=== PATIENT | female | born 1935 | race American Indian/Alaskan Native ===

== ENCOUNTER 2017-03-02 15:28 | Emergency (ER) | payer MEDICARE ==
--- NOTE | 2017-03-02 20:11 | XRay Report ---
FINAL REPORT EXAM: XR SPINE LUMBOSACRAL 2-3V HISTORY: unwitnessed fall,dementia TECHNIQUE: Lumbar spine two views PRIORS: None. FINDINGS: Exam is somewhat limited. Positioning is suboptimal Skeletal structures are diffusely osteopenic There is compression deformity at L1, L4 and L5 age indeterminate. There is marked disc space narrowing at T12-L1 L2-L3. No evidence for spondylolisthesis. Evaluation of posterior elements is somewhat limited on the exam. Aortoiliac atherosclerotic calcifications are identified. Multiple calcifications in the pelvis likely indicate calcified uterine fibroids IMPRESSION: . Limited exam. Marked osteopenia Compression fractures L1-L4 L5 age indeterminate
--- NOTE | 2017-03-02 20:19 | Cat Scan Report ---
FINAL REPORT EXAM: CT HEAD/BRAIN WO CON HISTORY: unwitnessed fall,dementia TECHNIQUE: CT head without contrast PRIORS: None. FINDINGS: No acute intra-axial or extra-axial hemorrhage is identified. There is no evidence of midline shift or mass effect. There is generalized prominence of ventricles and sulci consistent with mild generalized atrophy. Tamez-white matter differentiation is intact. No acute parenchymal abnormalities seen. There are patchy and confluent hypodensities within the supratentorial white matter. Bony calvarium is grossly intact. Visualized portions of the mastoids and paranasal sinuses are unremarkable. IMPRESSION: Chronic small vessel white matter ischemic change Mild generalized atrophy
--- NOTE | 2017-03-02 20:33 | Cat Scan Report ---
FINAL REPORT EXAM: CT CERVICAL SPINE WO CON HISTORY: unwitnessed fall,dementia TECHNIQUE: CT cervical spine with reconstructions PRIORS: None. FINDINGS: There is limitation due to patient positioning. Skeletal structures are osteopenic. There is compression deformity at C5 and C6 age-indeterminate. There are bridging vertebral body osteophytes lower cervical spine. Multilevel facet joint arthropathy is present. The vertebral bodies are normal in alignment. IMPRESSION: Osteopenia Loss of height with compression fractures C5-C6 age indeterminate. Spondylosis with prominent osteophytes lower cervical spine and multilevel facet joint arthropathy
--- NOTE | 2017-03-02 20:37 | XRay Report ---
FINAL REPORT EXAM: XR FEMUR BILAT 2+V HISTORY: unwitnessed fall,dementia TECHNIQUE: Left femur AP and lateral views PRIORS: None. FINDINGS: Positioning is suboptimal patient is unable to optimally position the exam. Skeletal structures are markedly osteopenic demonstrated are fractures of the proximal tibia and fibula. These appear corticated or partially corticated and likely remote. There is a history of injury 1 year previously. Atherosclerotic vascular calcifications are noted. Hip appears intact. IMPRESSION: Fractures of the proximal tibia and fibula with angulation. These appear likely chronic and there is some bony callus formation noted. Marked osteopenia Atherosclerosis
--- NOTE | 2017-03-02 20:39 | XRay Report ---
FINAL REPORT EXAM: XR TIB/FIB BILAT 2V HISTORY: unwitnessed fall,dementia TECHNIQUE: Left tibia-fibula two views PRIORS: None. FINDINGS: Fractures the proximal tibia and fibula with deformity and bony callus formation present further described on today's femur series. There is history of injury 1 year prior. Skeletal structures are markedly osteopenic. Grade there is a transverse fracture through the distal fibula which appears acute or subacute. There is also some bony deformity of the distal tibia which may reflect additional acute or subacute fracture. And there is some soft tissue swelling at the ankle. IMPRESSION: Fractures of the proximal tibia and fibula with deformity and bony callus appear chronic Suspect acute fractures through the distal tibia and fibula Severe osteopenia
--- NOTE | 2017-03-02 20:43 | XRay Report ---
FINAL REPORT EXAM: XR FOREARM BILAT 2V HISTORY: unwitnessed fall,dementia TECHNIQUE: Left forearm and right forearm PRIORS: None. FINDINGS: Skeletal structures are markedly osteopenic. No acute fractures are identified. Atherosclerotic vascular calcifications are noted. No evidence for dislocation. IMPRESSION: Severe osteopenia Atherosclerosis
--- NOTE | 2017-03-02 20:47 | XRay Report ---
FINAL REPORT EXAM: XR HUMERUS BILAT 2+V HISTORY: unwitnessed fall,dementia TECHNIQUE: Left humerus three views. And right humerus three views PRIORS: None. FINDINGS: Skeletal structures are osteopenic. There is corticated deformity of the proximal left humerus most consistent with a remote fracture no acute fracture or dislocation is identified. No evidence for effusion at the elbow. AC joint appears intact. IMPRESSION: Osteopenia. Remote fracture of the left humeral neck
--- NOTE | 2017-03-02 20:48 | XRay Report ---
FINAL REPORT EXAM: XR PELVIS 1-2V HISTORY: unwitnessed fall,dementia TECHNIQUE: AP pelvis PRIORS: None. FINDINGS: Exam is significantly limited due to inability to optimally position the patient. Within the limits of the exam no displaced fractures are identified. Multiple pelvic calcifications likely reflect calcified uterine fibroids. IMPRESSION: Severe osteopenia Limited exam. No definitive acute fracture identified
--- NOTE | 2017-03-02 21:10 | Emergency Department Report ---
ED Fall HPI - General Chief Complaint: Fall Stated Complaint: FALL Time Seen by Provider: 03/02/17 16:37 Source: EMS Mode of arrival: Stretcher Limitations: Physical Limitation (nonambulatory), Other (dementia/schizophrenia) - History of Present Illness Initial Comments: 81-year-old female past medical history CVA with residual right-sided deficit, schizophrenia, dementia, diabetes, and hypertension [facility] is nonambulatory. Per [facility] staff only reports the patient fell this morning. They did mobile x-rays of bilateral upper and lower extremities however, results are unknown. Patient was sent to the hospital per request of family member. Patient is unable to provide any history of present illness secondary to underlying dementia and schizophrenia. Mental status is baseline - Related Data Home Medications Medication Instructions Recorded Confirmed Last Taken Amlodipine Besylate [Norvasc] 10 mg PO DAILY 04/26/16 04/26/16 Unknown Divalproex Sprinkle [Depakote 125 mg PO BID PRN 04/26/16 04/26/16 Unknown Sprinkle] Ergocalciferol [Vitamin D2] 1 cap PO QWEEK 04/26/16 04/26/16 Unknown Ranitidine HCl [Acid Control] 150 mg PO Q12H 04/26/16 04/26/16 Unknown Previous Rx's Medication Instructions Recorded Last Taken Type HYDROcodone/APAP 7.5-325 [[place]] 15 ml PO Q4HR PRN #7 oz 04/30/16 Unknown Rx Levofloxacin 500Mg/100Ml [Levaquin 100 ml IV Q48H #2 bag 04/30/16 Unknown Rx IV PREMIX] Allergies Allergy/AdvReac Type Severity Reaction Status Date / Time No Known Allergies Allergy Verified 04/26/16 16:17 ED Review of Systems ROS: Stated complaint: FALL Other details as noted in HPI Comment: Unobtainable due to pts medical conditions ED Past Medical Hx - Past Medical History Previous Medical History?: Yes Hx Hypertension: Yes Hx CVA: Yes Hx Diabetes: Yes Hx Psychiatric Treatment: Yes (major depressive disorder, schizophrenia) Hx Dementia: Yes Additional medical history: anemia. left hand contracture. hemiplegia and hemiparesis. dementia - Surgical History Past Surgical History?: Yes Additional Surgical History: colostomy - Social History Smoking Status: Never Smoker Substance Use Type: None - Medications Home Medications: Home Medications Medication Instructions Recorded Confirmed Last Taken Type Amlodipine Besylate [Norvasc] 10 mg PO DAILY 04/26/16 04/26/16 Unknown History Divalproex Sprinkle [Depakote 125 mg PO BID PRN 04/26/16 04/26/16 Unknown History Sprinkle] Ergocalciferol [Vitamin D2] 1 cap PO QWEEK 04/26/16 04/26/16 Unknown History Ranitidine HCl [Acid Control] 150 mg PO Q12H 04/26/16 04/26/16 Unknown History HYDROcodone/APAP 7.5-325 [[place]] 15 ml PO Q4HR PRN #7 oz 04/30/16 Unknown Rx Levofloxacin 500Mg/100Ml [Levaquin 100 ml IV Q48H #2 bag 04/30/16 Unknown Rx IV PREMIX] ED Physical Exam - General Limitations: Altered Mental Status, Physical Limitation - Other Other exam information: General: No limitations, patient is alert in no acute distress Head exam: Atraumatic, normocephalic Eyes exam: Normal appearance ENT: Moist mucous membrane, normal oropharynx Neck exam: Normal inspection, full range of motion, no meningismus nontender Respiratory exam: Clear to auscultation bilateral Cardiovascular: Normal rate and rhythm, normal heart sounds Abdomen: Soft, nondistended, and nontender, with normal bowel sounds, no rebound, or guarding Extremity: Right sided hemiparesis Back: Normal Inspection, full range of motion, no tenderness Neurologic: Patient is alert, only moans and screams but no matter where she is touched. Right-sided hemiparesis noted with limited passive movement secondary to contracture Psychiatric: normal affect, normal mood Skin: Chronic wound to right foot ED Course Vital Signs 03/02/17 16:03 Temperature 98.4 F Pulse Rate 80 Respiratory 16 Rate Blood Pressure 132/64 O2 Sat by Pulse 97 Oximetry ED Medical Decision Making - Radiology Data Radiology results: report reviewed X-ray bilateral femur: fractures f the proximal tibia and fibula likely remote. Hip appears to be intact. sclerotic vascular calcifications. Marked osteopenia. Bilateral forearms: Severe osteopenia. No acute fracture X-ray bilateral humerus: remote fractures of the left humeral neck. Pelvis x-ray: Severe osteopenia. Limited exam. No definite acute fracture identified. X-ray lumbar spine: Limited exam. Marked osteopenia. Compression fractures at L1-L4, L5 age indeterminate Bilateral tib-fib x-ray: Chronic proximal tib-fib fracture on the right. Suspect acute fractures to the distal tip/fibula on the right. Severe osteopenia CT head: Chronic small vessel white matter ischemic change. Mild generalized atrophy CT cervical spine: Loss of height with compression fracture C5-C6 age indeterminate. - Medical Decision Making I suspect a proximal right tib-fib fracture is chronic and was visualized on CT scan in April 2016. Patient has severe osteopenia and multiple chronic fractures identified. Right distal tib-fib fracture appears to be subacute to acute. Patient has a chronic wound on this foot and will be placed in a Velcro splint. Patient has indeterminate age compression fractures of the C and L- spine. Follow-up fully recommended. Patient is not ambulatory. [facility] Niece at bedside informed of findings and dispo NH plan. Pt will be sent back with imaging reports. - Differential Diagnosis fracture, contusion, sprain, ICH Critical Care Time: No Critical care attestation.: If time is entered above; I have spent that time in minutes in the direct care of this critically ill patient, excluding procedure time. ED Disposition Clinical Impression: Fracture of right ankle, Fall, History of CVA with residual deficit, Right sided weakness, Dementia, Cervical compression fracture, Lumbar compression fracture Disposition: - TO HOME OR SELFCARE Is pt being admited?: No Does the pt Need Aspirin: No Condition: Stable Instructions: Ankle Fracture (ED) Additional Instructions: follow up with the orthopedic doctor provided for further evaluation of findings identified on xrays and ct scan. Return if symptoms worsen. Referrals: PRITI GARZA MD [Staff Physician] - 3-5 Days (orthopedic) Time of Disposition: 21:14
[2017-03-02 21:53] VITALS: BP 129/61
== END 2017-03-03 | disposition home or self-care (01) ==
LOC: ED 15:28
DX: S82.102A Unspecified fracture of upper end of left tibia, initial encounter for closed fracture (principal); S82.832A Other fracture of upper and lower end of left fibula, initial encounter for closed fracture; S42.292A Other displaced fracture of upper end of left humerus, initial encounter for closed fracture; M48.56XA Collapsed vertebra, not elsewhere classified, lumbar region, initial encounter for fracture; M48.52XA Collapsed vertebra, not elsewhere classified, cervical region, initial encounter for fracture; F03.90 Unspecified dementia, unspecified severity, without behavioral disturbance, psychotic disturbance, mood disturbance, and anxiety; R53.1 Weakness; I10 Essential (primary) hypertension; E11.9 Type 2 diabetes mellitus without complications; I63.9 Cerebral infarction, unspecified; D64.9 Anemia, unspecified; W19.XXXA Unspecified fall, initial encounter; Y93.9 Activity, unspecified; Y99.9 Unspecified external cause status; Y92.89 Other specified places as the place of occurrence of the external cause
CPT/HCPCS: 70450; 72100; 72125; 72170

== ENCOUNTER 2017-05-05 14:14 | Inpatient (IN) | payer MEDICARE, MEDICAID ==
[2017-05-05] MEDS ORDERED: NACL 0.9% 500 ML 500 ML IV ONE ×2 (15:27→18:47)
[2017-05-05] MEDS ORDERED: NACL 0.9% 1000 ML 2,000 ML ONE (15:31)
[2017-05-05] MEDS ORDERED: ADRENALIN IV ONE (15:42)
[2017-05-05] MEDS ORDERED: NACL 0.9% 1000 ML 1,000 ML IV ONE (15:42)
[2017-05-05] MEDS ORDERED: QUELICIN IV ONE (15:43)
[2017-05-05] MEDS ORDERED: AMIDATE IV ONE ×2 (15:43→15:45)
[2017-05-05] MEDS ORDERED: QUELICIN ONE (15:45)
[2017-05-05] MEDS ORDERED: ATROPINE IV ONE (16:00)
[2017-05-05 16:16] LABS: INR 1.35 (0.87-1.13)
[2017-05-05] MEDS ORDERED: LEVAQUIN 750MG/150ML 750 MG/150 ML BAG IV ONE (16:24)
[2017-05-05] MEDS ORDERED: ARTIFICIAL TEARS OPHTH OINT OU PRN (16:25)
[2017-05-05] MEDS ORDERED: VASELINE LIP THERAPY TP PRN (16:25)
[2017-05-05 16:26] LABS: ISTAT Base Excess -25; ISTAT HCO3 7.7; ISTAT PCO2 39.1 (35-45); ISTAT PH 6.903 (7.35-7.45); ISTAT PO2 572 (80-105); ISTAT SO2 100; ISTAT TCO2 9
[2017-05-05 16:28] LABS: Alanine Aminotransferase 12 units/L (7-56); Albumin 2.1 g/dL (3.9-5); Albumin/Globulin Ratio 0.4 %; Alkaline Phosphatase 132 units/L (35-129); BUN/Creatinine Ratio 19; Bilirubin,Total < 0.20 mg/dL (0.1-1.2); Blood Urea Nitrogen 49 mg/dL (7-17); Calcium 8.6 mg/dL (8.4-10.2); Chloride 119.8 mmol/L (98-107); Glucose 124 mg/dL (65-100); Sodium 150 mmol/L (137-145); Total Protein 6.9 g/dL (6.3-8.2)
[2017-05-05 16:30] LABS: Creatine Kinase MB 2.1 ng/mL (0.0-4.0)
[2017-05-05 16:31] LABS: Magnesium 2.7 mg/dL (1.7-2.3)
[2017-05-05 16:35] LABS: Potassium 8.6 mmol/L (3.6-5.0)
[2017-05-05 16:36] LABS: Anion Gap 32 mmol/L; Carbon Dioxide 7 mmol/L (22-30)
[2017-05-05] MEDS ORDERED: D50W (25GM) Vial IV ONE (16:52)
[2017-05-05] MEDS ORDERED: NACL 0.9% IV ONE (16:53)
[2017-05-05] MEDS ORDERED: SODIUM BICARBONATE IV ONE ×2 (16:53→18:00)
[2017-05-05] MEDS ORDERED: CALCIUM GLUCONATE IV ONE (16:53)
[2017-05-05] MEDS ORDERED: PROVENTIL IH ONE (16:55)
[2017-05-05] MEDS ORDERED: SODIUM BICARBONATE PEDIATRIC ONE (17:01)
[2017-05-05] MEDS ORDERED: D50W (25GM) Vial 50 ML IV ONE (17:03)
[2017-05-05 17:21] LABS: Mean Corpuscular HGB Conc 28 % (30-34); Mean Corpuscular Hemoglobin 30 pg (28-32); Mean Corpuscular Volume 109 fl (79-97); Platelet Count 308 K/mm3 (140-440); Red Blood Count 2.09 M/mm3 (3.65-5.03)
[2017-05-05 17:22] LABS: Hematocrit 22.8 % (30.3-42.9); Hemoglobin 6.3 gm/dl (10.1-14.3)
[2017-05-05] MEDS ORDERED: ZOSYN/NS 4.5GM/100ML 4.5 GM/100 ML VIAL IV ONE (17:30)
[2017-05-05] MEDS ORDERED: KIONEX PO ONE (17:36)
--- NOTE | 2017-05-05 17:40 | Consultation ---
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 No family at bedside. Patient subsequently developed respiratory distress in E.R and required intubation. Pertinent labs revealed severe lactic acidosis with a lactate level of 12, severe metabolic acidosis with a CO2 level of 7, severe Anemia with a hemoglobin level of 6.3, severe hyperkalemia with a potassium level of 8.6, Hypernatremia with a sodium level of 150 and elevated serum creatinine of 2.6 above baseline of 2.1. We are being consulted for management of this patient's multiple electrolyte abnormalities and Acute on Chronic kidney Disease. Past History Past Medical History: anemia, hypertension, renal failure Past Surgical History: Other (Right AKA) Social history: no significant social history Family history: no significant family history Medications and Allergies Allergies Allergy/AdvReac Type Severity Reaction Status Date / Time No Known Allergies Allergy Verified 05/05/17 15:14 Home Medications Medication Instructions Recorded Confirmed Last Taken Type Amlodipine Besylate [Norvasc] 10 mg PO DAILY 04/26/16 04/13/17 04/12/17 History Divalproex Sprinkle [Depakote 125 mg PO BID PRN 04/26/16 04/13/17 04/12/17 History Sprinkle] Ergocalciferol [Vitamin D2] 1 cap PO QWEEK 04/26/16 04/13/17 04/09/17 History Ranitidine HCl [Acid Control] 150 mg PO Q12H 04/26/16 04/13/17 04/12/17 History HYDROcodone/APAP 7.5-325 [[place] 15 ml PO Q4HR PRN #7 oz 04/30/16 04/13/17 Rx 7.5-325 mg per 15 ML] HYDROcodone/APAP 7.5-325 [[place]] 15 ml PO Q4HR PRN 5 Days oz 04/19/17 Unknown Rx Potassium Chloride 40 meq FEEDTUBE QDAY packet 04/19/17 Unknown Rx Active Meds: Active Medications Hydrophilic Ointment (Vaseline Lip Therapy) 1 applic TP Q2HR PRN PRN Reason: Dry Lips Levofloxacin/Dextrose (Levaquin 750mg/150ml) 750 mg in 150 mls @ 100 mls/hr IV ONCE ONE Stop: 05/05/17 17:53 Piperacillin Sod/Tazobactam Sod (Zosyn/Ns 4.5gm/100ml) 4.5 gm in 100 mls @ 200 mls/hr IV ONCE.ED ONE Stop: 05/05/17 17:59 Calcium Gluconate 1,000 mg/ (Sodium Chloride) 110 mls @ 660 mls/hr IV ONCE.ED ONE Stop: 05/05/17 18:09 Sodium Bicarbonate 150 meq/ (Dextrose) 1,150 mls @ 150 mls/hr IV DIRECT BRENDA Multi-Ingred Cream/Lotion/Oil/Oint (Artificial Tears Ophth Oint) 1 applic OU Q4HR PRN PRN Reason: Dry Eye(s) Sodium Bicarbonate (Sodium Bicarbonate) 100 meq IV ONCE ONE Stop: 05/05/17 18:01 Sodium Chloride (Nacl 0.9% 500 Ml) 1 ml IV DIRECT BERNDA Stop: 05/05/17 23:00 Review of Systems ROS unobtainable: due to endotracheal tube, due to mental status Exam - Vital Signs Vital signs: Vital Signs Pulse Resp BP Pulse Ox 40 L 12 75/49 100 05/05/17 15:00 05/05/17 15:00 05/05/17 15:00 05/05/17 15:00 - General Appearance General appearance: intubated, other (Patient is intubated but awake) EENT: ATNC Neck: Present: neck supple Respiratory: Decreased Breath Sounds Heart: regular, S1S2 Gastrointestinal: Present: normoactive bowel sounds, other (Patient has colostomy bag with protruding stoma) Integumentary: warm and dry Neurologic: other (Intuabted but awake) Musculoskeletal: Present: other (Has right AKA, no edema) Results - Lab Results 05/05/17 17:00 05/05/17 15:38 Most recent lab results Calcium 8.6 mg/dL (8.4-10.2) 05/05/17 15:38 Magnesium 2.70 mg/dL (1.7-2.3) H 05/05/17 15:38 Assessment and Plan - Patient Problems (1) Respiratory failure Current Visit: Yes Status: Acute Plan to address problem: Intubated on vent support (2) ALEKSANDER (acute kidney injury) Current Visit: No Status: Acute Plan to address problem: Renal function reviewed. Serum creatinine 2.6. Patient has Chronic Kidney Disease with baseline serum creatinine 2.1. Now with acute component of renal failure secondary to Ischemic ATN vs Prerenal etiology Consult has been placed to Vascular Surgeon Dr. Hernadez for vascular cath placement and STAT hemodialysis orders has been placed given Hyperkalemia Will place patient on Sodium Bicarbonate drip Recheck potassium levels post-dialysis Obtain daily weights Obtain urine lytes Obtain renal ultrasound Renally dose medications Avoid Nephrotoxic agents Monitor I/O's Monitor renal function closely (3) Lactic acidosis Current Visit: Yes Status: Acute Plan to address problem: Continue hydration (4) Metabolic acidosis Current Visit: Yes Status: Acute Plan to address problem: On D5W with 150 meq of Sodium Bicarbonate@ 150 ml/hr (5) Hyperkalemia Current Visit: Yes Status: Acute Plan to address problem: Hemodialysis today once vasc cath is placed Received anti-potassium coctail- D50/Calcium Gluconate/Sodium Bicarbonate (6) Anemia Current Visit: No Status: Acute Qualifiers: Anemia type: due to chronic kidney disease Chronic kidney disease stage: stage 4 (severe) Qualified Code(s): N18.4 - Chronic kidney disease, stage 4 ( severe); D63.1 - Anemia in chronic kidney disease; D63.1 - Anemia in chronic kidney disease Plan to address problem: Will order 2 units of PRBC's- can be transfused with HD today (7) Hypernatremia Current Visit: Yes Status: Acute Plan to address problem: Continue IV hydration
[2017-05-05 17:58] LABS: Blastocytes % (Manual) 0 %
[2017-05-05 17:59] LABS: Basophils % (Manual) 0 % (0.0-1.8); Eosinophils % (Manual) 0 % (0.0-4.3); Large Platelets Few; Platelet Estimate Consistent w Auto
[2017-05-05 18:00] LABS: Anisocytosis 1+; Platelet Clumps Rare
[2017-05-05] MEDS ORDERED: CALCIUM GLUCONATE 1,000 MG in NACL 0.9% 100 ML IV ONE (18:00)
[2017-05-05] MEDS ORDERED: NACL 0.9% 500 ML IV SCH (18:00)
[2017-05-05] MEDS ORDERED: D5W 1,000 ML with SODIUM BICARBONATE 150 MEQ IV SCH (18:00)
--- NOTE | 2017-05-05 18:00 | Emergency Department Report ---
ED Shortness of Breath HPI - General Chief Complaint: Nausea/Vomiting/Diarrhea Stated Complaint: RESP DISTRESS Time Seen by Provider: 05/05/17 15:41 Source: EMS Mode of arrival: Stretcher Limitations: Other - History of Present Illness Initial Comments: 81-year-old female with a past medical history of bronchitis, CVA, dementia, diabetes, hypertension, schizophrenia, major depressive disorder, renal insufficiency, anemia, hemiplegia, and colostomy from [facility] retirement with respiratory distress after choking on food. O2 sat then dropped and patient was placed on oxygen by retirement. Patient presents to the ED unresponsive with a very weak bradycardic pulse. I was called to the bedside to evaluate patient. Patient was unresponsive with a wide complex bradycardic rhythm at least 20 on the monitor with no registering blood pressure. Patient did not have any peripheral access despite multiple attempts. Left femoral central line was placed. Patient received 1 mg of epinephrine and 1 mg atropine with improvement in heart rate and measurable blood pressure. Patient had a wide complex rhythm on a monitor without signs of ST elevation. Patient remained hypoxic despite nonrebreather therefore intubation was performed. Patient presented to the ER with paperwork stating that she has full code. alf was called and verified and the patient was full code prior to initiation of aggressive resuscitation efforts. After patient stabilization it was revealed that patient is enrolled in [facility] and had a DO NOT RESUSCITATE was signed on 04/30/2017. Family members presented to the bedside and initially unhappy with the fact that the DO NOT RESUSCITATE was not adequately communicated however they opted to continue aggressive measures and did not want to withdraw care at this time. Hospice status was rescinded. - Related Data Home Medications Medication Instructions Recorded Confirmed Last Taken Amlodipine Besylate [Norvasc] 10 mg PO DAILY 04/26/16 04/13/17 04/12/17 Divalproex Sprinkle [Depakote 125 mg PO BID PRN 04/26/16 04/13/17 04/12/17 Sprinkle] Ergocalciferol [Vitamin D2] 1 cap PO QWEEK 04/26/16 04/13/17 04/09/17 Ranitidine HCl [Acid Control] 150 mg PO Q12H 04/26/16 04/13/17 04/12/17 Previous Rx's Medication Instructions Recorded Last Taken Type HYDROcodone/APAP 7.5-325 [[place] 15 ml PO Q4HR PRN #7 oz 04/30/16 04/02/17 Rx 7.5-325 mg per 15 ML] HYDROcodone/APAP 7.5-325 [[place]] 15 ml PO Q4HR PRN 5 Days oz 04/19/17 Unknown Rx Potassium Chloride 40 meq FEEDTUBE QDAY packet 04/19/17 Unknown Rx Allergies Allergy/AdvReac Type Severity Reaction Status Date / Time No Known Allergies Allergy Verified 05/05/17 15:14 ED Review of Systems ROS: Stated complaint: RESP DISTRESS Other details as noted in HPI Comment: Unobtainable due to pts medical conditions ED Past Medical Hx - Past Medical History Hx Hypertension: Yes Hx CVA: Yes Hx Heart Attack/AMI: No Hx Diabetes: Yes Hx GERD: Yes Hx Renal Disease: Yes (renal insufficiency) Hx Arthritis: Yes Hx Psychiatric Treatment: Yes (major depressive disorder, schizophrenia) Hx Dementia: Yes Hx HIV: No Additional medical history: anemia. left hand contracture. hemiplegia and hemiparesis. dementia - Surgical History Additional Surgical History: colostomy. Right AKA - Social History Smoking Status: Former Smoker - Medications Home Medications: Home Medications Medication Instructions Recorded Confirmed Last Taken Type Amlodipine Besylate [Norvasc] 10 mg PO DAILY 04/26/16 04/13/17 04/12/17 History Divalproex Sprinkle [Depakote 125 mg PO BID PRN 04/26/16 04/13/17 04/12/17 History Sprinkle] Ergocalciferol [Vitamin D2] 1 cap PO QWEEK 04/26/16 04/13/17 04/09/17 History Ranitidine HCl [Acid Control] 150 mg PO Q12H 04/26/16 04/13/17 04/12/17 History HYDROcodone/APAP 7.5-325 [[place] 15 ml PO Q4HR PRN #7 oz 04/30/16 04/13/17 Rx 7.5-325 mg per 15 ML] HYDROcodone/APAP 7.5-325 [[place]] 15 ml PO Q4HR PRN 5 Days oz 04/19/17 Unknown Rx Potassium Chloride 40 meq FEEDTUBE QDAY packet 04/19/17 Unknown Rx ED Physical Exam - General Limitations: Other - Other Other exam information: General: Unresponsive Head exam: Atraumatic Eyes exam: Normal appearance, pupils equal reactive to light ENT: Moist mucous membrane Neck exam: Normal inspection Respiratory exam: Respiratory distress, bilateral rhonchi left greater than right Cardiovascular: Bradycardic, palpable pulses Abdomen: Soft, nondistended, colostomy Extremity: No spontaneous movement, right AKA Back: Normal Inspection Neurologic: Obtunded, no spontaneous movement, no withdrawal from pain ED Course Vital Signs 05/05/17 05/05/17 05/05/17 15:00 15:04 15:23 Temperature Pulse Rate 40 L 40 L 88 Pulse Rate [ Anterior Bilateral Throughout] Respiratory 12 Rate Respiratory Rate [Anterior Bilateral Throughout] Blood Pressure 75/49 Blood Pressure 75/39 170/71 [Left] O2 Sat by Pulse 100 Oximetry 05/05/17 05/05/17 05/05/17 15:34 15:38 15:55 Temperature Pulse Rate 80 67 80 Pulse Rate [ Anterior Bilateral Throughout] Respiratory Rate Respiratory Rate [Anterior Bilateral Throughout] Blood Pressure Blood Pressure 122/59 90/49 212/88 [Left] O2 Sat by Pulse Oximetry 05/05/17 05/05/17 05/05/17 16:00 16:16 16:25 Temperature Pulse Rate 62 57 L 72 Pulse Rate [ Anterior Bilateral Throughout] Respiratory 16 15 Rate Respiratory Rate [Anterior Bilateral Throughout] Blood Pressure 106/43 115/51 Blood Pressure [Left] O2 Sat by Pulse 70 L 97 100 Oximetry 05/05/17 05/05/17 05/05/17 16:30 16:46 17:00 Temperature Pulse Rate 55 L 57 L 58 L Pulse Rate [ Anterior Bilateral Throughout] Respiratory 16 21 22 Rate Respiratory Rate [Anterior Bilateral Throughout] Blood Pressure 106/43 113/36 113/36 Blood Pressure [Left] O2 Sat by Pulse 100 97 97 Oximetry 05/05/17 05/05/17 05/05/17 17:07 17:15 17:30 Temperature Pulse Rate 75 76 Pulse Rate [ 56 L Anterior Bilateral Throughout] Respiratory 16 17 Rate Respiratory 16 Rate [Anterior Bilateral Throughout] Blood Pressure 115/41 115/41 Blood Pressure [Left] O2 Sat by Pulse 99 99 Oximetry 05/05/17 05/05/17 05/05/17 17:45 18:00 18:10 Temperature Pulse Rate 75 78 Pulse Rate [ 73 Anterior Bilateral Throughout] Respiratory 15 15 Rate Respiratory 17 Rate [Anterior Bilateral Throughout] Blood Pressure 111/50 107/50 Blood Pressure [Left] O2 Sat by Pulse 98 98 Oximetry 05/05/17 05/05/17 05/05/17 18:15 18:30 18:33 Temperature 91.4 F L Pulse Rate 79 73 Pulse Rate [ Anterior Bilateral Throughout] Respiratory 19 22 Rate Respiratory Rate [Anterior Bilateral Throughout] Blood Pressure 115/58 110/51 Blood Pressure [Left] O2 Sat by Pulse 97 98 Oximetry 05/05/17 05/05/17 05/05/17 18:34 18:45 18:54 Temperature 91.4 F L Pulse Rate 72 Pulse Rate [ Anterior Bilateral Throughout] Respiratory 21 Rate Respiratory Rate [Anterior Bilateral Throughout] Blood Pressure 114/51 Blood Pressure [Left] O2 Sat by Pulse 99 99 Oximetry 05/05/17 19:00 Temperature Pulse Rate 72 Pulse Rate [ Anterior Bilateral Throughout] Respiratory 22 Rate Respiratory Rate [Anterior Bilateral Throughout] Blood Pressure 108/50 Blood Pressure [Left] O2 Sat by Pulse 100 Oximetry - Reevaluation(s) Reevaluation #1: 05/05/17 Patient is a 1 L normal saline bolus and was obtaining her blood pressure without pressors. Labs revealed significant hyperkalemia and metabolic acidosis. She was initiated with calcium gluconate, albuterol, insulin, glucose , and sodium bicarbonate. - Consultations Consultation #1: 05/05/17 17:32 Char with nephrology was consulted. Agrees with sodium bicarbonate drip and will arrange for emergent dialysis. 17:44 EKG abnormality discussed with Dr. Jeronimo. Likely secondary to electrolyte abnormalities and no acute cardiac intervention required at this time. will consult 17:40: Case discussed with Dr. castelan button and buckle maker vascular surgeon. We'll come into the ED to place Vas-Cath for emergent dialysis - Central Line Placement Left Femoral Consent Obtained: emergent situation Time Out Performed: Yes Patient Placed on Monitor/Pulse Ox: Yes Prep: mask, gown, gloves Central Line Prep: Chlorhexidine scrub, sterile drapes applied Ultrasound Used for Placement: No Central Line Lumen Inserted: triple Bloods Obtained for Lab: Yes Central Line Position: good blood return, all ports aspirated, flus, sutured in place with nyl Dressing Applied: Tegaderm Patient Tolerated Procedure: well Complications: arterial puncture/cannula (puncture, pressure placed, no hematoma ) - Intubation Time Out Performed: Yes Sedative: Etomidate Mg Given: 20 Paralytic: Succinylcholine Mg Given: 100 Laryngoscope: Donna Size: 3 ET Tube Size: 7.5 Tube Secured Depth (cm): 22 Tube Secured Location: teeth Tube Placement Confirmation: visualized tube passing t, equal breath sounds bilat, no breath sounds over epi, confirmation by capnometr Patient Tolerated Procedure: well Intubation Complications: none ED Medical Decision Making - Lab Data Result diagrams: 05/05/17 17:00 05/05/17 15:38 Lab Results 05/05/17 05/05/17 05/05/17 Range/Units 15:38 15:38 15:38 WBC (4.5-11.0) K/mm3 RBC (3.65-5.03) M/mm3 Hgb (10.1-14.3) gm/dl Hct (30.3-42.9) % MCV (79-97) fl MCH (28-32) pg MCHC (30-34) % RDW (13.2-15.2) % Plt Count (140-440) K/mm3 Add Manual Diff Total Counted Seg Neuts % (Manual) (40.0-70.0) % Band Neutrophils % % Lymphocytes % (Manual) (13.4-35.0) % Reactive Lymphs % (Man) % Monocytes % (Manual) (0.0-7.3) % Eosinophils % (Manual) (0.0-4.3) % Basophils % (Manual) (0.0-1.8) % Metamyelocytes % % Myelocytes % % Promyelocytes % % Blast Cells % % Nucleated RBC % Seg Neutrophils # Man (1.8-7.7) K/mm3 Band Neutrophils # K/mm3 Lymphocytes # (Manual) (1.2-5.4) K/mm3 Abs React Lymphs (Man) K/mm3 Monocytes # (Manual) (0.0-0.8) K/mm3 Eosinophils # (Manual) (0.0-0.4) K/mm3 Basophils # (Manual) (0.0-0.1) K/mm3 Metamyelocytes # K/mm3 Myelocytes # K/mm3 Promyelocytes # K/mm3 Blast Cells # K/mm3 WBC Morphology Hypersegmented Neuts Hyposegmented Neuts Hypogranular Neuts Smudge Cells Toxic Granulation Toxic Vacuolation Dohle Bodies Pelger-Huet Anomaly Sandra Rods Platelet Estimate Clumped Platelets Plt Clumps, EDTA Large Platelets Giant Platelets Platelet Satelliting Plt Morphology Comment RBC Morphology Dimorphic RBCs Polychromasia Hypochromasia Poikilocytosis Anisocytosis Microcytosis Macrocytosis Spherocytes Pappenheimer Bodies Sickle Cells Target Cells Tear Drop Cells Ovalocytes Helmet Cells [place] Bodies Homeland Rings Ginny Cells Bite Cells Crenated Cell Elliptocytes Acanthocytes (Spur) Rouleaux Hemoglobin C Crystals Schistocytes Malaria parasites Shiraz Bodies Hem Pathologist Commnt PT 17.4 H (12.2-14.9) Sec. INR 1.35 H (0.87-1.13) POC ABG pH (7.35-7.45) POC ABG pCO2 (35-45) POC ABG pO2 (80-105) POC ABG HCO3 POC ABG Total CO2 POC ABG O2 Sat POC ABG Base Excess VBG pH (7.320-7.420) FiO2 % Sodium 150 H (137-145) mmol/L Potassium 8.6 H* (3.6-5.0) mmol/L Chloride 119.8 H (98-107) mmol/L Carbon Dioxide 7 L* (22-30) mmol/L Anion Gap 32 mmol/L BUN 49 H (7-17) mg/dL Creatinine 2.6 H (0.7-1.2) mg/dL Estimated GFR 21 ml/min BUN/Creatinine Ratio 19 % Glucose 124 H (65-100) mg/dL Lactic Acid 12.00 H* (0.7-2.0) mmol/L Calcium 8.6 (8.4-10.2) mg/dL Magnesium (1.7-2.3) mg/dL Total Bilirubin < 0.20 (0.1-1.2) mg/dL AST 36 (5-40) units/L ALT 12 (7-56) units/L Alkaline Phosphatase 132 H (35-129) units/L Total Creatine Kinase (30-135) units/L CK-MB (CK-2) (0.0-4.0) ng/mL CK-MB (CK-2) Rel Index (0-4) Troponin T (0.00-0.029) ng/mL Total Protein 6.9 (6.3-8.2) g/dL Albumin 2.1 L (3.9-5) g/dL Albumin/Globulin Ratio 0.4 % Triglycerides (2-149) mg/dL Cholesterol (50-199) mg/dL LDL Cholesterol Direct (50-130) mg/dL HDL Cholesterol (40-59) mg/dL Cholesterol/HDL Ratio % Blood Type Antibody Screen Crossmatch 05/05/17 05/05/17 05/05/17 Range/Units 15:38 15:38 15:38 WBC (4.5-11.0) K/mm3 RBC (3.65-5.03) M/mm3 Hgb (10.1-14.3) gm/dl Hct (30.3-42.9) % MCV (79-97) fl MCH (28-32) pg MCHC (30-34) % RDW (13.2-15.2) % Plt Count (140-440) K/mm3 Add Manual Diff Total Counted Seg Neuts % (Manual) (40.0-70.0) % Band Neutrophils % % Lymphocytes % (Manual) (13.4-35.0) % Reactive Lymphs % (Man) % Monocytes % (Manual) (0.0-7.3) % Eosinophils % (Manual) (0.0-4.3) % Basophils % (Manual) (0.0-1.8) % Metamyelocytes % % Myelocytes % % Promyelocytes % % Blast Cells % % Nucleated RBC % Seg Neutrophils # Man (1.8-7.7) K/mm3 Band Neutrophils # K/mm3 Lymphocytes # (Manual) (1.2-5.4) K/mm3 Abs React Lymphs (Man) K/mm3 Monocytes # (Manual) (0.0-0.8) K/mm3 Eosinophils # (Manual) (0.0-0.4) K/mm3 Basophils # (Manual) (0.0-0.1) K/mm3 Metamyelocytes # K/mm3 Myelocytes # K/mm3 Promyelocytes # K/mm3 Blast Cells # K/mm3 WBC Morphology Hypersegmented Neuts Hyposegmented Neuts Hypogranular Neuts Smudge Cells Toxic Granulation Toxic Vacuolation Dohle Bodies Pelger-Huet Anomaly Sandra Rods Platelet Estimate Clumped Platelets Plt Clumps, EDTA Large Platelets Giant Platelets Platelet Satelliting Plt Morphology Comment RBC Morphology Dimorphic RBCs Polychromasia Hypochromasia Poikilocytosis Anisocytosis Microcytosis Macrocytosis Spherocytes Pappenheimer Bodies Sickle Cells Target Cells Tear Drop Cells Ovalocytes Helmet Cells [place] Bodies Homeland Rings Ginny Cells Bite Cells Crenated Cell Elliptocytes Acanthocytes (Spur) Rouleaux Hemoglobin C Crystals Schistocytes Malaria parasites Shiraz Bodies Hem Pathologist Commnt PT (12.2-14.9) Sec. INR (0.87-1.13) POC ABG pH (7.35-7.45) POC ABG pCO2 (35-45) POC ABG pO2 (80-105) POC ABG HCO3 POC ABG Total CO2 POC ABG O2 Sat POC ABG Base Excess VBG pH 6.909 L* (7.320-7.420) FiO2 % Sodium (137-145) mmol/L Potassium (3.6-5.0) mmol/L Chloride (98-107) mmol/L Carbon Dioxide (22-30) mmol/L Anion Gap mmol/L BUN (7-17) mg/dL Creatinine (0.7-1.2) mg/dL Estimated GFR ml/min BUN/Creatinine Ratio % Glucose (65-100) mg/dL Lactic Acid (0.7-2.0) mmol/L Calcium (8.4-10.2) mg/dL Magnesium 2.70 H (1.7-2.3) mg/dL Total Bilirubin (0.1-1.2) mg/dL AST (5-40) units/L ALT (7-56) units/L Alkaline Phosphatase (35-129) units/L Total Creatine Kinase 33 (30-135) units/L CK-MB (CK-2) 2.1 (0.0-4.0) ng/mL CK-MB (CK-2) Rel Index 6.3 H (0-4) Troponin T 0.078 H (0.00-0.029) ng/mL Total Protein (6.3-8.2) g/dL Albumin (3.9-5) g/dL Albumin/Globulin Ratio % Triglycerides 137 (2-149) mg/dL Cholesterol 108 (50-199) mg/dL LDL Cholesterol Direct 13 L (50-130) mg/dL HDL Cholesterol 68 H (40-59) mg/dL Cholesterol/HDL Ratio 1.58 % Blood Type Antibody Screen Crossmatch 05/05/17 05/05/17 05/05/17 Range/Units 16:15 17:00 18:53 WBC 7.0 (4.5-11.0) K/mm3 RBC 2.09 L (3.65-5.03) M/mm3 Hgb 6.3 L (10.1-14.3) gm/dl Hct 22.8 L (30.3-42.9) % MCV 109 H (79-97) fl MCH 30 (28-32) pg MCHC 28 L (30-34) % RDW 19.0 H (13.2-15.2) % Plt Count 308 (140-440) K/mm3 Add Manual Diff Complete Total Counted 100 Seg Neuts % (Manual) 76.0 H (40.0-70.0) % Band Neutrophils % 0 % Lymphocytes % (Manual) 18.0 (13.4-35.0) % Reactive Lymphs % (Man) 0 % Monocytes % (Manual) 3.0 (0.0-7.3) % Eosinophils % (Manual) 0 (0.0-4.3) % Basophils % (Manual) 0 (0.0-1.8) % Metamyelocytes % 0 % Myelocytes % 3.0 % Promyelocytes % 0 % Blast Cells % 0 % Nucleated RBC % Not Reportable Seg Neutrophils # Man 5.3 (1.8-7.7) K/mm3 Band Neutrophils # 0.0 K/mm3 Lymphocytes # (Manual) 1.3 (1.2-5.4) K/mm3 Abs React Lymphs (Man) 0.0 K/mm3 Monocytes # (Manual) 0.2 (0.0-0.8) K/mm3 Eosinophils # (Manual) 0.0 (0.0-0.4) K/mm3 Basophils # (Manual) 0.0 (0.0-0.1) K/mm3 Metamyelocytes # 0.0 K/mm3 Myelocytes # 0.2 K/mm3 Promyelocytes # 0.0 K/mm3 Blast Cells # 0.0 K/mm3 WBC Morphology Not Reportable Hypersegmented Neuts Not Reportable Hyposegmented Neuts Not Reportable Hypogranular Neuts Not Reportable Smudge Cells Not Reportable Toxic Granulation Not Reportable Toxic Vacuolation Not Reportable Dohle Bodies Not Reportable Pelger-Huet Anomaly Not Reportable Sandra Rods Not Reportable Platelet Estimate Consistent w auto Clumped Platelets Rare Plt Clumps, EDTA Not Reportable Large Platelets Few Giant Platelets Not Reportable Platelet Satelliting Not Reportable Plt Morphology Comment Not Reportable RBC Morphology Not Reportable Dimorphic RBCs Not Reportable Polychromasia Not Reportable Hypochromasia Not Reportable Poikilocytosis Not Reportable Anisocytosis 1+ Microcytosis Not Reportable Macrocytosis Not Reportable Spherocytes Not Reportable Pappenheimer Bodies Not Reportable Sickle Cells Not Reportable Target Cells Not Reportable Tear Drop Cells Not Reportable Ovalocytes Not Reportable Helmet Cells Not Reportable [place] Bodies Not Reportable Homeland Rings Not Reportable [place] Cells Not Reportable Bite Cells Not Reportable Crenated Cell Not Reportable Elliptocytes Rare Acanthocytes (Spur) Not Reportable Rouleaux Not Reportable Hemoglobin C Crystals Not Reportable Schistocytes Rare Malaria parasites Not Reportable Shiraz Bodies Not Reportable Hem Pathologist Commnt No PT (12.2-14.9) Sec. INR (0.87-1.13) POC ABG pH 6.903 L (7.35-7.45) POC ABG pCO2 39.1 (35-45) POC ABG pO2 572 H (80-105) POC ABG HCO3 7.7 POC ABG Total CO2 9 POC ABG O2 Sat 100 POC ABG Base Excess -25 VBG pH (7.320-7.420) FiO2 100 % Sodium (137-145) mmol/L Potassium (3.6-5.0) mmol/L Chloride (98-107) mmol/L Carbon Dioxide (22-30) mmol/L Anion Gap mmol/L BUN (7-17) mg/dL Creatinine (0.7-1.2) mg/dL Estimated GFR ml/min BUN/Creatinine Ratio % Glucose (65-100) mg/dL Lactic Acid (0.7-2.0) mmol/L Calcium (8.4-10.2) mg/dL Magnesium (1.7-2.3) mg/dL Total Bilirubin (0.1-1.2) mg/dL AST (5-40) units/L ALT (7-56) units/L Alkaline Phosphatase (35-129) units/L Total Creatine Kinase (30-135) units/L CK-MB (CK-2) (0.0-4.0) ng/mL CK-MB (CK-2) Rel Index (0-4) Troponin T (0.00-0.029) ng/mL Total Protein (6.3-8.2) g/dL Albumin (3.9-5) g/dL Albumin/Globulin Ratio % Triglycerides (2-149) mg/dL Cholesterol (50-199) mg/dL LDL Cholesterol Direct (50-130) mg/dL HDL Cholesterol (40-59) mg/dL Cholesterol/HDL Ratio % Blood Type O POSITIVE Antibody Screen Negative Crossmatch See Detail - EKG Data -: EKG Interpreted by Me EKG shows normal: sinus rhythm (67), axis (-43), QRS complexes (174), ST-T waves (lbbb, lat t wave inver) - EKG Data When compared to previous EKG there are: previous EKG unavailable - Radiology Data Radiology results: report reviewed Chest x-ray: Right middle lobe infiltrate, increased interstitial markings, adequate ET tube placement - Medical Decision Making Patient given Levaquin initially for pneumonia additional antibodies to be ordered by hospitalist. The patient has significant anemia. Nephrology nurse ordered PRBCs. Patient receive a active warming for hypothermia. Patient's significant metabolic acidosis with a poor prognosis. She requires ICU admission. at disposition patient did not require pressure support - Differential Diagnosis sepsis, pneumonia, aspiration, PR, PE Critical Care Time: Yes Critical care time in (mins) excluding proc time.: 65 Critical care attestation.: If time is entered above; I have spent that time in minutes in the direct care of this critically ill patient, excluding procedure time. ED Disposition Clinical Impression: Above knee amputation of right lower extremity, Aspiration pneumonia, Sepsis, Hyperkalemia, Metabolic acidosis, Hypernatremia, Chronic renal insufficiency, Lactic acidosis, Elevated troponin, Hypotension, Hypothermia Anemia Qualifiers: Anemia type: due to chronic kidney disease Chronic kidney disease stage: stage 4 (severe) Qualified Code(s): N18.4 - Chronic kidney disease, stage 4 (severe) Disposition: OP ADMIT IP TO THIS HOSP Is pt being admited?: Yes Condition: Poor Time of Disposition: 18:00 (Dr mcbride/hosp)
[2017-05-05 18:01] LABS: Diff Status Complete; Elliptocytes Rare; Schistocytes Rare
--- NOTE | 2017-05-05 19:26 | History and Physical Report ---
History of Present Illness Date of examination: 05/05/17 Date of admission: 05/05/17 Chief complaint: shortness of breath vomiting History of present illness: Patient is 81-year-old with history of stroke, diabetes mellitus type 2, hypertension, chronic kidney disease, dementia, schizophrenia, major depressive disorder, and colostomy. She was sent in from [facility] [place] because of shortness of breath, respiratory distress and vomiting. She was hypoxic at SNF and put on Oxygen. On arrival in Emergency Department, she was unresponsive, weak bradycardic pulse. The ED Physician placed a left femoral central line and patient was given Epinephrine and improvement in heart rate and measurable blood pressure. Patient remained hypoxic despite nonrebreather therefore was intubated for acute respiratory failure. After intubation, it was later learned that patient was on hospice and had a DNR order signed just few days earlier on 04/30/17. The family then decided to rescind hospice and request continue aggresive care, full code status. Labs show acute on chronic kidney disease with hyperkalemia of Potassium 8.6, and severe metabolic acidosis. She was given Bicarb, Calcium iv, started on iv Antibiotics and will be admitted to ICU. Past History Past Medical History: anemia, diabetes, hypertension, renal failure, stroke, other (dementia) Past Surgical History: Other (Right AKA, colostomy) Social history: other (lives at [facility]). denies: smoking, alcohol abuse Family history: no significant family history Medications and Allergies Allergies Allergy/AdvReac Type Severity Reaction Status Date / Time No Known Allergies Allergy Verified 05/05/17 15:14 Home Medications Medication Instructions Recorded Confirmed Last Taken Type Amlodipine Besylate [Norvasc] 10 mg PO DAILY 04/26/16 05/06/17 04/12/17 History Divalproex Sprinkle [Depakote 125 mg PO BID 04/26/16 05/06/17 04/12/17 History Sprinkle] Ergocalciferol [Vitamin D2] 1 cap PO QWEEK 04/26/16 05/06/17 04/09/17 History Ranitidine HCl [Acid Control] 150 mg PO Q12H 04/26/16 05/06/17 04/12/17 History HYDROcodone/ACETAMINOPHEN 7.5 - 325 mg PO Q4H 05/06/17 05/06/17 Unknown History [Hydrocodon-Acetamin 7.5-325/15] Potassium Chloride 40 meq PO QDAY 05/06/17 05/06/17 Unknown History fentaNYL [Fentanyl] 50 mcg TRANSDERMA Q72H 05/06/17 05/06/17 Unknown History Active Meds: Active Medications Hydrophilic Ointment (Vaseline Lip Therapy) 1 applic TP Q2HR PRN PRN Reason: Dry Lips Sodium Bicarbonate 150 meq/ (Dextrose) 1,150 mls @ 150 mls/hr IV DIRECT BRENDA Multi-Ingred Cream/Lotion/Oil/Oint (Artificial Tears Ophth Oint) 1 applic OU Q4HR PRN PRN Reason: Dry Eye(s) Sodium Chloride (Nacl 0.9% 500 Ml) 1 ml IV DIRECT BRENDA Stop: 05/05/17 23:00 Review of Systems ROS unobtainable: due to endotracheal tube Exam - Physical Exam Narrative exam: GEN APPEARANCE : Not in acute distress, intubated HEENT: Normocephalic Atraumatic NECK : supple, no JVD LUNGS: clear to auscultation bilaterally, no rales, no wheeze HEART: S1 and S2 regular, no murmurs, rubs or gallop, ABD: Soft, no tenderness, coloostomy, no distension, normal bowel sounds EXT: Contractures, right AKA NEURO: Intubated, eyes open - Constitutional Vitals: Temp Pulse Resp BP Pulse Ox 91.4 F L 72 22 108/50 100 05/05/17 18:34 05/05/17 19:00 05/05/17 19:00 05/05/17 19:00 05/05/17 19:00 Results - Labs CBC & Chem 7: 05/06/17 04:00 05/06/17 04:00 Labs: Abnormal lab results 05/05/17 05/05/17 05/05/17 Range/Units 15:38 15:38 15:38 RBC (3.65-5.03) M/mm3 Hgb (10.1-14.3) gm/dl Hct (30.3-42.9) % MCV (79-97) fl MCHC (30-34) % RDW (13.2-15.2) % Seg Neuts % (Manual) (40.0-70.0) % PT 17.4 H (12.2-14.9) Sec. INR 1.35 H (0.87-1.13) POC ABG pH (7.35-7.45) POC ABG pO2 (80-105) VBG pH (7.320-7.420) Sodium 150 H (137-145) mmol/L Potassium 8.6 H* (3.6-5.0) mmol/L Chloride 119.8 H (98-107) mmol/L Carbon Dioxide 7 L* (22-30) mmol/L BUN 49 H (7-17) mg/dL Creatinine 2.6 H (0.7-1.2) mg/dL Glucose 124 H (65-100) mg/dL Lactic Acid 12.00 H* (0.7-2.0) mmol/L Magnesium (1.7-2.3) mg/dL Alkaline Phosphatase 132 H (35-129) units/L CK-MB (CK-2) Rel Index (0-4) Troponin T (0.00-0.029) ng/mL Albumin 2.1 L (3.9-5) g/dL LDL Cholesterol Direct (50-130) mg/dL HDL Cholesterol (40-59) mg/dL Crossmatch 05/05/17 05/05/17 05/05/17 Range/Units 15:38 15:38 15:38 RBC (3.65-5.03) M/mm3 Hgb (10.1-14.3) gm/dl Hct (30.3-42.9) % MCV (79-97) fl MCHC (30-34) % RDW (13.2-15.2) % Seg Neuts % (Manual) (40.0-70.0) % PT (12.2-14.9) Sec. INR (0.87-1.13) POC ABG pH (7.35-7.45) POC ABG pO2 (80-105) VBG pH 6.909 L* (7.320-7.420) Sodium (137-145) mmol/L Potassium (3.6-5.0) mmol/L Chloride (98-107) mmol/L Carbon Dioxide (22-30) mmol/L BUN (7-17) mg/dL Creatinine (0.7-1.2) mg/dL Glucose (65-100) mg/dL Lactic Acid (0.7-2.0) mmol/L Magnesium 2.70 H (1.7-2.3) mg/dL Alkaline Phosphatase (35-129) units/L CK-MB (CK-2) Rel Index 6.3 H (0-4) Troponin T 0.078 H (0.00-0.029) ng/mL Albumin (3.9-5) g/dL LDL Cholesterol Direct 13 L (50-130) mg/dL HDL Cholesterol 68 H (40-59) mg/dL Crossmatch 05/05/17 05/05/17 05/05/17 Range/Units 16:15 17:00 18:53 RBC 2.09 L (3.65-5.03) M/mm3 Hgb 6.3 L (10.1-14.3) gm/dl Hct 22.8 L (30.3-42.9) % MCV 109 H (79-97) fl MCHC 28 L (30-34) % RDW 19.0 H (13.2-15.2) % Seg Neuts % (Manual) 76.0 H (40.0-70.0) % PT (12.2-14.9) Sec. INR (0.87-1.13) POC ABG pH 6.903 L (7.35-7.45) POC ABG pO2 572 H (80-105) VBG pH (7.320-7.420) Sodium (137-145) mmol/L Potassium (3.6-5.0) mmol/L Chloride (98-107) mmol/L Carbon Dioxide (22-30) mmol/L BUN (7-17) mg/dL Creatinine (0.7-1.2) mg/dL Glucose (65-100) mg/dL Lactic Acid (0.7-2.0) mmol/L Magnesium (1.7-2.3) mg/dL Alkaline Phosphatase (35-129) units/L CK-MB (CK-2) Rel Index (0-4) Troponin T (0.00-0.029) ng/mL Albumin (3.9-5) g/dL LDL Cholesterol Direct (50-130) mg/dL HDL Cholesterol (40-59) mg/dL Crossmatch See Detail Assessment and Plan Acute respiratory failure. Admit to ICU. Intubated in Emergency Department. Consult [employer]ic. Repeat ABG after dialysis Anemia with Hgb 6.3. Transfuse 2 units PRBC and recheck. Check stool occult blood. Acute on chronic kidney disease with Uremia,metabolic acidosis. For dialysis today. For emergent dialysis catheter placement today. Nephrology Hyperkalemia. Potassium of 8.6. For emergent dialysis. Severe metabolic acidosis with CO2 of 7, from acute on CKD Lactic acidosis may be due to sepsis or non-infectious. Repeat. To r/o sepsis. Start Vancomycin, Zosyn and Levaquin iv S/p colostomy. Colostomy care History of stroke. Supportive care. Elevated Troponin. Cardiology consulted. Hypernatremia. To recheck after dialysis Full code status Patient was DNR and on hospice at SNF unknown to us, so was intubated. Now family rescind hospice and want aggressive therapy and full code status.
[2017-05-05] MEDS ORDERED: MILK OF MAGNESIA PO PRN (19:28)
[2017-05-05] MEDS ORDERED: DULCOLAX PR PRN (19:28)
[2017-05-05] MEDS ORDERED: ALUM-MAG HYDROX-SIMETH 200-200-20MG/5ML PO PRN (19:28)
[2017-05-05] MEDS ORDERED: MORPHINE IV PRN (19:28)
[2017-05-05] MEDS ORDERED: VANCOMYCIN VIAL IV ONE (19:38)
[2017-05-05] MEDS ORDERED: HEPARIN IV PRN (19:48)
[2017-05-05] MEDS ORDERED: VANCOMYCIN PHARMACY TO DOSE IV SCH (20:00)
[2017-05-05] MEDS ORDERED: VANCOMYCIN 1,250 MG in NACL 0.9% 250ML 250 ML IV ONE (20:30)
[2017-05-05] MEDS ORDERED: ZOSYN/NS 4.5GM/100ML 4.5 GM/100 ML VIAL IV SCH (22:00)
--- NOTE | 2017-05-05 23:03 | XRay Report ---
FINAL REPORT EXAM: XR CHEST 1V AP HISTORY: s/p vascath right ij TECHNIQUE: AP portable view of the chest PRIORS: None. FINDINGS: Lines, tubes, and devices: Endotracheal tube terminates above the aortic arch. Nasogastric tube is off the edge of the film below the left diaphragm, likely in the stomach. A right jugular catheter terminates in the distal superior vena cava. Lungs and pleura: Patient is rotated to the left. Trachea is normal in position. Lungs are clear of infiltrate, pleural effusion, vascular congestion, or pneumothorax. Cardiomediastinal silhouette: Cardiac and mediastinal silhouettes are unremarkable. Calcification overlying heart is likely related to mitral valve annular calcification. Other: Bony structures a remote healed fracture of the right humeral neck. IMPRESSION: Satisfactory right jugular catheter placement without pneumothorax
[2017-05-05 23:40] LABS: Creatine Kinase MB 18.1 ng/mL (0.0-4.0)
[2017-05-06] MEDS ORDERED: NACL 0.9% 250ML 250 ML IV ONE
[2017-05-06] MEDS ORDERED: NACL 0.9% 250ML 250 ML ONE (04:47)
[2017-05-06] MEDS: ZOFRAN IV PRN ×2 (05:05→10:03)
[2017-05-06] MEDS: ZOSYN/NS 2.25 GM/50ML 2.25 GM/50 ML BAG IV SCH ×3 (05:50→21:25)
[2017-05-06 06:25] LABS: Hematocrit 23.6 % (30.3-42.9); Hemoglobin 7.4 gm/dl (10.1-14.3); Mean Corpuscular HGB Conc 32 % (30-34); Mean Corpuscular Hemoglobin 29 pg (28-32); Mean Corpuscular Volume 91 fl (79-97); Platelet Count 179 K/mm3 (140-440); Red Blood Count 2.59 M/mm3 (3.65-5.03); White Blood Count 17.3 K/mm3 (4.5-11.0)
[2017-05-06 06:27] LABS: Red Cell Distribution Width 22.3 % (13.2-15.2)
[2017-05-06 06:32] LABS: Creatine Kinase MB 32.9 ng/mL (0.0-4.0)
[2017-05-06 06:36] LABS: Albumin 1.8 g/dL (3.9-5); Albumin/Globulin Ratio 0.4 %; Bilirubin,Total 0.4 mg/dL (0.1-1.2); Calcium 7.1 mg/dL (8.4-10.2); Chloride 117.2 mmol/L (98-107); Phosphorous 1.9 mg/dL (2.5-4.5); Potassium 4.8 mmol/L (3.6-5.0); Total Protein 5.9 g/dL (6.3-8.2)
--- NOTE | 2017-05-06 06:46 | Consultation ---
History of Present Illness Consult date: 05/06/17 Requesting physician: SOLANGE WEIR Reason for consult: other History of present illness: unfortunate case of a contracted, 81 y/o from a snf admitted with cardiac arrest and acute respiratory failure secondary to hyperkalemia and metabolic acidosis. Patient is currently orally intubated, which happened in the ED. Apparently there was miscommunication between the longterm, EMS and ED as patient was set a s full code. Once she was resuscitated, per report , it was found that she was actually a DNR. Family has been notified and apparently were upset but none at the bedside currently. Patient appears to be awake, however she would not follow any of my commands. She is not on any vasopressor therapy. RT was unable to obtain an ABG on patient this am. Last ABG documented was from 16:00 yesterday and a the pH was 6.9. Patient had been started on bicarb drip, had vascath placed and was dialyzed last night/this am for 4 hours. Past History Past Medical History: anemia, hypertension, renal failure Past Surgical History: Other (Right AKA) Social history: no significant social history Family history: no significant family history Medications and Allergies Allergies Allergy/AdvReac Type Severity Reaction Status Date / Time No Known Allergies Allergy Verified 05/05/17 15:14 Home Medications Medication Instructions Recorded Confirmed Last Taken Type Amlodipine Besylate [Norvasc] 10 mg PO DAILY 04/26/16 04/13/17 04/12/17 History Divalproex Sprinkle [Depakote 125 mg PO BID PRN 04/26/16 04/13/17 04/12/17 History Sprinkle] Ergocalciferol [Vitamin D2] 1 cap PO QWEEK 04/26/16 04/13/17 04/09/17 History Ranitidine HCl [Acid Control] 150 mg PO Q12H 04/26/16 04/13/17 04/12/17 History HYDROcodone/APAP 7.5-325 [[place] 15 ml PO Q4HR PRN #7 oz 04/30/16 04/13/17 Rx 7.5-325 mg per 15 ML] HYDROcodone/APAP 7.5-325 [[place]] 15 ml PO Q4HR PRN 5 Days oz 04/19/17 Unknown Rx Potassium Chloride 40 meq FEEDTUBE QDAY packet 04/19/17 Unknown Rx Active Meds: Active Medications Al Hydrox/Mg Hydrox/Simethicone (Alum-Mag Hydrox-Simeth 305-204-62uw/5ml) 30 ml PO Q4H PRN PRN Reason: Indigestion Bisacodyl (Dulcolax) 10 mg DC QDAY PRN PRN Reason: constipation unrelieved by MOM Heparin Sodium (Porcine) (Heparin) 5,000 unit IV MO PRN PRN Reason: hemodialysis Hydrophilic Ointment (Vaseline Lip Therapy) 1 applic TP Q2HR PRN PRN Reason: Dry Lips Sodium Bicarbonate 150 meq/ (Dextrose) 1,150 mls @ 150 mls/hr IV DIRECT BRENDA Levofloxacin/Dextrose (Levaquin 750mg/150ml) 750 mg in 150 mls @ 100 mls/hr IV ONCE ONE Stop: 05/06/17 11:29 Levofloxacin/Dextrose (Levaquin 500mg/100ml) 500 mg in 100 mls @ 100 mls/hr IV Q48H BRENDA Piperacillin Sod/Tazobactam Sod (Zosyn/Ns 2.25 Gm/50ml) 2.25 gm in 50 mls @ 100 mls/hr IV Q12HR BRENDA Magnesium Hydroxide (Milk Of Magnesia) 30 ml PO Q4H PRN PRN Reason: Constipation Morphine Sulfate (Morphine) 2 mg IV Q4H PRN PRN Reason: Pain, Moderate (4-6) Multi-Ingred Cream/Lotion/Oil/Oint (Artificial Tears Ophth Oint) 1 applic OU Q4HR PRN PRN Reason: Dry Eye(s) Ondansetron HCl (Zofran) 4 mg IV Q6H PRN PRN Reason: nausea or vomiting Last Admin: 05/06/17 05:05 Dose: 4 mg Vancomycin HCl (Vancomycin Pharmacy To Dose) 1 each IV PKCONSULT BRENDA PRN Reason: Protocol Review of Systems ROS unobtainable: due to endotracheal tube, due to mental status Physical Examination Vital signs: Vital Signs Pulse Resp BP Pulse Ox 40 L 12 75/49 100 05/05/17 15:00 05/05/17 15:00 05/05/17 15:00 05/05/17 15:00 General appearance: alert, appears uncomfortable Eyes: non-icteric ENT: oropharynx dry Neck: supple Effort: normal Ascultation: Bilateral: clear Percussion: Bilateral: not dull Cardiovascular: regular rate and rhythm Gastrointestinal: hypoactive bowel sounds, other (has a large ostomy bag, distended (the bag)) Extremities: other (contracted globally) Musculoskeletal: other (contracted) Gait: other (does not walk, bed bound) Results - Laboratory Findings CBC and BMP: 05/06/17 04:00 05/06/17 04:00 ABG POC ABG pH 6.903 (7.35-7.45) L 05/05/17 16:15 POC ABG pCO2 39.1 (35-45) 05/05/17 16:15 POC ABG pO2 572 (80-105) H 05/05/17 16:15 POC ABG HCO3 7.7 05/05/17 16:15 POC ABG Total CO2 9 05/05/17 16:15 POC ABG O2 Sat 100 05/05/17 16:15 PT/INR, D-dimer PT 17.4 Sec. (12.2-14.9) H 05/05/17 15:38 INR 1.35 (0.87-1.13) H 05/05/17 15:38 Abnormal lab findings: Abnormal Labs 05/05/17 05/05/17 05/05/17 15:38 15:38 15:38 WBC RBC Hgb Hct MCV MCHC RDW Seg Neuts % (Manual) PT 17.4 H INR 1.35 H POC ABG pH POC ABG pO2 VBG pH Sodium 150 H Potassium 8.6 H* Chloride 119.8 H Carbon Dioxide 7 L* BUN 49 H Creatinine 2.6 H Glucose 124 H POC Glucose Lactic Acid 12.00 H* Calcium Phosphorus Magnesium AST Alkaline Phosphatase 132 H Total Creatine Kinase CK-MB (CK-2) CK-MB (CK-2) Rel Index Troponin T Total Protein Albumin 2.1 L LDL Cholesterol Direct HDL Cholesterol Crossmatch 05/05/17 05/05/17 05/05/17 15:38 15:38 15:38 WBC RBC Hgb Hct MCV MCHC RDW Seg Neuts % (Manual) PT INR POC ABG pH POC ABG pO2 VBG pH 6.909 L* Sodium Potassium Chloride Carbon Dioxide BUN Creatinine Glucose POC Glucose Lactic Acid Calcium Phosphorus Magnesium 2.70 H AST Alkaline Phosphatase Total Creatine Kinase CK-MB (CK-2) CK-MB (CK-2) Rel Index 6.3 H Troponin T 0.078 H Total Protein Albumin LDL Cholesterol Direct 13 L HDL Cholesterol 68 H Crossmatch 05/05/17 05/05/17 05/05/17 16:15 17:00 18:53 WBC RBC 2.09 L Hgb 6.3 L Hct 22.8 L MCV 109 H MCHC 28 L RDW 19.0 H Seg Neuts % (Manual) 76.0 H PT INR POC ABG pH 6.903 L POC ABG pO2 572 H VBG pH Sodium Potassium Chloride Carbon Dioxide BUN Creatinine Glucose POC Glucose Lactic Acid Calcium Phosphorus Magnesium AST Alkaline Phosphatase Total Creatine Kinase CK-MB (CK-2) CK-MB (CK-2) Rel Index Troponin T Total Protein Albumin LDL Cholesterol Direct HDL Cholesterol Crossmatch See Detail 05/05/17 05/05/17 05/05/17 23:00 23:00 23:50 WBC RBC Hgb Hct MCV MCHC RDW Seg Neuts % (Manual) PT INR POC ABG pH POC ABG pO2 VBG pH Sodium Potassium Chloride Carbon Dioxide BUN Creatinine Glucose POC Glucose 185 H Lactic Acid 8.50 H* Calcium Phosphorus Magnesium AST Alkaline Phosphatase Total Creatine Kinase 189 H CK-MB (CK-2) 18.1 H CK-MB (CK-2) Rel Index 9.5 H Troponin T 0.346 H* D Total Protein Albumin LDL Cholesterol Direct HDL Cholesterol Crossmatch 05/06/17 05/06/17 05/06/17 04:00 04:00 05:43 WBC 17.3 H RBC 2.59 L Hgb 7.4 L Hct 23.6 L MCV MCHC RDW 22.3 H Seg Neuts % (Manual) PT INR POC ABG pH POC ABG pO2 VBG pH Sodium 154 H Potassium Chloride 117.2 H Carbon Dioxide 18 L D BUN 35 H Creatinine 1.6 H Glucose 133 H POC Glucose 141 H Lactic Acid Calcium 7.1 L D Phosphorus 1.90 L Magnesium AST 82 H Alkaline Phosphatase Total Creatine Kinase 350 H CK-MB (CK-2) 32.9 H CK-MB (CK-2) Rel Index 9.4 H Troponin T Total Protein 5.9 L Albumin 1.8 L LDL Cholesterol Direct HDL Cholesterol Crossmatch - Diagnostic Findings Chest x-ray: image reviewed (clear CXR, has vascular access seen and atherosclerosis in aorta) Assessment and Plan 81 y/o female with cardiac arrest, most likely secondary to hyperkalemia, extreme electrolyte imbalance, acute renal failure, acute vs chronic, acute respiratory failure. 1. Need to discuss with family what code status they wish to continue with. Patient, based on what I have read, appears to be better. Would like to attempt PSV trials and consider extubation but need to have an understanding of what goals of care would be. 2. Patient with elevation in troponin. Cards consulted. Doubt patient is a candiate for any type of invasive therapy. I suspect medical management most like. Follow up any new recs from them 3. Patient currently on broad spectrum abx therapy, had normal white count on admission, likely elevated now from stress of cardiac arrest. CXR is clear. Blood cultures pending and originally there was no urine available for sample. Will at least stop Vanc and suggest stopping the zosyn and the levaquin as well but will defer to primary team and their comfort level. 4. Renal Failure, unsure if present prior to admit or not. patient has not been here before or at least we have no prior Cr's for this patient. Follow up renal recs 5. Patient has had several episodes of emesis and patient has NG tube in to intermittent suction. Hold on all tube feed for now. Doubt a KUB will be helpful based on contractures of patient's legs and limited visability. 6. Lactic acidosis, elevated on admission at 12 last one at 11pm was 8. One should be drawn this am. Could be a combination of poor perfusion and lack of renal clearance. Hopeful will be lower this am. Given emesis, would need to rule out gut ischemia but less likely as the numbers are coming down with IVF's and improved clinical state. 6. Overall prognosis is guarded to poor CCT 31 minutes.
[2017-05-06 07:16] LABS: ISTAT Base Excess -6; ISTAT HCO3 18.7; ISTAT PCO2 27.7 (35-45); ISTAT PH 7.436 (7.35-7.45); ISTAT PO2 67 (80-105); ISTAT SO2 94; ISTAT TCO2 19
[2017-05-06 07:31] LABS: Anisocytosis 1+; Basophils % (Manual) 0 % (0.0-1.8); Blastocytes % (Manual) 0 %; Elliptocytes Few; Eosinophils % (Manual) 0 % (0.0-4.3); Microcytosis Few
[2017-05-06 07:32] LABS: Diff Status Complete; Large Platelets Few; Platelet Estimate Consistent w Auto
--- NOTE | 2017-05-06 08:14 | Progress Note ---
Assessment and Plan (1) Respiratory failure Current Visit: Yes Status: Acute Plan to address problem: Intubated on vent support (2) ALEKSANDER (acute kidney injury) Current Visit: No Status: Acute Plan to address problem: s/p vasctha placement and emergent HD yesterday no indication for HD today, will assess dialysis needs daily anuric per her nurse Obtain daily weights Renally dose medications Avoid Nephrotoxic agents Monitor I/O's Monitor renal function closely (3) Lactic acidosis Current Visit: Yes Status: Acute Plan to address problem: improving (4) Metabolic acidosis Current Visit: Yes Status: Acute Plan to address problem: now with respiratory alkalosis, will d/c bicarb gtt (5) Hyperkalemia Current Visit: Yes Status: Acute Plan to address problem: resolved with HD (6) Anemia Current Visit: No Status: Acute Qualifiers: Anemia type: due to chronic kidney disease Chronic kidney disease stage: stage 4 (severe) Qualified Code(s): N18.4 - Chronic kidney disease, stage 4 ( severe); D63.1 - Anemia in chronic kidney disease; D63.1 - Anemia in chronic kidney disease Plan to address problem: receiving second PRBC this AM (7) Hypernatremia Current Visit: Yes Status: Acute Plan to address problem: will switch IVF to 06/15 NS @ 75 cc/h CC time 32 minutes Subjective Date of service: 05/06/17 Interval history: patient is intubated, follows simple commands, no family at bedside Objective - Vital Signs Vital signs: Vital Signs - 12hr 05/05/17 05/05/17 05/05/17 20:20 20:30 20:40 Temperature Pulse Rate 75 73 71 Respiratory 22 21 23 Rate Blood Pressure 102/49 98/50 102/49 O2 Sat by Pulse 100 100 100 Oximetry O2 Sat by Pulse Oximetry [ Anterior Bilateral Throughout] 05/05/17 05/05/17 05/05/17 20:50 21:00 21:10 Temperature Pulse Rate 71 70 69 Respiratory 18 24 19 Rate Blood Pressure 106/53 99/48 106/53 O2 Sat by Pulse 100 100 100 Oximetry O2 Sat by Pulse Oximetry [ Anterior Bilateral Throughout] 05/05/17 05/05/17 05/05/17 21:20 21:30 21:40 Temperature Pulse Rate 68 68 67 Respiratory 20 17 25 H Rate Blood Pressure 106/53 106/53 106/53 O2 Sat by Pulse 100 100 100 Oximetry O2 Sat by Pulse Oximetry [ Anterior Bilateral Throughout] 05/05/17 05/05/17 05/05/17 21:50 22:00 22:10 Temperature Pulse Rate 69 71 74 Respiratory 16 20 20 Rate Blood Pressure 98/52 103/52 103/52 O2 Sat by Pulse 100 100 100 Oximetry O2 Sat by Pulse Oximetry [ Anterior Bilateral Throughout] 05/05/17 05/05/17 05/05/17 22:45 23:00 23:20 Temperature 92.1 F L 94.3 F L Pulse Rate 73 71 Respiratory 28 H Rate Blood Pressure 95/36 107/41 O2 Sat by Pulse Oximetry O2 Sat by Pulse 100 Oximetry [ Anterior Bilateral Throughout] 05/05/17 05/05/17 05/05/17 23:30 23:40 23:45 Temperature Pulse Rate 75 78 78 Respiratory 31 H Rate Blood Pressure 105/42 88/36 O2 Sat by Pulse 100 Oximetry O2 Sat by Pulse Oximetry [ Anterior Bilateral Throughout] 05/05/17 05/05/17 05/06/17 23:50 23:59 00:00 Temperature 94.6 F L Pulse Rate 81 79 Respiratory 26 H 21 Rate Blood Pressure 77/35 88/36 O2 Sat by Pulse 100 100 Oximetry O2 Sat by Pulse Oximetry [ Anterior Bilateral Throughout] 05/06/17 05/06/17 05/06/17 00:10 00:15 00:20 Temperature Pulse Rate 79 80 77 Respiratory 28 H 26 H Rate Blood Pressure 90/35 90/35 82/34 O2 Sat by Pulse 100 100 Oximetry O2 Sat by Pulse Oximetry [ Anterior Bilateral Throughout] 05/06/17 05/06/17 05/06/17 00:30 00:40 00:45 Temperature Pulse Rate 81 80 80 Respiratory 16 24 Rate Blood Pressure 92/38 96/40 96/40 O2 Sat by Pulse 100 100 Oximetry O2 Sat by Pulse Oximetry [ Anterior Bilateral Throughout] 05/06/17 05/06/17 05/06/17 00:50 01:00 01:10 Temperature Pulse Rate 82 85 89 Respiratory 28 H 29 H 29 H Rate Blood Pressure 101/40 95/38 106/44 O2 Sat by Pulse 100 100 100 Oximetry O2 Sat by Pulse Oximetry [ Anterior Bilateral Throughout] 11/23/17 11/23/17 11/23/17 01:15 01:20 01:30 Temperature Pulse Rate 88 87 88 Respiratory 18 24 Rate Blood Pressure 108/50 108/50 109/45 O2 Sat by Pulse 100 99 Oximetry O2 Sat by Pulse Oximetry [ Anterior Bilateral Throughout] 05/06/17 05/06/17 05/06/17 01:40 01:45 01:50 Temperature Pulse Rate 86 88 88 Respiratory 20 22 Rate Blood Pressure 107/42 115/46 115/46 O2 Sat by Pulse 100 100 Oximetry O2 Sat by Pulse Oximetry [ Anterior Bilateral Throughout] 05/06/17 05/06/17 05/06/17 02:00 02:10 02:15 Temperature 97.5 F L Pulse Rate 87 85 87 Respiratory 15 25 H Rate Blood Pressure 130/43 120/47 122/47 O2 Sat by Pulse 100 100 Oximetry O2 Sat by Pulse Oximetry [ Anterior Bilateral Throughout] 05/06/17 05/06/17 05/06/17 02:20 02:25 02:30 Temperature 97.5 F L Pulse Rate 88 89 88 Respiratory 10 L 22 13 Rate Blood Pressure 122/47 117/47 117/47 O2 Sat by Pulse 100 100 100 Oximetry O2 Sat by Pulse Oximetry [ Anterior Bilateral Throughout] 05/06/17 05/06/17 05/06/17 02:40 02:45 02:50 Temperature 97.5 F L Pulse Rate 90 86 88 Respiratory 20 18 Rate Blood Pressure 118/48 118/48 125/56 O2 Sat by Pulse 100 100 Oximetry O2 Sat by Pulse Oximetry [ Anterior Bilateral Throughout] 05/06/17 05/06/17 05/06/17 03:00 03:10 03:15 Temperature 97.5 F L Pulse Rate 87 88 86 Respiratory 17 11 L 18 Rate Blood Pressure 109/50 117/47 109/50 O2 Sat by Pulse 100 100 Oximetry O2 Sat by Pulse 100 Oximetry [ Anterior Bilateral Throughout] 05/06/17 05/06/17 05/06/17 03:20 03:30 03:40 Temperature Pulse Rate 88 85 83 Respiratory 20 20 18 Rate Blood Pressure 114/45 112/47 121/48 O2 Sat by Pulse 100 100 100 Oximetry O2 Sat by Pulse Oximetry [ Anterior Bilateral Throughout] 05/06/17 05/06/17 05/06/17 03:50 04:00 04:10 Temperature 98.3 F Pulse Rate 81 83 79 Respiratory 19 19 16 Rate Blood Pressure 114/45 119/46 111/50 O2 Sat by Pulse 100 100 100 Oximetry O2 Sat by Pulse Oximetry [ Anterior Bilateral Throughout] 05/06/17 05/06/17 05/06/17 04:20 04:30 04:40 Temperature Pulse Rate 85 80 84 Respiratory 14 22 13 Rate Blood Pressure 110/47 124/43 114/50 O2 Sat by Pulse 100 100 100 Oximetry O2 Sat by Pulse Oximetry [ Anterior Bilateral Throughout] 05/06/17 05/06/17 05/06/17 04:50 05:00 05:10 Temperature Pulse Rate 79 80 77 Respiratory 13 13 15 Rate Blood Pressure 113/48 105/44 116/49 O2 Sat by Pulse 100 100 100 Oximetry O2 Sat by Pulse Oximetry [ Anterior Bilateral Throughout] 05/06/17 05/06/17 05/06/17 05:20 05:30 05:40 Temperature Pulse Rate 73 80 79 Respiratory 13 12 13 Rate Blood Pressure 116/48 119/45 114/43 O2 Sat by Pulse 100 100 99 Oximetry O2 Sat by Pulse Oximetry [ Anterior Bilateral Throughout] 05/06/17 06:54 Temperature Pulse Rate 75 Respiratory Rate Blood Pressure 112/46 O2 Sat by Pulse 99 Oximetry O2 Sat by Pulse Oximetry [ Anterior Bilateral Throughout] - General Appearance General appearance: well-developed, cachectic EENT: ATNC, PERRL, mucous membranes dry Neck: no JVD, no carotid bruit Respiratory: Present: Decreased Breath Sounds Cardiology: tachycardia, S1S2 Gastrointestinal: normoactive bowel sounds, no tenderness, no distended, no guarding Integumentary: no rash, warm and dry Neurologic: other (follows simple commands) Musculoskeletal: other (no edema in BLE) Psychiatric: other (intubated) - Lab 05/06/17 04:00 05/06/17 04:00 Most recent lab results Calcium 7.1 mg/dL (8.4-10.2) L D 05/06/17 04:00 Phosphorus 1.90 mg/dL (2.5-4.5) L 05/06/17 04:00 Magnesium 2.70 mg/dL (1.7-2.3) H 05/05/17 15:38
--- NOTE | 2017-05-06 08:43 | XRay Report ---
AP CHEST :05/06/17 CLINICAL: Intubated.Follow up respiratory failure. COMPARISON:The previous day. FINDINGS: The endotracheal tube is in satisfactory position. The feeding tube is below the diaphragm and not imaged. Right Vas-Cath tip is in the right atrium at the cavoatrial junction. Stable cardiomegaly. Normal pulmonary vessels. Lungs are relatively clear. No pneumothorax. IMPRESSION: Cardiomegaly but no CHF. No pneumonia.
--- NOTE | 2017-05-06 08:45 | XRay Report ---
AP CHEST :05/05/17 15:52 CLINICAL: Intubated.Sepsis. COMPARISON:04/29/16 FINDINGS: Endotracheal tube has been inserted and is in satisfactory position. Cardiomegaly and central vascular congestion. Right infrahilar opacification with silhouetting of the right heart border and air bronchograms. The lungs are otherwise clear. No pneumothorax. IMPRESSION: Cardiomegaly and redistribution of pulmonary blood flow to the upper lobes. No pulmonary edema.Suspect right middle lobe pneumonia.
--- NOTE | 2017-05-06 08:56 | Progress Note ---
Assessment and Plan Assessment and plan: Acute respiratory failure. Admitted to ICU. Intubated. Respiratory status improving Pulmonology following. I discussed with Certified Diabetes Educator Anemia, Hgb is 7.4 after transfusing 2 units PRBC. Hemoglobin was 6.3 yesterday. Stool occult blood ordered. Acute on chronic kidney disease with Uremia,metabolic acidosis. Had dialysis yesterday after emergent dialysis catheter placed. Hyperkalemia. Potassium is now normal at 4.8, was 8.6 yesterday. Severe metabolic acidosis from acute on CKD, improved. CO2 is 18 today, was 7 yesterday. Lactic acidosis, improved but still high. Lactic acid level 8.5 today. History of stroke s/p colostomy Vomiting fecal matter. Obtain KUB, CT Abdomen to r/o obstruction Elevated Troponin. Conservative care. Hypernatremia. Monitor BMP Full code status Patient was DNR and on hospice at SNF unknown to us, so was intubated. Now family rescind hospice and want full code History Interval history: Still intubated Vomiting fecal matter as per Nurse Hospitalist Physical - Physical exam Narrative exam: GEN APPEARANCE : Not in acute distress, intubated HEENT: Normocephalic Atraumatic NECK : supple, no JVD LUNGS: clear to auscultation bilaterally, no rales, no wheeze HEART: S1 and S2 regular, no murmurs, rubs or gallop, ABD: Soft, no tenderness, colostomy, no distension, bowel sounds present EXT: Contractures, right AKA NEURO: Intubated, eyes open, follows commands - Constitutional Vitals: Temp Pulse Resp BP Pulse Ox 97.5 F L 75 13 112/46 99 05/06/17 08:00 05/06/17 06:54 05/06/17 05:40 05/06/17 06:54 05/06/17 06:54 Results - Labs CBC & Chem 7: 05/06/17 04:00 05/06/17 04:00 Labs: Laboratory Last Values WBC 17.3 K/mm3 (4.5-11.0) H 05/06/17 04:00 RBC 2.59 M/mm3 (3.65-5.03) L 05/06/17 04:00 Hgb 7.4 gm/dl (10.1-14.3) L 05/06/17 04:00 Hct 23.6 % (30.3-42.9) L 05/06/17 04:00 MCV 91 fl (79-97) 05/06/17 04:00 MCH 29 pg (28-32) 05/06/17 04:00 MCHC 32 % (30-34) 05/06/17 04:00 RDW 22.3 % (13.2-15.2) H 05/06/17 04:00 Plt Count 179 K/mm3 (140-440) 05/06/17 04:00 Add Manual Diff Complete 05/06/17 04:00 Total Counted 100 05/06/17 04:00 Seg Neuts % (Manual) 39.0 % (40.0-70.0) L 05/06/17 04:00 Band Neutrophils % 46.0 % 05/06/17 04:00 Lymphocytes % (Manual) 10.0 % (13.4-35.0) L 05/06/17 04:00 Reactive Lymphs % (Man) 0 % 05/06/17 04:00 Monocytes % (Manual) 5.0 % (0.0-7.3) 05/06/17 04:00 Eosinophils % (Manual) 0 % (0.0-4.3) 05/06/17 04:00 Basophils % (Manual) 0 % (0.0-1.8) 05/06/17 04:00 Metamyelocytes % 0 % 05/06/17 04:00 Myelocytes % 0 % 05/06/17 04:00 Promyelocytes % 0 % 05/06/17 04:00 Blast Cells % 0 % 05/06/17 04:00 Nucleated RBC % Not Reportable 05/06/17 04:00 Seg Neutrophils # Man 6.7 K/mm3 (1.8-7.7) 05/06/17 04:00 Band Neutrophils # 8.0 K/mm3 05/06/17 04:00 Lymphocytes # (Manual) 1.7 K/mm3 (1.2-5.4) 05/06/17 04:00 Abs React Lymphs (Man) 0.0 K/mm3 05/06/17 04:00 Monocytes # (Manual) 0.9 K/mm3 (0.0-0.8) H 05/06/17 04:00 Eosinophils # (Manual) 0.0 K/mm3 (0.0-0.4) 05/06/17 04:00 Basophils # (Manual) 0.0 K/mm3 (0.0-0.1) 05/06/17 04:00 Metamyelocytes # 0.0 K/mm3 05/06/17 04:00 Myelocytes # 0.0 K/mm3 05/06/17 04:00 Promyelocytes # 0.0 K/mm3 05/06/17 04:00 Blast Cells # 0.0 K/mm3 05/06/17 04:00 WBC Morphology Not Reportable 05/06/17 04:00 Hypersegmented Neuts Not Reportable 05/06/17 04:00 Hyposegmented Neuts Not Reportable 05/06/17 04:00 Hypogranular Neuts Not Reportable 05/06/17 04:00 Smudge Cells Not Reportable 05/06/17 04:00 Toxic Granulation Not Reportable 05/06/17 04:00 Toxic Vacuolation Not Reportable 05/06/17 04:00 Dohle Bodies Not Reportable 05/06/17 04:00 Pelger-Huet Anomaly Not Reportable 05/06/17 04:00 Sandra Rods Not Reportable 05/06/17 04:00 Platelet Estimate Consistent w auto 05/06/17 04:00 Clumped Platelets Not Reportable 05/06/17 04:00 Plt Clumps, EDTA Not Reportable 05/06/17 04:00 Large Platelets Few 05/06/17 04:00 Giant Platelets Not Reportable 05/06/17 04:00 Platelet Satelliting Not Reportable 05/06/17 04:00 Plt Morphology Comment Not Reportable 05/06/17 04:00 RBC Morphology Not Reportable 05/06/17 04:00 Dimorphic RBCs Not Reportable 05/06/17 04:00 Polychromasia Not Reportable 05/06/17 04:00 Hypochromasia Not Reportable 05/06/17 04:00 Poikilocytosis Not Reportable 05/06/17 04:00 Anisocytosis 1+ 05/06/17 04:00 Microcytosis Few 05/06/17 04:00 Macrocytosis Not Reportable 05/06/17 04:00 Spherocytes Not Reportable 05/06/17 04:00 Pappenheimer Bodies Not Reportable 05/06/17 04:00 Sickle Cells Not Reportable 05/06/17 04:00 Target Cells Not Reportable 05/06/17 04:00 Tear Drop Cells Not Reportable 05/06/17 04:00 Ovalocytes Not Reportable 05/06/17 04:00 Helmet Cells Not Reportable 05/06/17 04:00 Torres-Nyack Bodies Not Reportable 05/06/17 04:00 [place] Rings Not Reportable 05/06/17 04:00 [place] Cells Not Reportable 05/06/17 04:00 Bite Cells Not Reportable 05/06/17 04:00 Crenated Cell Not Reportable 05/06/17 04:00 Elliptocytes Few 05/06/17 04:00 Acanthocytes (Spur) Not Reportable 05/06/17 04:00 Rouleaux Not Reportable 05/06/17 04:00 Hemoglobin C Crystals Not Reportable 05/06/17 04:00 Schistocytes Not Reportable 05/06/17 04:00 Malaria parasites Not Reportable 05/06/17 04:00 [place] Bodies Not Reportable 05/06/17 04:00 Hem Pathologist Commnt No 05/06/17 04:00 PT 17.4 Sec. (12.2-14.9) H 05/05/17 15:38 INR 1.35 (0.87-1.13) H 05/05/17 15:38 APTT 33.2 Sec. (24.2-36.6) 05/05/17 15:38 POC ABG pH 7.436 (7.35-7.45) 05/06/17 07:13 POC ABG pCO2 27.7 (35-45) L 05/06/17 07:13 POC ABG pO2 67 (80-105) L 05/06/17 07:13 POC ABG HCO3 18.7 05/06/17 07:13 POC ABG Total CO2 19 05/06/17 07:13 POC ABG O2 Sat 94 05/06/17 07:13 POC ABG Base Excess -6 05/06/17 07:13 VBG pH 6.909 (7.320-7.420) L* 05/05/17 15:38 FiO2 30 % 05/06/17 07:13 Sodium 154 mmol/L (137-145) H 05/06/17 04:00 Potassium 4.8 mmol/L (3.6-5.0) D 05/06/17 04:00 Chloride 117.2 mmol/L (98-107) H 05/06/17 04:00 Carbon Dioxide 18 mmol/L (22-30) L D 05/06/17 04:00 Anion Gap 24 mmol/L 05/06/17 04:00 BUN 35 mg/dL (7-17) H 05/06/17 04:00 Creatinine 1.6 mg/dL (0.7-1.2) H 05/06/17 04:00 Estimated GFR 38 ml/min 05/06/17 04:00 BUN/Creatinine Ratio 22 % 05/06/17 04:00 Glucose 133 mg/dL (65-100) H 05/06/17 04:00 POC Glucose 141 (70-105) H 05/06/17 05:43 Osmolality 332 Mosm/kg 05/06/17 04:00 Lactic Acid 8.50 mmol/L (0.7-2.0) H* 05/05/17 23:00 Calcium 7.1 mg/dL (8.4-10.2) L D 05/06/17 04:00 Phosphorus 1.90 mg/dL (2.5-4.5) L 05/06/17 04:00 Magnesium 2.70 mg/dL (1.7-2.3) H 05/05/17 15:38 Total Bilirubin 0.40 mg/dL (0.1-1.2) 05/06/17 04:00 AST 82 units/L (5-40) H 05/06/17 04:00 ALT 26 units/L (7-56) 05/06/17 04:00 Alkaline Phosphatase 116 units/L (35-129) 05/06/17 04:00 Total Creatine Kinase 350 units/L (30-135) H 05/06/17 04:00 CK-MB (CK-2) 32.9 ng/mL (0.0-4.0) H 05/06/17 04:00 CK-MB (CK-2) Rel Index 9.4 (0-4) H 05/06/17 04:00 Troponin T 0.694 ng/mL (0.00-0.029) H* D 05/06/17 04:00 Total Protein 5.9 g/dL (6.3-8.2) L 05/06/17 04:00 Albumin 1.8 g/dL (3.9-5) L 05/06/17 04:00 Albumin/Globulin Ratio 0.4 % 05/06/17 04:00 Triglycerides 137 mg/dL (2-149) 05/05/17 15:38 Cholesterol 108 mg/dL (50-199) 05/05/17 15:38 LDL Cholesterol Direct 13 mg/dL (50-130) L 05/05/17 15:38 HDL Cholesterol 68 mg/dL (40-59) H 05/05/17 15:38 Cholesterol/HDL Ratio 1.58 % 05/05/17 15:38 Hep Bs Antigen Non-reactive (Negative) 05/06/17 05:00 Hepatitis C Antibody Non-reactive (NonReactive) 05/06/17 04:00 Blood Type O POSITIVE 05/05/17 18:53 Antibody Screen Negative 05/05/17 18:53 Crossmatch See Detail 05/05/17 18:53
[2017-05-06] MEDS ORDERED: NACL 0.45% 1000 ML 1,000 ML IV SCH (09:00)
--- NOTE | 2017-05-06 09:43 | Consultation ---
History of Present Illness Consult date: 05/06/17 Consult reason: cardiac arrest, other (cardiopulmonary arrest) History of present illness: pt adm from senior care with mult med problems. had been in hospice. suffered cardipulm arrest due to acute hyperkalemia,met acidosis,renal failure. now intubated/mech vent. awake but does not follow commands. troponins are elevated. tele demonstrates sinus rhythm had been hypotensive to 75mmHg systolic and bradycardic documented as low as 40 bpm. Past History Past Medical History: anemia, hypertension, renal failure Past Surgical History: Other (Right AKA) Social history: no significant social history Family history: no significant family history Medications and Allergies Allergies Allergy/AdvReac Type Severity Reaction Status Date / Time No Known Allergies Allergy Verified 05/05/17 15:14 Home Medications Medication Instructions Recorded Confirmed Last Taken Type Amlodipine Besylate [Norvasc] 10 mg PO DAILY 04/26/16 04/13/17 04/12/17 History Divalproex Sprinkle [Depakote 125 mg PO BID PRN 04/26/16 04/13/17 04/12/17 History Sprinkle] Ergocalciferol [Vitamin D2] 1 cap PO QWEEK 04/26/16 04/13/17 04/09/17 History Ranitidine HCl [Acid Control] 150 mg PO Q12H 04/26/16 04/13/17 04/12/17 History HYDROcodone/APAP 7.5-325 [[place] 15 ml PO Q4HR PRN #7 oz 04/30/16 04/13/17 Rx 7.5-325 mg per 15 ML] HYDROcodone/APAP 7.5-325 [[place]] 15 ml PO Q4HR PRN 5 Days oz 04/19/17 Unknown Rx Potassium Chloride 40 meq FEEDTUBE QDAY packet 04/19/17 Unknown Rx Active Meds: Active Medications Al Hydrox/Mg Hydrox/Simethicone (Alum-Mag Hydrox-Simeth 224-742-71me/5ml) 30 ml PO Q4H PRN PRN Reason: Indigestion Bisacodyl (Dulcolax) 10 mg OK QDAY PRN PRN Reason: constipation unrelieved by MOM Heparin Sodium (Porcine) (Heparin) 5,000 unit IV MO PRN PRN Reason: hemodialysis Hydrophilic Ointment (Vaseline Lip Therapy) 1 applic TP Q2HR PRN PRN Reason: Dry Lips Levofloxacin/Dextrose (Levaquin 750mg/150ml) 750 mg in 150 mls @ 100 mls/hr IV ONCE ONE Stop: 05/06/17 11:29 Levofloxacin/Dextrose (Levaquin 500mg/100ml) 500 mg in 100 mls @ 100 mls/hr IV Q48H BRENDA Piperacillin Sod/Tazobactam Sod (Zosyn/Ns 2.25 Gm/50ml) 2.25 gm in 50 mls @ 100 mls/hr IV Q12HR BRENDA Last Admin: 05/06/17 05:50 Dose: 100 mls/hr Sodium Chloride (Nacl 0.45% 1000 Ml) 1,000 mls @ 75 mls/hr IV DIRECT BRENDA Magnesium Hydroxide (Milk Of Magnesia) 30 ml PO Q4H PRN PRN Reason: Constipation Morphine Sulfate (Morphine) 4 mg IV Q4H PRN PRN Reason: Pain, Moderate (4-6) Multi-Ingred Cream/Lotion/Oil/Oint (Artificial Tears Ophth Oint) 1 applic OU Q4HR PRN PRN Reason: Dry Eye(s) Ondansetron HCl (Zofran) 4 mg IV Q6H PRN PRN Reason: nausea or vomiting Last Admin: 05/06/17 05:05 Dose: 4 mg Review of Systems ROS unobtainable: due to endotracheal tube Physical Examination Vital Signs Pulse Resp BP Pulse Ox 40 L 12 75/49 100 05/05/17 15:00 05/05/17 15:00 05/05/17 15:00 05/05/17 15:00 General appearance: other (contracted) HEENT: Positive: PERRL Neck: Negative: JVD/HJR Cardiac: Positive: Reg Rate and Rhythm, S4 Lungs: Positive: Decreased Breath Sounds Neuro: Positive: Other (awake but not following commands. contracted) Abdomen: Positive: Soft Skin: Positive: Other (warm) Musculoskeletal: other (r aka) Extremities: Absent: edema Results 05/06/17 04:00 05/06/17 04:00 Cardiac Enzymes 05/05/17 05/05/17 05/05/17 Range/Units 15:38 15:38 23:00 AST 36 (5-40) units/L CK-MB (CK-2) 2.1 18.1 H (0.0-4.0) ng/mL 05/06/17 Range/Units 04:00 AST 82 H (5-40) units/L CK-MB (CK-2) 32.9 H (0.0-4.0) ng/mL Coagulation 05/05/17 05/05/17 Range/Units 15:38 15:38 PT 17.4 H (12.2-14.9) Sec. INR 1.35 H (0.87-1.13) APTT 33.2 (24.2-36.6) Sec. Lipids 05/05/17 Range/Units 15:38 Triglycerides 137 (2-149) mg/dL Cholesterol 108 (50-199) mg/dL HDL Cholesterol 68 H (40-59) mg/dL Cholesterol/HDL Ratio 1.58 % CBC 05/05/17 05/06/17 Range/Units 17:00 04:00 WBC 7.0 17.3 H (4.5-11.0) K/mm3 RBC 2.09 L 2.59 L (3.65-5.03) M/mm3 Hgb 6.3 L 7.4 L (10.1-14.3) gm/dl Hct 22.8 L 23.6 L (30.3-42.9) % Plt Count 308 179 (140-440) K/mm3 Comprehensive Metabolic Panel 05/05/17 05/06/17 Range/Units 15:38 04:00 Sodium 150 H 154 H (137-145) mmol/L Potassium 8.6 H* 4.8 D (3.6-5.0) mmol/L Chloride 119.8 H 117.2 H (98-107) mmol/L Carbon Dioxide 7 L* 18 L D (22-30) mmol/L BUN 49 H 35 H (7-17) mg/dL Creatinine 2.6 H 1.6 H (0.7-1.2) mg/dL Glucose 124 H 133 H (65-100) mg/dL Calcium 8.6 7.1 L D (8.4-10.2) mg/dL AST 36 82 H (5-40) units/L ALT 12 26 (7-56) units/L Alkaline Phosphatase 132 H 116 (35-129) units/L Total Protein 6.9 5.9 L (6.3-8.2) g/dL Albumin 2.1 L 1.8 L (3.9-5) g/dL Assessment and Plan acute resp failure s/p cardipulm arrest. s/p dialysis s/p severe hyperkalemia lactic acidosis elevated troponin. difficult in this setting to determine if the elevations are primary or secondary continue supportive care per pulm and nephrol no family present at bedside at time of visit
[2017-05-06] MEDS ORDERED: LEVAQUIN 750MG/150ML 750 MG/150 ML BAG IV ONE (10:00)
[2017-05-06] MEDS ORDERED: LEVAQUIN 750MG/150ML 750 MG/150 ML BAG IV SCH (10:00)
[2017-05-06] MEDS: MORPHINE IV PRN ×2 (10:02→14:03)
--- NOTE | 2017-05-06 10:07 | Consultation ---
History of Present Illness - Reason for Consult Consult date: 05/05/17 Need for emergent hemodialysis access Requesting physician: THERESE IVERSON - History of Present Illness This is an unfortunate 81 yo [facility] patient brought by ambulance unstable arrhythmia requiring CPR. Unbeknownst to primary team, the patient had been DNR. The patient was resuscitated and maintained a perfusing rhythm, found to have severe hyperkalemia, acute renal failure. Consult made to obtain dialysis access emergently. Prior to my evaluation, I called her only available relative , her Niece, and on the phone she gave consent to proceed with dialysis catheter access emergently for life-saving measures. Past History Past Medical History: anemia, hypertension, renal failure Past Surgical History: Other (Right AKA) Social history: no significant social history Family history: no significant family history Medications and Allergies Allergies Allergy/AdvReac Type Severity Reaction Status Date / Time No Known Allergies Allergy Verified 05/05/17 15:14 Home Medications Medication Instructions Recorded Confirmed Last Taken Type Amlodipine Besylate [Norvasc] 10 mg PO DAILY 04/26/16 04/13/17 04/12/17 History Divalproex Sprinkle [Depakote 125 mg PO BID PRN 04/26/16 04/13/17 04/12/17 History Sprinkle] Ergocalciferol [Vitamin D2] 1 cap PO QWEEK 04/26/16 04/13/17 04/09/17 History Ranitidine HCl [Acid Control] 150 mg PO Q12H 04/26/16 04/13/17 04/12/17 History HYDROcodone/APAP 7.5-325 [[place] 15 ml PO Q4HR PRN #7 oz 04/30/16 04/13/17 Rx 7.5-325 mg per 15 ML] HYDROcodone/APAP 7.5-325 [[place]] 15 ml PO Q4HR PRN 5 Days oz 04/19/17 Unknown Rx Potassium Chloride 40 meq FEEDTUBE QDAY packet 04/19/17 Unknown Rx Active Meds: Active Medications Al Hydrox/Mg Hydrox/Simethicone (Alum-Mag Hydrox-Simeth 982-006-07yl/5ml) 30 ml PO Q4H PRN PRN Reason: Indigestion Bisacodyl (Dulcolax) 10 mg CA QDAY PRN PRN Reason: constipation unrelieved by MOM Heparin Sodium (Porcine) (Heparin) 5,000 unit IV MO PRN PRN Reason: hemodialysis Hydrophilic Ointment (Vaseline Lip Therapy) 1 applic TP Q2HR PRN PRN Reason: Dry Lips Levofloxacin/Dextrose (Levaquin 750mg/150ml) 750 mg in 150 mls @ 100 mls/hr IV ONCE ONE Stop: 05/06/17 11:29 Levofloxacin/Dextrose (Levaquin 500mg/100ml) 500 mg in 100 mls @ 100 mls/hr IV Q48H BRENDA Piperacillin Sod/Tazobactam Sod (Zosyn/Ns 2.25 Gm/50ml) 2.25 gm in 50 mls @ 100 mls/hr IV Q12HR BRENDA Last Admin: 05/06/17 05:50 Dose: 100 mls/hr Sodium Chloride (Nacl 0.45% 1000 Ml) 1,000 mls @ 75 mls/hr IV DIRECT BRENDA Magnesium Hydroxide (Milk Of Magnesia) 30 ml PO Q4H PRN PRN Reason: Constipation Morphine Sulfate (Morphine) 4 mg IV Q4H PRN PRN Reason: Pain, Moderate (4-6) Multi-Ingred Cream/Lotion/Oil/Oint (Artificial Tears Ophth Oint) 1 applic OU Q4HR PRN PRN Reason: Dry Eye(s) Ondansetron HCl (Zofran) 4 mg IV Q6H PRN PRN Reason: nausea or vomiting Last Admin: 05/06/17 05:05 Dose: 4 mg Review of Systems ROS unobtainable: due to endotracheal tube Exam - Constitutional Vitals: Temp Pulse Resp BP Pulse Ox 97.2 F L 77 18 123/50 98 05/06/17 09:11 05/06/17 09:30 05/06/17 09:30 05/06/17 09:30 05/06/17 09:30 General appearance: Present: severe distress - EENT Eyes: Present: EOM intact ENT: no dentition normal - Neck Neck: Present: supple - Respiratory Respiratory effort: other (Intubated, symmetric chest rise) - Cardiovascular Rhythm: regular - Extremities Extremities: abnormal (bilateral hip contracture especially on the right) Extremity abnormal: deformity - Abdominal General gastrointestinal: Present: soft, non-distended - Integumentary Integumentary: Present: clear, warm, dry - Musculoskeletal Musculoskeletal: other (unable to assess due to intubation and sedation) - Psychiatric Psychiatric: other (Intubated, sedated) - Neurologic Neurologic: other (Intubated, sedated) Results - Labs CBC & Chem 7: 05/06/17 04:00 05/06/17 04:00 Labs: Abnormal lab results 05/05/17 05/05/17 05/05/17 Range/Units 15:38 15:38 15:38 WBC (4.5-11.0) K/mm3 RBC (3.65-5.03) M/mm3 Hgb (10.1-14.3) gm/dl Hct (30.3-42.9) % MCV (79-97) fl MCHC (30-34) % RDW (13.2-15.2) % Seg Neuts % (Manual) (40.0-70.0) % Lymphocytes % (Manual) (13.4-35.0) % Monocytes # (Manual) (0.0-0.8) K/mm3 PT 17.4 H (12.2-14.9) Sec. INR 1.35 H (0.87-1.13) POC ABG pH (7.35-7.45) POC ABG pCO2 (35-45) POC ABG pO2 (80-105) VBG pH (7.320-7.420) Sodium 150 H (137-145) mmol/L Potassium 8.6 H* (3.6-5.0) mmol/L Chloride 119.8 H (98-107) mmol/L Carbon Dioxide 7 L* (22-30) mmol/L BUN 49 H (7-17) mg/dL Creatinine 2.6 H (0.7-1.2) mg/dL Glucose 124 H (65-100) mg/dL POC Glucose (70-105) Lactic Acid 12.00 H* (0.7-2.0) mmol/L Calcium (8.4-10.2) mg/dL Phosphorus (2.5-4.5) mg/dL Magnesium (1.7-2.3) mg/dL AST (5-40) units/L Alkaline Phosphatase 132 H (35-129) units/L Total Creatine Kinase (30-135) units/L CK-MB (CK-2) (0.0-4.0) ng/mL CK-MB (CK-2) Rel Index (0-4) Troponin T (0.00-0.029) ng/mL Total Protein (6.3-8.2) g/dL Albumin 2.1 L (3.9-5) g/dL LDL Cholesterol Direct (50-130) mg/dL HDL Cholesterol (40-59) mg/dL Crossmatch 05/05/17 05/05/17 05/05/17 Range/Units 15:38 15:38 15:38 WBC (4.5-11.0) K/mm3 RBC (3.65-5.03) M/mm3 Hgb (10.1-14.3) gm/dl Hct (30.3-42.9) % MCV (79-97) fl MCHC (30-34) % RDW (13.2-15.2) % Seg Neuts % (Manual) (40.0-70.0) % Lymphocytes % (Manual) (13.4-35.0) % Monocytes # (Manual) (0.0-0.8) K/mm3 PT (12.2-14.9) Sec. INR (0.87-1.13) POC ABG pH (7.35-7.45) POC ABG pCO2 (35-45) POC ABG pO2 (80-105) VBG pH 6.909 L* (7.320-7.420) Sodium (137-145) mmol/L Potassium (3.6-5.0) mmol/L Chloride (98-107) mmol/L Carbon Dioxide (22-30) mmol/L BUN (7-17) mg/dL Creatinine (0.7-1.2) mg/dL Glucose (65-100) mg/dL POC Glucose (70-105) Lactic Acid (0.7-2.0) mmol/L Calcium (8.4-10.2) mg/dL Phosphorus (2.5-4.5) mg/dL Magnesium 2.70 H (1.7-2.3) mg/dL AST (5-40) units/L Alkaline Phosphatase (35-129) units/L Total Creatine Kinase (30-135) units/L CK-MB (CK-2) (0.0-4.0) ng/mL CK-MB (CK-2) Rel Index 6.3 H (0-4) Troponin T 0.078 H (0.00-0.029) ng/mL Total Protein (6.3-8.2) g/dL Albumin (3.9-5) g/dL LDL Cholesterol Direct 13 L (50-130) mg/dL HDL Cholesterol 68 H (40-59) mg/dL Crossmatch 05/05/17 05/05/17 05/05/17 Range/Units 16:15 17:00 18:53 WBC (4.5-11.0) K/mm3 RBC 2.09 L (3.65-5.03) M/mm3 Hgb 6.3 L (10.1-14.3) gm/dl Hct 22.8 L (30.3-42.9) % MCV 109 H (79-97) fl MCHC 28 L (30-34) % RDW 19.0 H (13.2-15.2) % Seg Neuts % (Manual) 76.0 H (40.0-70.0) % Lymphocytes % (Manual) (13.4-35.0) % Monocytes # (Manual) (0.0-0.8) K/mm3 PT (12.2-14.9) Sec. INR (0.87-1.13) POC ABG pH 6.903 L (7.35-7.45) POC ABG pCO2 (35-45) POC ABG pO2 572 H (80-105) VBG pH (7.320-7.420) Sodium (137-145) mmol/L Potassium (3.6-5.0) mmol/L Chloride (98-107) mmol/L Carbon Dioxide (22-30) mmol/L BUN (7-17) mg/dL Creatinine (0.7-1.2) mg/dL Glucose (65-100) mg/dL POC Glucose (70-105) Lactic Acid (0.7-2.0) mmol/L Calcium (8.4-10.2) mg/dL Phosphorus (2.5-4.5) mg/dL Magnesium (1.7-2.3) mg/dL AST (5-40) units/L Alkaline Phosphatase (35-129) units/L Total Creatine Kinase (30-135) units/L CK-MB (CK-2) (0.0-4.0) ng/mL CK-MB (CK-2) Rel Index (0-4) Troponin T (0.00-0.029) ng/mL Total Protein (6.3-8.2) g/dL Albumin (3.9-5) g/dL LDL Cholesterol Direct (50-130) mg/dL HDL Cholesterol (40-59) mg/dL Crossmatch See Detail 05/05/17 05/05/17 05/05/17 Range/Units 23:00 23:00 23:50 WBC (4.5-11.0) K/mm3 RBC (3.65-5.03) M/mm3 Hgb (10.1-14.3) gm/dl Hct (30.3-42.9) % MCV (79-97) fl MCHC (30-34) % RDW (13.2-15.2) % Seg Neuts % (Manual) (40.0-70.0) % Lymphocytes % (Manual) (13.4-35.0) % Monocytes # (Manual) (0.0-0.8) K/mm3 PT (12.2-14.9) Sec. INR (0.87-1.13) POC ABG pH (7.35-7.45) POC ABG pCO2 (35-45) POC ABG pO2 (80-105) VBG pH (7.320-7.420) Sodium (137-145) mmol/L Potassium (3.6-5.0) mmol/L Chloride (98-107) mmol/L Carbon Dioxide (22-30) mmol/L BUN (7-17) mg/dL Creatinine (0.7-1.2) mg/dL Glucose (65-100) mg/dL POC Glucose 185 H (70-105) Lactic Acid 8.50 H* (0.7-2.0) mmol/L Calcium (8.4-10.2) mg/dL Phosphorus (2.5-4.5) mg/dL Magnesium (1.7-2.3) mg/dL AST (5-40) units/L Alkaline Phosphatase (35-129) units/L Total Creatine Kinase 189 H (30-135) units/L CK-MB (CK-2) 18.1 H (0.0-4.0) ng/mL CK-MB (CK-2) Rel Index 9.5 H (0-4) Troponin T 0.346 H* D (0.00-0.029) ng/mL Total Protein (6.3-8.2) g/dL Albumin (3.9-5) g/dL LDL Cholesterol Direct (50-130) mg/dL HDL Cholesterol (40-59) mg/dL Crossmatch 05/06/17 05/06/17 05/06/17 Range/Units 04:00 04:00 05:43 WBC 17.3 H (4.5-11.0) K/mm3 RBC 2.59 L (3.65-5.03) M/mm3 Hgb 7.4 L (10.1-14.3) gm/dl Hct 23.6 L (30.3-42.9) % MCV (79-97) fl MCHC (30-34) % RDW 22.3 H (13.2-15.2) % Seg Neuts % (Manual) 39.0 L (40.0-70.0) % Lymphocytes % (Manual) 10.0 L (13.4-35.0) % Monocytes # (Manual) 0.9 H (0.0-0.8) K/mm3 PT (12.2-14.9) Sec. INR (0.87-1.13) POC ABG pH (7.35-7.45) POC ABG pCO2 (35-45) POC ABG pO2 (80-105) VBG pH (7.320-7.420) Sodium 154 H (137-145) mmol/L Potassium (3.6-5.0) mmol/L Chloride 117.2 H (98-107) mmol/L Carbon Dioxide 18 L D (22-30) mmol/L BUN 35 H (7-17) mg/dL Creatinine 1.6 H (0.7-1.2) mg/dL Glucose 133 H (65-100) mg/dL POC Glucose 141 H (70-105) Lactic Acid (0.7-2.0) mmol/L Calcium 7.1 L D (8.4-10.2) mg/dL Phosphorus 1.90 L (2.5-4.5) mg/dL Magnesium (1.7-2.3) mg/dL AST 82 H (5-40) units/L Alkaline Phosphatase (35-129) units/L Total Creatine Kinase 350 H (30-135) units/L CK-MB (CK-2) 32.9 H (0.0-4.0) ng/mL CK-MB (CK-2) Rel Index 9.4 H (0-4) Troponin T 0.694 H* D (0.00-0.029) ng/mL Total Protein 5.9 L (6.3-8.2) g/dL Albumin 1.8 L (3.9-5) g/dL LDL Cholesterol Direct (50-130) mg/dL HDL Cholesterol (40-59) mg/dL Crossmatch 05/06/17 Range/Units 07:13 WBC (4.5-11.0) K/mm3 RBC (3.65-5.03) M/mm3 Hgb (10.1-14.3) gm/dl Hct (30.3-42.9) % MCV (79-97) fl MCHC (30-34) % RDW (13.2-15.2) % Seg Neuts % (Manual) (40.0-70.0) % Lymphocytes % (Manual) (13.4-35.0) % Monocytes # (Manual) (0.0-0.8) K/mm3 PT (12.2-14.9) Sec. INR (0.87-1.13) POC ABG pH (7.35-7.45) POC ABG pCO2 27.7 L (35-45) POC ABG pO2 67 L (80-105) VBG pH (7.320-7.420) Sodium (137-145) mmol/L Potassium (3.6-5.0) mmol/L Chloride (98-107) mmol/L Carbon Dioxide (22-30) mmol/L BUN (7-17) mg/dL Creatinine (0.7-1.2) mg/dL Glucose (65-100) mg/dL POC Glucose (70-105) Lactic Acid (0.7-2.0) mmol/L Calcium (8.4-10.2) mg/dL Phosphorus (2.5-4.5) mg/dL Magnesium (1.7-2.3) mg/dL AST (5-40) units/L Alkaline Phosphatase (35-129) units/L Total Creatine Kinase (30-135) units/L CK-MB (CK-2) (0.0-4.0) ng/mL CK-MB (CK-2) Rel Index (0-4) Troponin T (0.00-0.029) ng/mL Total Protein (6.3-8.2) g/dL Albumin (3.9-5) g/dL LDL Cholesterol Direct (50-130) mg/dL HDL Cholesterol (40-59) mg/dL Crossmatch Assessment and Plan Severe Hyperkalemia, ARF: Discussed available family who wish to proceed with life-saving dialysis, and dialysis access placement. Risks and benefits explained to her Niece Pietro at [phone], all questions answered
--- NOTE | 2017-05-06 10:20 | Procedure Note ---
Date of procedure: 05/05/17 Pre-op diagnosis: Hyperkalemia, Acute Renal Failure, Need for Emergent dialysis access Post-op diagnosis: same Procedure: 1. Ultrasound-guided access of right common femoral vein 2. Ultrasound-guided access of right IJ Vein 3. Placement of temporary dialysis catheter into right IJ vein Description: After informed consent was obtained from the patient's niece over the phone, I evaluated the right common femoral vein as the left CFV already had a central line in place. The right CFV in the groin was free of clot and compressible. The right groin was prepped and draped in standard surgical fashion. The vein was accessed after 1% local was used with return of venous blood. Using ultrasound I evaluated the wire going into the femoral vein. The wire was advanced but could not advance pass after about 15-[address] cm[address] attempted to place the dialysis catheter but this length was not adequate and, in addition , the catheter would not flush and only withdrew venous clots. I therefore removed the catheter and held pressure in the groin. After hemostasis was achieved a placed a sterile dressing. I evaluated the right neck which was compressible and not distended with clot and this was true for all portions of the IJ down to under the clavicle. In a similar fashion the right neck was prepped and draped. The vein was accessed after 1% local was used with return of venous blood. Using ultrasound I evaluated the wire going into the vein. I dilated the tract and placed the dialysis catheter without any resistance. All ports withdrew venous blood and all flushed easily. This was followed by a sterile dressing. The catheter was sutured in placed prior to dressing. The patient tolerated the procedure well and there were no complications. Anesthesia: local Surgeon: MATEO VALENTINE Estimated blood loss: minimal Pathology: none Condition: critical Disposition: ICU
[2017-05-06] MEDS ORDERED: PANCREAZE DR 10,500 UNIT FEEDTUBE PRN (10:43)
[2017-05-06] MEDS ORDERED: SODIUM BICARBONATE FEEDTUBE PRN (10:43)
[2017-05-06] MEDS ORDERED: SIMPLE SYRUP FEEDTUBE PRN ×2 (10:43)
--- NOTE | 2017-05-06 11:17 | Event Note ---
Date: 05/06/17 Discussed with niece, VERONIKA. She wants to change status to DNR status.
--- NOTE | 2017-05-06 11:44 | XRay Report ---
KUB: 05/06/17 08:51:00 CLINICAL: Vomiting. FINDINGS: The patient is very contracted and therefore positioning is less than optimal. A nasogastric tube tip is in the midportion of the stomach which is air-filled but nondistended. Moderate distention of transverse colon. No small bowel distention. No pneumoperitoneum. Multiple calcified uterine fibroids. Vascular calcifications and a left femoral venous catheter. No mass or suspicious calcifications. Scoliosis and degenerative changes in the spine. No fractures. IMPRESSION: Negative abdomen with nonspecific dilatation of the transverse colon. No bowel obstruction or evidence of perforation.
--- NOTE | 2017-05-06 12:01 | Ultrasound Report ---
RENAL ULTRASOUND: 05/06/17 08:00:00 CLINICAL: Renal failure. FINDINGS: High resolution ultrasound demonstrated normal nondilated renal collecting systems. Moderate increased echogenicity of the kidneys with prominence of the renal pyramids. Moderate bilateral renal cortical thinning. No renal mass, cyst or calculus. The right kidney measures 9.9 x 4.8 x 4.5-cm. The renal parenchyma measures 1.1-cm in thickness. The left kidney measures 10.4 x 0.9 x 3.9-cm. The renal parenchyma measures 0.8-cm in thickness. The urinary bladder is moderately distended with normal wall thickness and no mass or calculus. IMPRESSION: Bilateral medical renal disease and no hydronephrosis.
--- NOTE | 2017-05-06 13:07 | Cat Scan Report ---
CT ABDOMEN AND PELVIS WITHOUT CONTRAST: 05/05/17 19:28:00 CLINICAL:Vomiting of fecal matter. TECHNIQUE: The patient is severely contracted and was scanned in the right lateral decubitus position. Volumetric acquisition and 1.25 millimeter scan reconstructions from the lung bases through the pelvis. The study was performed without oral contrast. FINDINGS: Abdomen:Subsegmental atelectasis of the right lower lobe and lingula. Extensive tubular bronchiectasis. The esophagus is distended with air. A nasogastric tube is in normal position with the tip in the midportion of the stomach. The stomach is moderately distended with both fluid and air and the gastric wall is moderately thickened. Fluid in air in both small and large bowel loops. A few proximal small bowel loops are moderately distended with fluid and air. There is also a fluid and air in the right colon and in the transverse colon. The transverse colon is contiguous to the stomach but no fistula is identified. The left colon is nondistended minimal air or fluid. No ascites and no pneumoperitoneum. An appendix is not identified. The liver is normal size with normal overall density. A few scattered granulomatous calcifications in the liver. The gallbladder is partially contracted and I suspect there is a small calculus in the gallbladder. The pancreas is small and unremarkable. The adrenal glands and kidneys are normal. The renal collecting systems and ureters are non-dilated. Calcification of the abdominal aorta and its branches. Renal vascular calcifications. No abdominal mass or lymphadenopathy. Pelvis: The urinary bladder is distended with a relatively thin wall. No bladder calculus or mass identified. Multiple calcified uterine leiomyomata. Ovaries are not identified. Extensive diverticulosis of the sigmoid colon but no suspicion of diverticulitis. Ovaries are not identified. The rectum is normal with moderate stool. Osteopenia of the skeleton in multiple chronic wedge compression fractures of the lumbar and thoracic spine. No suspicious bone lesions. IMPRESSION: 1. Negative study with nonspecific dilatation of the stomach, small bowel and right colon. The clinical findings suggest a possible gastrocolic fistula or a coloenteric fistula. Although this study does not identify such a fistula, those remain as possibilities possibilities especially since no bowel contrast was administered for this exam. An upper GI with small bowel follow-through may provide a diagnosis. 2. No bowel obstruction or evidence of perforation. 3. Sigmoid diverticulosis but no diverticulitis. 4. Cholelithiasis but no acute cholecystitis.
[2017-05-06] MEDS: REGLAN IV SCH ×2 (14:04→21:25)
[2017-05-06] MEDS ORDERED: ADRENALIN ONE (20:00)
[2017-05-06] MEDS ORDERED: SODIUM BICARBONATE IV ONE (20:00)
[2017-05-06] MEDS ORDERED: ATROPINE ONE (20:00)
--- NOTE | 2017-05-07 03:04 | XRay Report ---
FINAL REPORT EXAM: XR CHEST 1V AP HISTORY: follow up respiratory failure TECHNIQUE: A portable view of the chest was obtained and compared study of 05/05/2017. FINDINGS: The tip of the ET tube is 4 cm above the emani. There is a venous catheter in place with tip in the distal superior vena cava. The heart is mildly enlarged. There is resolving infiltrates/atelectasis in the right lung base. The left lung is clear. Pleural fluid is not seen. The lungs are not congested. The bones and soft tissues are unchanged. IMPRESSION: Resolving infiltrates/atelectasis in the right lung base.
[2017-05-07] MEDS: REGLAN IV SCH ×3 (05:23→19:54)
[2017-05-07 06:21] LABS: Hematocrit 28.3 % (30.3-42.9); Hemoglobin 9.3 gm/dl (10.1-14.3); Mean Corpuscular HGB Conc 33 % (30-34); Mean Corpuscular Hemoglobin 29 pg (28-32); Mean Corpuscular Volume 88 fl (79-97); Platelet Count 184 K/mm3 (140-440); Red Blood Count 3.21 M/mm3 (3.65-5.03); Red Cell Distribution Width 19.1 % (13.2-15.2)
[2017-05-07 06:31] LABS: White Blood Count 23.4 K/mm3 (4.5-11.0)
[2017-05-07 06:43] LABS: Calcium 7.1 mg/dL (8.4-10.2); Chloride 117.1 mmol/L (98-107); Potassium 5.1 mmol/L (3.6-5.0)
--- NOTE | 2017-05-07 07:45 | Progress Note ---
Assessment and Plan 81 y/o female with cardiac arrest, most likely secondary to hyperkalemia, extreme electrolyte imbalance, acute renal failure, acute vs chronic, acute respiratory failure. 1. Patient is now a DNR. She does meet criteria for extubation so will extubate now. Will not reintubate under any circumstance. 2. Follow up any new recs from cards. 3. White count elevated this am, no fever. Vanc stopped but other abx therapy was continued. Blood cultures show GNR in 2/2 bottles. Continue Zosyn and Levaquin 4. Renal failure worse today. No HD yesterday. Renal to see today to decide if HD will be needed again. Will ask them to address free water status as well 5. No further episodes of emesis. KUB done, no obstruction. Maybe an ileus. Hold narcs. Patient pulled out NG tube last night. 6. Will extubate today. 7. Overall prognosis is guarded to poor CCT 31 minutes. Subjective Date of service: 05/07/17 Interval history: No acute events. IMS had meeting with family and now patient is DNR again. Awake. Tolerating CPAP. No family currently at bedside. Worsening renal function and elevated Na this am. Objective Vital Signs - 12hr 05/06/17 05/06/17 05/06/17 19:50 20:00 20:11 Temperature 98.0 F Pulse Rate 84 84 104 H Respiratory 20 21 12 Rate Blood Pressure 113/53 113/53 O2 Sat by Pulse 97 98 100 Oximetry 05/06/17 05/06/17 05/06/17 20:21 20:30 20:41 Temperature Pulse Rate 100 H 94 H 100 H Respiratory 13 11 L 13 Rate Blood Pressure 113/43 97/51 97/51 O2 Sat by Pulse 100 96 95 Oximetry 05/06/17 05/06/17 05/06/17 20:51 21:00 21:11 Temperature Pulse Rate 102 H 95 H 94 H Respiratory 14 16 16 Rate Blood Pressure 117/64 103/60 103/60 O2 Sat by Pulse 100 100 100 Oximetry 05/06/17 05/06/17 05/06/17 21:21 21:30 21:41 Temperature Pulse Rate 99 H 94 H 92 H Respiratory 12 13 16 Rate Blood Pressure 103/60 98/51 98/51 O2 Sat by Pulse 96 96 100 Oximetry 1105/06/17 05/06/17 21:51 22:00 22:11 Temperature Pulse Rate 99 H 92 H 97 H Respiratory 11 L 10 L 15 Rate Blood Pressure 98/51 107/55 107/55 O2 Sat by Pulse 99 99 100 Oximetry 05/06/17 05/06/17 05/06/17 22:14 22:21 22:30 Temperature Pulse Rate 97 H 97 H 91 H Respiratory 13 8 L 14 Rate Blood Pressure 107/55 107/55 116/50 O2 Sat by Pulse 100 100 97 Oximetry 05/06/17 05/06/17 05/06/17 22:41 22:51 23:00 Temperature Pulse Rate 95 H 95 H 96 H Respiratory 11 L 11 L 15 Rate Blood Pressure 116/50 116/50 111/58 O2 Sat by Pulse 100 98 98 Oximetry 05/06/17 05/06/17 05/06/17 23:11 23:19 23:21 Temperature Pulse Rate 95 H 95 H 95 H Respiratory 11 L 16 Rate Blood Pressure 111/58 116/50 111/58 O2 Sat by Pulse 99 99 100 Oximetry 05/06/17 05/06/17 05/06/17 23:30 23:41 23:46 Temperature 98.6 F Pulse Rate 97 H 95 H Respiratory 16 13 Rate Blood Pressure 119/60 119/60 O2 Sat by Pulse 97 100 Oximetry 05/06/17 05/07/17 05/07/17 23:51 00:00 00:11 Temperature Pulse Rate 96 H 99 H 94 H Respiratory 13 13 12 Rate Blood Pressure 119/60 103/59 103/59 O2 Sat by Pulse 100 100 100 Oximetry 05/07/17 05/07/17 05/07/17 00:21 00:30 00:41 Temperature Pulse Rate 94 H 96 H 95 H Respiratory 12 13 18 Rate Blood Pressure 103/59 104/56 104/56 O2 Sat by Pulse 100 100 100 Oximetry 05/07/17 05/07/17 05/07/17 00:51 01:00 01:11 Temperature Pulse Rate 93 H 99 H 95 H Respiratory 16 11 L 10 L Rate Blood Pressure 104/56 116/50 116/50 O2 Sat by Pulse 100 100 100 Oximetry 05/07/17 05/07/17 05/07/17 01:21 01:30 01:41 Temperature Pulse Rate 94 H 96 H 94 H Respiratory 17 13 13 Rate Blood Pressure 116/50 121/61 121/61 O2 Sat by Pulse 99 100 100 Oximetry 05/07/17 05/07/17 05/07/17 01:51 02:00 02:11 Temperature Pulse Rate 94 H 94 H 95 H Respiratory 16 15 18 Rate Blood Pressure 121/61 116/59 116/59 O2 Sat by Pulse 100 100 100 Oximetry 05/07/17 05/07/17 05/07/17 02:21 02:31 02:41 Temperature Pulse Rate 102 H 105 H 96 H Respiratory 17 11 L 13 Rate Blood Pressure 116/59 116/59 116/59 O2 Sat by Pulse 100 Oximetry 05/07/17 05/07/17 05/07/17 02:51 03:01 03:11 Temperature Pulse Rate 98 H 94 H 91 H Respiratory 14 23 22 Rate Blood Pressure 116/59 116/59 116/59 O2 Sat by Pulse Oximetry 05/07/17 05/07/17 05/07/17 03:21 03:31 03:41 Temperature Pulse Rate 88 93 H 89 Respiratory 16 18 12 Rate Blood Pressure 116/59 116/59 116/59 O2 Sat by Pulse 100 Oximetry 05/07/17 05/07/17 05/07/17 03:51 04:00 04:09 Temperature 98.3 F Pulse Rate 82 92 H 81 Respiratory 15 16 Rate Blood Pressure 133/58 125/57 125/57 O2 Sat by Pulse 100 100 100 Oximetry 05/07/17 05/07/17 05/07/17 04:11 04:21 04:30 Temperature Pulse Rate 78 77 77 Respiratory 17 18 13 Rate Blood Pressure 125/57 125/57 117/60 O2 Sat by Pulse 100 100 100 Oximetry 05/07/17 05/07/17 05/07/17 04:41 04:51 05:00 Temperature Pulse Rate 84 81 88 Respiratory 17 14 16 Rate Blood Pressure 117/60 117/60 127/60 O2 Sat by Pulse 100 98 97 Oximetry 05/07/17 05/07/17 05/07/17 05:11 05:21 05:30 Temperature Pulse Rate 83 90 87 Respiratory 12 21 13 Rate Blood Pressure 127/60 127/60 117/56 O2 Sat by Pulse 98 97 96 Oximetry 05/07/17 05/07/17 05/07/17 05:41 05:51 06:00 Temperature Pulse Rate 88 93 H 85 Respiratory 19 11 L 15 Rate Blood Pressure 117/56 117/56 117/56 O2 Sat by Pulse 97 96 98 Oximetry 05/07/17 05/07/17 05/07/17 06:11 06:21 07:09 Temperature Pulse Rate 85 77 83 Respiratory 16 16 Rate Blood Pressure 119/53 119/53 132/67 O2 Sat by Pulse 98 99 100 Oximetry 05/07/17 07:18 Temperature Pulse Rate 96 H Respiratory 22 Rate Blood Pressure 132/61 O2 Sat by Pulse 97 Oximetry Constitutional: alert, appears uncomfortable Eyes: non-icteric ENT: oropharynx dry Neck: supple Effort: normal Ascultation: Bilateral: clear Percussion: Bilateral: not dull Cardiovascular: regular rate and rhythm Gastrointestinal: hypoactive bowel sounds, other (has a large ostomy bag, distended (the bag)) Extremities: other (contracted globally) CBC and BMP: 05/07/17 05:00 05/07/17 05:00 ABG, PT/INR, D-dimer: ABG POC ABG pH 7.436 (7.35-7.45) 05/06/17 07:13 POC ABG pCO2 27.7 (35-45) L 05/06/17 07:13 POC ABG pO2 67 (80-105) L 05/06/17 07:13 POC ABG HCO3 18.7 05/06/17 07:13 POC ABG Total CO2 19 05/06/17 07:13 POC ABG O2 Sat 94 05/06/17 07:13 PT/INR, D-dimer PT 17.4 Sec. (12.2-14.9) H 05/05/17 15:38 INR 1.35 (0.87-1.13) H 05/05/17 15:38 Abnormal lab findings: Abnormal Labs 05/05/17 05/05/17 05/05/17 15:38 15:38 15:38 WBC RBC Hgb Hct MCV MCHC RDW Seg Neuts % (Manual) Lymphocytes % (Manual) Monocytes # (Manual) PT 17.4 H INR 1.35 H POC ABG pH POC ABG pCO2 POC ABG pO2 VBG pH Sodium 150 H Potassium 8.6 H* Chloride 119.8 H Carbon Dioxide 7 L* BUN 49 H Creatinine 2.6 H Glucose 124 H POC Glucose Lactic Acid 12.00 H* Calcium Phosphorus Magnesium AST Alkaline Phosphatase 132 H Total Creatine Kinase CK-MB (CK-2) CK-MB (CK-2) Rel Index Troponin T Total Protein Albumin 2.1 L LDL Cholesterol Direct HDL Cholesterol Crossmatch 05/05/17 05/05/17 05/05/17 15:38 15:38 15:38 WBC RBC Hgb Hct MCV MCHC RDW Seg Neuts % (Manual) Lymphocytes % (Manual) Monocytes # (Manual) PT INR POC ABG pH POC ABG pCO2 POC ABG pO2 VBG pH 6.909 L* Sodium Potassium Chloride Carbon Dioxide BUN Creatinine Glucose POC Glucose Lactic Acid Calcium Phosphorus Magnesium 2.70 H AST Alkaline Phosphatase Total Creatine Kinase CK-MB (CK-2) CK-MB (CK-2) Rel Index 6.3 H Troponin T 0.078 H Total Protein Albumin LDL Cholesterol Direct 13 L HDL Cholesterol 68 H Crossmatch 05/05/17 05/05/17 05/05/17 16:15 17:00 18:53 WBC RBC 2.09 L Hgb 6.3 L Hct 22.8 L MCV 109 H MCHC 28 L RDW 19.0 H Seg Neuts % (Manual) 76.0 H Lymphocytes % (Manual) Monocytes # (Manual) PT INR POC ABG pH 6.903 L POC ABG pCO2 POC ABG pO2 572 H VBG pH Sodium Potassium Chloride Carbon Dioxide BUN Creatinine Glucose POC Glucose Lactic Acid Calcium Phosphorus Magnesium AST Alkaline Phosphatase Total Creatine Kinase CK-MB (CK-2) CK-MB (CK-2) Rel Index Troponin T Total Protein Albumin LDL Cholesterol Direct HDL Cholesterol Crossmatch See Detail 05/05/17 05/05/17 05/05/17 23:00 23:00 23:50 WBC RBC Hgb Hct MCV MCHC RDW Seg Neuts % (Manual) Lymphocytes % (Manual) Monocytes # (Manual) PT INR POC ABG pH POC ABG pCO2 POC ABG pO2 VBG pH Sodium Potassium Chloride Carbon Dioxide BUN Creatinine Glucose POC Glucose 185 H Lactic Acid 8.50 H* Calcium Phosphorus Magnesium AST Alkaline Phosphatase Total Creatine Kinase 189 H CK-MB (CK-2) 18.1 H CK-MB (CK-2) Rel Index 9.5 H Troponin T 0.346 H* D Total Protein Albumin LDL Cholesterol Direct HDL Cholesterol Crossmatch 05/06/17 05/06/17 05/06/17 04:00 04:00 05:43 WBC 17.3 H RBC 2.59 L Hgb 7.4 L Hct 23.6 L MCV MCHC RDW 22.3 H Seg Neuts % (Manual) 39.0 L Lymphocytes % (Manual) 10.0 L Monocytes # (Manual) 0.9 H PT INR POC ABG pH POC ABG pCO2 POC ABG pO2 VBG pH Sodium 154 H Potassium Chloride 117.2 H Carbon Dioxide 18 L D BUN 35 H Creatinine 1.6 H Glucose 133 H POC Glucose 141 H Lactic Acid Calcium 7.1 L D Phosphorus 1.90 L Magnesium AST 82 H Alkaline Phosphatase Total Creatine Kinase 350 H CK-MB (CK-2) 32.9 H CK-MB (CK-2) Rel Index 9.4 H Troponin T 0.694 H* D Total Protein 5.9 L Albumin 1.8 L LDL Cholesterol Direct HDL Cholesterol Crossmatch 05/06/17 05/06/17 05/06/17 07:13 10:29 13:59 WBC RBC Hgb Hct MCV MCHC RDW Seg Neuts % (Manual) Lymphocytes % (Manual) Monocytes # (Manual) PT INR POC ABG pH POC ABG pCO2 27.7 L POC ABG pO2 67 L VBG pH Sodium Potassium Chloride Carbon Dioxide BUN Creatinine Glucose POC Glucose 139 H 119 H Lactic Acid Calcium Phosphorus Magnesium AST Alkaline Phosphatase Total Creatine Kinase CK-MB (CK-2) CK-MB (CK-2) Rel Index Troponin T Total Protein Albumin LDL Cholesterol Direct HDL Cholesterol Crossmatch 05/06/17 05/07/17 05/07/17 17:41 05:00 05:00 WBC 23.4 H RBC 3.21 L Hgb 9.3 L Hct 28.3 L MCV MCHC RDW 19.1 H Seg Neuts % (Manual) Lymphocytes % (Manual) Monocytes # (Manual) PT INR POC ABG pH POC ABG pCO2 POC ABG pO2 VBG pH Sodium 154 H Potassium 5.1 H Chloride 117.1 H Carbon Dioxide 21 L BUN 46 H Creatinine 2.0 H Glucose POC Glucose 125 H Lactic Acid Calcium 7.1 L Phosphorus Magnesium AST Alkaline Phosphatase Total Creatine Kinase CK-MB (CK-2) CK-MB (CK-2) Rel Index Troponin T Total Protein Albumin LDL Cholesterol Direct HDL Cholesterol Crossmatch Chest x-ray: image reviewed
--- NOTE | 2017-05-07 08:29 | Progress Note ---
Assessment and Plan acute resp failure s/p cardipulm arrest. s/p dialysis s/p severe hyperkalemia lactic acidosis elevated troponin. difficult in this setting to determine if the elevations are primary or secondary continue supportive care per pulm and nephrol no family present at bedside at time of visit would rec conservative/comfort measures from cardiac standpoint. re-consider hospice Subjective Date of service: 05/07/17 Interval history: pt now dnr to be extubated Objective Vital Signs Temp Pulse Resp BP Pulse Ox 05/07/17 07:57 98.5 F 05/07/17 07:18 96 H 22 132/61 97 05/07/17 07:09 83 132/67 100 05/07/17 06:21 77 16 119/53 99 05/07/17 06:11 85 16 119/53 98 05/07/17 06:00 85 15 117/56 98 05/07/17 05:51 93 H 11 L 117/56 96 05/07/17 05:41 88 19 117/56 97 05/07/17 05:30 87 13 117/56 96 05/07/17 05:21 90 21 127/60 97 05/07/17 05:11 83 12 127/60 98 05/07/17 05:00 88 16 127/60 97 05/07/17 04:51 81 14 117/60 98 05/07/17 04:41 84 17 117/60 100 05/07/17 04:30 77 13 117/60 100 05/07/17 04:21 77 18 125/57 100 05/07/17 04:11 78 17 125/57 100 05/07/17 04:09 81 125/57 100 05/07/17 04:00 98.3 F 92 H 16 125/57 100 05/07/17 03:51 82 15 133/58 100 05/07/17 03:41 89 12 116/59 100 05/07/17 03:31 93 H 18 116/59 05/07/17 03:21 88 16 116/59 05/07/17 03:11 91 H 22 116/59 05/07/17 03:01 94 H 23 116/59 05/07/17 02:51 98 H 14 116/59 05/07/17 02:41 96 H 13 116/59 05/07/17 02:31 105 H 11 L 116/59 05/07/17 02:21 102 H 17 116/59 100 05/07/17 02:11 95 H 18 116/59 100 05/07/17 02:00 94 H 15 116/59 100 05/07/17 01:51 94 H 16 121/61 100 05/07/17 01:41 94 H 13 121/61 100 05/07/17 01:30 96 H 13 121/61 100 05/07/17 01:21 94 H 17 116/50 99 05/07/17 01:11 95 H 10 L 116/50 100 05/07/17 01:00 99 H 11 L 116/50 100 05/07/17 00:51 93 H 16 104/56 100 05/07/17 00:41 95 H 18 104/56 100 05/07/17 00:30 96 H 13 104/56 100 05/07/17 00:21 94 H 12 103/59 100 05/07/17 00:11 94 H 12 103/59 100 05/07/17 00:00 99 H 13 103/59 100 05/06/17 23:51 96 H 13 119/60 100 05/06/17 23:46 98.6 F 05/06/17 23:41 95 H 13 119/60 100 05/06/17 23:30 97 H 16 119/60 97 05/06/17 23:21 95 H 16 111/58 100 05/06/17 23:19 95 H 116/50 99 05/06/17 23:11 95 H 11 L 111/58 99 05/06/17 23:00 96 H 15 111/58 98 05/06/17 22:51 95 H 11 L 116/50 98 05/06/17 22:41 95 H 11 L 116/50 100 05/06/17 22:30 91 H 14 116/50 97 05/06/17 22:21 97 H 8 L 107/55 100 05/06/17 22:14 97 H 13 107/55 100 05/06/17 22:11 97 H 15 107/55 100 05/06/17 22:00 92 H 10 L 107/55 99 05/06/17 21:51 99 H 11 L 98/51 99 05/06/17 21:41 92 H 16 98/51 100 05/06/17 21:30 94 H 13 98/51 96 05/06/17 21:21 99 H 12 103/60 96 05/06/17 21:11 94 H 16 103/60 100 05/06/17 21:00 95 H 16 103/60 100 05/06/17 20:51 102 H 14 117/64 100 05/06/17 20:41 100 H 13 97/51 95 05/06/17 20:30 94 H 11 L 97/51 96 05/06/17 20:21 100 H 13 113/43 100 05/06/17 20:11 104 H 12 100 05/06/17 20:00 98.0 F 84 21 113/53 98 05/06/17 19:50 84 20 113/53 97 05/06/17 19:40 84 16 113/53 99 05/06/17 19:30 87 15 113/53 95 05/06/17 19:20 92 H 17 113/53 100 05/06/17 19:10 76 16 113/53 98 05/06/17 19:00 88 26 H 113/53 97 05/06/17 18:50 83 20 103/49 98 05/06/17 18:40 85 19 103/49 98 05/06/17 18:30 85 18 103/49 96 05/06/17 18:20 81 23 94/46 97 05/06/17 18:10 87 24 94/46 97 05/06/17 18:00 77 16 94/46 96 05/06/17 17:50 82 26 H 97/40 94 05/06/17 17:40 84 22 97/40 95 05/06/17 17:30 84 16 97/40 94 05/06/17 17:20 82 22 96/46 96 05/06/17 17:10 79 20 96/46 95 05/06/17 17:00 78 23 96/46 94 05/06/17 16:50 78 27 H 84/38 99 05/06/17 16:40 79 19 84/38 100 05/06/17 16:30 84 27 H 100/53 97 05/06/17 16:20 86 28 H 94/55 100 05/06/17 16:10 67 13 94/55 100 05/06/17 16:00 95 H 18 94/55 100 05/06/17 15:58 85 30 H 94/55 100 05/06/17 15:57 97.5 F L 05/06/17 15:50 88 17 108/42 100 05/06/17 15:49 90 99/48 100 05/06/17 15:40 80 15 108/42 100 05/06/17 15:30 89 12 99/48 95 05/06/17 15:20 81 12 93/36 100 05/06/17 15:10 87 15 93/36 94 05/06/17 15:00 91 H 24 108/42 98 05/06/17 14:50 83 16 106/46 100 05/06/17 14:40 83 17 106/46 100 05/06/17 14:30 86 19 93/36 94 05/06/17 14:20 86 16 114/48 96 05/06/17 14:10 79 17 114/48 98 05/06/17 14:00 85 17 106/46 99 05/06/17 13:50 82 17 114/48 100 05/06/17 13:40 83 12 114/48 100 05/06/17 13:30 86 14 114/48 94 05/06/17 13:20 89 18 137/56 96 05/06/17 13:10 81 14 137/56 100 05/06/17 13:00 82 18 137/56 100 05/06/17 12:50 83 17 137/56 100 05/06/17 12:42 84 17 137/56 100 05/06/17 12:34 97.9 F 05/06/17 12:10 89 20 137/56 96 05/06/17 12:00 86 14 102/51 96 05/06/17 11:50 77 11 L 102/51 95 05/06/17 11:40 78 16 102/51 97 05/06/17 11:30 83 14 111/59 98 05/06/17 11:20 79 11 L 111/59 95 05/06/17 11:10 84 14 111/59 96 05/06/17 11:06 84 111/59 96 05/06/17 11:00 88 12 111/59 98 05/06/17 10:50 79 16 157/64 98 05/06/17 10:40 85 16 157/64 98 05/06/17 10:30 86 15 157/64 100 05/06/17 10:20 76 17 122/46 99 05/06/17 10:10 77 15 122/46 100 05/06/17 10:00 74 16 122/46 100 05/06/17 09:50 92 H 12 123/50 100 05/06/17 09:40 83 18 123/50 97 05/06/17 09:30 77 18 123/50 98 05/06/17 09:20 81 15 143/46 97 05/06/17 09:11 97.2 F L 05/06/17 09:10 80 16 143/46 96 05/06/17 09:00 79 17 136/42 100 05/06/17 08:50 89 17 136/42 100 05/06/17 08:40 74 13 136/42 96 05/06/17 08:30 72 20 126/50 97 - Physical Examination HEENT: Positive: PERRL Neck: Negative: JVD/HJR Cardiac: Positive: Reg Rate and Rhythm Lungs: Positive: Decreased Breath Sounds Neuro: Positive: Other (awake but not following commands. contracted) Abdomen: Positive: Soft Skin: Positive: Other (warm) Musculoskeletal: other (r aka) Extremities: Present: Other (contracted). Absent: edema - Labs and Meds CBC 05/07/17 Range/Units 05:00 WBC 23.4 H (4.5-11.0) K/mm3 RBC 3.21 L (3.65-5.03) M/mm3 Hgb 9.3 L (10.1-14.3) gm/dl Hct 28.3 L (30.3-42.9) % Plt Count 184 (140-440) K/mm3 Comprehensive Metabolic Panel 05/07/17 Range/Units 05:00 Sodium 154 H (137-145) mmol/L Potassium 5.1 H (3.6-5.0) mmol/L Chloride 117.1 H (98-107) mmol/L Carbon Dioxide 21 L (22-30) mmol/L BUN 46 H (7-17) mg/dL Creatinine 2.0 H (0.7-1.2) mg/dL Glucose 85 (65-100) mg/dL Calcium 7.1 L (8.4-10.2) mg/dL
--- NOTE | 2017-05-07 09:31 | Progress Note ---
Assessment and Plan Assessment and plan: Acute respiratory failure. Admitted to ICU. Intubated. Respiratory status improving Pulmonology following. I discussed with Buttonholer. Possible extubation today since she is improved pulmonarywise. Sepsis due to Escherichia coli. She is on Zosyn and Levaquin Anemia, Hgb is 9.3 after transfusing 2 units PRBC. Hemoglobin was 6.3 on admission. stool occult blood ordered. Acute on chronic kidney disease with Uremia,metabolic acidosis. Had emergent dialysis after catheter placed. Hyperkalemia. Improved, most recent Potassium 5.1. Severe metabolic acidosis from acute on CKD, improved. CO2 is 21, was 7 on admission. Lactic acidosis, improved but still high. Lactic acid level 8.5 yesterday. History of stroke s/p colostomy Vomiting fecal matter. CT Abdomen The abdomen showed dilatation of bowel, findings suggesting fistula. Patient Patient is not a surgical candidate. Conservative management. Patient had an NG tube which she pulled out yesterday. From the does not recommend putting block Elevated Troponin. Conservative manangement. Hypernatremia. Monitor BMP DNR status Patient was DNR and on hospice at SNF unknown to us, so was intubated, so family rescinded hospice and requested full code. I discussed with kenny yesterday and she has now requested DO NOT RESUSCITATE status. patient has a poor prognosis. Will talk to kenny about discharging back to hospice History Interval history: Still intubated Still Vomiting Patient pulled out NG tube yesterday and family requested not to put it back Hospitalist Physical - Physical exam Narrative exam: GEN APPEARANCE : Not in acute distress, intubated HEENT: Normocephalic Atraumatic. NECK : supple, no JVD LUNGS: clear to auscultation bilaterally, no rales, no wheeze HEART: S1 and S2 regular, no murmurs, rubs or gallop, ABD: Soft, no tenderness, colostomy, no distension, bowel sounds present EXT: Contractures, right AKA NEURO: Intubated, eyes open, follows commands - Constitutional Vitals: Temp Pulse Resp BP Pulse Ox 98.5 F 96 H 22 132/61 97 05/07/17 07:57 05/07/17 07:18 05/07/17 07:18 05/07/17 07:18 05/07/17 07:18 General appearance: Present: other (contracted) Results - Labs CBC & Chem 7: 05/07/17 05:00 05/07/17 05:00 Labs: Laboratory Last Values WBC 23.4 K/mm3 (4.5-11.0) H 05/07/17 05:00 RBC 3.21 M/mm3 (3.65-5.03) L 05/07/17 05:00 Hgb 9.3 gm/dl (10.1-14.3) L 05/07/17 05:00 Hct 28.3 % (30.3-42.9) L 05/07/17 05:00 MCV 88 fl (79-97) 05/07/17 05:00 MCH 29 pg (28-32) 05/07/17 05:00 MCHC 33 % (30-34) 05/07/17 05:00 RDW 19.1 % (13.2-15.2) H 05/07/17 05:00 Plt Count 184 K/mm3 (140-440) 05/07/17 05:00 Add Manual Diff Complete 05/06/17 04:00 Total Counted 100 05/06/17 04:00 Seg Neuts % (Manual) 39.0 % (40.0-70.0) L 05/06/17 04:00 Band Neutrophils % 46.0 % 05/06/17 04:00 Lymphocytes % (Manual) 10.0 % (13.4-35.0) L 05/06/17 04:00 Reactive Lymphs % (Man) 0 % 05/06/17 04:00 Monocytes % (Manual) 5.0 % (0.0-7.3) 05/06/17 04:00 Eosinophils % (Manual) 0 % (0.0-4.3) 05/06/17 04:00 Basophils % (Manual) 0 % (0.0-1.8) 05/06/17 04:00 Metamyelocytes % 0 % 05/06/17 04:00 Myelocytes % 0 % 05/06/17 04:00 Promyelocytes % 0 % 05/06/17 04:00 Blast Cells % 0 % 05/06/17 04:00 Nucleated RBC % Not Reportable 05/06/17 04:00 Seg Neutrophils # Man 6.7 K/mm3 (1.8-7.7) 05/06/17 04:00 Band Neutrophils # 8.0 K/mm3 05/06/17 04:00 Lymphocytes # (Manual) 1.7 K/mm3 (1.2-5.4) 05/06/17 04:00 Abs React Lymphs (Man) 0.0 K/mm3 05/06/17 04:00 Monocytes # (Manual) 0.9 K/mm3 (0.0-0.8) H 05/06/17 04:00 Eosinophils # (Manual) 0.0 K/mm3 (0.0-0.4) 05/06/17 04:00 Basophils # (Manual) 0.0 K/mm3 (0.0-0.1) 05/06/17 04:00 Metamyelocytes # 0.0 K/mm3 05/06/17 04:00 Myelocytes # 0.0 K/mm3 05/06/17 04:00 Promyelocytes # 0.0 K/mm3 05/06/17 04:00 Blast Cells # 0.0 K/mm3 05/06/17 04:00 WBC Morphology Not Reportable 05/06/17 04:00 Hypersegmented Neuts Not Reportable 05/06/17 04:00 Hyposegmented Neuts Not Reportable 05/06/17 04:00 Hypogranular Neuts Not Reportable 05/06/17 04:00 Smudge Cells Not Reportable 05/06/17 04:00 Toxic Granulation Not Reportable 05/06/17 04:00 Toxic Vacuolation Not Reportable 05/06/17 04:00 Dohle Bodies Not Reportable 05/06/17 04:00 Pelger-Huet Anomaly Not Reportable 05/06/17 04:00 Sandra Rods Not Reportable 05/06/17 04:00 Platelet Estimate Consistent w auto 05/06/17 04:00 Clumped Platelets Not Reportable 05/06/17 04:00 Plt Clumps, EDTA Not Reportable 05/06/17 04:00 Large Platelets Few 05/06/17 04:00 Giant Platelets Not Reportable 05/06/17 04:00 Platelet Satelliting Not Reportable 05/06/17 04:00 Plt Morphology Comment Not Reportable 05/06/17 04:00 RBC Morphology Not Reportable 05/06/17 04:00 Dimorphic RBCs Not Reportable 05/06/17 04:00 Polychromasia Not Reportable 05/06/17 04:00 Hypochromasia Not Reportable 05/06/17 04:00 Poikilocytosis Not Reportable 05/06/17 04:00 Anisocytosis 1+ 05/06/17 04:00 Microcytosis Few 05/06/17 04:00 Macrocytosis Not Reportable 05/06/17 04:00 Spherocytes Not Reportable 05/06/17 04:00 Pappenheimer Bodies Not Reportable 05/06/17 04:00 Sickle Cells Not Reportable 05/06/17 04:00 Target Cells Not Reportable 05/06/17 04:00 Tear Drop Cells Not Reportable 05/06/17 04:00 Ovalocytes Not Reportable 05/06/17 04:00 Helmet Cells Not Reportable 05/06/17 04:00 [place] Bodies Not Reportable 05/06/17 04:00 [place] Rings Not Reportable 05/06/17 04:00 [place] Cells Not Reportable 05/06/17 04:00 Bite Cells Not Reportable 05/06/17 04:00 Crenated Cell Not Reportable 05/06/17 04:00 Elliptocytes Few 05/06/17 04:00 Acanthocytes (Spur) Not Reportable 05/06/17 04:00 Rouleaux Not Reportable 05/06/17 04:00 Hemoglobin C Crystals Not Reportable 05/06/17 04:00 Schistocytes Not Reportable 05/06/17 04:00 Malaria parasites Not Reportable 05/06/17 04:00 [place] Bodies Not Reportable 05/06/17 04:00 Hem Pathologist Commnt No 05/06/17 04:00 PT 17.4 Sec. (12.2-14.9) H 05/05/17 15:38 INR 1.35 (0.87-1.13) H 05/05/17 15:38 APTT 33.2 Sec. (24.2-36.6) 05/05/17 15:38 POC ABG pH 7.436 (7.35-7.45) 05/06/17 07:13 POC ABG pCO2 27.7 (35-45) L 05/06/17 07:13 POC ABG pO2 67 (80-105) L 05/06/17 07:13 POC ABG HCO3 18.7 05/06/17 07:13 POC ABG Total CO2 19 05/06/17 07:13 POC ABG O2 Sat 94 05/06/17 07:13 POC ABG Base Excess -6 05/06/17 07:13 VBG pH 6.909 (7.320-7.420) L* 05/05/17 15:38 FiO2 30 % 05/06/17 07:13 Sodium 154 mmol/L (137-145) H 05/07/17 05:00 Potassium 5.1 mmol/L (3.6-5.0) H 05/07/17 05:00 Chloride 117.1 mmol/L (98-107) H 05/07/17 05:00 Carbon Dioxide 21 mmol/L (22-30) L 05/07/17 05:00 Anion Gap 21 mmol/L 05/07/17 05:00 BUN 46 mg/dL (7-17) H 05/07/17 05:00 Creatinine 2.0 mg/dL (0.7-1.2) H 05/07/17 05:00 Estimated GFR 29 ml/min 05/07/17 05:00 BUN/Creatinine Ratio 23 % 05/07/17 05:00 Glucose 85 mg/dL (65-100) 05/07/17 05:00 POC Glucose 125 (70-105) H 05/06/17 17:41 Osmolality 332 Mosm/kg 05/06/17 04:00 Lactic Acid 8.50 mmol/L (0.7-2.0) H* 05/05/17 23:00 Calcium 7.1 mg/dL (8.4-10.2) L 05/07/17 05:00 Phosphorus 1.90 mg/dL (2.5-4.5) L 05/06/17 04:00 Magnesium 2.70 mg/dL (1.7-2.3) H 05/05/17 15:38 Total Bilirubin 0.40 mg/dL (0.1-1.2) 05/06/17 04:00 AST 82 units/L (5-40) H 05/06/17 04:00 ALT 26 units/L (7-56) 05/06/17 04:00 Alkaline Phosphatase 116 units/L (35-129) 05/06/17 04:00 Total Creatine Kinase 350 units/L (30-135) H 05/06/17 04:00 CK-MB (CK-2) 32.9 ng/mL (0.0-4.0) H 05/06/17 04:00 CK-MB (CK-2) Rel Index 9.4 (0-4) H 05/06/17 04:00 Troponin T 0.694 ng/mL (0.00-0.029) H* D 05/06/17 04:00 Total Protein 5.9 g/dL (6.3-8.2) L 05/06/17 04:00 Albumin 1.8 g/dL (3.9-5) L 05/06/17 04:00 Albumin/Globulin Ratio 0.4 % 05/06/17 04:00 Triglycerides 137 mg/dL (2-149) 05/05/17 15:38 Cholesterol 108 mg/dL (50-199) 05/05/17 15:38 LDL Cholesterol Direct 13 mg/dL (50-130) L 05/05/17 15:38 HDL Cholesterol 68 mg/dL (40-59) H 05/05/17 15:38 Cholesterol/HDL Ratio 1.58 % 05/05/17 15:38 Hep Bs Antigen Non-reactive (Negative) 05/06/17 05:00 Hepatitis C Antibody Non-reactive (NonReactive) 05/06/17 04:00 Blood Type O POSITIVE 05/05/17 18:53 Antibody Screen Negative 05/05/17 18:53 Crossmatch See Detail 05/05/17 18:53
[2017-05-07] MEDS: ZOSYN/NS 2.25 GM/50ML 2.25 GM/50 ML BAG IV SCH ×2 (09:59→23:29)
--- NOTE | 2017-05-07 11:30 | Progress Note ---
Assessment and Plan (1) Respiratory failure Current Visit: Yes Status: Acute Plan to address problem: extubated, now DNR (2) ALEKSANDER (acute kidney injury) Current Visit: No Status: Acute Plan to address problem: HD again today for clearance and gentle volume removal remains to be anuric will start D5W @ 50 cc/h for hypernatremia Obtain daily weights Renally dose medications Avoid Nephrotoxic agents Monitor I/O's Monitor renal function closely (3) Lactic acidosis Current Visit: Yes Status: Acute Plan to address problem: improving (4) Metabolic acidosis Current Visit: Yes Status: Acute Plan to address problem: of bicarb gtt (5) Hyperkalemia Current Visit: Yes Status: Acute Plan to address problem: resolved with HD (6) Anemia Current Visit: No Status: Acute Qualifiers: Anemia type: due to chronic kidney disease Chronic kidney disease stage: stage 4 (severe) Qualified Code(s): N18.4 - Chronic kidney disease, stage 4 ( severe); D63.1 - Anemia in chronic kidney disease; D63.1 - Anemia in chronic kidney disease Plan to address problem: s/p 2 units PRBC (7) Hypernatremia Current Visit: Yes Status: Acute Plan to address problem: D5W @ 50 cc/h as above Subjective Date of service: 05/07/17 Principal diagnosis: acute renal failure Interval history: awake but does not answer questions nor follows commands, no family at bedside Objective - Vital Signs Vital signs: Vital Signs - 12hr 05/06/17 05/06/17 05/06/17 23:30 23:41 23:46 Temperature 98.6 F Pulse Rate 97 H 95 H Pulse Rate [ Apical] Pulse Rate [ Left Radial] Pulse Rate [ Right Radial] Respiratory 16 13 Rate Respiratory Rate [Right Lower Leg] Blood Pressure 119/60 119/60 O2 Sat by Pulse 97 100 Oximetry 05/06/17 05/07/17 05/07/17 23:51 00:00 00:11 Temperature Pulse Rate 96 H 99 H 94 H Pulse Rate [ Apical] Pulse Rate [ Left Radial] Pulse Rate [ Right Radial] Respiratory 13 13 12 Rate Respiratory Rate [Right Lower Leg] Blood Pressure 119/60 103/59 103/59 O2 Sat by Pulse 100 100 100 Oximetry 05/07/17 05/07/17 05/07/17 00:21 00:30 00:41 Temperature Pulse Rate 94 H 96 H 95 H Pulse Rate [ Apical] Pulse Rate [ Left Radial] Pulse Rate [ Right Radial] Respiratory 12 13 18 Rate Respiratory Rate [Right Lower Leg] Blood Pressure 103/59 104/56 104/56 O2 Sat by Pulse 100 100 100 Oximetry 05/07/17 05/07/17 05/07/17 00:51 01:00 01:11 Temperature Pulse Rate 93 H 99 H 95 H Pulse Rate [ Apical] Pulse Rate [ Left Radial] Pulse Rate [ Right Radial] Respiratory 16 11 L 10 L Rate Respiratory Rate [Right Lower Leg] Blood Pressure 104/56 116/50 116/50 O2 Sat by Pulse 100 100 100 Oximetry 05/07/17 05/07/17 05/07/17 01:21 01:30 01:41 Temperature Pulse Rate 94 H 96 H 94 H Pulse Rate [ Apical] Pulse Rate [ Left Radial] Pulse Rate [ Right Radial] Respiratory 17 13 13 Rate Respiratory Rate [Right Lower Leg] Blood Pressure 116/50 121/61 121/61 O2 Sat by Pulse 99 100 100 Oximetry 05/07/17 05/07/17 05/07/17 01:51 02:00 02:11 Temperature Pulse Rate 94 H 94 H 95 H Pulse Rate [ Apical] Pulse Rate [ Left Radial] Pulse Rate [ Right Radial] Respiratory 16 15 18 Rate Respiratory Rate [Right Lower Leg] Blood Pressure 121/61 116/59 116/59 O2 Sat by Pulse 100 100 100 Oximetry 05/07/17 05/07/17 05/07/17 02:21 02:31 02:41 Temperature Pulse Rate 102 H 105 H 96 H Pulse Rate [ Apical] Pulse Rate [ Left Radial] Pulse Rate [ Right Radial] Respiratory 17 11 L 13 Rate Respiratory Rate [Right Lower Leg] Blood Pressure 116/59 116/59 116/59 O2 Sat by Pulse 100 Oximetry 05/07/17 05/07/17 05/07/17 02:51 03:01 03:11 Temperature Pulse Rate 98 H 94 H 91 H Pulse Rate [ Apical] Pulse Rate [ Left Radial] Pulse Rate [ Right Radial] Respiratory 14 23 22 Rate Respiratory Rate [Right Lower Leg] Blood Pressure 116/59 116/59 116/59 O2 Sat by Pulse Oximetry 05/07/17 05/07/17 05/07/17 03:21 03:31 03:41 Temperature Pulse Rate 88 93 H 89 Pulse Rate [ Apical] Pulse Rate [ Left Radial] Pulse Rate [ Right Radial] Respiratory 16 18 12 Rate Respiratory Rate [Right Lower Leg] Blood Pressure 116/59 116/59 116/59 O2 Sat by Pulse 100 Oximetry 05/07/17 05/07/17 05/07/17 03:51 04:00 04:09 Temperature 98.3 F Pulse Rate 82 92 H 81 Pulse Rate [ Apical] Pulse Rate [ Left Radial] Pulse Rate [ Right Radial] Respiratory 15 16 Rate Respiratory Rate [Right Lower Leg] Blood Pressure 133/58 125/57 125/57 O2 Sat by Pulse 100 100 100 Oximetry 05/07/17 05/07/17 05/07/17 04:11 04:21 04:30 Temperature Pulse Rate 78 77 77 Pulse Rate [ Apical] Pulse Rate [ Left Radial] Pulse Rate [ Right Radial] Respiratory 17 18 13 Rate Respiratory Rate [Right Lower Leg] Blood Pressure 125/57 125/57 117/60 O2 Sat by Pulse 100 100 100 Oximetry 05/07/17 05/07/17 05/07/17 04:41 04:51 05:00 Temperature Pulse Rate 84 81 88 Pulse Rate [ Apical] Pulse Rate [ Left Radial] Pulse Rate [ Right Radial] Respiratory 17 14 16 Rate Respiratory Rate [Right Lower Leg] Blood Pressure 117/60 117/60 127/60 O2 Sat by Pulse 100 98 97 Oximetry 05/07/17 05/07/17 05/07/17 05:11 05:21 05:30 Temperature Pulse Rate 83 90 87 Pulse Rate [ Apical] Pulse Rate [ Left Radial] Pulse Rate [ Right Radial] Respiratory 12 21 13 Rate Respiratory Rate [Right Lower Leg] Blood Pressure 127/60 127/60 117/56 O2 Sat by Pulse 98 97 96 Oximetry 05/07/17 05/07/17 05/07/17 05:41 05:51 06:00 Temperature Pulse Rate 88 93 H 85 Pulse Rate [ Apical] Pulse Rate [ Left Radial] Pulse Rate [ Right Radial] Respiratory 19 11 L 15 Rate Respiratory Rate [Right Lower Leg] Blood Pressure 117/56 117/56 117/56 O2 Sat by Pulse 97 96 98 Oximetry 05/07/17 05/07/17 05/07/17 06:11 06:21 07:09 Temperature Pulse Rate 85 77 83 Pulse Rate [ Apical] Pulse Rate [ Left Radial] Pulse Rate [ Right Radial] Respiratory 16 16 Rate Respiratory Rate [Right Lower Leg] Blood Pressure 119/53 119/53 132/67 O2 Sat by Pulse 98 99 100 Oximetry 05/07/17 05/07/17 05/07/17 07:18 07:57 08:00 Temperature 98.5 F Pulse Rate 96 H 99 H Pulse Rate [ 101 H Apical] Pulse Rate [ 99 H Left Radial] Pulse Rate [ 93 H Right Radial] Respiratory 22 28 H Rate Respiratory 28 H Rate [Right Lower Leg] Blood Pressure 132/61 O2 Sat by Pulse 97 96 Oximetry 05/07/17 05/07/17 09:45 10:05 Temperature Pulse Rate 82 Pulse Rate [ Apical] Pulse Rate [ Left Radial] Pulse Rate [ Right Radial] Respiratory 14 Rate Respiratory Rate [Right Lower Leg] Blood Pressure 116/54 O2 Sat by Pulse 100 100 Oximetry - General Appearance General appearance: well-developed, cachectic EENT: ATNC, PERRL, mucous membranes dry Neck: no JVD, no carotid bruit Respiratory: Present: Decreased Breath Sounds Cardiology: regular, S1S2 Gastrointestinal: normoactive bowel sounds, no tenderness, distended Integumentary: no rash, warm and dry Neurologic: other (does not follow commands) Musculoskeletal: other (no edema in LE) Psychiatric: other (does not answer questions) - Lab 05/07/17 05:00 05/07/17 05:00 Most recent lab results Calcium 7.1 mg/dL (8.4-10.2) L 05/07/17 05:00 Phosphorus 1.90 mg/dL (2.5-4.5) L 05/06/17 04:00 Magnesium 2.70 mg/dL (1.7-2.3) H 05/05/17 15:38
[2017-05-07] MEDS: MORPHINE IV PRN (12:01)
[2017-05-07] MEDS: D5W 1,000 ML IV SCH (12:10)
[2017-05-07] MEDS ORDERED: CATHFLO IV ONE (12:18)
[2017-05-07] MEDS ORDERED: WATER FOR INJ (PF) 10 ML ONE (12:24)
[2017-05-08] MEDS: MORPHINE IV PRN ×2 (01:39→06:14)
[2017-05-08] MEDS: REGLAN IV SCH (03:43)
[2017-05-08 04:27] LABS: Calcium 6.6 mg/dL (8.4-10.2); Chloride 109.6 mmol/L (98-107); Phosphorous 2.3 mg/dL (2.5-4.5); Potassium 4.3 mmol/L (3.6-5.0)
[2017-05-08 04:30] LABS: Hematocrit 23.9 % (30.3-42.9); Hemoglobin 7.8 gm/dl (10.1-14.3); Mean Corpuscular HGB Conc 33 % (30-34); Mean Corpuscular Hemoglobin 29 pg (28-32); Mean Corpuscular Volume 87 fl (79-97); Platelet Count 149 K/mm3 (140-440); Red Blood Count 2.74 M/mm3 (3.65-5.03); Red Cell Distribution Width 18.9 % (13.2-15.2); White Blood Count 19.8 K/mm3 (4.5-11.0)
[2017-05-08] MEDS: D5W 1,000 ML IV SCH (05:54)
--- NOTE | 2017-05-08 08:39 | Progress Note ---
Assessment and Plan Assessment and plan: Acute respiratory failure. On initial presentation, was intubated in ED and admitted to intensive care unit. She was extubated yesterday and is now on oxygen by Ventimask. Respiratory corona she is improving. Pulmonology following , and I discussed with him. Possible transfer to Tele. Sepsis due to Escherichia coli. She is on Zosyn and Levaquin Anemia, Hgb is 9.3 after transfusing 2 units PRBC. Hemoglobin was 6.3 on admission. stool occult blood ordered. Acute on chronic kidney disease with Uremia,metabolic acidosis. Had emergent dialysis after catheter placed. Hyperkalemia. Improved, most recent Potassium 4.3 today Severe metabolic acidosis from acute on CKD, now resolved on dialysis. CO2 is 25 , was 7 on admission. Lactic acidosis due to Sepsis. History of stroke s/p colostomy Vomiting fecal matter. CT Abdomen showed dilatation of bowel, findings suspicious of fistula. 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 Conservative management. Patient had an NG tube which she pulled out 2 days ago. Family does not recommend putting it back Elevated Troponin. Conservative manangement. Hypernatremia. Monitor BMP DNR status Patient was DNR and on hospice at SNF unknown to us, so was intubated in ED, so family rescinded hospice and requested full code. I discussed with kenny yesterday and she has now requested DO NOT RESUSCITATE status. Patient has a poor prognosis. Spoke to niece again today. She wants us to do best we can to get her better, short of CPR and intubation. Patient has DNR status History Interval history: Extubated yesterday, On Oxygen by ventimask No more vomiting Patient pulled out NG tube 2 days ago and family requested not to put it back Hospitalist Physical - Physical exam Narrative exam: GEN APPEARANCE : Not in acute distress, on Oxygen by ventimask HEENT: Normocephalic Atraumatic. NECK : supple, no JVD LUNGS: clear to auscultation bilaterally, no rales, no wheeze HEART: S1 and S2 regular, no murmurs, rubs or gallop, ABD: Soft, no tenderness, colostomy, no distension, bowel sounds present EXT: Contractures, right AKA NEURO: Eyes open, follows commands - Constitutional Vitals: Temp Pulse Resp BP Pulse Ox 97.9 F 74 9 L 130/57 93 05/08/17 08:15 05/08/17 06:00 05/08/17 06:00 05/08/17 06:00 05/08/17 06:00 General appearance: Present: other (contracted) Results - Labs CBC & Chem 7: 05/08/17 Unknown 05/08/17 Unknown Labs: Laboratory Last Values WBC 19.8 K/mm3 (4.5-11.0) H 05/08/17 Unknown RBC 2.74 M/mm3 (3.65-5.03) L 05/08/17 Unknown Hgb 7.8 gm/dl (10.1-14.3) L 05/08/17 Unknown Hct 23.9 % (30.3-42.9) L 05/08/17 Unknown MCV 87 fl (79-97) 05/08/17 Unknown MCH 29 pg (28-32) 05/08/17 Unknown MCHC 33 % (30-34) 05/08/17 Unknown RDW 18.9 % (13.2-15.2) H 05/08/17 Unknown Plt Count 149 K/mm3 (140-440) 05/08/17 Unknown Add Manual Diff Complete 05/06/17 04:00 Total Counted 100 05/06/17 04:00 Seg Neuts % (Manual) 39.0 % (40.0-70.0) L 05/06/17 04:00 Band Neutrophils % 46.0 % 05/06/17 04:00 Lymphocytes % (Manual) 10.0 % (13.4-35.0) L 05/06/17 04:00 Reactive Lymphs % (Man) 0 % 05/06/17 04:00 Monocytes % (Manual) 5.0 % (0.0-7.3) 05/06/17 04:00 Eosinophils % (Manual) 0 % (0.0-4.3) 05/06/17 04:00 Basophils % (Manual) 0 % (0.0-1.8) 05/06/17 04:00 Metamyelocytes % 0 % 05/06/17 04:00 Myelocytes % 0 % 05/06/17 04:00 Promyelocytes % 0 % 05/06/17 04:00 Blast Cells % 0 % 05/06/17 04:00 Nucleated RBC % Not Reportable 05/06/17 04:00 Seg Neutrophils # Man 6.7 K/mm3 (1.8-7.7) 05/06/17 04:00 Band Neutrophils # 8.0 K/mm3 05/06/17 04:00 Lymphocytes # (Manual) 1.7 K/mm3 (1.2-5.4) 05/06/17 04:00 Abs React Lymphs (Man) 0.0 K/mm3 05/06/17 04:00 Monocytes # (Manual) 0.9 K/mm3 (0.0-0.8) H 05/06/17 04:00 Eosinophils # (Manual) 0.0 K/mm3 (0.0-0.4) 05/06/17 04:00 Basophils # (Manual) 0.0 K/mm3 (0.0-0.1) 05/06/17 04:00 Metamyelocytes # 0.0 K/mm3 05/06/17 04:00 Myelocytes # 0.0 K/mm3 05/06/17 04:00 Promyelocytes # 0.0 K/mm3 05/06/17 04:00 Blast Cells # 0.0 K/mm3 05/06/17 04:00 WBC Morphology Not Reportable 05/06/17 04:00 Hypersegmented Neuts Not Reportable 05/06/17 04:00 Hyposegmented Neuts Not Reportable 05/06/17 04:00 Hypogranular Neuts Not Reportable 05/06/17 04:00 Smudge Cells Not Reportable 05/06/17 04:00 Toxic Granulation Not Reportable 05/06/17 04:00 Toxic Vacuolation Not Reportable 05/06/17 04:00 Dohle Bodies Not Reportable 05/06/17 04:00 Pelger-Huet Anomaly Not Reportable 05/06/17 04:00 Sandra Rods Not Reportable 05/06/17 04:00 Platelet Estimate Consistent w auto 05/06/17 04:00 Clumped Platelets Not Reportable 05/06/17 04:00 Plt Clumps, EDTA Not Reportable 05/06/17 04:00 Large Platelets Few 05/06/17 04:00 Giant Platelets Not Reportable 05/06/17 04:00 Platelet Satelliting Not Reportable 05/06/17 04:00 Plt Morphology Comment Not Reportable 05/06/17 04:00 RBC Morphology Not Reportable 05/06/17 04:00 Dimorphic RBCs Not Reportable 05/06/17 04:00 Polychromasia Not Reportable 05/06/17 04:00 Hypochromasia Not Reportable 05/06/17 04:00 Poikilocytosis Not Reportable 05/06/17 04:00 Anisocytosis 1+ 05/06/17 04:00 Microcytosis Few 05/06/17 04:00 Macrocytosis Not Reportable 05/06/17 04:00 Spherocytes Not Reportable 05/06/17 04:00 Pappenheimer Bodies Not Reportable 05/06/17 04:00 Sickle Cells Not Reportable 05/06/17 04:00 Target Cells Not Reportable 05/06/17 04:00 Tear Drop Cells Not Reportable 05/06/17 04:00 Ovalocytes Not Reportable 05/06/17 04:00 Helmet Cells Not Reportable 05/06/17 04:00 [place] Bodies Not Reportable 05/06/17 04:00 [place] Rings Not Reportable 05/06/17 04:00 [place] Cells Not Reportable 05/06/17 04:00 Bite Cells Not Reportable 05/06/17 04:00 Crenated Cell Not Reportable 05/06/17 04:00 Elliptocytes Few 05/06/17 04:00 Acanthocytes (Spur) Not Reportable 05/06/17 04:00 Rouleaux Not Reportable 05/06/17 04:00 Hemoglobin C Crystals Not Reportable 05/06/17 04:00 Schistocytes Not Reportable 05/06/17 04:00 Malaria parasites Not Reportable 05/06/17 04:00 [place] Bodies Not Reportable 05/06/17 04:00 Hem Pathologist Commnt No 05/06/17 04:00 PT 17.4 Sec. (12.2-14.9) H 05/05/17 15:38 INR 1.35 (0.87-1.13) H 05/05/17 15:38 APTT 33.2 Sec. (24.2-36.6) 05/05/17 15:38 POC ABG pH 7.436 (7.35-7.45) 05/06/17 07:13 POC ABG pCO2 27.7 (35-45) L 05/06/17 07:13 POC ABG pO2 67 (80-105) L 05/06/17 07:13 POC ABG HCO3 18.7 05/06/17 07:13 POC ABG Total CO2 19 05/06/17 07:13 POC ABG O2 Sat 94 05/06/17 07:13 POC ABG Base Excess -6 05/06/17 07:13 VBG pH 6.909 (7.320-7.420) L* 05/05/17 15:38 FiO2 30 % 05/06/17 07:13 Sodium 146 mmol/L (137-145) H D 05/08/17 Unknown Potassium 4.3 mmol/L (3.6-5.0) 05/08/17 Unknown Chloride 109.6 mmol/L (98-107) H 05/08/17 Unknown Carbon Dioxide 25 mmol/L (22-30) 05/08/17 Unknown Anion Gap 16 mmol/L 05/08/17 Unknown BUN 31 mg/dL (7-17) H 05/08/17 Unknown Creatinine 1.7 mg/dL (0.7-1.2) H 05/08/17 Unknown Estimated GFR 35 ml/min 05/08/17 Unknown BUN/Creatinine Ratio 18 % 05/08/17 Unknown Glucose 121 mg/dL (65-100) H 05/08/17 Unknown POC Glucose 136 (70-105) H 05/08/17 05:18 Osmolality 332 Mosm/kg 05/06/17 04:00 Lactic Acid 8.50 mmol/L (0.7-2.0) H* 05/05/17 23:00 Calcium 6.6 mg/dL (8.4-10.2) L 05/08/17 Unknown Phosphorus 2.30 mg/dL (2.5-4.5) L 05/08/17 Unknown Magnesium 2.70 mg/dL (1.7-2.3) H 05/05/17 15:38 Total Bilirubin 0.40 mg/dL (0.1-1.2) 05/06/17 04:00 AST 82 units/L (5-40) H 05/06/17 04:00 ALT 26 units/L (7-56) 05/06/17 04:00 Alkaline Phosphatase 116 units/L (35-129) 05/06/17 04:00 Total Creatine Kinase 350 units/L (30-135) H 05/06/17 04:00 CK-MB (CK-2) 32.9 ng/mL (0.0-4.0) H 05/06/17 04:00 CK-MB (CK-2) Rel Index 9.4 (0-4) H 05/06/17 04:00 Troponin T 0.694 ng/mL (0.00-0.029) H* D 05/06/17 04:00 Total Protein 5.9 g/dL (6.3-8.2) L 05/06/17 04:00 Albumin 1.8 g/dL (3.9-5) L 05/06/17 04:00 Albumin/Globulin Ratio 0.4 % 05/06/17 04:00 Triglycerides 137 mg/dL (2-149) 05/05/17 15:38 Cholesterol 108 mg/dL (50-199) 05/05/17 15:38 LDL Cholesterol Direct 13 mg/dL (50-130) L 05/05/17 15:38 HDL Cholesterol 68 mg/dL (40-59) H 05/05/17 15:38 Cholesterol/HDL Ratio 1.58 % 05/05/17 15:38 Hep Bs Antigen Non-reactive (Negative) 05/06/17 05:00 Hepatitis C Antibody Non-reactive (NonReactive) 05/06/17 04:00 Blood Type O POSITIVE 05/05/17 18:53 Antibody Screen Negative 05/05/17 18:53 Crossmatch See Detail 05/05/17 18:53
--- NOTE | 2017-05-08 09:28 | Progress Note ---
Assessment and Plan acute resp failure s/p cardipulm arrest. s/p dialysis s/p severe hyperkalemia lactic acidosis elevated troponin. difficult in this setting to determine if the elevations are primary or secondary continue supportive care per pulm and nephrol no family present at bedside at time of visit would rec conservative/comfort measures from cardiac standpoint. re-consider hospice Patient has been made a DO NOT RESUSCITATE. No further cardiac recommendations at this time. Subjective Date of service: 05/08/17 Principal diagnosis: acute renal failure Interval history: Patient does not appear to be in any acute distress. No family at bedside. Objective Vital Signs Temp Pulse Resp Resp BP Pulse Ox Pulse Ox 05/08/17 08:15 97.9 F 05/08/17 08:00 72 11 L 130/57 91 05/08/17 06:00 74 9 L 130/57 93 05/08/17 04:01 74 10 L 122/48 91 05/08/17 04:00 14 94 05/08/17 03:22 98.9 F 05/08/17 02:01 71 10 L 103/42 97 05/08/17 00:01 76 11 L 132/72 99 05/08/17 00:00 76 11 L 132/72 98 05/07/17 23:48 18 98 05/07/17 23:00 99.5 F 05/07/17 22:00 79 14 130/63 98 05/07/17 20:00 79 11 L 119/47 97 05/07/17 19:56 98 F 05/07/17 19:18 98 05/07/17 18:00 81 11 L 127/62 98 05/07/17 16:15 98.2 F 88 13 106/50 98 05/07/17 16:10 90 21 23 96 05/07/17 16:00 98.2 F 82 11 L 106/50 98 05/07/17 15:30 88 116/65 05/07/17 15:15 86 120/61 05/07/17 15:05 90 124/64 05/07/17 14:49 88 136/65 05/07/17 14:45 86 136/70 05/07/17 14:33 78 127/61 05/07/17 14:16 86 118/55 05/07/17 14:01 82 116/62 05/07/17 14:00 82 11 L 116/62 97 05/07/17 13:45 84 106/55 05/07/17 13:29 84 124/59 05/07/17 13:15 81 119/53 05/07/17 13:00 87 120/58 05/07/17 12:45 98.5 F 87 14 120/58 98 05/07/17 12:31 13 05/07/17 12:01 25 H 05/07/17 12:00 98.3 F 82 13 106/49 99 05/07/17 10:05 100 05/07/17 10:01 90 16 116/54 100 05/07/17 09:45 82 14 116/54 100 - Physical Examination General: No Apparent Distress HEENT: Positive: PERRL Neck: Negative: JVD/HJR Cardiac: Positive: Reg Rate and Rhythm Lungs: Positive: Decreased Breath Sounds Neuro: Positive: Other (awake but not following commands. contracted) Abdomen: Positive: Soft Skin: Positive: Other (warm) Musculoskeletal: other (AKA/right) Extremities: Present: Other (contracted). Absent: edema - Labs and Meds CBC 05/08/17 Range/Units Unknown WBC 19.8 H (4.5-11.0) K/mm3 RBC 2.74 L (3.65-5.03) M/mm3 Hgb 7.8 L (10.1-14.3) gm/dl Hct 23.9 L (30.3-42.9) % Plt Count 149 (140-440) K/mm3 Comprehensive Metabolic Panel 05/08/17 Range/Units Unknown Sodium 146 H D (137-145) mmol/L Potassium 4.3 (3.6-5.0) mmol/L Chloride 109.6 H (98-107) mmol/L Carbon Dioxide 25 (22-30) mmol/L BUN 31 H (7-17) mg/dL Creatinine 1.7 H (0.7-1.2) mg/dL Glucose 121 H (65-100) mg/dL Calcium 6.6 L (8.4-10.2) mg/dL
[2017-05-08] MEDS ORDERED: KEPPRA 1,000 MG in NACL 0.9% 100 ML IV SCH (10:00)
[2017-05-08] MEDS ORDERED: LEVAQUIN 500MG/100ML 500 MG/100 ML BAG IV SCH (10:00)
--- NOTE | 2017-05-08 10:11 | Progress Note ---
Assessment and Plan 81 y/o female with cardiac arrest, most likely secondary to hyperkalemia, extreme electrolyte imbalance, acute renal failure, acute vs chronic, acute respiratory failure. 1. Patient is now a DNR. 2. Cards recommends conservative therapy. 3. Please transfer out of ICU 4. Will sign off once out of ICU Subjective Date of service: 05/08/17 Principal diagnosis: acute renal failure Interval history: No acute events. Extubate. Currently on face mask with sats of 100%. No family at bedside. Objective Vital Signs - 12hr 05/07/17 05/07/17 05/08/17 23:00 23:48 00:00 Temperature 99.5 F Pulse Rate 76 Respiratory 18 11 L Rate Blood Pressure 132/72 O2 Sat by Pulse 98 98 Oximetry 05/08/17 05/08/17 05/08/17 00:01 02:01 03:22 Temperature 98.9 F Pulse Rate 76 71 Respiratory 11 L 10 L Rate Blood Pressure 132/72 103/42 O2 Sat by Pulse 99 97 Oximetry 05/08/17 05/08/17 05/08/17 04:00 04:01 06:00 Temperature Pulse Rate 74 74 Respiratory 14 10 L 9 L Rate Blood Pressure 122/48 130/57 O2 Sat by Pulse 94 91 93 Oximetry 05/08/17 05/08/17 08:00 08:15 Temperature 97.9 F Pulse Rate 72 Respiratory 11 L Rate Blood Pressure 130/57 O2 Sat by Pulse 91 Oximetry Constitutional: alert, appears uncomfortable Eyes: non-icteric ENT: oropharynx dry Neck: supple Effort: normal Ascultation: Bilateral: clear Percussion: Bilateral: not dull Cardiovascular: regular rate and rhythm Gastrointestinal: hypoactive bowel sounds, other (has a large ostomy bag, distended (the bag)) Extremities: other (contracted globally) CBC and BMP: 05/08/17 Unknown 05/08/17 Unknown ABG, PT/INR, D-dimer: ABG POC ABG pH 7.436 (7.35-7.45) 05/06/17 07:13 POC ABG pCO2 27.7 (35-45) L 05/06/17 07:13 POC ABG pO2 67 (80-105) L 05/06/17 07:13 POC ABG HCO3 18.7 05/06/17 07:13 POC ABG Total CO2 19 05/06/17 07:13 POC ABG O2 Sat 94 05/06/17 07:13 PT/INR, D-dimer PT 17.4 Sec. (12.2-14.9) H 05/05/17 15:38 INR 1.35 (0.87-1.13) H 05/05/17 15:38 Abnormal lab findings: Abnormal Labs 05/05/17 05/05/17 05/05/17 15:38 15:38 15:38 WBC RBC Hgb Hct MCV MCHC RDW Seg Neuts % (Manual) Lymphocytes % (Manual) Monocytes # (Manual) PT 17.4 H INR 1.35 H POC ABG pH POC ABG pCO2 POC ABG pO2 VBG pH Sodium 150 H Potassium 8.6 H* Chloride 119.8 H Carbon Dioxide 7 L* BUN 49 H Creatinine 2.6 H Glucose 124 H POC Glucose Lactic Acid 12.00 H* Calcium Phosphorus Magnesium AST Alkaline Phosphatase 132 H Total Creatine Kinase CK-MB (CK-2) CK-MB (CK-2) Rel Index Troponin T Total Protein Albumin 2.1 L LDL Cholesterol Direct HDL Cholesterol Crossmatch 05/05/17 05/05/17 05/05/17 15:38 15:38 15:38 WBC RBC Hgb Hct MCV MCHC RDW Seg Neuts % (Manual) Lymphocytes % (Manual) Monocytes # (Manual) PT INR POC ABG pH POC ABG pCO2 POC ABG pO2 VBG pH 6.909 L* Sodium Potassium Chloride Carbon Dioxide BUN Creatinine Glucose POC Glucose Lactic Acid Calcium Phosphorus Magnesium 2.70 H AST Alkaline Phosphatase Total Creatine Kinase CK-MB (CK-2) CK-MB (CK-2) Rel Index 6.3 H Troponin T 0.078 H Total Protein Albumin LDL Cholesterol Direct 13 L HDL Cholesterol 68 H Crossmatch 05/05/17 05/05/17 05/05/17 16:15 17:00 18:53 WBC RBC 2.09 L Hgb 6.3 L Hct 22.8 L MCV 109 H MCHC 28 L RDW 19.0 H Seg Neuts % (Manual) 76.0 H Lymphocytes % (Manual) Monocytes # (Manual) PT INR POC ABG pH 6.903 L POC ABG pCO2 POC ABG pO2 572 H VBG pH Sodium Potassium Chloride Carbon Dioxide BUN Creatinine Glucose POC Glucose Lactic Acid Calcium Phosphorus Magnesium AST Alkaline Phosphatase Total Creatine Kinase CK-MB (CK-2) CK-MB (CK-2) Rel Index Troponin T Total Protein Albumin LDL Cholesterol Direct HDL Cholesterol Crossmatch See Detail 05/05/17 05/05/17 05/05/17 23:00 23:00 23:50 WBC RBC Hgb Hct MCV MCHC RDW Seg Neuts % (Manual) Lymphocytes % (Manual) Monocytes # (Manual) PT INR POC ABG pH POC ABG pCO2 POC ABG pO2 VBG pH Sodium Potassium Chloride Carbon Dioxide BUN Creatinine Glucose POC Glucose 185 H Lactic Acid 8.50 H* Calcium Phosphorus Magnesium AST Alkaline Phosphatase Total Creatine Kinase 189 H CK-MB (CK-2) 18.1 H CK-MB (CK-2) Rel Index 9.5 H Troponin T 0.346 H* D Total Protein Albumin LDL Cholesterol Direct HDL Cholesterol Crossmatch 05/06/17 05/06/17 05/06/17 04:00 04:00 05:43 WBC 17.3 H RBC 2.59 L Hgb 7.4 L Hct 23.6 L MCV MCHC RDW 22.3 H Seg Neuts % (Manual) 39.0 L Lymphocytes % (Manual) 10.0 L Monocytes # (Manual) 0.9 H PT INR POC ABG pH POC ABG pCO2 POC ABG pO2 VBG pH Sodium 154 H Potassium Chloride 117.2 H Carbon Dioxide 18 L D BUN 35 H Creatinine 1.6 H Glucose 133 H POC Glucose 141 H Lactic Acid Calcium 7.1 L D Phosphorus 1.90 L Magnesium AST 82 H Alkaline Phosphatase Total Creatine Kinase 350 H CK-MB (CK-2) 32.9 H CK-MB (CK-2) Rel Index 9.4 H Troponin T 0.694 H* D Total Protein 5.9 L Albumin 1.8 L LDL Cholesterol Direct HDL Cholesterol Crossmatch 05/06/17 05/06/17 05/06/17 07:13 10:29 13:59 WBC RBC Hgb Hct MCV MCHC RDW Seg Neuts % (Manual) Lymphocytes % (Manual) Monocytes # (Manual) PT INR POC ABG pH POC ABG pCO2 27.7 L POC ABG pO2 67 L VBG pH Sodium Potassium Chloride Carbon Dioxide BUN Creatinine Glucose POC Glucose 139 H 119 H Lactic Acid Calcium Phosphorus Magnesium AST Alkaline Phosphatase Total Creatine Kinase CK-MB (CK-2) CK-MB (CK-2) Rel Index Troponin T Total Protein Albumin LDL Cholesterol Direct HDL Cholesterol Crossmatch 05/06/17 05/07/17 05/07/17 17:41 05:00 05:00 WBC 23.4 H RBC 3.21 L Hgb 9.3 L Hct 28.3 L MCV MCHC RDW 19.1 H Seg Neuts % (Manual) Lymphocytes % (Manual) Monocytes # (Manual) PT INR POC ABG pH POC ABG pCO2 POC ABG pO2 VBG pH Sodium 154 H Potassium 5.1 H Chloride 117.1 H Carbon Dioxide 21 L BUN 46 H Creatinine 2.0 H Glucose POC Glucose 125 H Lactic Acid Calcium 7.1 L Phosphorus Magnesium AST Alkaline Phosphatase Total Creatine Kinase CK-MB (CK-2) CK-MB (CK-2) Rel Index Troponin T Total Protein Albumin LDL Cholesterol Direct HDL Cholesterol Crossmatch 05/07/17 05/07/17 05/07/17 10:02 17:22 23:35 WBC RBC Hgb Hct MCV MCHC RDW Seg Neuts % (Manual) Lymphocytes % (Manual) Monocytes # (Manual) PT INR POC ABG pH POC ABG pCO2 POC ABG pO2 VBG pH Sodium Potassium Chloride Carbon Dioxide BUN Creatinine Glucose POC Glucose 69 L 119 H 119 H Lactic Acid Calcium Phosphorus Magnesium AST Alkaline Phosphatase Total Creatine Kinase CK-MB (CK-2) CK-MB (CK-2) Rel Index Troponin T Total Protein Albumin LDL Cholesterol Direct HDL Cholesterol Crossmatch 05/08/17 05/08/17 05/08/17 05:18 Unknown Unknown WBC 19.8 H RBC 2.74 L Hgb 7.8 L Hct 23.9 L MCV MCHC RDW 18.9 H Seg Neuts % (Manual) Lymphocytes % (Manual) Monocytes # (Manual) PT INR POC ABG pH POC ABG pCO2 POC ABG pO2 VBG pH Sodium 146 H D Potassium Chloride 109.6 H Carbon Dioxide BUN 31 H Creatinine 1.7 H Glucose 121 H POC Glucose 136 H Lactic Acid Calcium 6.6 L Phosphorus 2.30 L Magnesium AST Alkaline Phosphatase Total Creatine Kinase CK-MB (CK-2) CK-MB (CK-2) Rel Index Troponin T Total Protein Albumin LDL Cholesterol Direct HDL Cholesterol Crossmatch
--- NOTE | 2017-05-08 11:00 | Progress Note ---
Assessment and Plan - Patient Problems (1) Respiratory failure Current Visit: Yes Status: Acute Plan to address problem: S/P intubation. On Non-rebreather mask per Respiratory (2) ALEKSANDER (acute kidney injury) Current Visit: No Status: Acute Plan to address problem: Received hemodialysis yesterday No acute indication for HD today Hypernatremia-On D5W@ 50 ml/hr Obtain daily weights Renally dose medications Avoid Nephrotoxic agents Monitor I/O's Will continue to monitor renal function closely (3) Metabolic acidosis Current Visit: Yes Status: Acute Plan to address problem: Resolved (4) Hyperkalemia Current Visit: Yes Status: Acute Plan to address problem: Resolved (5) Anemia Current Visit: Yes Status: Acute Qualifiers: Anemia type: due to chronic kidney disease Chronic kidney disease stage: stage 4 (severe) Qualified Code(s): N18.4 - Chronic kidney disease, stage 4 ( severe); D63.1 - Anemia in chronic kidney disease; D63.1 - Anemia in chronic kidney disease Plan to address problem: Monitor H/H. Transfuse as needed. (6) Hypernatremia Current Visit: Yes Status: Acute Plan to address problem: Improving, continue IV hydration- on D5W@ 50 ml/hr Subjective Date of service: 05/08/17 Principal diagnosis: acute renal failure Interval history: Patient eyes open, lying in bed. No family at bedside. Objective - Vital Signs Vital signs: Vital Signs - 12hr 05/07/17 05/08/17 05/08/17 23:48 00:00 00:01 Temperature Pulse Rate 76 76 Respiratory 18 11 L 11 L Rate Blood Pressure 132/72 132/72 O2 Sat by Pulse 98 98 99 Oximetry 05/08/17 05/08/17 05/08/17 02:01 03:22 04:00 Temperature 98.9 F Pulse Rate 71 Respiratory 10 L 14 Rate Blood Pressure 103/42 O2 Sat by Pulse 97 94 Oximetry 05/08/17 05/08/17 05/08/17 04:01 06:00 08:00 Temperature Pulse Rate 74 74 72 Respiratory 10 L 9 L 11 L Rate Blood Pressure 122/48 130/57 130/57 O2 Sat by Pulse 91 93 91 Oximetry 05/08/17 05/08/17 08:15 09:30 Temperature 97.9 F Pulse Rate Respiratory Rate Blood Pressure O2 Sat by Pulse 94 Oximetry - General Appearance General appearance: cachectic, chronically ill, fatigue EENT: ATNC, PERRL Neck: no JVD, supple Respiratory: Present: Decreased Breath Sounds Cardiology: regular, S1S2 Gastrointestinal: other (Colostomy noted to abdomen) Integumentary: warm and dry Neurologic: other (Non-verbal) Musculoskeletal: other (Has Right AKA) - Lab 05/08/17 Unknown 05/08/17 Unknown Most recent lab results Calcium 6.6 mg/dL (8.4-10.2) L 05/08/17 Unknown Phosphorus 2.30 mg/dL (2.5-4.5) L 05/08/17 Unknown Magnesium 2.70 mg/dL (1.7-2.3) H 05/05/17 15:38
[2017-05-08] MEDS: ZOSYN/NS 2.25 GM/50ML 2.25 GM/50 ML BAG IV SCH ×2 (14:55→22:34)
--- NOTE | 2017-05-08 18:14 | Consultation ---
REFERRING PHYSICIAN: Martinez Soto MD INDICATION: Abnormal CT scan. HISTORY OF PRESENT ILLNESS: The patient is an 81-year-old black female with history of diabetes, hypertension, chronic kidney disease, dementia, schizophrenia, major depression, status post colostomy with a history of a stroke. The patient presented for shortness of breath and bradycardia after being found unresponsive. The patient subsequently initially intubated. The patient should be noted was DNR. The patient was found to be hyperkalemic and it was felt that this might have been the reason for her episode. During the hospital course, the patient had a CT scan. CT scan raised a concern of a possible enterocutaneous fistula or other fistula. Of note, the patient is status post colostomy. The patient herself feels hungry. She denies any other specific GI complaints. No specific problems. PAST MEDICAL HISTORY: 1. Diabetes. 2. Hypertension. 3. Renal failure. 4. Status post CVA. PAST SURGICAL HISTORY: 1. Status post right AKA. 2. Status post colostomy, unclear reasons. ALLERGIES: No known drug allergies. SOCIAL HISTORY: Lives in a [facility]. FAMILY HISTORY: Noncontributory. REVIEW OF SYSTEMS: GENERAL: Reported mild weakness. HEENT: No visual complaints or tinnitus. PULMONARY: Shortness of breath. ____ cough or no chest pain. GASTROINTESTINAL: Denies any complaints. All points of 13-point review of systems are otherwise negative. PHYSICAL EXAMINATION: VITAL SIGNS: Temperature of 97.9, pulse 90, respirations 18, blood pressure 130/60. GENERAL: Fairly thin female, in no acute distress. HEENT: Pupils equal, round and reactive. PULMONARY: Rhonchi. CARDIOVASCULAR: Regular rhythm. ABDOMEN: Soft, positive bowel sounds. SKIN: No obvious rashes. LABORATORY DATA: Pertinent for white count of 23, hemoglobin and hematocrit 9.2 and 28.3, platelet count 184. Chem-7, sodium 134, potassium 5.1, chloride 117, CO2 of 21, BUN and creatinine 46 and 2. ASSESSMENT: An 81-year-old female with multiple medical problems as noted above, was found to be unresponsive, initially intubated and extubated and was felt to be hyperkalemic The patient had a CT scan, which showed possible enterocutaneous fistula. This enterocutaneous fistula might be the colostomy, which the patient has in place. Her bowel sounds are noted on examination and otherwise is stable. Management as noted below. PLAN: 1. KUB. 2. Clear liquid diet. 3. We will review CT scan. 4. No plans for endoscopic or other intervention at this time including upper GI small bowel followthrough. 5. We will follow. JOB# [id number] [facility]
[2017-05-09] MEDS: D5W 1,000 ML IV SCH (05:51)
[2017-05-09 06:13] LABS: Hematocrit 25.7 % (30.3-42.9); Hemoglobin 8.3 gm/dl (10.1-14.3); Mean Corpuscular HGB Conc 32 % (30-34); Mean Corpuscular Hemoglobin 29 pg (28-32); Mean Corpuscular Volume 89 fl (79-97); Platelet Count 129 K/mm3 (140-440); Red Blood Count 2.88 M/mm3 (3.65-5.03)
[2017-05-09] MEDS: ZOSYN/NS 2.25 GM/50ML 2.25 GM/50 ML BAG IV SCH ×2 (06:18→20:57)
[2017-05-09 06:32] LABS: Albumin 1.8 g/dL (3.9-5); Albumin/Globulin Ratio 0.5 %; Bilirubin,Total 0.2 mg/dL (0.1-1.2); Calcium 6.6 mg/dL (8.4-10.2); Chloride 107.7 mmol/L (98-107); Potassium 3.7 mmol/L (3.6-5.0); Total Protein 5.6 g/dL (6.3-8.2)
[2017-05-09 09:08] LABS: Anisocytosis 1+; Basophils % (Manual) 0 % (0.0-1.8); Blastocytes % (Manual) 0 %; Diff Status Complete; Eosinophils % (Manual) 0 % (0.0-4.3); Ovalocytes 1+; Platelet Estimate Appears Decreased; Total Cells Counted Percent 0
--- NOTE | 2017-05-09 09:28 | Event Note ---
Date: 05/09/17 pt extubated, transferred to floor. appears to be in no acute distress vss chest diminished breath sounds cor rrr abd soft Plan; s/p cardipulm arrest. s/p dialysis s/p severe hyperkalemia elevated troponin. difficult in this setting to determine if the elevations are primary or secondary continue supportive care/conservative mgt per pulm and nephrol pt is dnr no new card rec at this time
--- NOTE | 2017-05-09 10:38 | Progress Note ---
Assessment and Plan Assessment and plan: Acute respiratory failure. On initial presentation, was intubated in ED and admitted to intensive care unit. She was extubated 05/07 and is now on oxygen by Ventimask. Respiratory corona she is improving. Pulmonology following, and I discussed with him. Sepsis due to Escherichia coli. She is on Zosyn and Levaquin. Will switch to Rocephin iv Anemia, Hgb is 8.3 after transfusing 2 units PRBC. Hemoglobin was 6.3 on admission. stool occult blood ordered. Acute on chronic kidney disease with Uremia,metabolic acidosis. Had emergent dialysis after catheter placed. Hyperkalemia. Improved, most recent Potassium 4.3 today Severe metabolic acidosis from acute on CKD, now resolved on dialysis. CO2 is 25 , was 7 on admission. Lactic acidosis due to Sepsis. History of stroke s/p colostomy Vomiting fecal matter. CT Abdomen showed dilatation of bowel, findings suspicious of fistula. 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 Conservative management. Patient had an NG tube which she pulled out few days ago. Family does not recommend putting it back Elevated Troponin. Conservative manangement. Hypernatremia. Monitor BMP DNR status Patient was DNR and on hospice at SNF unknown to us, so was intubated in ED, so family rescinded hospice and requested full code. I discussed with kenny on and she has now requested DO NOT RESUSCITATE status. Patient has a poor prognosis. Spoke to kenny again 05/08/17. She wants us to do best we can to get her better , short of CPR and intubation. Patient has DNR status History Interval history: Extubated , On Oxygen by ventimask No more vomiting Patient pulled out NG tube few days ago and family requested not to put it back Hospitalist Physical - Physical exam Narrative exam: GEN APPEARANCE : Not in acute distress, on Oxygen by ventimask HEENT: Normocephalic Atraumatic. NECK : supple, no JVD LUNGS: clear to auscultation bilaterally, no rales, no wheeze HEART: S1 and S2 regular, no murmurs, rubs or gallop, ABD: Soft, no tenderness, colostomy, no distension, bowel sounds present EXT: Contractures, right AKA NEURO: Eyes open, follows commands - Constitutional Vitals: Temp Pulse Resp BP Pulse Ox 98.4 F 78 20 140/108 81 L 05/09/17 08:38 05/09/17 08:38 05/09/17 08:38 05/09/17 08:38 05/09/17 08:38 General appearance: Present: other (contracted) Results - Labs CBC & Chem 7: 05/10/17 06:11 05/10/17 06:11 Labs: Laboratory Last Values WBC 13.0 K/mm3 (4.5-11.0) H 05/09/17 05:53 RBC 2.88 M/mm3 (3.65-5.03) L 05/09/17 05:53 Hgb 8.3 gm/dl (10.1-14.3) L 05/09/17 05:53 Hct 25.7 % (30.3-42.9) L 05/09/17 05:53 MCV 89 fl (79-97) 05/09/17 05:53 MCH 29 pg (28-32) 05/09/17 05:53 MCHC 32 % (30-34) 05/09/17 05:53 RDW 19.0 % (13.2-15.2) H 05/09/17 05:53 Plt Count 129 K/mm3 (140-440) L 05/09/17 05:53 Add Manual Diff Complete 05/09/17 05:53 Total Counted 100 05/09/17 05:53 Seg Neutrophils % Machine Tool Rebuilder 05/09/17 05:53 Seg Neuts % (Manual) 95.0 % (40.0-70.0) H 05/09/17 05:53 Band Neutrophils % 4.0 % 05/09/17 05:53 Lymphocytes % (Manual) 1.0 % (13.4-35.0) L 05/09/17 05:53 Reactive Lymphs % (Man) 0 % 05/09/17 05:53 Monocytes % (Manual) 0 % (0.0-7.3) 05/09/17 05:53 Eosinophils % (Manual) 0 % (0.0-4.3) 05/09/17 05:53 Basophils % (Manual) 0 % (0.0-1.8) 05/09/17 05:53 Metamyelocytes % 0 % 05/09/17 05:53 Myelocytes % 0 % 05/09/17 05:53 Promyelocytes % 0 % 05/09/17 05:53 Blast Cells % 0 % 05/09/17 05:53 Nucleated RBC % Not Reportable 05/09/17 05:53 Seg Neutrophils # Man 12.4 K/mm3 (1.8-7.7) H 05/09/17 05:53 Band Neutrophils # 0.5 K/mm3 05/09/17 05:53 Lymphocytes # (Manual) 0.1 K/mm3 (1.2-5.4) L 05/09/17 05:53 Abs React Lymphs (Man) 0.0 K/mm3 05/09/17 05:53 Monocytes # (Manual) 0.0 K/mm3 (0.0-0.8) 05/09/17 05:53 Eosinophils # (Manual) 0.0 K/mm3 (0.0-0.4) 05/09/17 05:53 Basophils # (Manual) 0.0 K/mm3 (0.0-0.1) 05/09/17 05:53 Metamyelocytes # 0.0 K/mm3 05/09/17 05:53 Myelocytes # 0.0 K/mm3 05/09/17 05:53 Promyelocytes # 0.0 K/mm3 05/09/17 05:53 Blast Cells # 0.0 K/mm3 05/09/17 05:53 WBC Morphology Not Reportable 05/09/17 05:53 Hypersegmented Neuts Not Reportable 05/09/17 05:53 Hyposegmented Neuts Not Reportable 05/09/17 05:53 Hypogranular Neuts Not Reportable 05/09/17 05:53 Smudge Cells Not Reportable 05/09/17 05:53 Toxic Granulation Not Reportable 05/09/17 05:53 Toxic Vacuolation Not Reportable 05/09/17 05:53 Dohle Bodies Not Reportable 05/09/17 05:53 Pelger-Huet Anomaly Not Reportable 05/09/17 05:53 Sandra Rods Not Reportable 05/09/17 05:53 Platelet Estimate Appears decreased 05/09/17 05:53 Clumped Platelets Not Reportable 05/09/17 05:53 Plt Clumps, EDTA Not Reportable 05/09/17 05:53 Large Platelets Not Reportable 05/09/17 05:53 Giant Platelets Not Reportable 05/09/17 05:53 Platelet Satelliting Not Reportable 05/09/17 05:53 Plt Morphology Comment Not Reportable 05/09/17 05:53 RBC Morphology Not Reportable 05/09/17 05:53 Dimorphic RBCs Not Reportable 05/09/17 05:53 Polychromasia Not Reportable 05/09/17 05:53 Hypochromasia Not Reportable 05/09/17 05:53 Poikilocytosis Not Reportable 05/09/17 05:53 Anisocytosis 1+ 05/09/17 05:53 Microcytosis Not Reportable 05/09/17 05:53 Macrocytosis Not Reportable 05/09/17 05:53 Spherocytes Not Reportable 05/09/17 05:53 Pappenheimer Bodies Not Reportable 05/09/17 05:53 Sickle Cells Not Reportable 05/09/17 05:53 Target Cells Not Reportable 05/09/17 05:53 Tear Drop Cells Not Reportable 05/09/17 05:53 Ovalocytes 1+ 05/09/17 05:53 Helmet Cells Not Reportable 05/09/17 05:53 [place] Bodies Not Reportable 05/09/17 05:53 [place] Rings Not Reportable 05/09/17 05:53 Ginny Cells Not Reportable 05/09/17 05:53 Bite Cells Not Reportable 05/09/17 05:53 Crenated Cell Not Reportable 05/09/17 05:53 Elliptocytes Not Reportable 05/09/17 05:53 Acanthocytes (Spur) Not Reportable 05/09/17 05:53 Rouleaux Not Reportable 05/09/17 05:53 Hemoglobin C Crystals Not Reportable 05/09/17 05:53 Schistocytes Not Reportable 05/09/17 05:53 Malaria parasites Not Reportable 05/09/17 05:53 [place]az Bodies Not Reportable 05/09/17 05:53 Hem Pathologist Commnt No 05/09/17 05:53 PT 17.4 Sec. (12.2-14.9) H 05/05/17 15:38 INR 1.35 (0.87-1.13) H 05/05/17 15:38 APTT 33.2 Sec. (24.2-36.6) 05/05/17 15:38 POC ABG pH 7.436 (7.35-7.45) 05/06/17 07:13 POC ABG pCO2 27.7 (35-45) L 05/06/17 07:13 POC ABG pO2 67 (80-105) L 05/06/17 07:13 POC ABG HCO3 18.7 05/06/17 07:13 POC ABG Total CO2 19 05/06/17 07:13 POC ABG O2 Sat 94 05/06/17 07:13 POC ABG Base Excess -6 05/06/17 07:13 VBG pH 6.909 (7.320-7.420) L* 05/05/17 15:38 FiO2 30 % 05/06/17 07:13 Sodium 143 mmol/L (137-145) 05/09/17 05:53 Potassium 3.7 mmol/L (3.6-5.0) 05/09/17 05:53 Chloride 107.7 mmol/L (98-107) H 05/09/17 05:53 Carbon Dioxide 24 mmol/L (22-30) 05/09/17 05:53 Anion Gap 15 mmol/L 05/09/17 05:53 BUN 29 mg/dL (7-17) H 05/09/17 05:53 Creatinine 1.8 mg/dL (0.7-1.2) H 05/09/17 05:53 Estimated GFR 33 ml/min 05/09/17 05:53 BUN/Creatinine Ratio 16 % 05/09/17 05:53 Glucose 102 mg/dL (65-100) H 05/09/17 05:53 POC Glucose 94 (70-105) 05/09/17 06:22 Osmolality 332 Mosm/kg 05/06/17 04:00 Lactic Acid 8.50 mmol/L (0.7-2.0) H* 05/05/17 23:00 Calcium 6.6 mg/dL (8.4-10.2) L 05/09/17 05:53 Phosphorus 2.30 mg/dL (2.5-4.5) L 05/08/17 Unknown Magnesium 2.70 mg/dL (1.7-2.3) H 05/05/17 15:38 Total Bilirubin 0.20 mg/dL (0.1-1.2) 05/09/17 05:53 AST 25 units/L (5-40) 05/09/17 05:53 ALT 27 units/L (7-56) 05/09/17 05:53 Alkaline Phosphatase 128 units/L (35-129) 05/09/17 05:53 Total Creatine Kinase 350 units/L (30-135) H 05/06/17 04:00 CK-MB (CK-2) 32.9 ng/mL (0.0-4.0) H 05/06/17 04:00 CK-MB (CK-2) Rel Index 9.4 (0-4) H 05/06/17 04:00 Troponin T 0.694 ng/mL (0.00-0.029) H* D 05/06/17 04:00 Total Protein 5.6 g/dL (6.3-8.2) L 05/09/17 05:53 Albumin 1.8 g/dL (3.9-5) L 05/09/17 05:53 Albumin/Globulin Ratio 0.5 % 05/09/17 05:53 Triglycerides 137 mg/dL (2-149) 05/05/17 15:38 Cholesterol 108 mg/dL (50-199) 05/05/17 15:38 LDL Cholesterol Direct 13 mg/dL (50-130) L 05/05/17 15:38 HDL Cholesterol 68 mg/dL (40-59) H 05/05/17 15:38 Cholesterol/HDL Ratio 1.58 % 05/05/17 15:38 Hep Bs Antigen Non-reactive (Negative) 05/06/17 05:00 Hepatitis C Antibody Non-reactive (NonReactive) 05/06/17 04:00 Blood Type O POSITIVE 05/05/17 18:53 Antibody Screen Negative 05/05/17 18:53 Crossmatch See Detail 05/05/17 18:53
--- NOTE | 2017-05-09 13:02 | Gastroenterology Progress Note ---
Assessment and Plan GI: pt w/o GI issues in past - pt s/p colostomy and doubt fistulae as suggested on ct scan - ok to restart po and watch progress - no plans further GI intervention - if other issues please, recall, will sign off Subjective Date of service: 05/09/17 Principal diagnosis: acute renal failure Interval history: - pt w/o GI issues overnight per staff Objective - Constitutional Vitals: Temp Pulse Resp BP Pulse Ox 98.4 F 78 20 140/108 81 L 05/09/17 08:38 05/09/17 08:38 05/09/17 08:38 05/09/17 08:38 05/09/17 08:38 General appearance: no acute distress - EENT Eyes: PERRL - Respiratory Respiratory: bilateral: CTA - Cardiovascular Rhythm: regular Heart Sounds: Present: S1 & S2 - Gastrointestinal General gastrointestinal: Present: soft, non-tender, non-distended - Labs CBC & Chem 7: 05/09/17 05:53 05/09/17 05:53 Labs: Laboratory Results - last 24 hr 05/08/17 05/09/17 05/09/17 18:52 00:55 05:53 WBC RBC Hgb Hct MCV MCH MCHC RDW Plt Count Add Manual Diff Total Counted Seg Neutrophils % Seg Neuts % (Manual) Band Neutrophils % Lymphocytes % (Manual) Reactive Lymphs % (Man) Monocytes % (Manual) Eosinophils % (Manual) Basophils % (Manual) Metamyelocytes % Myelocytes % Promyelocytes % Blast Cells % Nucleated RBC % Seg Neutrophils # Man Band Neutrophils # Lymphocytes # (Manual) Abs React Lymphs (Man) Monocytes # (Manual) Eosinophils # (Manual) Basophils # (Manual) Metamyelocytes # Myelocytes # Promyelocytes # Blast Cells # WBC Morphology Hypersegmented Neuts Hyposegmented Neuts Hypogranular Neuts Smudge Cells Toxic Granulation Toxic Vacuolation Dohle Bodies Pelger-Huet Anomaly Sandra Rods Platelet Estimate Clumped Platelets Plt Clumps, EDTA Large Platelets Giant Platelets Platelet Satelliting Plt Morphology Comment RBC Morphology Dimorphic RBCs Polychromasia Hypochromasia Poikilocytosis Anisocytosis Microcytosis Macrocytosis Spherocytes Pappenheimer Bodies Sickle Cells Target Cells Tear Drop Cells Ovalocytes Helmet Cells [place] Bodies [place] Rings Ginny Cells Bite Cells Crenated Cell Elliptocytes Acanthocytes (Spur) Rouleaux Hemoglobin C Crystals Schistocytes Malaria parasites Shiraz Bodies Hem Pathologist Commnt Sodium 143 Potassium 3.7 Chloride 107.7 H Carbon Dioxide 24 Anion Gap 15 BUN 29 H Creatinine 1.8 H Estimated GFR 33 BUN/Creatinine Ratio 16 Glucose 102 H POC Glucose 107 H 130 H Calcium 6.6 L Total Bilirubin 0.20 AST 25 ALT 27 Alkaline Phosphatase 128 Total Protein 5.6 L Albumin 1.8 L Albumin/Globulin Ratio 0.5 05/09/17 05/09/17 05/09/17 05:53 06:22 12:21 WBC 13.0 H RBC 2.88 L Hgb 8.3 L Hct 25.7 L MCV 89 MCH 29 MCHC 32 RDW 19.0 H Plt Count 129 L Add Manual Diff Complete Total Counted 100 Seg Neutrophils % Leather Tacker Seg Neuts % (Manual) 95.0 H Band Neutrophils % 4.0 Lymphocytes % (Manual) 1.0 L Reactive Lymphs % (Man) 0 Monocytes % (Manual) 0 Eosinophils % (Manual) 0 Basophils % (Manual) 0 Metamyelocytes % 0 Myelocytes % 0 Promyelocytes % 0 Blast Cells % 0 Nucleated RBC % Not Reportable Seg Neutrophils # Man 12.4 H Band Neutrophils # 0.5 Lymphocytes # (Manual) 0.1 L Abs React Lymphs (Man) 0.0 Monocytes # (Manual) 0.0 Eosinophils # (Manual) 0.0 Basophils # (Manual) 0.0 Metamyelocytes # 0.0 Myelocytes # 0.0 Promyelocytes # 0.0 Blast Cells # 0.0 WBC Morphology Not Reportable Hypersegmented Neuts Not Reportable Hyposegmented Neuts Not Reportable Hypogranular Neuts Not Reportable Smudge Cells Not Reportable Toxic Granulation Not Reportable Toxic Vacuolation Not Reportable Dohle Bodies Not Reportable Pelger-Huet Anomaly Not Reportable Sandra Rods Not Reportable Platelet Estimate Appears decreased Clumped Platelets Not Reportable Plt Clumps, EDTA Not Reportable Large Platelets Not Reportable Giant Platelets Not Reportable Platelet Satelliting Not Reportable Plt Morphology Comment Not Reportable RBC Morphology Not Reportable Dimorphic RBCs Not Reportable Polychromasia Not Reportable Hypochromasia Not Reportable Poikilocytosis Not Reportable Anisocytosis 1+ Microcytosis Not Reportable Macrocytosis Not Reportable Spherocytes Not Reportable Pappenheimer Bodies Not Reportable Sickle Cells Not Reportable Target Cells Not Reportable Tear Drop Cells Not Reportable Ovalocytes 1+ Helmet Cells Not Reportable [place] Bodies Not Reportable [place] Rings Not Reportable [place] Cells Not Reportable Bite Cells Not Reportable Crenated Cell Not Reportable Elliptocytes Not Reportable Acanthocytes (Spur) Not Reportable Rouleaux Not Reportable Hemoglobin C Crystals Not Reportable Schistocytes Not Reportable Malaria parasites Not Reportable [place] Bodies Not Reportable Hem Pathologist Commnt No Sodium Potassium Chloride Carbon Dioxide Anion Gap BUN Creatinine Estimated GFR BUN/Creatinine Ratio Glucose POC Glucose 94 122 H Calcium Total Bilirubin AST ALT Alkaline Phosphatase Total Protein Albumin Albumin/Globulin Ratio
[2017-05-09] MEDS: cefTRIAXone 2 GM in NACL 0.9% 20 ML IV SCH (15:00)
--- NOTE | 2017-05-09 16:24 | Progress Note ---
Assessment and Plan - Patient Problems (1) Respiratory failure Current Visit: Yes Status: Acute Plan to address problem: S/P intubation. On Non-rebreather mask per Respiratory (2) ALEKSANDER (acute kidney injury) Current Visit: No Status: Acute Plan to address problem: Continue to hold hemodialysis over the weekend and monitor renal function Hypernatremia, Resolving-On D5W@ 50 ml/hr Obtain daily weights Renally dose medications Avoid Nephrotoxic agents Monitor I/O's Assess the need for HD daily (3) Metabolic acidosis Current Visit: Yes Status: Acute Plan to address problem: Resolved (4) Hyperkalemia Current Visit: Yes Status: Acute Plan to address problem: Resolved (5) Anemia Current Visit: Yes Status: Acute Qualifiers: Anemia type: due to chronic kidney disease Chronic kidney disease stage: stage 4 (severe) Qualified Code(s): N18.4 - Chronic kidney disease, stage 4 ( severe); D63.1 - Anemia in chronic kidney disease; D63.1 - Anemia in chronic kidney disease Plan to address problem: Monitor H/H. Transfuse as needed. (6) Hypernatremia Current Visit: Yes Status: Acute Plan to address problem: Improving, continue IV hydration- on D5W@ 50 ml/hr Subjective Date of service: 05/09/17 Principal diagnosis: acute renal failure Interval history: Patient seen lying in bed. Moves head to verbal stimuli. Eyes open. NRB mask. Objective - Vital Signs Vital signs: Vital Signs - 12hr 05/09/17 05/09/17 05/09/17 04:47 07:57 08:38 Temperature 98.8 F 98.4 F Pulse Rate 74 78 Respiratory 20 20 Rate Blood Pressure 134/60 140/108 O2 Sat by Pulse 96 82 L 81 L Oximetry - General Appearance General appearance: cachectic, chronically ill EENT: ATNC, PERRL Neck: no JVD, supple Respiratory: Present: Decreased Breath Sounds Cardiology: regular, S1S2 Gastrointestinal: normoactive bowel sounds Integumentary: warm and dry Neurologic: other (Nonverbal) Musculoskeletal: decreased ROM, other (Right AKA) - Lab 05/09/17 05:53 05/09/17 05:53 Most recent lab results Calcium 6.6 mg/dL (8.4-10.2) L 05/09/17 05:53 Phosphorus 2.30 mg/dL (2.5-4.5) L 05/08/17 Unknown Magnesium 2.70 mg/dL (1.7-2.3) H 05/05/17 15:38
[2017-05-10] MEDS: D5W 1,000 ML IV SCH ×2 (03:38→22:57)
[2017-05-10 06:27] LABS: Hematocrit 25.4 % (30.3-42.9); Hemoglobin 8.4 gm/dl (10.1-14.3); Mean Corpuscular HGB Conc 33 % (30-34); Mean Corpuscular Hemoglobin 29 pg (28-32); Mean Corpuscular Volume 88 fl (79-97); Platelet Count 112 K/mm3 (140-440); Red Blood Count 2.89 M/mm3 (3.65-5.03); Red Cell Distribution Width 18.6 % (13.2-15.2); White Blood Count 11.7 K/mm3 (4.5-11.0)
[2017-05-10 07:41] LABS: Calcium 6.7 mg/dL (8.4-10.2); Chloride 104.7 mmol/L (98-107); Potassium 3.2 mmol/L (3.6-5.0)
[2017-05-10] MEDS: cefTRIAXone 2 GM in NACL 0.9% 20 ML IV SCH (10:10)
--- NOTE | 2017-05-10 11:01 | Progress Note ---
Assessment and Plan Assessment and plan: Acute respiratory failure. On initial presentation, was intubated in ED and admitted to intensive care unit. She was extubated 05/07 and is now on oxygen by Ventimask. Respiratory corona she is improving. Pulmonology following. Sepsis due to Escherichia coli. She is now on Rocephin iv Anemia, Hgb is 8.4 today. Hemoglobin was 6.3 on admission. s/p 2 Units PRBC transfusion. Acute on chronic kidney disease with Uremia,metabolic acidosis. Had emergent dialysis after catheter placed. Hyperkalemia. Resolved Severe metabolic acidosis from acute on CKD, improved on dialysis. CO2 is 21, was 7 on admission. Lactic acidosis due to Sepsis. History of stroke s/p colostomy Vomiting fecal matter. CT Abdomen showed dilatation of bowel, findings suspicious of fistula. 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 Conservative management. Patient had an NG tube which she pulled out few days ago. Family does not recommend putting it back Elevated Troponin. Conservative management. Hypernatremia. Monitor BMP DNR status Patient was DNR and on hospice at SNF unknown to us, so was intubated in ED, so family rescinded hospice and requested full code. I discussed with kenny on and she has now requested DO NOT RESUSCITATE status. Patient has a poor prognosis. Spoke to kenny again 05/08/17. She wants us to do best we can to get her better , short of CPR and intubation. Patient has DNR status History Interval history: Extubated , On Oxygen by nonrebreather mask no more vomiting Hospitalist Physical - Physical exam Narrative exam: GEN APPEARANCE : Not in acute distress, on Oxygen by non-rebreather mask HEENT: Normocephalic Atraumatic. NECK : supple, no JVD LUNGS: clear to auscultation bilaterally, no rales, no wheeze HEART: S1 and S2 regular, no murmurs, rubs or gallop, ABD: Soft, no tenderness, colostomy, no distension, bowel sounds present EXT: Contractures, right AKA NEURO: Eyes open, follows commands - Constitutional Vitals: Temp Pulse Resp BP Pulse Ox 99.2 F 84 18 150/52 100 05/10/17 10:00 05/10/17 10:00 05/10/17 10:00 05/10/17 10:00 05/10/17 10:00 General appearance: Present: other (contracted) Results - Labs CBC & Chem 7: 05/10/17 06:11 05/10/17 06:11 Labs: Laboratory Last Values WBC 11.7 K/mm3 (4.5-11.0) H 05/10/17 06:11 RBC 2.89 M/mm3 (3.65-5.03) L 05/10/17 06:11 Hgb 8.4 gm/dl (10.1-14.3) L 05/10/17 06:11 Hct 25.4 % (30.3-42.9) L 05/10/17 06:11 MCV 88 fl (79-97) 05/10/17 06:11 MCH 29 pg (28-32) 05/10/17 06:11 MCHC 33 % (30-34) 05/10/17 06:11 RDW 18.6 % (13.2-15.2) H 05/10/17 06:11 Plt Count 112 K/mm3 (140-440) L 05/10/17 06:11 Add Manual Diff Complete 05/09/17 05:53 Total Counted 100 05/09/17 05:53 Seg Neutrophils % Banana Expert 05/09/17 05:53 Seg Neuts % (Manual) 95.0 % (40.0-70.0) H 05/09/17 05:53 Band Neutrophils % 4.0 % 05/09/17 05:53 Lymphocytes % (Manual) 1.0 % (13.4-35.0) L 05/09/17 05:53 Reactive Lymphs % (Man) 0 % 05/09/17 05:53 Monocytes % (Manual) 0 % (0.0-7.3) 05/09/17 05:53 Eosinophils % (Manual) 0 % (0.0-4.3) 05/09/17 05:53 Basophils % (Manual) 0 % (0.0-1.8) 05/09/17 05:53 Metamyelocytes % 0 % 05/09/17 05:53 Myelocytes % 0 % 05/09/17 05:53 Promyelocytes % 0 % 05/09/17 05:53 Blast Cells % 0 % 05/09/17 05:53 Nucleated RBC % Not Reportable 05/09/17 05:53 Seg Neutrophils # Man 12.4 K/mm3 (1.8-7.7) H 05/09/17 05:53 Band Neutrophils # 0.5 K/mm3 05/09/17 05:53 Lymphocytes # (Manual) 0.1 K/mm3 (1.2-5.4) L 05/09/17 05:53 Abs React Lymphs (Man) 0.0 K/mm3 05/09/17 05:53 Monocytes # (Manual) 0.0 K/mm3 (0.0-0.8) 05/09/17 05:53 Eosinophils # (Manual) 0.0 K/mm3 (0.0-0.4) 05/09/17 05:53 Basophils # (Manual) 0.0 K/mm3 (0.0-0.1) 05/09/17 05:53 Metamyelocytes # 0.0 K/mm3 05/09/17 05:53 Myelocytes # 0.0 K/mm3 05/09/17 05:53 Promyelocytes # 0.0 K/mm3 05/09/17 05:53 Blast Cells # 0.0 K/mm3 05/09/17 05:53 WBC Morphology Not Reportable 05/09/17 05:53 Hypersegmented Neuts Not Reportable 05/09/17 05:53 Hyposegmented Neuts Not Reportable 05/09/17 05:53 Hypogranular Neuts Not Reportable 05/09/17 05:53 Smudge Cells Not Reportable 05/09/17 05:53 Toxic Granulation Not Reportable 05/09/17 05:53 Toxic Vacuolation Not Reportable 05/09/17 05:53 Dohle Bodies Not Reportable 05/09/17 05:53 Pelger-Huet Anomaly Not Reportable 05/09/17 05:53 Sandra Rods Not Reportable 05/09/17 05:53 Platelet Estimate Appears decreased 05/09/17 05:53 Clumped Platelets Not Reportable 05/09/17 05:53 Plt Clumps, EDTA Not Reportable 05/09/17 05:53 Large Platelets Not Reportable 05/09/17 05:53 Giant Platelets Not Reportable 05/09/17 05:53 Platelet Satelliting Not Reportable 05/09/17 05:53 Plt Morphology Comment Not Reportable 05/09/17 05:53 RBC Morphology Not Reportable 05/09/17 05:53 Dimorphic RBCs Not Reportable 05/09/17 05:53 Polychromasia Not Reportable 05/09/17 05:53 Hypochromasia Not Reportable 05/09/17 05:53 Poikilocytosis Not Reportable 05/09/17 05:53 Anisocytosis 1+ 05/09/17 05:53 Microcytosis Not Reportable 05/09/17 05:53 Macrocytosis Not Reportable 05/09/17 05:53 Spherocytes Not Reportable 05/09/17 05:53 Pappenheimer Bodies Not Reportable 05/09/17 05:53 Sickle Cells Not Reportable 05/09/17 05:53 Target Cells Not Reportable 05/09/17 05:53 Tear Drop Cells Not Reportable 05/09/17 05:53 Ovalocytes 1+ 05/09/17 05:53 Helmet Cells Not Reportable 05/09/17 05:53 [place] Bodies Not Reportable 05/09/17 05:53 [place] Rings Not Reportable 05/09/17 05:53 Ginny Cells Not Reportable 05/09/17 05:53 Bite Cells Not Reportable 05/09/17 05:53 Crenated Cell Not Reportable 05/09/17 05:53 Elliptocytes Not Reportable 05/09/17 05:53 Acanthocytes (Spur) Not Reportable 05/09/17 05:53 Rouleaux Not Reportable 05/09/17 05:53 Hemoglobin C Crystals Not Reportable 05/09/17 05:53 Schistocytes Not Reportable 05/09/17 05:53 Malaria parasites Not Reportable 05/09/17 05:53 [place]az Bodies Not Reportable 05/09/17 05:53 Hem Pathologist Commnt No 05/09/17 05:53 PT 17.4 Sec. (12.2-14.9) H 05/05/17 15:38 INR 1.35 (0.87-1.13) H 05/05/17 15:38 APTT 33.2 Sec. (24.2-36.6) 05/05/17 15:38 POC ABG pH 7.436 (7.35-7.45) 05/06/17 07:13 POC ABG pCO2 27.7 (35-45) L 05/06/17 07:13 POC ABG pO2 67 (80-105) L 05/06/17 07:13 POC ABG HCO3 18.7 05/06/17 07:13 POC ABG Total CO2 19 05/06/17 07:13 POC ABG O2 Sat 94 05/06/17 07:13 POC ABG Base Excess -6 05/06/17 07:13 VBG pH 6.909 (7.320-7.420) L* 05/05/17 15:38 FiO2 30 % 05/06/17 07:13 Sodium 140 mmol/L (137-145) 05/10/17 06:11 Potassium 3.2 mmol/L (3.6-5.0) L 05/10/17 06:11 Chloride 104.7 mmol/L (98-107) 05/10/17 06:11 Carbon Dioxide 21 mmol/L (22-30) L 05/10/17 06:11 Anion Gap 18 mmol/L 05/10/17 06:11 BUN 26 mg/dL (7-17) H 05/10/17 06:11 Creatinine 1.8 mg/dL (0.7-1.2) H 05/10/17 06:11 Estimated GFR 33 ml/min 05/10/17 06:11 BUN/Creatinine Ratio 14 % 05/10/17 06:11 Glucose 132 mg/dL (65-100) H 05/10/17 06:11 POC Glucose 136 (70-105) H 05/10/17 01:57 Osmolality 332 Mosm/kg 05/06/17 04:00 Lactic Acid 8.50 mmol/L (0.7-2.0) H* 05/05/17 23:00 Calcium 6.7 mg/dL (8.4-10.2) L 05/10/17 06:11 Phosphorus 2.30 mg/dL (2.5-4.5) L 05/08/17 Unknown Magnesium 2.70 mg/dL (1.7-2.3) H 05/05/17 15:38 Total Bilirubin 0.20 mg/dL (0.1-1.2) 05/09/17 05:53 AST 25 units/L (5-40) 05/09/17 05:53 ALT 27 units/L (7-56) 05/09/17 05:53 Alkaline Phosphatase 128 units/L (35-129) 05/09/17 05:53 Total Creatine Kinase 350 units/L (30-135) H 05/06/17 04:00 CK-MB (CK-2) 32.9 ng/mL (0.0-4.0) H 05/06/17 04:00 CK-MB (CK-2) Rel Index 9.4 (0-4) H 05/06/17 04:00 Troponin T 0.694 ng/mL (0.00-0.029) H* D 05/06/17 04:00 Total Protein 5.6 g/dL (6.3-8.2) L 05/09/17 05:53 Albumin 1.8 g/dL (3.9-5) L 05/09/17 05:53 Albumin/Globulin Ratio 0.5 % 05/09/17 05:53 Triglycerides 137 mg/dL (2-149) 05/05/17 15:38 Cholesterol 108 mg/dL (50-199) 05/05/17 15:38 LDL Cholesterol Direct 13 mg/dL (50-130) L 05/05/17 15:38 HDL Cholesterol 68 mg/dL (40-59) H 05/05/17 15:38 Cholesterol/HDL Ratio 1.58 % 05/05/17 15:38 Hep Bs Antigen Non-reactive (Negative) 05/06/17 05:00 Hepatitis C Antibody Non-reactive (NonReactive) 05/06/17 04:00 Blood Type O POSITIVE 05/05/17 18:53 Antibody Screen Negative 05/05/17 18:53 Crossmatch See Detail 05/05/17 18:53
--- NOTE | 2017-05-10 12:31 | Progress Note ---
Assessment and Plan (1) ALEKSANDER (acute kidney injury) Current Visit: No Status: Acute Plan to address problem: On IHD. Last HD wednesday. Cr stable. Made 900 mls of urine since morning. Has mallory. no HD today will eval for HD need daily. Obtain daily weights Renally dose medications Avoid Nephrotoxic agents Monitor I/O's Assess the need for HD daily (2) Metabolic acidosis Current Visit: Yes Status: Acute Plan to address problem: Mild, Monitor for now. (3) Hypokalemia Current Visit: Yes Status: Acute Plan to address problem: Mild, Monitor. (4) Anemia, normocytic. Current Visit: Yes Status: Acute Qualifiers: Anemia type: due to chronic kidney disease Chronic kidney disease stage: stage 4 (severe) Qualified Code(s): N18.4 - Chronic kidney disease, stage 4 ( severe); D63.1 - Anemia in chronic kidney disease; D63.1 - Anemia in chronic kidney disease Plan to address problem: Monitor H/H. Transfuse as needed. (5) Hypernatremia Current Visit: Yes Status: Acute Plan to address problem: Improved. continue IV hydration- on D5W@ 50 ml/hr Subjective Date of service: 05/10/17 Principal diagnosis: acute renal failure Interval history: No acute events overnight. Made 900 mls of urine since morning. Objective - Exam Narrative Exam: General appearance: cachectic, lethargic. EENT: ATNC, PERRL Neck: no JVD, supple Respiratory: Present: Decreased Breath Sounds Cardiology: regular, S1S2 Gastrointestinal: normoactive bowel sounds Integumentary: warm and dry Neurologic: other (Nonverbal) Musculoskeletal: decreased ROM, other (Right AKA) - Vital Signs Vital signs: Vital Signs - 12hr 05/10/17 05/10/17 05/10/17 07:50 10:00 12:10 Temperature 99.2 F Pulse Rate 84 68 Respiratory 18 Rate Blood Pressure 150/52 [Left] O2 Sat by Pulse 100 100 Oximetry - Lab 05/10/17 06:11 05/10/17 06:11 Most recent lab results Calcium 6.7 mg/dL (8.4-10.2) L 05/10/17 06:11 Phosphorus 2.30 mg/dL (2.5-4.5) L 05/08/17 Unknown Magnesium 2.70 mg/dL (1.7-2.3) H 05/05/17 15:38
--- NOTE | 2017-05-10 13:14 | Progress Note ---
Assessment and Plan Assessment: S/p cardipulm arrest. s/p dialysis - now extubated; arrest believed to be secondary to hyperkalemia and metabolic acidosis S/p severe hyperkalemia - currently with hypokalemia this AM Elevated troponin - ECG with no acute ischemic changes; pt with no c/o chest pain; difficult in this setting to determine if the elevations are primary or secondary Anemia ALEKSANDER on CKD H/o CVA DM HTN Dementia S/p right AKA S/p colostomy AND/DNR code status Plan: Electrolyte management per nephrology. Currently stable cardiac status. Cont with conservative cardiac management. Nothing further to add from cardiac perspective at this time. Will see on as needed basis. The patient has been seen in conjunction with Dr. FEDERICA Bernabe who agrees with the assessment and plan of care. Subjective Date of service: 05/10/17 Principal diagnosis: acute renal failure Interval history: pt resting comfortably in bed, NAD. Objective Last Vital Signs Temp 99.2 F 05/10/17 10:00 Pulse 68 05/10/17 12:10 Resp 18 05/10/17 10:00 BP 150/52 05/10/17 10:00 Pulse Ox 100 05/10/17 10:00 - Physical Examination General: No Apparent Distress HEENT: Positive: PERRL Neck: Negative: JVD/HJR Cardiac: Positive: Reg Rate and Rhythm, S1/S2 Lungs: Positive: Decreased Breath Sounds Neuro: Positive: Other (awake but not following commands. contracted) Abdomen: Positive: Soft Skin: Positive: Other (warm) Musculoskeletal: other (AKA/right) Extremities: Present: Other (contracted). Absent: edema - Labs and Meds CBC 05/10/17 Range/Units 06:11 WBC 11.7 H (4.5-11.0) K/mm3 RBC 2.89 L (3.65-5.03) M/mm3 Hgb 8.4 L (10.1-14.3) gm/dl Hct 25.4 L (30.3-42.9) % Plt Count 112 L (140-440) K/mm3 Comprehensive Metabolic Panel 05/10/17 Range/Units 06:11 Sodium 140 (137-145) mmol/L Potassium 3.2 L (3.6-5.0) mmol/L Chloride 104.7 (98-107) mmol/L Carbon Dioxide 21 L (22-30) mmol/L BUN 26 H (7-17) mg/dL Creatinine 1.8 H (0.7-1.2) mg/dL Glucose 132 H (65-100) mg/dL Calcium 6.7 L (8.4-10.2) mg/dL
[2017-05-10] MEDS: NACL 0.9% IV SCH (16:15)
[2017-05-10] MEDS: DEPACON IV SCH (16:15)
[2017-05-10] MEDS: MORPHINE IV PRN ×2 (17:56→23:16)
[2017-05-10] MEDS: DAKIN'S FULL STRENGTH TP SCH (22:45)
[2017-05-11] MEDS: NACL 0.9% IV SCH ×2 (05:18→17:16)
[2017-05-11] MEDS: DEPACON IV SCH ×2 (05:18→17:16)
[2017-05-11 08:17] LABS: Hematocrit 27.3 % (30.3-42.9); Mean Corpuscular HGB Conc 33 % (30-34); Mean Corpuscular Hemoglobin 29 pg (28-32); Mean Corpuscular Volume 89 fl (79-97); Platelet Count 108 K/mm3 (140-440); Red Blood Count 3.08 M/mm3 (3.65-5.03); Red Cell Distribution Width 17.8 % (13.2-15.2); White Blood Count 8.5 K/mm3 (4.5-11.0)
[2017-05-11 08:28] LABS: Calcium 6.8 mg/dL (8.4-10.2); Chloride 104.7 mmol/L (98-107); Potassium 3.1 mmol/L (3.6-5.0)
[2017-05-11] MEDS ORDERED: MAGNESIUM SULFATE 3 GM in NACL 0.9% 100 ML IV ONE (09:32)
--- NOTE | 2017-05-11 10:16 | Progress Note ---
Assessment and Plan Assessment and plan: Acute respiratory failure. On initial presentation, was intubated in ED and admitted to intensive care unit. She was extubated 05/07 and is now on oxygen by Ventimask. Respiratory corona she is improving. Pulmonology following. Sepsis due to Escherichia coli. She is now on Rocephin iv Anemia, Hgb is 9.0 today. Hemoglobin was 6.3 on admission. s/p 2 Units PRBC transfusion. Acute on chronic kidney disease with Uremia,metabolic acidosis. Had emergent dialysis after catheter placed. Hyperkalemia. Resolved Hypokalemia. Replace iv Hypomagnesemia. Replace iv Severe metabolic acidosis from acute on CKD, improved on dialysis. CO2 is 21, was 7 on admission. Lactic acidosis due to Sepsis. History of stroke. Dysphagia. Has failed swallowing test. Modified barium swallow recommended.' Will discuss options with kenny, who is Power of Film Processing Shift Supervisor. s/p colostomy Vomiting fecal matter. CT Abdomen showed dilatation of bowel, findings suspicious of fistula. 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 Conservative management. Patient had an NG tube which she pulled out few days ago. Family does not recommend putting it back Elevated Troponin. Conservative management. Hypernatremia. Monitor BMP DNR status Patient was DNR and on hospice at SNF unknown to us, so was intubated in ED, so family rescinded hospice and requested full code. I discussed with kenny on and she has now requested DO NOT RESUSCITATE status. Patient has a poor prognosis. Spoke to kenny again 05/08/17. She wants us to do best we can to get her better , short of CPR and intubation. Patient has DNR status History Interval history: Extubated , On Oxygen by nonrebreather mask no more vomiting, Failed swallow test Hospitalist Physical - Physical exam Narrative exam: GEN APPEARANCE : Not in acute distress, on Oxygen by nasal canula HEENT: Normocephalic Atraumatic. NECK : supple, no JVD LUNGS: clear to auscultation bilaterally, no rales, no wheeze HEART: S1 and S2 regular, no murmurs, rubs or gallop, ABD: Soft, no tenderness, colostomy, no distension, bowel sounds present EXT: Contractures, right AKA NEURO: Eyes open, follows commands - Constitutional Vitals: Temp Pulse Resp BP Pulse Ox 98.8 F 77 18 141/56 95 05/11/17 07:25 05/11/17 07:25 05/11/17 07:25 05/11/17 07:25 05/11/17 07:25 General appearance: Present: other (contracted) Results - Labs CBC & Chem 7: 05/11/17 07:53 05/11/17 07:53 Labs: Laboratory Last Values WBC 8.5 K/mm3 (4.5-11.0) 05/11/17 07:53 RBC 3.08 M/mm3 (3.65-5.03) L 05/11/17 07:53 Hgb 9.0 gm/dl (10.1-14.3) L 05/11/17 07:53 Hct 27.3 % (30.3-42.9) L 05/11/17 07:53 MCV 89 fl (79-97) 05/11/17 07:53 MCH 29 pg (28-32) 05/11/17 07:53 MCHC 33 % (30-34) 05/11/17 07:53 RDW 17.8 % (13.2-15.2) H 05/11/17 07:53 Plt Count 108 K/mm3 (140-440) L 05/11/17 07:53 Add Manual Diff Complete 05/09/17 05:53 Total Counted 100 05/09/17 05:53 Seg Neutrophils % Multiple Games Dealer 05/09/17 05:53 Seg Neuts % (Manual) 95.0 % (40.0-70.0) H 05/09/17 05:53 Band Neutrophils % 4.0 % 05/09/17 05:53 Lymphocytes % (Manual) 1.0 % (13.4-35.0) L 05/09/17 05:53 Reactive Lymphs % (Man) 0 % 05/09/17 05:53 Monocytes % (Manual) 0 % (0.0-7.3) 05/09/17 05:53 Eosinophils % (Manual) 0 % (0.0-4.3) 05/09/17 05:53 Basophils % (Manual) 0 % (0.0-1.8) 05/09/17 05:53 Metamyelocytes % 0 % 05/09/17 05:53 Myelocytes % 0 % 05/09/17 05:53 Promyelocytes % 0 % 05/09/17 05:53 Blast Cells % 0 % 05/09/17 05:53 Nucleated RBC % Not Reportable 05/09/17 05:53 Seg Neutrophils # Man 12.4 K/mm3 (1.8-7.7) H 05/09/17 05:53 Band Neutrophils # 0.5 K/mm3 05/09/17 05:53 Lymphocytes # (Manual) 0.1 K/mm3 (1.2-5.4) L 05/09/17 05:53 Abs React Lymphs (Man) 0.0 K/mm3 05/09/17 05:53 Monocytes # (Manual) 0.0 K/mm3 (0.0-0.8) 05/09/17 05:53 Eosinophils # (Manual) 0.0 K/mm3 (0.0-0.4) 05/09/17 05:53 Basophils # (Manual) 0.0 K/mm3 (0.0-0.1) 05/09/17 05:53 Metamyelocytes # 0.0 K/mm3 05/09/17 05:53 Myelocytes # 0.0 K/mm3 05/09/17 05:53 Promyelocytes # 0.0 K/mm3 05/09/17 05:53 Blast Cells # 0.0 K/mm3 05/09/17 05:53 WBC Morphology Not Reportable 05/09/17 05:53 Hypersegmented Neuts Not Reportable 05/09/17 05:53 Hyposegmented Neuts Not Reportable 05/09/17 05:53 Hypogranular Neuts Not Reportable 05/09/17 05:53 Smudge Cells Not Reportable 05/09/17 05:53 Toxic Granulation Not Reportable 05/09/17 05:53 Toxic Vacuolation Not Reportable 05/09/17 05:53 Dohle Bodies Not Reportable 05/09/17 05:53 Pelger-Huet Anomaly Not Reportable 05/09/17 05:53 Sandra Rods Not Reportable 05/09/17 05:53 Platelet Estimate Appears decreased 05/09/17 05:53 Clumped Platelets Not Reportable 05/09/17 05:53 Plt Clumps, EDTA Not Reportable 05/09/17 05:53 Large Platelets Not Reportable 05/09/17 05:53 Giant Platelets Not Reportable 05/09/17 05:53 Platelet Satelliting Not Reportable 05/09/17 05:53 Plt Morphology Comment Not Reportable 05/09/17 05:53 RBC Morphology Not Reportable 05/09/17 05:53 Dimorphic RBCs Not Reportable 05/09/17 05:53 Polychromasia Not Reportable 05/09/17 05:53 Hypochromasia Not Reportable 05/09/17 05:53 Poikilocytosis Not Reportable 05/09/17 05:53 Anisocytosis 1+ 05/09/17 05:53 Microcytosis Not Reportable 05/09/17 05:53 Macrocytosis Not Reportable 05/09/17 05:53 Spherocytes Not Reportable 05/09/17 05:53 Pappenheimer Bodies Not Reportable 05/09/17 05:53 Sickle Cells Not Reportable 05/09/17 05:53 Target Cells Not Reportable 05/09/17 05:53 Tear Drop Cells Not Reportable 05/09/17 05:53 Ovalocytes 1+ 05/09/17 05:53 Helmet Cells Not Reportable 05/09/17 05:53 [place] Bodies Not Reportable 05/09/17 05:53 [place] Rings Not Reportable 05/09/17 05:53 [place] Cells Not Reportable 05/09/17 05:53 Bite Cells Not Reportable 05/09/17 05:53 Crenated Cell Not Reportable 05/09/17 05:53 Elliptocytes Not Reportable 05/09/17 05:53 Acanthocytes (Spur) Not Reportable 05/09/17 05:53 Rouleaux Not Reportable 05/09/17 05:53 Hemoglobin C Crystals Not Reportable 05/09/17 05:53 Schistocytes Not Reportable 05/09/17 05:53 Malaria parasites Not Reportable 05/09/17 05:53 [place]az Bodies Not Reportable 05/09/17 05:53 Hem Pathologist Commnt No 05/09/17 05:53 PT 17.4 Sec. (12.2-14.9) H 05/05/17 15:38 INR 1.35 (0.87-1.13) H 05/05/17 15:38 APTT 33.2 Sec. (24.2-36.6) 05/05/17 15:38 POC ABG pH 7.436 (7.35-7.45) 05/06/17 07:13 POC ABG pCO2 27.7 (35-45) L 05/06/17 07:13 POC ABG pO2 67 (80-105) L 05/06/17 07:13 POC ABG HCO3 18.7 05/06/17 07:13 POC ABG Total CO2 19 05/06/17 07:13 POC ABG O2 Sat 94 05/06/17 07:13 POC ABG Base Excess -6 05/06/17 07:13 VBG pH 6.909 (7.320-7.420) L* 05/05/17 15:38 FiO2 30 % 05/06/17 07:13 Sodium 139 mmol/L (137-145) 05/11/17 07:53 Potassium 3.1 mmol/L (3.6-5.0) L 05/11/17 07:53 Chloride 104.7 mmol/L (98-107) 05/11/17 07:53 Carbon Dioxide 21 mmol/L (22-30) L 05/11/17 07:53 Anion Gap 16 mmol/L 05/11/17 07:53 BUN 23 mg/dL (7-17) H 05/11/17 07:53 Creatinine 1.8 mg/dL (0.7-1.2) H 05/11/17 07:53 Estimated GFR 33 ml/min 05/11/17 07:53 BUN/Creatinine Ratio 13 % 05/11/17 07:53 Glucose 92 mg/dL (65-100) 05/11/17 07:53 POC Glucose 116 (70-105) H 05/11/17 05:42 Osmolality 332 Mosm/kg 05/06/17 04:00 Lactic Acid 8.50 mmol/L (0.7-2.0) H* 05/05/17 23:00 Calcium 6.8 mg/dL (8.4-10.2) L 05/11/17 07:53 Phosphorus 2.30 mg/dL (2.5-4.5) L 05/08/17 Unknown Magnesium 1.30 mg/dL (1.7-2.3) L 05/11/17 07:53 Total Bilirubin 0.20 mg/dL (0.1-1.2) 05/09/17 05:53 AST 25 units/L (5-40) 05/09/17 05:53 ALT 27 units/L (7-56) 05/09/17 05:53 Alkaline Phosphatase 128 units/L (35-129) 05/09/17 05:53 Total Creatine Kinase 350 units/L (30-135) H 05/06/17 04:00 CK-MB (CK-2) 32.9 ng/mL (0.0-4.0) H 05/06/17 04:00 CK-MB (CK-2) Rel Index 9.4 (0-4) H 05/06/17 04:00 Troponin T 0.694 ng/mL (0.00-0.029) H* D 05/06/17 04:00 Total Protein 5.6 g/dL (6.3-8.2) L 05/09/17 05:53 Albumin 1.8 g/dL (3.9-5) L 05/09/17 05:53 Albumin/Globulin Ratio 0.5 % 05/09/17 05:53 Triglycerides 137 mg/dL (2-149) 05/05/17 15:38 Cholesterol 108 mg/dL (50-199) 05/05/17 15:38 LDL Cholesterol Direct 13 mg/dL (50-130) L 05/05/17 15:38 HDL Cholesterol 68 mg/dL (40-59) H 05/05/17 15:38 Cholesterol/HDL Ratio 1.58 % 05/05/17 15:38 Valproic Acid < 2.8 ug/mL (50-100) L 05/10/17 11:55 Hep Bs Antigen Non-reactive (Negative) 05/06/17 05:00 Hepatitis C Antibody Non-reactive (NonReactive) 05/06/17 04:00 Blood Type O POSITIVE 05/05/17 18:53 Antibody Screen Negative 05/05/17 18:53 Crossmatch See Detail 05/05/17 18:53
[2017-05-11] MEDS ORDERED: KCL 10MEQ/100ML 10 MEQ/100 ML BAG IV SCH (11:00)
[2017-05-11] MEDS: cefTRIAXone 2 GM in NACL 0.9% 20 ML IV SCH (11:23)
[2017-05-11] MEDS: DAKIN'S FULL STRENGTH TP SCH ×2 (11:25→22:09)
--- NOTE | 2017-05-11 11:41 | Progress Note ---
Assessment and Plan (1) ALEKSANDER (acute kidney injury) due to ATN/pre renal Current Visit: No Status: Acute Plan to address problem: On IHD via RT IJ VC Last HD wednesday. Cr stable. no HD today. Will eval for HD need daily Not getting much intake, will switch IVFs to D5 1/2 NS at 75 cc/hr. Will also give albumin 25% 100 mls q6H X 4 doses to boast up intravascular volume. Check CXR, BNP for volume status Obtain daily weights Renally dose medications Avoid Nephrotoxic agents Monitor I/O's Assess need for HD daily (2) Metabolic acidosis Current Visit: Yes Status: Acute Plan to address problem: Mild, Monitor for now. (3) Hypokalemia Current Visit: Yes Status: Acute Plan to address problem: Replace PRN but gently in the setting of ALEKSANDER (4) Anemia, normocytic. Current Visit: Yes Status: Acute Qualifiers: Anemia type: due to chronic kidney disease Chronic kidney disease stage: stage 4 (severe) Qualified Code(s): N18.4 - Chronic kidney disease, stage 4 ( severe); D63.1 - Anemia in chronic kidney disease; D63.1 - Anemia in chronic kidney disease Plan to address problem: Monitor H/H. Transfuse as needed. (5) Hypernatremia Current Visit: Yes Status: Acute Plan to address problem: Improving. continue IV hydration- Switching to D5 1/2 NS at 75 mls/hr to provide more volume. (5) Hypomagnesemia: Current Visit: Yes Status: Acute Plan to address problem: Replace PRN Stevan Peña MD Nephrology, Hypertension, Dialysis, Transplantation Phone no: [phone] Subjective Date of service: 05/11/17 Principal diagnosis: acute renal failure Interval history: No acute events overnight. Pt has advance dementia. Daughter at bedside. Made some urine but sluggish. NPO for aspiration risk. Not getting much intake. Objective - Exam Narrative Exam: General appearance: cachectic, lethargic. EENT: ATNC, PERRL Neck: no JVD, supple Respiratory: Present: Decreased Breath Sounds Cardiology: regular, S1S2, Rt IJ VC Gastrointestinal: normoactive bowel sounds, Colostomy bag Integumentary: warm and dry Neurologic: other (Nonverbal) Musculoskeletal: decreased ROM, other (Right AKA) - Vital Signs Vital signs: Vital Signs - 12hr 05/10/17 05/11/17 05/11/17 23:46 06:08 06:09 Temperature 97.9 F Pulse Rate 80 78 Respiratory 20 18 Rate Blood Pressure 137/65 O2 Sat by Pulse 94 95 Oximetry 05/11/17 05/11/17 07:25 10:00 Temperature 98.8 F Pulse Rate 77 Respiratory 18 Rate Blood Pressure 141/56 O2 Sat by Pulse 95 98 Oximetry - Lab 05/11/17 07:53 05/11/17 07:53 Most recent lab results Calcium 6.8 mg/dL (8.4-10.2) L 05/11/17 07:53 Phosphorus 2.30 mg/dL (2.5-4.5) L 05/08/17 Unknown Magnesium 1.30 mg/dL (1.7-2.3) L 05/11/17 07:53
[2017-05-11] MEDS ORDERED: D5/0.45NS 1,000 ML IV SCH ×2 (12:00→13:00)
[2017-05-11] MEDS: KCL 10 MEQ in NACL 0.9% 100 ML IV SCH ×2 (12:45→14:17)
--- NOTE | 2017-05-11 13:42 | XRay Report ---
Portable AP chest x-ray. History: Volume status. Findings: There has been interval development of left lower lobe atelectasis. Mild cardiac enlargement persists. Increased central congestion is present. There are no other interval changes. The right jugular central catheter is unchanged in position. Impression: Interval development of left lower lobe atelectasis and increasing vascular congestion.
[2017-05-11] MEDS: ALBURX 25% (ALBUMIN) IV SCH ×2 (16:59→22:03)
[2017-05-12] MEDS: ALBURX 25% (ALBUMIN) IV SCH ×2 (01:28→10:05)
[2017-05-12] MEDS: DEPACON IV SCH ×2 (04:39→16:49)
[2017-05-12] MEDS: NACL 0.9% IV SCH ×2 (04:39→16:49)
[2017-05-12 05:28] LABS: Hematocrit 21.4 % (30.3-42.9); Hemoglobin 6.9 gm/dl (10.1-14.3); Mean Corpuscular HGB Conc 32 % (30-34); Mean Corpuscular Hemoglobin 28 pg (28-32); Mean Corpuscular Volume 88 fl (79-97); Platelet Count 107 K/mm3 (140-440); Red Blood Count 2.43 M/mm3 (3.65-5.03); Red Cell Distribution Width 18.4 % (13.2-15.2); White Blood Count 4.7 K/mm3 (4.5-11.0)
[2017-05-12 05:45] LABS: Calcium 6.9 mg/dL (8.4-10.2); Magnesium 1.3 mg/dL (1.7-2.3)
[2017-05-12] MEDS: MORPHINE IV PRN (08:09)
--- NOTE | 2017-05-12 09:16 | Progress Note ---
Assessment and Plan Assessment and plan: Acute respiratory failure. On initial presentation, was intubated in ED and admitted to intensive care unit. She was extubated 05/07. Cont oxygen by Ventimask prn. Pulmonology following. Sepsis due to Escherichia coli. She is now on Rocephin iv Anemia of chronic disease, Hgb is 6.9 today. Transfuse 1 unit of PRBC. Acute on chronic kidney disease with Uremia,metabolic acidosis. Continue hemodialysis per nephrology. Hypokalemia. Replace iv Severe metabolic acidosis from acute on CKD, improved on dialysis. CO2 is 21, was 7 on admission. Lactic acidosis due to Sepsis. History of stroke. Dysphagia. Has failed swallowing test. Modified barium swallow recommended. Will discuss options with kenny, who is Power of Professor Of Theology. s/p colostomy Vomiting fecal matter. CT Abdomen showed dilatation of bowel, findings suspicious of fistula. Dr. 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 Conservative management. Patient had an NG tube which she pulled out few days ago. Family does not recommend putting it back Elevated Troponin. Conservative management. Hypernatremia. Monitor BMP DNR status Patient was DNR and on hospice at SNF unknown to us, so was intubated in ED, so family rescinded hospice and requested full code. Dr. Soto discussed with kenny on 05/07/17 and she has now requested DO NOT RESUSCITATE status. Patient has a poor prognosis. Kenny wants us to do best we can to get her better, short of CPR and intubation per Dr. Soto's conversation. Patient has DNR status History Interval history: no new issues overnight. Hospitalist Physical - Constitutional Vitals: Temp Pulse Resp BP Pulse Ox 97.8 F 75 20 147/46 100 05/12/17 08:30 05/12/17 08:30 05/12/17 08:30 05/12/17 08:30 05/12/17 08:30 General appearance: Present: other (contracted) - EENT Eyes: Present: PERRL, EOM intact ENT: hearing intact, clear oral mucosa, dentition normal - Neck Neck: Present: supple, normal ROM - Respiratory Respiratory effort: normal Respiratory: bilateral: CTA - Cardiovascular Rhythm: regular Heart Sounds: Present: S1 & S2. Absent: gallop, rub - Extremities Extremities: no ischemia, No edema, Full ROM - Abdominal General gastrointestinal: soft, non-tender, non-distended, normal bowel sounds - Integumentary Integumentary: Present: clear, warm, dry - Neurologic Neurologic: CNII-XII intact, moves all extremities Results - Labs CBC & Chem 7: 05/12/17 04:50 05/12/17 04:50 Labs: Laboratory Last Values WBC 4.7 K/mm3 (4.5-11.0) 05/12/17 04:50 RBC 2.43 M/mm3 (3.65-5.03) L 05/12/17 04:50 Hgb 6.9 gm/dl (10.1-14.3) L 05/12/17 04:50 Hct 21.4 % (30.3-42.9) L 05/12/17 04:50 MCV 88 fl (79-97) 05/12/17 04:50 MCH 28 pg (28-32) 05/12/17 04:50 MCHC 32 % (30-34) 05/12/17 04:50 RDW 18.4 % (13.2-15.2) H 05/12/17 04:50 Plt Count 107 K/mm3 (140-440) L 05/12/17 04:50 Add Manual Diff Complete 05/09/17 05:53 Total Counted 100 05/09/17 05:53 Seg Neutrophils % Sticker Operator 05/09/17 05:53 Seg Neuts % (Manual) 95.0 % (40.0-70.0) H 05/09/17 05:53 Band Neutrophils % 4.0 % 05/09/17 05:53 Lymphocytes % (Manual) 1.0 % (13.4-35.0) L 05/09/17 05:53 Reactive Lymphs % (Man) 0 % 05/09/17 05:53 Monocytes % (Manual) 0 % (0.0-7.3) 05/09/17 05:53 Eosinophils % (Manual) 0 % (0.0-4.3) 05/09/17 05:53 Basophils % (Manual) 0 % (0.0-1.8) 05/09/17 05:53 Metamyelocytes % 0 % 05/09/17 05:53 Myelocytes % 0 % 05/09/17 05:53 Promyelocytes % 0 % 05/09/17 05:53 Blast Cells % 0 % 05/09/17 05:53 Nucleated RBC % Not Reportable 05/09/17 05:53 Seg Neutrophils # Man 12.4 K/mm3 (1.8-7.7) H 05/09/17 05:53 Band Neutrophils # 0.5 K/mm3 05/09/17 05:53 Lymphocytes # (Manual) 0.1 K/mm3 (1.2-5.4) L 05/09/17 05:53 Abs React Lymphs (Man) 0.0 K/mm3 05/09/17 05:53 Monocytes # (Manual) 0.0 K/mm3 (0.0-0.8) 05/09/17 05:53 Eosinophils # (Manual) 0.0 K/mm3 (0.0-0.4) 05/09/17 05:53 Basophils # (Manual) 0.0 K/mm3 (0.0-0.1) 05/09/17 05:53 Metamyelocytes # 0.0 K/mm3 05/09/17 05:53 Myelocytes # 0.0 K/mm3 05/09/17 05:53 Promyelocytes # 0.0 K/mm3 05/09/17 05:53 Blast Cells # 0.0 K/mm3 05/09/17 05:53 WBC Morphology Not Reportable 05/09/17 05:53 Hypersegmented Neuts Not Reportable 05/09/17 05:53 Hyposegmented Neuts Not Reportable 05/09/17 05:53 Hypogranular Neuts Not Reportable 05/09/17 05:53 Smudge Cells Not Reportable 05/09/17 05:53 Toxic Granulation Not Reportable 05/09/17 05:53 Toxic Vacuolation Not Reportable 05/09/17 05:53 Dohle Bodies Not Reportable 05/09/17 05:53 Pelger-Huet Anomaly Not Reportable 05/09/17 05:53 Sandra Rods Not Reportable 05/09/17 05:53 Platelet Estimate Appears decreased 05/09/17 05:53 Clumped Platelets Not Reportable 05/09/17 05:53 Plt Clumps, EDTA Not Reportable 05/09/17 05:53 Large Platelets Not Reportable 05/09/17 05:53 Giant Platelets Not Reportable 05/09/17 05:53 Platelet Satelliting Not Reportable 05/09/17 05:53 Plt Morphology Comment Not Reportable 05/09/17 05:53 RBC Morphology Not Reportable 05/09/17 05:53 Dimorphic RBCs Not Reportable 05/09/17 05:53 Polychromasia Not Reportable 05/09/17 05:53 Hypochromasia Not Reportable 05/09/17 05:53 Poikilocytosis Not Reportable 05/09/17 05:53 Anisocytosis 1+ 05/09/17 05:53 Microcytosis Not Reportable 05/09/17 05:53 Macrocytosis Not Reportable 05/09/17 05:53 Spherocytes Not Reportable 05/09/17 05:53 Pappenheimer Bodies Not Reportable 05/09/17 05:53 Sickle Cells Not Reportable 05/09/17 05:53 Target Cells Not Reportable 05/09/17 05:53 Tear Drop Cells Not Reportable 05/09/17 05:53 Ovalocytes 1+ 05/09/17 05:53 Helmet Cells Not Reportable 05/09/17 05:53 [place] Bodies Not Reportable 05/09/17 05:53 [place] Rings Not Reportable 05/09/17 05:53 [place] Cells Not Reportable 05/09/17 05:53 Bite Cells Not Reportable 05/09/17 05:53 Crenated Cell Not Reportable 05/09/17 05:53 Elliptocytes Not Reportable 05/09/17 05:53 Acanthocytes (Spur) Not Reportable 05/09/17 05:53 Rouleaux Not Reportable 05/09/17 05:53 Hemoglobin C Crystals Not Reportable 05/09/17 05:53 Schistocytes Not Reportable 05/09/17 05:53 Malaria parasites Not Reportable 05/09/17 05:53 [place] Bodies Not Reportable 05/09/17 05:53 Hem Pathologist Commnt No 05/09/17 05:53 PT 17.4 Sec. (12.2-14.9) H 05/05/17 15:38 INR 1.35 (0.87-1.13) H 05/05/17 15:38 APTT 33.2 Sec. (24.2-36.6) 05/05/17 15:38 POC ABG pH 7.436 (7.35-7.45) 05/06/17 07:13 POC ABG pCO2 27.7 (35-45) L 05/06/17 07:13 POC ABG pO2 67 (80-105) L 05/06/17 07:13 POC ABG HCO3 18.7 05/06/17 07:13 POC ABG Total CO2 19 05/06/17 07:13 POC ABG O2 Sat 94 05/06/17 07:13 POC ABG Base Excess -6 05/06/17 07:13 VBG pH 6.909 (7.320-7.420) L* 05/05/17 15:38 FiO2 30 % 05/06/17 07:13 Sodium 140 mmol/L (137-145) 05/12/17 04:50 Potassium 3.0 mmol/L (3.6-5.0) L 05/12/17 04:50 Chloride 104.0 mmol/L (98-107) 05/12/17 04:50 Carbon Dioxide 21 mmol/L (22-30) L 05/12/17 04:50 Anion Gap 18 mmol/L 05/12/17 04:50 BUN 19 mg/dL (7-17) H 05/12/17 04:50 Creatinine 1.5 mg/dL (0.7-1.2) H 05/12/17 04:50 Estimated GFR 40 ml/min 05/12/17 04:50 BUN/Creatinine Ratio 13 % 05/12/17 04:50 Glucose 83 mg/dL (65-100) 05/12/17 04:50 POC Glucose 81 (70-105) 05/12/17 06:14 Osmolality 332 Mosm/kg 05/06/17 04:00 Lactic Acid 8.50 mmol/L (0.7-2.0) H* 05/05/17 23:00 Calcium 6.9 mg/dL (8.4-10.2) L 05/12/17 04:50 Phosphorus 2.30 mg/dL (2.5-4.5) L 05/08/17 Unknown Magnesium 1.30 mg/dL (1.7-2.3) L 05/12/17 04:50 Total Bilirubin 0.20 mg/dL (0.1-1.2) 05/09/17 05:53 AST 25 units/L (5-40) 05/09/17 05:53 ALT 27 units/L (7-56) 05/09/17 05:53 Alkaline Phosphatase 128 units/L (35-129) 05/09/17 05:53 Total Creatine Kinase 350 units/L (30-135) H 05/06/17 04:00 CK-MB (CK-2) 32.9 ng/mL (0.0-4.0) H 05/06/17 04:00 CK-MB (CK-2) Rel Index 9.4 (0-4) H 05/06/17 04:00 Troponin T 0.694 ng/mL (0.00-0.029) H* D 05/06/17 04:00 NT-Pro-B Natriuret Pep 93316 pg/mL (0-900) H 05/11/17 07:53 Total Protein 5.6 g/dL (6.3-8.2) L 05/09/17 05:53 Albumin 1.8 g/dL (3.9-5) L 05/09/17 05:53 Albumin/Globulin Ratio 0.5 % 05/09/17 05:53 Triglycerides 137 mg/dL (2-149) 05/05/17 15:38 Cholesterol 108 mg/dL (50-199) 05/05/17 15:38 LDL Cholesterol Direct 13 mg/dL (50-130) L 05/05/17 15:38 HDL Cholesterol 68 mg/dL (40-59) H 05/05/17 15:38 Cholesterol/HDL Ratio 1.58 % 05/05/17 15:38 Valproic Acid < 2.8 ug/mL (50-100) L 05/10/17 11:55 Hep Bs Antigen Non-reactive (Negative) 05/06/17 05:00 Hepatitis C Antibody Non-reactive (NonReactive) 05/06/17 04:00 Blood Type O POSITIVE 05/05/17 18:53 Antibody Screen Negative 05/05/17 18:53 Crossmatch See Detail 05/05/17 18:53
[2017-05-12] MEDS ORDERED: NACL 0.9% 500 ML 500 ML IV ONE (09:17)
[2017-05-12] MEDS: DAKIN'S FULL STRENGTH TP SCH ×2 (10:00→23:29)
[2017-05-12] MEDS: cefTRIAXone 2 GM in NACL 0.9% 20 ML IV SCH (10:08)
--- NOTE | 2017-05-12 10:45 | Progress Note ---
Assessment and Plan (1) ALEKSANDER (acute kidney injury) due to ATN/pre renal Current Visit: No Status: Acute Plan to address problem: On IHD via RT IJ VC Last HD wednesday. Cr trending down now and UOP increased. Might be on the way to renal recovery. No HD today. Will eval for HD need daily. On D5 1/2 NS at 75 cc/hr. CXR slightly congested. Dec to 50 mls/hr. Lasix 40 mg IV X 1. Obtain daily weights Renally dose medications Avoid Nephrotoxic agents Monitor I/O's Assess need for HD daily (2) Metabolic acidosis Current Visit: Yes Status: Acute Plan to address problem: Mild, Monitor for now. (3) Hypokalemia Current Visit: Yes Status: Acute Plan to address problem: Replace PRN but gently in the setting of ALEKSANDER (4) Anemia, normocytic. Current Visit: Yes Status: Acute Qualifiers: Anemia type: due to chronic kidney disease Chronic kidney disease stage: stage 4 (severe) Qualified Code(s): N18.4 - Chronic kidney disease, stage 4 ( severe); D63.1 - Anemia in chronic kidney disease; D63.1 - Anemia in chronic kidney disease Plan to address problem: Hg dropping. Transfuse PRN per primary. (5) Hypernatremia Current Visit: Yes Status: Acute Plan to address problem: Improved. continue IV hydration D5 1/2 NS. (5) Hypomagnesemia: Current Visit: Yes Status: Acute Plan to address problem: Replace PRN Stevan Peña MD Nephrology, Hypertension, Dialysis, Transplantation Phone no: [phone] Subjective Date of service: 05/12/17 Principal diagnosis: acute renal failure Interval history: Making more urine now. Family at bedside. Objective - Exam Narrative Exam: General appearance: cachectic, lethargic. EENT: ATNC, PERRL Neck: no JVD, supple Respiratory: Present: Decreased Breath Sounds Cardiology: regular, S1S2, Rt IJ VC Gastrointestinal: normoactive bowel sounds, Colostomy bag Integumentary: warm and dry Neurologic: other (Nonverbal) Musculoskeletal: decreased ROM, other (Right AKA) - Vital Signs Vital signs: Vital Signs - 12hr 05/12/17 05/12/17 04:08 08:30 Temperature 98.9 F 97.8 F Pulse Rate 75 Respiratory 20 20 Rate Blood Pressure 167/69 Blood Pressure 147/46 [Left] O2 Sat by Pulse 100 Oximetry - Lab 05/12/17 04:50 05/12/17 04:50 Most recent lab results Calcium 6.9 mg/dL (8.4-10.2) L 05/12/17 04:50 Phosphorus 2.30 mg/dL (2.5-4.5) L 05/08/17 Unknown Magnesium 1.30 mg/dL (1.7-2.3) L 05/12/17 04:50
[2017-05-12] MEDS ORDERED: MAGNESIUM SULFATE 3 GM in NACL 0.9% 100 ML IV ONE (11:00)
[2017-05-12] MEDS ORDERED: LASIX IV ONE ×2 (13:00→17:00)
--- NOTE | 2017-05-12 14:01 | Fluoroscopy Report ---
MODIFIED BARIUM SWALLOW INDICATION: Dysphagia. COMPARISON: None similar. FINDINGS: Fluoroscopy with video provided by radiologist for speech therapist to assess the swallowing mechanism. Food items of various consistencies given. Nearly edentulous jaw. IMPRESSION: Successful modified barium swallow. Please refer to detailed report from speech pathologist. Thank you for the opportunity to participate in this patient's care.
[2017-05-12] MEDS: D5/0.45NS 1,000 ML IV SCH (16:50)
[2017-05-13 04:45] LABS: Hematocrit 31.1 % (30.3-42.9); Hemoglobin 10.2 gm/dl (10.1-14.3); Mean Corpuscular HGB Conc 33 % (30-34); Mean Corpuscular Hemoglobin 29 pg (28-32); Mean Corpuscular Volume 87 fl (79-97); Platelet Count 110 K/mm3 (140-440); Red Blood Count 3.56 M/mm3 (3.65-5.03); Red Cell Distribution Width 19.8 % (13.2-15.2); White Blood Count 5.9 K/mm3 (4.5-11.0)
[2017-05-13 05:06] LABS: Calcium 7.1 mg/dL (8.4-10.2)
[2017-05-13 05:21] LABS: Potassium 2.7 mmol/L (3.6-5.0)
[2017-05-13] MEDS: NACL 0.9% IV SCH ×2 (05:48→19:55)
[2017-05-13] MEDS: DEPACON IV SCH ×2 (05:48→19:55)
[2017-05-13] MEDS ORDERED: KCL 10MEQ/100ML 10 MEQ/100 ML BAG IV SCH (06:00)
[2017-05-13 06:29] LABS: Anisocytosis 1+; Basophils % (Manual) 0 % (0.0-1.8); Blastocytes % (Manual) 0 %; Eosinophils % (Manual) 0 % (0.0-4.3); Hypochromasia Few
[2017-05-13 06:30] LABS: Burr Cells 1+; Diff Status Complete; Elliptocytes Few; Ovalocytes Few; Platelet Estimate Consistent w Auto
[2017-05-13] MEDS ORDERED: KCL 40 MEQ in NACL 0.9% 500 ML 400 ML IV ONE (07:00)
--- NOTE | 2017-05-13 09:52 | Progress Note ---
Assessment and Plan Assessment and plan: Acute respiratory failure. On initial presentation, was intubated in ED and admitted to intensive care unit. She was extubated 05/07. Cont oxygen by Ventimask prn. Pulmonology following. Sepsis due to Escherichia coli. She is now on Rocephin iv Anemia of chronic disease, Hgb is 10.9 today. s/p Transfusion 1 unit of PRBC yesterday. Acute on chronic kidney disease with Uremia,metabolic acidosis. Continue hemodialysis per nephrology. Hypokalemia. Replace iv Severe metabolic acidosis from acute on CKD, improved on dialysis. CO2 is 21, was 7 on admission. Lactic acidosis due to Sepsis. History of stroke. Dysphagia. Has failed swallowing test. Modified barium swallow reveals significant risk for aspiration. Continue nothing by mouth. I discussed with kenny, who is Power of Tube Splicer option of PEG tube. Recall GI s/p colostomy Vomiting fecal matter. CT Abdomen showed dilatation of bowel, findings suspicious of fistula. Dr. 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 Conservative management. Patient had an NG tube which she pulled out few days ago. Family does not recommend putting it back Elevated Troponin. Conservative management. Hypernatremia. Monitor BMP DNR status Patient was DNR and on hospice at SNF unknown to us, so was intubated in ED, so family rescinded hospice and requested full code. Dr. Soto discussed with kenny on 05/07/17 and she has now requested DO NOT RESUSCITATE status. Patient has a poor prognosis. Kenny wants us to do best we can to get her better, short of CPR and intubation per Dr. Soto's conversation. Patient has DNR status History Interval history: no new issues overnight. Hospitalist Physical - Constitutional Vitals: Temp Pulse Resp BP Pulse Ox 98.3 F 73 20 135/58 98 05/13/17 07:18 05/13/17 07:18 05/13/17 07:18 05/13/17 07:18 05/13/17 07:18 General appearance: Present: other (contracted) - EENT Eyes: Present: PERRL, EOM intact ENT: hearing intact, clear oral mucosa, dentition normal - Neck Neck: Present: supple, normal ROM - Respiratory Respiratory effort: normal Respiratory: bilateral: CTA - Cardiovascular Rhythm: regular Heart Sounds: Present: S1 & S2. Absent: gallop, rub - Extremities Extremities: no ischemia, No edema, Full ROM - Abdominal General gastrointestinal: soft, non-tender, non-distended, normal bowel sounds - Integumentary Integumentary: Present: clear, warm, dry - Neurologic Neurologic: CNII-XII intact, moves all extremities Results - Labs CBC & Chem 7: 05/13/17 03:54 05/13/17 03:54 Labs: Laboratory Last Values WBC 5.9 K/mm3 (4.5-11.0) 05/13/17 03:54 RBC 3.56 M/mm3 (3.65-5.03) L 05/13/17 03:54 Hgb 10.2 gm/dl (10.1-14.3) D 05/13/17 03:54 Hct 31.1 % (30.3-42.9) D 05/13/17 03:54 MCV 87 fl (79-97) 05/13/17 03:54 MCH 29 pg (28-32) 05/13/17 03:54 MCHC 33 % (30-34) 05/13/17 03:54 RDW 19.8 % (13.2-15.2) H 05/13/17 03:54 Plt Count 110 K/mm3 (140-440) L 05/13/17 03:54 [place] % (Auto) Wigs Salesperson 05/13/17 03:54 Add Manual Diff Complete 05/13/17 03:54 Total Counted 100 05/13/17 03:54 Seg Neutrophils % Wigs Salesperson 05/09/17 05:53 Seg Neuts % (Manual) 64.0 % (40.0-70.0) 05/13/17 03:54 Band Neutrophils % 16.0 % 05/13/17 03:54 Lymphocytes % (Manual) 14.0 % (13.4-35.0) 05/13/17 03:54 Reactive Lymphs % (Man) 0 % 05/13/17 03:54 Monocytes % (Manual) 6.0 % (0.0-7.3) 05/13/17 03:54 Eosinophils % (Manual) 0 % (0.0-4.3) 05/13/17 03:54 Basophils % (Manual) 0 % (0.0-1.8) 05/13/17 03:54 Metamyelocytes % 0 % 05/13/17 03:54 Myelocytes % 0 % 05/13/17 03:54 Promyelocytes % 0 % 05/13/17 03:54 Blast Cells % 0 % 05/13/17 03:54 Nucleated RBC % Not Reportable 05/13/17 03:54 Seg Neutrophils # Man 3.8 K/mm3 (1.8-7.7) 05/13/17 03:54 Band Neutrophils # 0.9 K/mm3 05/13/17 03:54 Lymphocytes # (Manual) 0.8 K/mm3 (1.2-5.4) L 05/13/17 03:54 Abs React Lymphs (Man) 0.0 K/mm3 05/13/17 03:54 Monocytes # (Manual) 0.4 K/mm3 (0.0-0.8) 05/13/17 03:54 Eosinophils # (Manual) 0.0 K/mm3 (0.0-0.4) 05/13/17 03:54 Basophils # (Manual) 0.0 K/mm3 (0.0-0.1) 05/13/17 03:54 Metamyelocytes # 0.0 K/mm3 05/13/17 03:54 Myelocytes # 0.0 K/mm3 05/13/17 03:54 Promyelocytes # 0.0 K/mm3 05/13/17 03:54 Blast Cells # 0.0 K/mm3 05/13/17 03:54 WBC Morphology Not Reportable 05/13/17 03:54 Hypersegmented Neuts Not Reportable 05/13/17 03:54 Hyposegmented Neuts Not Reportable 05/13/17 03:54 Hypogranular Neuts Not Reportable 05/13/17 03:54 Smudge Cells Not Reportable 05/13/17 03:54 Toxic Granulation Not Reportable 05/13/17 03:54 Toxic Vacuolation Not Reportable 05/13/17 03:54 Dohle Bodies Not Reportable 05/13/17 03:54 Pelger-Huet Anomaly Not Reportable 05/13/17 03:54 Sandra Rods Not Reportable 05/13/17 03:54 Platelet Estimate Consistent w auto 05/13/17 03:54 Clumped Platelets Not Reportable 05/13/17 03:54 Plt Clumps, EDTA Not Reportable 05/13/17 03:54 Large Platelets Not Reportable 05/13/17 03:54 Giant Platelets Not Reportable 05/13/17 03:54 Platelet Satelliting Not Reportable 05/13/17 03:54 Plt Morphology Comment Not Reportable 05/13/17 03:54 RBC Morphology Not Reportable 05/13/17 03:54 Dimorphic RBCs Not Reportable 05/13/17 03:54 Polychromasia Not Reportable 05/13/17 03:54 Hypochromasia Few 05/13/17 03:54 Poikilocytosis Not Reportable 05/13/17 03:54 Anisocytosis 1+ 05/13/17 03:54 Microcytosis Not Reportable 05/13/17 03:54 Macrocytosis Not Reportable 05/13/17 03:54 Spherocytes Not Reportable 05/13/17 03:54 Pappenheimer Bodies Not Reportable 05/13/17 03:54 Sickle Cells Not Reportable 05/13/17 03:54 Target Cells Not Reportable 05/13/17 03:54 Tear Drop Cells Not Reportable 05/13/17 03:54 Ovalocytes Few 05/13/17 03:54 Helmet Cells Not Reportable 05/13/17 03:54 [place] Bodies Not Reportable 05/13/17 03:54 [place] Rings Not Reportable 05/13/17 03:54 [place] Cells 1+ 05/13/17 03:54 Bite Cells Not Reportable 05/13/17 03:54 Crenated Cell Not Reportable 05/13/17 03:54 Elliptocytes Few 05/13/17 03:54 Acanthocytes (Spur) Not Reportable 05/13/17 03:54 Rouleaux Not Reportable 05/13/17 03:54 Hemoglobin C Crystals Not Reportable 05/13/17 03:54 Schistocytes Not Reportable 05/13/17 03:54 Malaria parasites Not Reportable 05/13/17 03:54 [place] Bodies Not Reportable 05/13/17 03:54 Hem Pathologist Commnt No 05/13/17 03:54 PT 17.4 Sec. (12.2-14.9) H 05/05/17 15:38 INR 1.35 (0.87-1.13) H 05/05/17 15:38 APTT 33.2 Sec. (24.2-36.6) 05/05/17 15:38 POC ABG pH 7.436 (7.35-7.45) 05/06/17 07:13 POC ABG pCO2 27.7 (35-45) L 05/06/17 07:13 POC ABG pO2 67 (80-105) L 05/06/17 07:13 POC ABG HCO3 18.7 05/06/17 07:13 POC ABG Total CO2 19 05/06/17 07:13 POC ABG O2 Sat 94 05/06/17 07:13 POC ABG Base Excess -6 05/06/17 07:13 VBG pH 6.909 (7.320-7.420) L* 05/05/17 15:38 FiO2 30 % 05/06/17 07:13 Sodium 139 mmol/L (137-145) 05/13/17 03:54 Potassium 2.7 mmol/L (3.6-5.0) L* 05/13/17 03:54 Chloride 104.0 mmol/L (98-107) 05/13/17 03:54 Carbon Dioxide 20 mmol/L (22-30) L 05/13/17 03:54 Anion Gap 18 mmol/L 05/13/17 03:54 BUN 16 mg/dL (7-17) 05/13/17 03:54 Creatinine 1.3 mg/dL (0.7-1.2) H 05/13/17 03:54 Estimated GFR 48 ml/min 05/13/17 03:54 BUN/Creatinine Ratio 12 % 05/13/17 03:54 Glucose 83 mg/dL (65-100) 05/13/17 03:54 POC Glucose 88 (70-105) 05/13/17 05:41 Osmolality 332 Mosm/kg 05/06/17 04:00 Lactic Acid 8.50 mmol/L (0.7-2.0) H* 05/05/17 23:00 Calcium 7.1 mg/dL (8.4-10.2) L 05/13/17 03:54 Phosphorus 2.30 mg/dL (2.5-4.5) L 05/08/17 Unknown Magnesium 1.30 mg/dL (1.7-2.3) L 05/12/17 04:50 Total Bilirubin 0.20 mg/dL (0.1-1.2) 05/09/17 05:53 AST 25 units/L (5-40) 05/09/17 05:53 ALT 27 units/L (7-56) 05/09/17 05:53 Alkaline Phosphatase 128 units/L (35-129) 05/09/17 05:53 Total Creatine Kinase 350 units/L (30-135) H 05/06/17 04:00 CK-MB (CK-2) 32.9 ng/mL (0.0-4.0) H 05/06/17 04:00 CK-MB (CK-2) Rel Index 9.4 (0-4) H 05/06/17 04:00 Troponin T 0.694 ng/mL (0.00-0.029) H* D 05/06/17 04:00 NT-Pro-B Natriuret Pep 35608 pg/mL (0-900) H 05/11/17 07:53 Total Protein 5.6 g/dL (6.3-8.2) L 05/09/17 05:53 Albumin 1.8 g/dL (3.9-5) L 05/09/17 05:53 Albumin/Globulin Ratio 0.5 % 05/09/17 05:53 Triglycerides 137 mg/dL (2-149) 05/05/17 15:38 Cholesterol 108 mg/dL (50-199) 05/05/17 15:38 LDL Cholesterol Direct 13 mg/dL (50-130) L 05/05/17 15:38 HDL Cholesterol 68 mg/dL (40-59) H 05/05/17 15:38 Cholesterol/HDL Ratio 1.58 % 05/05/17 15:38 Valproic Acid < 2.8 ug/mL (50-100) L 05/10/17 11:55 Hep Bs Antigen Non-reactive (Negative) 05/06/17 05:00 Hepatitis C Antibody Non-reactive (NonReactive) 05/06/17 04:00 Blood Type O POSITIVE 05/12/17 09:56 Antibody Screen Negative 05/12/17 09:56 Crossmatch See Detail 05/12/17 09:56
--- NOTE | 2017-05-13 10:27 | Progress Note ---
Assessment and Plan (1) ALEKSANDER (acute kidney injury) due to ATN/pre renal Current Visit: No Status: Acute Plan to address problem: On IHD via RT IJ VC Last HD wednesday. Cr trending down, Making urine. Can remove Rt IJ Vascath as likely won't need HD for now. Continue D5 1/2 NS at 50 mls/hr. Obtain daily weights Renally dose medications Avoid Nephrotoxic agents Monitor I/O's (2) Metabolic acidosis Current Visit: Yes Status: Acute Plan to address problem: Mild, Monitor for now. (3) Hypokalemia Current Visit: Yes Status: Acute Plan to address problem: Replace PRN (4) Anemia, normocytic. Current Visit: Yes Status: Acute Qualifiers: Anemia type: due to chronic kidney disease Chronic kidney disease stage: stage 4 (severe) Qualified Code(s): N18.4 - Chronic kidney disease, stage 4 ( severe); D63.1 - Anemia in chronic kidney disease; D63.1 - Anemia in chronic kidney disease Plan to address problem: Transfuse PRN per primary. (5) Hypernatremia Current Visit: Yes Status: Acute Plan to address problem: Improved. continue IV hydration D5 1/2 NS. (5) Hypomagnesemia: Current Visit: Yes Status: Acute Plan to address problem: Improved. Replace PRN Stevan Peña MD Nephrology, Hypertension, Dialysis, Transplantation Phone no: [phone] Subjective Date of service: 05/13/17 Principal diagnosis: acute renal failure Interval history: Making urine. Objective - Exam Narrative Exam: General appearance: cachectic, lethargic. EENT: ATNC, PERRL Neck: no JVD, supple Respiratory: Present: Decreased Breath Sounds Cardiology: regular, S1S2, Rt IJ VC Gastrointestinal: normoactive bowel sounds, Colostomy bag Integumentary: warm and dry Neurologic: other (Nonverbal) Musculoskeletal: decreased ROM, other (Right AKA) - Vital Signs Vital signs: Vital Signs - 12hr 05/13/17 05/13/17 04:53 07:18 Temperature 98.8 F 98.3 F Pulse Rate 66 73 Respiratory 20 20 Rate Blood Pressure 146/50 135/58 O2 Sat by Pulse 97 98 Oximetry - Lab 05/13/17 03:54 05/13/17 03:54 Most recent lab results Calcium 7.1 mg/dL (8.4-10.2) L 05/13/17 03:54 Phosphorus 2.30 mg/dL (2.5-4.5) L 05/08/17 Unknown Magnesium 1.30 mg/dL (1.7-2.3) L 05/12/17 04:50
[2017-05-13] MEDS: MORPHINE IV PRN ×2 (12:17→17:57)
[2017-05-13] MEDS: cefTRIAXone 2 GM in NACL 0.9% 20 ML IV SCH (12:44)
[2017-05-13] MEDS: DAKIN'S FULL STRENGTH TP SCH ×2 (12:45→22:00)
[2017-05-13] MEDS ORDERED: TRIPLE ANTIBIOTIC TP ONE (14:56)
[2017-05-13] MEDS: D5/0.45NS 1,000 ML IV SCH (17:57)
[2017-05-14] MEDS: MORPHINE IV PRN ×2 (00:26→05:08)
[2017-05-14 05:08] LABS: Hematocrit 26.3 % (30.3-42.9); Hemoglobin 8.7 gm/dl (10.1-14.3); Mean Corpuscular HGB Conc 33 % (30-34); Mean Corpuscular Hemoglobin 29 pg (28-32); Mean Corpuscular Volume 86 fl (79-97); Platelet Count 133 K/mm3 (140-440); Red Blood Count 3.05 M/mm3 (3.65-5.03); Red Cell Distribution Width 19.7 % (13.2-15.2); White Blood Count 6.6 K/mm3 (4.5-11.0)
[2017-05-14] MEDS: NACL 0.9% IV SCH ×2 (05:16→17:11)
[2017-05-14] MEDS: DEPACON IV SCH ×2 (05:16→17:11)
[2017-05-14 05:25] LABS: Calcium 6.9 mg/dL (8.4-10.2); Chloride 104.9 mmol/L (98-107); Potassium 3.1 mmol/L (3.6-5.0)
[2017-05-14 06:29] LABS: Anisocytosis 1+; Basophils % (Manual) 0 % (0.0-1.8); Blastocytes % (Manual) 0 %; Eosinophils % (Manual) 0 % (0.0-4.3); Hypochromasia 1+; Ovalocytes Few; Smudge Cells Few
[2017-05-14 06:30] LABS: Burr Cells Few; Diff Status Complete
--- NOTE | 2017-05-14 09:48 | Gastroenterology Progress Note ---
<ORI PAT - Last Filed: 05/14/17 09:54> Assessment and Plan 1.PEG placement -failed swallowing eval on 05/12/17 -modified barium swallow revealing significant risk for aspiration -pt is noted to have a midline scar from previous unknown surgery and a colostomy upon abdominal exam-this may make PEG tube placement difficult -will discuss with Dr. Schroeder and have him exam pt prior to scheduling for EGD/ PEG vs possible need for a surgery consult for placement of PEG -keep NPO -continue supportive care -will follow Subjective Date of service: 05/14/17 Principal diagnosis: PEG Interval history: Patient resting in bed. No acute distress noted. Objective - Constitutional Vitals: Temp Pulse Resp BP Pulse Ox 97.9 F 83 18 130/58 96 05/14/17 07:20 05/14/17 07:20 05/14/17 07:20 05/14/17 07:20 05/14/17 07:20 General appearance: no acute distress, other (alert) - Respiratory Respiratory: bilateral: diminished - Cardiovascular Rhythm: regular Heart Sounds: Present: S1 & S2 - Gastrointestinal General gastrointestinal: Present: soft, non-distended, normal bowel sounds, other (mid abd scar from previous unknown surgery and colostomy) - Neurologic Neurological: other (alert, unable to answer questions) - Labs CBC & Chem 7: 05/14/17 04:33 05/14/17 04:33 Labs: Laboratory Results - last 24 hr 05/13/17 05/13/17 05/13/17 03:53 11:57 18:35 WBC RBC Hgb Hct MCV MCH MCHC RDW Plt Count Add Manual Diff Total Counted Seg Neuts % (Manual) Band Neutrophils % Lymphocytes % (Manual) Reactive Lymphs % (Man) Monocytes % (Manual) Eosinophils % (Manual) Basophils % (Manual) Metamyelocytes % Myelocytes % Promyelocytes % Blast Cells % Nucleated RBC % Seg Neutrophils # Man Band Neutrophils # Lymphocytes # (Manual) Abs React Lymphs (Man) Monocytes # (Manual) Eosinophils # (Manual) Basophils # (Manual) Metamyelocytes # Myelocytes # Promyelocytes # Blast Cells # WBC Morphology Hypersegmented Neuts Hyposegmented Neuts Hypogranular Neuts Smudge Cells Toxic Granulation Toxic Vacuolation Dohle Bodies Pelger-Huet Anomaly Sandra Rods Platelet Estimate Clumped Platelets Plt Clumps, EDTA Large Platelets Giant Platelets Platelet Satelliting Plt Morphology Comment RBC Morphology Dimorphic RBCs Polychromasia Hypochromasia Poikilocytosis Anisocytosis Microcytosis Macrocytosis Spherocytes Pappenheimer Bodies Sickle Cells Target Cells Tear Drop Cells Ovalocytes Helmet Cells [place] Bodies [place] Rings Ginny Cells Bite Cells Crenated Cell Elliptocytes Acanthocytes (Spur) Rouleaux Hemoglobin C Crystals Schistocytes Malaria parasites [place] Bodies Hem Pathologist Commnt Sodium Potassium Chloride Carbon Dioxide Anion Gap BUN Creatinine Estimated GFR BUN/Creatinine Ratio Glucose POC Glucose 84 110 H Calcium Magnesium 2.00 05/14/17 05/14/17 05/14/17 03:31 04:33 04:33 WBC 6.6 RBC 3.05 L Hgb 8.7 L Hct 26.3 L MCV 86 MCH 29 MCHC 33 RDW 19.7 H Plt Count 133 L Add Manual Diff Complete Total Counted 100 Seg Neuts % (Manual) 67.0 Band Neutrophils % 10.0 Lymphocytes % (Manual) 15.0 Reactive Lymphs % (Man) 0 Monocytes % (Manual) 8.0 H Eosinophils % (Manual) 0 Basophils % (Manual) 0 Metamyelocytes % 0 Myelocytes % 0 Promyelocytes % 0 Blast Cells % 0 Nucleated RBC % Not Reportable Seg Neutrophils # Man 4.4 Band Neutrophils # 0.7 Lymphocytes # (Manual) 1.0 L Abs React Lymphs (Man) 0.0 Monocytes # (Manual) 0.5 Eosinophils # (Manual) 0.0 Basophils # (Manual) 0.0 Metamyelocytes # 0.0 Myelocytes # 0.0 Promyelocytes # 0.0 Blast Cells # 0.0 WBC Morphology Not Reportable Hypersegmented Neuts Not Reportable Hyposegmented Neuts Not Reportable Hypogranular Neuts Not Reportable Smudge Cells Few Toxic Granulation Not Reportable Toxic Vacuolation Not Reportable Dohle Bodies Not Reportable Pelger-Huet Anomaly Not Reportable Sandra Rods Not Reportable Platelet Estimate Appears normal Clumped Platelets Not Reportable Plt Clumps, EDTA Not Reportable Large Platelets Not Reportable Giant Platelets Not Reportable Platelet Satelliting Not Reportable Plt Morphology Comment Not Reportable RBC Morphology Not Reportable Dimorphic RBCs Not Reportable Polychromasia Not Reportable Hypochromasia 1+ Poikilocytosis Not Reportable Anisocytosis 1+ Microcytosis Not Reportable Macrocytosis Not Reportable Spherocytes Not Reportable Pappenheimer Bodies Not Reportable Sickle Cells Not Reportable Target Cells Not Reportable Tear Drop Cells Not Reportable Ovalocytes Few Helmet Cells Not Reportable Torres-[place] Bodies Not Reportable [place] Rings Not Reportable Ginny Cells Few Bite Cells Not Reportable Crenated Cell Not Reportable Elliptocytes Not Reportable Acanthocytes (Spur) Not Reportable Rouleaux Not Reportable Hemoglobin C Crystals Not Reportable Schistocytes Not Reportable Malaria parasites Not Reportable [place] Bodies Not Reportable Hem Pathologist Commnt No Sodium 137 Potassium 3.1 L Chloride 104.9 Carbon Dioxide 21 L Anion Gap 14 BUN 15 Creatinine 1.3 H Estimated GFR 48 BUN/Creatinine Ratio 12 Glucose 84 POC Glucose 90 Calcium 6.9 L Magnesium <DEBRA SCHROEDER - Last Filed: 05/14/17 16:32> Assessment and Plan Patient seen and examined. Agree with note by Ori Pat. Would need to discuss goals of care with family (currently DNR) and ensure risks of procedure and reversal of code temporarily would be needed prior to procedure. Prior abdominal surgeries and colostomy may make peg technically difficult as well if an adequate window is not obtainable. Unable to reach family earlier today, will attempt again and discuss with family before deciding next steps. Objective - Constitutional Vitals: Temp Pulse Resp BP Pulse Ox 98.3 F 83 18 116/55 93 05/14/17 13:39 05/14/17 13:39 05/14/17 13:39 05/14/17 13:39 05/14/17 15:40 - Labs CBC & Chem 7: 05/14/17 04:33 05/14/17 04:33 Labs: Laboratory Results - last 24 hr 05/13/17 05/14/17 05/14/17 18:35 03:31 04:33 WBC 6.6 RBC 3.05 L Hgb 8.7 L Hct 26.3 L MCV 86 MCH 29 MCHC 33 RDW 19.7 H Plt Count 133 L Add Manual Diff Complete Total Counted 100 Seg Neuts % (Manual) 67.0 Band Neutrophils % 10.0 Lymphocytes % (Manual) 15.0 Reactive Lymphs % (Man) 0 Monocytes % (Manual) 8.0 H Eosinophils % (Manual) 0 Basophils % (Manual) 0 Metamyelocytes % 0 Myelocytes % 0 Promyelocytes % 0 Blast Cells % 0 Nucleated RBC % Not Reportable Seg Neutrophils # Man 4.4 Band Neutrophils # 0.7 Lymphocytes # (Manual) 1.0 L Abs React Lymphs (Man) 0.0 Monocytes # (Manual) 0.5 Eosinophils # (Manual) 0.0 Basophils # (Manual) 0.0 Metamyelocytes # 0.0 Myelocytes # 0.0 Promyelocytes # 0.0 Blast Cells # 0.0 WBC Morphology Not Reportable Hypersegmented Neuts Not Reportable Hyposegmented Neuts Not Reportable Hypogranular Neuts Not Reportable Smudge Cells Few Toxic Granulation Not Reportable Toxic Vacuolation Not Reportable Dohle Bodies Not Reportable Pelger-Huet Anomaly Not Reportable Sandra Rods Not Reportable Platelet Estimate Appears normal Clumped Platelets Not Reportable Plt Clumps, EDTA Not Reportable Large Platelets Not Reportable Giant Platelets Not Reportable Platelet Satelliting Not Reportable Plt Morphology Comment Not Reportable RBC Morphology Not Reportable Dimorphic RBCs Not Reportable Polychromasia Not Reportable Hypochromasia 1+ Poikilocytosis Not Reportable Anisocytosis 1+ Microcytosis Not Reportable Macrocytosis Not Reportable Spherocytes Not Reportable Pappenheimer Bodies Not Reportable Sickle Cells Not Reportable Target Cells Not Reportable Tear Drop Cells Not Reportable Ovalocytes Few Helmet Cells Not Reportable [place] Bodies Not Reportable [place] Rings Not Reportable [place] Cells Few Bite Cells Not Reportable Crenated Cell Not Reportable Elliptocytes Not Reportable Acanthocytes (Spur) Not Reportable Rouleaux Not Reportable Hemoglobin C Crystals Not Reportable Schistocytes Not Reportable Malaria parasites Not Reportable [place] Bodies Not Reportable Hem Pathologist Commnt No Sodium Potassium Chloride Carbon Dioxide Anion Gap BUN Creatinine Estimated GFR BUN/Creatinine Ratio Glucose POC Glucose 110 H 90 Calcium Phosphorus Magnesium 05/14/17 05/14/17 05/14/17 04:33 09:59 11:51 WBC RBC Hgb Hct MCV MCH MCHC RDW Plt Count Add Manual Diff Total Counted Seg Neuts % (Manual) Band Neutrophils % Lymphocytes % (Manual) Reactive Lymphs % (Man) Monocytes % (Manual) Eosinophils % (Manual) Basophils % (Manual) Metamyelocytes % Myelocytes % Promyelocytes % Blast Cells % Nucleated RBC % Seg Neutrophils # Man Band Neutrophils # Lymphocytes # (Manual) Abs React Lymphs (Man) Monocytes # (Manual) Eosinophils # (Manual) Basophils # (Manual) Metamyelocytes # Myelocytes # Promyelocytes # Blast Cells # WBC Morphology Hypersegmented Neuts Hyposegmented Neuts Hypogranular Neuts Smudge Cells Toxic Granulation Toxic Vacuolation Dohle Bodies Pelger-Huet Anomaly Sandra Rods Platelet Estimate Clumped Platelets Plt Clumps, EDTA Large Platelets Giant Platelets Platelet Satelliting Plt Morphology Comment RBC Morphology Dimorphic RBCs Polychromasia Hypochromasia Poikilocytosis Anisocytosis Microcytosis Macrocytosis Spherocytes Pappenheimer Bodies Sickle Cells Target Cells Tear Drop Cells Ovalocytes Helmet Cells [place] Bodies [place] Rings Ginny Cells Bite Cells Crenated Cell Elliptocytes Acanthocytes (Spur) Rouleaux Hemoglobin C Crystals Schistocytes Malaria parasites [place] Bodies Hem Pathologist Commnt Sodium 137 Potassium 3.1 L Chloride 104.9 Carbon Dioxide 21 L Anion Gap 14 BUN 15 Creatinine 1.3 H Estimated GFR 48 BUN/Creatinine Ratio 12 Glucose 84 POC Glucose 133 H Calcium 6.9 L Phosphorus 2.40 L Magnesium 1.70
--- NOTE | 2017-05-14 10:00 | Progress Note ---
Assessment and Plan (1) ALEKSANDER (acute kidney injury) due to ATN/pre renal Current Visit: No Status: Acute Plan to address problem: On IHD via RT IJ VC Last HD wednesday. Cr down now. Can remove Rt IJ Vascath as likely won't need HD for now. CXR somewhat congested. Start on lasix 40 mg BID IV. Change D5 1/2 NS to D5W at 50 cc/hr (as needs it to provide sugar as not eating) Obtain daily weights Renally dose medications Avoid Nephrotoxic agents Monitor I/O's (2) Metabolic acidosis Current Visit: Yes Status: Acute Plan to address problem: Mild, Monitor for now. (3) Hypokalemia Current Visit: Yes Status: Acute Plan to address problem: Replace PRN (4) Anemia, normocytic. Current Visit: Yes Status: Acute Qualifiers: Anemia type: due to chronic kidney disease Chronic kidney disease stage: stage 4 (severe) Qualified Code(s): N18.4 - Chronic kidney disease, stage 4 ( severe); D63.1 - Anemia in chronic kidney disease; D63.1 - Anemia in chronic kidney disease Plan to address problem: Transfuse PRN per primary. (5) Hypophosphatemia Current Visit: Yes Status: Acute Plan to address problem: Will replace (6) Hypomagnesemia: Current Visit: Yes Status: Acute Plan to address problem: Will replace Stevan Peña MD Nephrology, Hypertension, Dialysis, Transplantation Phone no: [phone] Subjective Date of service: 05/14/17 Principal diagnosis: PEG Interval history: Making some urine but less than yesterday. Failed swallowing eval, GI on board for PEG placement. Objective - Exam Narrative Exam: General appearance: cachectic, Awake. EENT: ATNC, PERRL Neck: no JVD, supple Respiratory: Present: Decreased Breath Sounds Cardiology: regular, S1S2, Rt IJ VC Gastrointestinal: normoactive bowel sounds, Colostomy bag Integumentary: warm and dry Neurologic: Awake Musculoskeletal: decreased ROM, other (Right AKA) - Vital Signs Vital signs: Vital Signs - 12hr 05/14/17 05/14/17 05:05 07:20 Temperature 97.3 F L 97.9 F Pulse Rate 83 Respiratory 20 18 Rate Blood Pressure 144/57 130/58 O2 Sat by Pulse 96 Oximetry - Lab 05/14/17 04:33 05/14/17 04:33 Most recent lab results Calcium 6.9 mg/dL (8.4-10.2) L 05/14/17 04:33 Phosphorus 2.30 mg/dL (2.5-4.5) L 05/08/17 Unknown Magnesium 2.00 mg/dL (1.7-2.3) 05/13/17 03:53
[2017-05-14] MEDS: DAKIN'S FULL STRENGTH TP SCH (10:30)
[2017-05-14 10:41] LABS: Magnesium 1.7 mg/dL (1.7-2.3); Phosphorous 2.4 mg/dL (2.5-4.5)
--- NOTE | 2017-05-14 10:47 | XRay Report ---
AP CHEST: HISTORY: Volume status The right IJ central line has been removed since 05/11/17. Mild improvement in pulmonary venous congestion is demonstrated. No large pleural effusion or pneumothorax is detected. Complete atelectasis of the right upper lobe has developed. The bony structures are demineralized. IMPRESSION: Mild improvement in pulmonary venous congestion since 05/11/17. New right upper lobe atelectasis.
[2017-05-14] MEDS: cefTRIAXone 2 GM in NACL 0.9% 20 ML IV SCH (10:50)
[2017-05-14] MEDS: KCL 10MEQ/100ML 10 MEQ/100 ML BAG IV SCH ×4 (11:59→15:33)
[2017-05-14] MEDS ORDERED: MAGNESIUM SULFATE IV ONE (12:00)
[2017-05-14] MEDS ORDERED: SODIUM PHOSPHATE 15 MMOL in NACL 0.9% 250ML 250 ML IV ONE (12:00)
--- NOTE | 2017-05-14 12:46 | Progress Note ---
Assessment and Plan Assessment and plan: Acute respiratory failure. On initial presentation, was intubated in ED and admitted to intensive care unit. She was extubated 05/07 and is now on oxygen by PA. Respiratory corona she is much improved. Pulmonology was following. Sepsis due to Escherichia coli. She is now on Rocephin iv Anemia, Hgb is 8.7 today. Hemoglobin was 6.3 on admission. s/p total 3 Units PRBC transfusion. Acute on chronic kidney disease with Uremia,metabolic acidosis. Had emergent dialysis after catheter placed. Hyperkalemia. Resolved Hypokalemia. Replace iv and recheck Hypomagnesemia. Resolved Severe metabolic acidosis from acute on CKD, improved on dialysis. CO2 is 21, was 7 on admission. Lactic acidosis due to Sepsis. History of stroke. Dysphagia. Has failed swallowing test. Modified barium swallow recommended.' Will discuss options with kenny, who is Power of Remote Broadcast Technician. s/p colostomy Elevated Troponin. Conservative management. Hypernatremia. Monitor BMP DNR status Patient was DNR and on hospice at SNF unknown to us, so was intubated in ED, so family rescinded hospice and requested full code. I discussed with kenny on and she has now requested DO NOT RESUSCITATE status. Patient has a poor prognosis. Spoke to kenny again 05/08/17. She wants us to do best we can to get her better , short of CPR and intubation. Patient has DNR status History Interval history: Extubated , On Oxygen by [place] no more vomiting, Failed swallow test Hospitalist Physical - Physical exam Narrative exam: GEN APPEARANCE : Not in acute distress, on Oxygen by nasal canula HEENT: Normocephalic Atraumatic. NECK : supple, no JVD LUNGS: clear to auscultation bilaterally, no rales, no wheeze HEART: S1 and S2 regular, no murmurs, rubs or gallop, ABD: Soft, no tenderness, colostomy, no distension, bowel sounds present EXT: Contractures, right AKA NEURO: Eyes open, follows commands - Constitutional Vitals: Temp Pulse Resp BP Pulse Ox 97.9 F 83 18 130/58 96 05/14/17 07:20 05/14/17 07:20 05/14/17 07:20 05/14/17 07:20 05/14/17 07:20 General appearance: Present: other (contracted) Results - Labs CBC & Chem 7: 05/15/17 03:50 05/16/17 03:51 Labs: Laboratory Last Values WBC 6.6 K/mm3 (4.5-11.0) 05/14/17 04:33 RBC 3.05 M/mm3 (3.65-5.03) L 05/14/17 04:33 Hgb 8.7 gm/dl (10.1-14.3) L 05/14/17 04:33 Hct 26.3 % (30.3-42.9) L 05/14/17 04:33 MCV 86 fl (79-97) 05/14/17 04:33 MCH 29 pg (28-32) 05/14/17 04:33 MCHC 33 % (30-34) 05/14/17 04:33 RDW 19.7 % (13.2-15.2) H 05/14/17 04:33 Plt Count 133 K/mm3 (140-440) L 05/14/17 04:33 [place] % (Auto) Asphalt Screed Operator 05/13/17 03:54 Add Manual Diff Complete 05/14/17 04:33 Total Counted 100 05/14/17 04:33 Seg Neutrophils % Asphalt Screed Operator 05/09/17 05:53 Seg Neuts % (Manual) 67.0 % (40.0-70.0) 05/14/17 04:33 Band Neutrophils % 10.0 % 05/14/17 04:33 Lymphocytes % (Manual) 15.0 % (13.4-35.0) 05/14/17 04:33 Reactive Lymphs % (Man) 0 % 05/14/17 04:33 Monocytes % (Manual) 8.0 % (0.0-7.3) H 05/14/17 04:33 Eosinophils % (Manual) 0 % (0.0-4.3) 05/14/17 04:33 Basophils % (Manual) 0 % (0.0-1.8) 05/14/17 04:33 Metamyelocytes % 0 % 05/14/17 04:33 Myelocytes % 0 % 05/14/17 04:33 Promyelocytes % 0 % 05/14/17 04:33 Blast Cells % 0 % 05/14/17 04:33 Nucleated RBC % Not Reportable 05/14/17 04:33 Seg Neutrophils # Man 4.4 K/mm3 (1.8-7.7) 05/14/17 04:33 Band Neutrophils # 0.7 K/mm3 05/14/17 04:33 Lymphocytes # (Manual) 1.0 K/mm3 (1.2-5.4) L 05/14/17 04:33 Abs React Lymphs (Man) 0.0 K/mm3 05/14/17 04:33 Monocytes # (Manual) 0.5 K/mm3 (0.0-0.8) 05/14/17 04:33 Eosinophils # (Manual) 0.0 K/mm3 (0.0-0.4) 05/14/17 04:33 Basophils # (Manual) 0.0 K/mm3 (0.0-0.1) 05/14/17 04:33 Metamyelocytes # 0.0 K/mm3 05/14/17 04:33 Myelocytes # 0.0 K/mm3 05/14/17 04:33 Promyelocytes # 0.0 K/mm3 05/14/17 04:33 Blast Cells # 0.0 K/mm3 05/14/17 04:33 WBC Morphology Not Reportable 05/14/17 04:33 Hypersegmented Neuts Not Reportable 05/14/17 04:33 Hyposegmented Neuts Not Reportable 05/14/17 04:33 Hypogranular Neuts Not Reportable 05/14/17 04:33 Smudge Cells Few 05/14/17 04:33 Toxic Granulation Not Reportable 05/14/17 04:33 Toxic Vacuolation Not Reportable 05/14/17 04:33 Dohle Bodies Not Reportable 05/14/17 04:33 Pelger-Huet Anomaly Not Reportable 05/14/17 04:33 Sandra Rods Not Reportable 05/14/17 04:33 Platelet Estimate Appears normal 05/14/17 04:33 Clumped Platelets Not Reportable 05/14/17 04:33 Plt Clumps, EDTA Not Reportable 05/14/17 04:33 Large Platelets Not Reportable 05/14/17 04:33 Giant Platelets Not Reportable 05/14/17 04:33 Platelet Satelliting Not Reportable 05/14/17 04:33 Plt Morphology Comment Not Reportable 05/14/17 04:33 RBC Morphology Not Reportable 05/14/17 04:33 Dimorphic RBCs Not Reportable 05/14/17 04:33 Polychromasia Not Reportable 05/14/17 04:33 Hypochromasia 1+ 05/14/17 04:33 Poikilocytosis Not Reportable 05/14/17 04:33 Anisocytosis 1+ 05/14/17 04:33 Microcytosis Not Reportable 05/14/17 04:33 Macrocytosis Not Reportable 05/14/17 04:33 Spherocytes Not Reportable 05/14/17 04:33 Pappenheimer Bodies Not Reportable 05/14/17 04:33 Sickle Cells Not Reportable 05/14/17 04:33 Target Cells Not Reportable 05/14/17 04:33 Tear Drop Cells Not Reportable 05/14/17 04:33 Ovalocytes Few 05/14/17 04:33 Helmet Cells Not Reportable 05/14/17 04:33 [place] Bodies Not Reportable 05/14/17 04:33 [place] Rings Not Reportable 05/14/17 04:33 Ginny Cells Few 05/14/17 04:33 Bite Cells Not Reportable 05/14/17 04:33 Crenated Cell Not Reportable 05/14/17 04:33 Elliptocytes Not Reportable 05/14/17 04:33 Acanthocytes (Spur) Not Reportable 05/14/17 04:33 Rouleaux Not Reportable 05/14/17 04:33 Hemoglobin C Crystals Not Reportable 05/14/17 04:33 Schistocytes Not Reportable 05/14/17 04:33 Malaria parasites Not Reportable 05/14/17 04:33 [place]az Bodies Not Reportable 05/14/17 04:33 Hem Pathologist Commnt No 05/14/17 04:33 PT 17.4 Sec. (12.2-14.9) H 05/05/17 15:38 INR 1.35 (0.87-1.13) H 05/05/17 15:38 APTT 33.2 Sec. (24.2-36.6) 05/05/17 15:38 POC ABG pH 7.436 (7.35-7.45) 05/06/17 07:13 POC ABG pCO2 27.7 (35-45) L 05/06/17 07:13 POC ABG pO2 67 (80-105) L 05/06/17 07:13 POC ABG HCO3 18.7 05/06/17 07:13 POC ABG Total CO2 19 05/06/17 07:13 POC ABG O2 Sat 94 05/06/17 07:13 POC ABG Base Excess -6 05/06/17 07:13 VBG pH 6.909 (7.320-7.420) L* 05/05/17 15:38 FiO2 30 % 05/06/17 07:13 Sodium 137 mmol/L (137-145) 05/14/17 04:33 Potassium 3.1 mmol/L (3.6-5.0) L 05/14/17 04:33 Chloride 104.9 mmol/L (98-107) 05/14/17 04:33 Carbon Dioxide 21 mmol/L (22-30) L 05/14/17 04:33 Anion Gap 14 mmol/L 05/14/17 04:33 BUN 15 mg/dL (7-17) 05/14/17 04:33 Creatinine 1.3 mg/dL (0.7-1.2) H 05/14/17 04:33 Estimated GFR 48 ml/min 05/14/17 04:33 BUN/Creatinine Ratio 12 % 05/14/17 04:33 Glucose 84 mg/dL (65-100) 05/14/17 04:33 POC Glucose 133 (70-105) H 05/14/17 11:51 Osmolality 332 Mosm/kg 05/06/17 04:00 Lactic Acid 8.50 mmol/L (0.7-2.0) H* 05/05/17 23:00 Calcium 6.9 mg/dL (8.4-10.2) L 05/14/17 04:33 Phosphorus 2.40 mg/dL (2.5-4.5) L 05/14/17 09:59 Magnesium 1.70 mg/dL (1.7-2.3) 05/14/17 09:59 Total Bilirubin 0.20 mg/dL (0.1-1.2) 05/09/17 05:53 AST 25 units/L (5-40) 05/09/17 05:53 ALT 27 units/L (7-56) 05/09/17 05:53 Alkaline Phosphatase 128 units/L (35-129) 05/09/17 05:53 Total Creatine Kinase 350 units/L (30-135) H 05/06/17 04:00 CK-MB (CK-2) 32.9 ng/mL (0.0-4.0) H 05/06/17 04:00 CK-MB (CK-2) Rel Index 9.4 (0-4) H 05/06/17 04:00 Troponin T 0.694 ng/mL (0.00-0.029) H* D 05/06/17 04:00 NT-Pro-B Natriuret Pep 45727 pg/mL (0-900) H 05/11/17 07:53 Total Protein 5.6 g/dL (6.3-8.2) L 05/09/17 05:53 Albumin 1.8 g/dL (3.9-5) L 05/09/17 05:53 Albumin/Globulin Ratio 0.5 % 05/09/17 05:53 Triglycerides 137 mg/dL (2-149) 05/05/17 15:38 Cholesterol 108 mg/dL (50-199) 05/05/17 15:38 LDL Cholesterol Direct 13 mg/dL (50-130) L 05/05/17 15:38 HDL Cholesterol 68 mg/dL (40-59) H 05/05/17 15:38 Cholesterol/HDL Ratio 1.58 % 05/05/17 15:38 Valproic Acid < 2.8 ug/mL (50-100) L 05/10/17 11:55 Hep Bs Antigen Non-reactive (Negative) 05/06/17 05:00 Hepatitis C Antibody Non-reactive (NonReactive) 05/06/17 04:00 Blood Type O POSITIVE 05/12/17 09:56 Antibody Screen Negative 05/12/17 09:56 Crossmatch See Detail 05/12/17 09:56
[2017-05-14] MEDS ORDERED: PROCRIT SUB-Q SCH (13:00)
[2017-05-14] MEDS ORDERED: KPHOS 15 MMOL in NACL 0.9% 250ML 250 ML IV ONE (13:00)
[2017-05-14] MEDS: D5W 1,000 ML IV SCH (14:10)
[2017-05-14] MEDS: LASIX IV SCH (17:06)
[2017-05-15] MEDS: DAKIN'S FULL STRENGTH TP SCH ×3 (03:00→21:40)
[2017-05-15] MEDS: MORPHINE IV PRN ×2 (04:10→21:38)
[2017-05-15 04:40] LABS: Hemoglobin 9.3 gm/dl (10.1-14.3); Mean Corpuscular HGB Conc 33 % (30-34); Mean Corpuscular Hemoglobin 29 pg (28-32); Mean Corpuscular Volume 86 fl (79-97); Platelet Count 182 K/mm3 (140-440); Red Blood Count 3.27 M/mm3 (3.65-5.03); Red Cell Distribution Width 19.2 % (13.2-15.2); White Blood Count 7.5 K/mm3 (4.5-11.0)
[2017-05-15 04:56] LABS: Calcium 7.3 mg/dL (8.4-10.2); Chloride 105.7 mmol/L (98-107); Potassium 3.5 mmol/L (3.6-5.0)
[2017-05-15 06:46] LABS: Blastocytes % (Manual) 0 %; Eosinophils % (Manual) 0 % (0.0-4.3)
[2017-05-15 06:47] LABS: Anisocytosis 1+; Diff Status Complete; Elliptocytes 1+; Platelet Estimate Consistent w Auto
[2017-05-15] MEDS: NACL 0.9% IV SCH ×2 (06:58→22:00)
[2017-05-15] MEDS: DEPACON IV SCH ×2 (06:58→22:00)
[2017-05-15] MEDS: LASIX IV SCH ×2 (06:58→18:30)
[2017-05-15] MEDS: KCL 10MEQ/100ML 10 MEQ/100 ML BAG IV SCH ×2 (09:40→10:50)
[2017-05-15] MEDS: cefTRIAXone 2 GM in NACL 0.9% 20 ML IV SCH (10:30)
--- NOTE | 2017-05-15 12:59 | Progress Note ---
Assessment and Plan - Patient Problems (1) ALEKSANDER (acute kidney injury) Current Visit: No Status: Acute Plan to address problem: Renal function reviewed, SCr level was 1.3 today, yesterday's SCr level was 1.3 No indication for HD Right IJ Vas Cath removed Continue Lasix 40 mg IV twice a day for now Repeat BMP at 1700 Renally dose medications Obtain daily weight Strict intake and output Renal plan discussed with Dr Estrella Continue supportive therapy (2) Hypokalemia Current Visit: Yes Status: Acute Plan to address problem: Replete potassium Repeat BMP at 1700 Check magnesium (3) Metabolic acidosis Current Visit: Yes Status: Acute Plan to address problem: Monitor May need to start on bicarbonate supplementation- will monitor (4) Hypophosphatemia Current Visit: Yes Status: Acute Plan to address problem: Replete phosphorus Repeat phosphorus level today at 1700 Subjective Date of service: 05/15/17 Principal diagnosis: PEG Interval history: Patient awake, nonverbal, doesn't follow commands, no family at bedside, no acute distress Objective - Vital Signs Vital signs: Vital Signs - 12hr 05/15/17 05/15/17 05/15/17 04:10 04:40 04:59 Temperature 97.9 F Pulse Rate 69 Respiratory 18 18 18 Rate Blood Pressure 115/60 Blood Pressure [Left] O2 Sat by Pulse 98 Oximetry 05/15/17 05/15/17 05/15/17 07:28 07:29 07:32 Temperature 97.9 F 97.9 F Pulse Rate 72 70 71 Respiratory 20 20 Rate Blood Pressure 149/66 Blood Pressure 149/66 [Left] O2 Sat by Pulse 100 100 100 Oximetry 05/15/17 08:09 Temperature Pulse Rate Respiratory Rate Blood Pressure Blood Pressure [Left] O2 Sat by Pulse 100 Oximetry - General Appearance General appearance: frail EENT: ATNC Neck: no JVD Respiratory: Present: Other (Lung sounds decreased bilaterally, unlabored) Cardiology: regular, S1S2 Gastrointestinal: normoactive bowel sounds, other (colostomy bag intact) Integumentary: other (left lower extremity with dressing in place; Right AKA noted) Neurologic: other (awake, nonverbal, doesn't follow commands) Musculoskeletal: other (no edema to left lower extremity; Right AKA noted) - Lab 05/15/17 03:50 05/15/17 03:50 Most recent lab results Calcium 7.3 mg/dL (8.4-10.2) L 05/15/17 03:50 Phosphorus 2.40 mg/dL (2.5-4.5) L 05/14/17 09:59 Magnesium 1.70 mg/dL (1.7-2.3) 05/14/17 09:59
[2017-05-15 17:08] LABS: Calcium 7.1 mg/dL (8.4-10.2); Chloride 101.4 mmol/L (98-107); Magnesium 1.9 mg/dL (1.7-2.3); Potassium 4.9 mmol/L (3.6-5.0)
--- NOTE | 2017-05-15 19:30 | Gastroenterology Progress Note ---
Assessment and Plan - Patient Problems (1) Neurogenic dysphagia Current Visit: Yes Status: Acute Plan to address problem: - Will discuss PEG tomorrow if family is available. - Higher risk procedure because of prior abdominal surgeries, but body habitus quite slim, so endoscopic placement is possible. Subjective Date of service: 05/15/17 Principal diagnosis: Neurogenic Dysphagia Interval history: No family present or available by phone. No change in patient's clinical status. Denies abdominal pain. Objective - Constitutional Vitals: Temp Pulse Resp BP Pulse Ox 97.9 F 71 20 149/66 100 05/15/17 07:32 05/15/17 07:32 05/15/17 07:32 05/15/17 07:32 05/15/17 08:09 General appearance: no acute distress - EENT Eyes: PERRL ENT: clear oral mucosa, edentulous - Respiratory Respiratory effort: normal Respiratory: bilateral: CTA - Cardiovascular Rhythm: regular Heart Sounds: Present: S1 & S2 - Gastrointestinal General gastrointestinal: Present: soft, non-tender, non-distended, other ( Ostomy, midline scar) - Labs CBC & Chem 7: 05/15/17 03:50 05/15/17 16:33 Labs: Laboratory Results - last 24 hr 05/15/17 05/15/17 05/15/17 01:15 03:50 03:50 WBC 7.5 RBC 3.27 L Hgb 9.3 L Hct 28.0 L MCV 86 MCH 29 MCHC 33 RDW 19.2 H Plt Count 182 Add Manual Diff Complete Total Counted 100 Seg Neuts % (Manual) 77.0 H Band Neutrophils % 14.0 Lymphocytes % (Manual) 4.0 L Reactive Lymphs % (Man) 1.0 Monocytes % (Manual) 4.0 Eosinophils % (Manual) 0 Metamyelocytes % 0 Myelocytes % 0 Promyelocytes % 0 Blast Cells % 0 Nucleated RBC % Not Reportable Seg Neutrophils # Man 5.8 Band Neutrophils # 1.1 Lymphocytes # (Manual) 0.3 L Abs React Lymphs (Man) 0.1 Monocytes # (Manual) 0.3 Eosinophils # (Manual) 0.0 Basophils # (Manual) 0.0 Metamyelocytes # 0.0 Myelocytes # 0.0 Promyelocytes # 0.0 Blast Cells # 0.0 WBC Morphology Not Reportable Hypersegmented Neuts Not Reportable Hyposegmented Neuts Not Reportable Hypogranular Neuts Not Reportable Smudge Cells Not Reportable Toxic Granulation Not Reportable Toxic Vacuolation Not Reportable Dohle Bodies Not Reportable Pelger-Huet Anomaly Not Reportable Sandra Rods Not Reportable Platelet Estimate Consistent w auto Clumped Platelets Not Reportable Plt Clumps, EDTA Not Reportable Large Platelets Not Reportable Giant Platelets Not Reportable Platelet Satelliting Not Reportable Plt Morphology Comment Not Reportable RBC Morphology Not Reportable Dimorphic RBCs Not Reportable Polychromasia Not Reportable Hypochromasia Not Reportable Poikilocytosis Not Reportable Anisocytosis 1+ Microcytosis Not Reportable Macrocytosis Not Reportable Spherocytes Not Reportable Pappenheimer Bodies Not Reportable Sickle Cells Not Reportable Target Cells Not Reportable Tear Drop Cells Not Reportable Ovalocytes Not Reportable Helmet Cells Not Reportable [place] Bodies Not Reportable [place] Rings Not Reportable [place] Cells Not Reportable Bite Cells Not Reportable Crenated Cell Not Reportable Elliptocytes 1+ Acanthocytes (Spur) Not Reportable Rouleaux Not Reportable Hemoglobin C Crystals Not Reportable Schistocytes Not Reportable Malaria parasites Not Reportable [place] Bodies Not Reportable Hem Pathologist Commnt No Sodium 139 Potassium 3.5 L Chloride 105.7 Carbon Dioxide 19 L Anion Gap 18 BUN 15 Creatinine 1.3 H Estimated GFR 48 BUN/Creatinine Ratio 12 Glucose 86 POC Glucose 85 Calcium 7.3 L Phosphorus Magnesium 05/15/17 05/15/17 05/15/17 05:01 12:00 16:33 WBC RBC Hgb Hct MCV MCH MCHC RDW Plt Count Add Manual Diff Total Counted Seg Neuts % (Manual) Band Neutrophils % Lymphocytes % (Manual) Reactive Lymphs % (Man) Monocytes % (Manual) Eosinophils % (Manual) Metamyelocytes % Myelocytes % Promyelocytes % Blast Cells % Nucleated RBC % Seg Neutrophils # Man Band Neutrophils # Lymphocytes # (Manual) Abs React Lymphs (Man) Monocytes # (Manual) Eosinophils # (Manual) Basophils # (Manual) Metamyelocytes # Myelocytes # Promyelocytes # Blast Cells # WBC Morphology Hypersegmented Neuts Hyposegmented Neuts Hypogranular Neuts Smudge Cells Toxic Granulation Toxic Vacuolation Dohle Bodies Pelger-Huet Anomaly Sandra Rods Platelet Estimate Clumped Platelets Plt Clumps, EDTA Large Platelets Giant Platelets Platelet Satelliting Plt Morphology Comment RBC Morphology Dimorphic RBCs Polychromasia Hypochromasia Poikilocytosis Anisocytosis Microcytosis Macrocytosis Spherocytes Pappenheimer Bodies Sickle Cells Target Cells Tear Drop Cells Ovalocytes Helmet Cells [place] Bodies [place] Rings [place] Cells Bite Cells Crenated Cell Elliptocytes Acanthocytes (Spur) Rouleaux Hemoglobin C Crystals Schistocytes Malaria parasites Shiraz Bodies Hem Pathologist Commnt Sodium 135 L Potassium 4.9 D Chloride 101.4 Carbon Dioxide 18 L Anion Gap 21 BUN 15 Creatinine 1.2 Estimated GFR 52 BUN/Creatinine Ratio 13 Glucose 74 POC Glucose 97 74 Calcium 7.1 L Phosphorus 4.00 D Magnesium 1.90 05/15/17 17:11 WBC RBC Hgb Hct MCV MCH MCHC RDW Plt Count Add Manual Diff Total Counted Seg Neuts % (Manual) Band Neutrophils % Lymphocytes % (Manual) Reactive Lymphs % (Man) Monocytes % (Manual) Eosinophils % (Manual) Metamyelocytes % Myelocytes % Promyelocytes % Blast Cells % Nucleated RBC % Seg Neutrophils # Man Band Neutrophils # Lymphocytes # (Manual) Abs React Lymphs (Man) Monocytes # (Manual) Eosinophils # (Manual) Basophils # (Manual) Metamyelocytes # Myelocytes # Promyelocytes # Blast Cells # WBC Morphology Hypersegmented Neuts Hyposegmented Neuts Hypogranular Neuts Smudge Cells Toxic Granulation Toxic Vacuolation Dohle Bodies Pelger-Huet Anomaly Sandra Rods Platelet Estimate Clumped Platelets Plt Clumps, EDTA Large Platelets Giant Platelets Platelet Satelliting Plt Morphology Comment RBC Morphology Dimorphic RBCs Polychromasia Hypochromasia Poikilocytosis Anisocytosis Microcytosis Macrocytosis Spherocytes Pappenheimer Bodies Sickle Cells Target Cells Tear Drop Cells Ovalocytes Helmet Cells [place] Bodies [place] Rings [place] Cells Bite Cells Crenated Cell Elliptocytes Acanthocytes (Spur) Rouleaux Hemoglobin C Crystals Schistocytes Malaria parasites [place]az Bodies Hem Pathologist Commnt Sodium Potassium Chloride Carbon Dioxide Anion Gap BUN Creatinine Estimated GFR BUN/Creatinine Ratio Glucose POC Glucose 78 Calcium Phosphorus Magnesium
[2017-05-15] MEDS: D50W (25GM) Vial IV PRN (23:44)
[2017-05-15] MEDS: D5W 1,000 ML IV SCH (23:47)
[2017-05-16 05:02] LABS: Calcium 7.2 mg/dL (8.4-10.2); Chloride 102.5 mmol/L (98-107); Potassium 4.2 mmol/L (3.6-5.0)
[2017-05-16] MEDS: DEPACON IV SCH ×2 (05:42→17:40)
[2017-05-16] MEDS: NACL 0.9% IV SCH ×2 (05:42→17:40)
[2017-05-16] MEDS: LASIX IV SCH ×2 (05:42→17:35)
[2017-05-16] MEDS: cefTRIAXone 2 GM in NACL 0.9% 20 ML IV SCH (10:27)
[2017-05-16] MEDS: DAKIN'S FULL STRENGTH TP SCH ×2 (10:28→22:45)
--- NOTE | 2017-05-16 11:21 | Progress Note ---
Assessment and Plan Assessment and plan: Acute respiratory failure. On initial presentation, was intubated in ED and admitted to intensive care unit. She was extubated 05/07 and is now on oxygen by [place]. Respiratory corona she is much improved. Pulmonology was following. Sepsis due to Escherichia coli. She is now on Rocephin iv Anemia, Hgb is 9.3 today. Hemoglobin was 6.3 on admission. s/p total 3 Units PRBC transfusion. Acute on chronic kidney disease with Uremia,metabolic acidosis. Had emergent dialysis after catheter placed. Cr 1.2 today Hyperkalemia. Resolved Hypokalemia. Replace iv and recheck Hypomagnesemia. Resolved Severe metabolic acidosis from acute on CKD, improved on dialysis. CO2 is 18, was 7 on admission. Lactic acidosis due to Sepsis. History of stroke. Dysphagia. Has failed swallowing test. Will discuss with VERONIKA ahsanni s/p colostomy Elevated Troponin. Conservative management. Hypernatremia. Monitor BMP DNR status Patient was DNR and on hospice at SNF unknown to us, so was intubated in ED, so family rescinded hospice and requested full code. I discussed with kenny on and she has now requested DO NOT RESUSCITATE status. Patient has a poor prognosis. Spoke to kenny again 05/08/17. She wants us to do best we can to get her better , short of CPR and intubation. Patient has DNR status History Interval history: On Oxygen by [place] no more vomiting, Failed swallow test Hospitalist Physical - Physical exam Narrative exam: GEN APPEARANCE : Not in acute distress, on Oxygen by nasal canula HEENT: Normocephalic Atraumatic. NECK : supple, no JVD LUNGS: clear to auscultation bilaterally, no rales, no wheeze HEART: S1 and S2 regular, no murmurs, rubs or gallop, ABD: Soft, no tenderness, colostomy, no distension, bowel sounds present EXT: Contractures, right AKA NEURO: Eyes open, follows commands - Constitutional Vitals: Temp Pulse Resp BP Pulse Ox 98.1 F 67 20 152/43 100 05/16/17 08:00 05/16/17 08:00 05/16/17 08:00 05/16/17 08:00 05/16/17 10:00 General appearance: Present: other (contracted) Results - Labs CBC & Chem 7: 05/15/17 03:50 05/16/17 03:51 Labs: Laboratory Last Values WBC 7.5 K/mm3 (4.5-11.0) 05/15/17 03:50 RBC 3.27 M/mm3 (3.65-5.03) L 05/15/17 03:50 Hgb 9.3 gm/dl (10.1-14.3) L 05/15/17 03:50 Hct 28.0 % (30.3-42.9) L 05/15/17 03:50 MCV 86 fl (79-97) 05/15/17 03:50 MCH 29 pg (28-32) 05/15/17 03:50 MCHC 33 % (30-34) 05/15/17 03:50 RDW 19.2 % (13.2-15.2) H 05/15/17 03:50 Plt Count 182 K/mm3 (140-440) 05/15/17 03:50 [place] % (Auto) [employer] 05/13/17 03:54 Add Manual Diff Complete 05/15/17 03:50 Total Counted 100 05/15/17 03:50 Seg Neutrophils % [employer] 05/09/17 05:53 Seg Neuts % (Manual) 77.0 % (40.0-70.0) H 05/15/17 03:50 Band Neutrophils % 14.0 % 05/15/17 03:50 Lymphocytes % (Manual) 4.0 % (13.4-35.0) L 05/15/17 03:50 Reactive Lymphs % (Man) 1.0 % 05/15/17 03:50 Monocytes % (Manual) 4.0 % (0.0-7.3) 05/15/17 03:50 Eosinophils % (Manual) 0 % (0.0-4.3) 05/15/17 03:50 Basophils % (Manual) 0 % (0.0-1.8) 05/14/17 04:33 Metamyelocytes % 0 % 05/15/17 03:50 Myelocytes % 0 % 05/15/17 03:50 Promyelocytes % 0 % 05/15/17 03:50 Blast Cells % 0 % 05/15/17 03:50 Nucleated RBC % Not Reportable 05/15/17 03:50 Seg Neutrophils # Man 5.8 K/mm3 (1.8-7.7) 05/15/17 03:50 Band Neutrophils # 1.1 K/mm3 05/15/17 03:50 Lymphocytes # (Manual) 0.3 K/mm3 (1.2-5.4) L 05/15/17 03:50 Abs React Lymphs (Man) 0.1 K/mm3 05/15/17 03:50 Monocytes # (Manual) 0.3 K/mm3 (0.0-0.8) 05/15/17 03:50 Eosinophils # (Manual) 0.0 K/mm3 (0.0-0.4) 05/15/17 03:50 Basophils # (Manual) 0.0 K/mm3 (0.0-0.1) 05/15/17 03:50 Metamyelocytes # 0.0 K/mm3 05/15/17 03:50 Myelocytes # 0.0 K/mm3 05/15/17 03:50 Promyelocytes # 0.0 K/mm3 05/15/17 03:50 Blast Cells # 0.0 K/mm3 05/15/17 03:50 WBC Morphology Not Reportable 05/15/17 03:50 Hypersegmented Neuts Not Reportable 05/15/17 03:50 Hyposegmented Neuts Not Reportable 05/15/17 03:50 Hypogranular Neuts Not Reportable 05/15/17 03:50 Smudge Cells Not Reportable 05/15/17 03:50 Toxic Granulation Not Reportable 05/15/17 03:50 Toxic Vacuolation Not Reportable 05/15/17 03:50 Dohle Bodies Not Reportable 05/15/17 03:50 Pelger-Huet Anomaly Not Reportable 05/15/17 03:50 Sandra Rods Not Reportable 05/15/17 03:50 Platelet Estimate Consistent w auto 05/15/17 03:50 Clumped Platelets Not Reportable 05/15/17 03:50 Plt Clumps, EDTA Not Reportable 05/15/17 03:50 Large Platelets Not Reportable 05/15/17 03:50 Giant Platelets Not Reportable 05/15/17 03:50 Platelet Satelliting Not Reportable 05/15/17 03:50 Plt Morphology Comment Not Reportable 05/15/17 03:50 RBC Morphology Not Reportable 05/15/17 03:50 Dimorphic RBCs Not Reportable 05/15/17 03:50 Polychromasia Not Reportable 05/15/17 03:50 Hypochromasia Not Reportable 05/15/17 03:50 Poikilocytosis Not Reportable 05/15/17 03:50 Anisocytosis 1+ 05/15/17 03:50 Microcytosis Not Reportable 05/15/17 03:50 Macrocytosis Not Reportable 05/15/17 03:50 Spherocytes Not Reportable 05/15/17 03:50 Pappenheimer Bodies Not Reportable 05/15/17 03:50 Sickle Cells Not Reportable 05/15/17 03:50 Target Cells Not Reportable 05/15/17 03:50 Tear Drop Cells Not Reportable 05/15/17 03:50 Ovalocytes Not Reportable 05/15/17 03:50 Helmet Cells Not Reportable 05/15/17 03:50 [place] Bodies Not Reportable 05/15/17 03:50 [place]proof Rings Not Reportable 05/15/17 03:50 [place] Cells Not Reportable 05/15/17 03:50 Bite Cells Not Reportable 05/15/17 03:50 Crenated Cell Not Reportable 05/15/17 03:50 Elliptocytes 1+ 05/15/17 03:50 Acanthocytes (Spur) Not Reportable 05/15/17 03:50 Rouleaux Not Reportable 05/15/17 03:50 Hemoglobin C Crystals Not Reportable 05/15/17 03:50 Schistocytes Not Reportable 05/15/17 03:50 Malaria parasites Not Reportable 05/15/17 03:50 Shiraz Bodies Not Reportable 05/15/17 03:50 Hem Pathologist Commnt No 05/15/17 03:50 PT 17.4 Sec. (12.2-14.9) H 05/05/17 15:38 INR 1.35 (0.87-1.13) H 05/05/17 15:38 APTT 33.2 Sec. (24.2-36.6) 05/05/17 15:38 POC ABG pH 7.436 (7.35-7.45) 05/06/17 07:13 POC ABG pCO2 27.7 (35-45) L 05/06/17 07:13 POC ABG pO2 67 (80-105) L 05/06/17 07:13 POC ABG HCO3 18.7 05/06/17 07:13 POC ABG Total CO2 19 05/06/17 07:13 POC ABG O2 Sat 94 05/06/17 07:13 POC ABG Base Excess -6 05/06/17 07:13 VBG pH 6.909 (7.320-7.420) L* 05/05/17 15:38 FiO2 30 % 05/06/17 07:13 Sodium 135 mmol/L (137-145) L 05/16/17 03:51 Potassium 4.2 mmol/L (3.6-5.0) 05/16/17 03:51 Chloride 102.5 mmol/L (98-107) 05/16/17 03:51 Carbon Dioxide 19 mmol/L (22-30) L 05/16/17 03:51 Anion Gap 18 mmol/L 05/16/17 03:51 BUN 14 mg/dL (7-17) 05/16/17 03:51 Creatinine 1.2 mg/dL (0.7-1.2) 05/16/17 03:51 Estimated GFR 52 ml/min 05/16/17 03:51 BUN/Creatinine Ratio 12 % 05/16/17 03:51 Glucose 103 mg/dL (65-100) H 05/16/17 03:51 POC Glucose 95 (70-105) 05/16/17 06:07 Osmolality 332 Mosm/kg 05/06/17 04:00 Lactic Acid 8.50 mmol/L (0.7-2.0) H* 05/05/17 23:00 Calcium 7.2 mg/dL (8.4-10.2) L 05/16/17 03:51 Phosphorus 4.00 mg/dL (2.5-4.5) D 05/15/17 16:33 Magnesium 1.90 mg/dL (1.7-2.3) 05/15/17 16:33 Total Bilirubin 0.20 mg/dL (0.1-1.2) 05/09/17 05:53 AST 25 units/L (5-40) 05/09/17 05:53 ALT 27 units/L (7-56) 05/09/17 05:53 Alkaline Phosphatase 128 units/L (35-129) 05/09/17 05:53 Total Creatine Kinase 350 units/L (30-135) H 05/06/17 04:00 CK-MB (CK-2) 32.9 ng/mL (0.0-4.0) H 05/06/17 04:00 CK-MB (CK-2) Rel Index 9.4 (0-4) H 05/06/17 04:00 Troponin T 0.694 ng/mL (0.00-0.029) H* D 05/06/17 04:00 NT-Pro-B Natriuret Pep 09724 pg/mL (0-900) H 05/11/17 07:53 Total Protein 5.6 g/dL (6.3-8.2) L 05/09/17 05:53 Albumin 1.8 g/dL (3.9-5) L 05/09/17 05:53 Albumin/Globulin Ratio 0.5 % 05/09/17 05:53 Triglycerides 137 mg/dL (2-149) 05/05/17 15:38 Cholesterol 108 mg/dL (50-199) 05/05/17 15:38 LDL Cholesterol Direct 13 mg/dL (50-130) L 05/05/17 15:38 HDL Cholesterol 68 mg/dL (40-59) H 05/05/17 15:38 Cholesterol/HDL Ratio 1.58 % 05/05/17 15:38 Valproic Acid < 2.8 ug/mL (50-100) L 05/10/17 11:55 Hep Bs Antigen Non-reactive (Negative) 05/06/17 05:00 Hepatitis C Antibody Non-reactive (NonReactive) 05/06/17 04:00 Blood Type O POSITIVE 05/12/17 09:56 Antibody Screen Negative 05/12/17 09:56 Crossmatch See Detail 05/12/17 09:56
--- NOTE | 2017-05-16 13:46 | Progress Note ---
Assessment and Plan Assessment and plan: Acute respiratory failure. On initial presentation, was intubated in ED and admitted to intensive care unit. She was extubated 05/07 and is [facility]. Respiratory corona she is much improved. Pulmonology was following. Sepsis due to Escherichia coli. She is now on Rocephin iv Anemia, Hgb is 9.3 today. Hemoglobin was 6.3 on admission. s/p total 3 Units PRBC transfusion. Acute on chronic kidney disease with Uremia,metabolic acidosis. Had emergent dialysis after catheter placed. Cr 1.2 today Hyperkalemia. Resolved Hypokalemia. Replace iv and recheck Hypomagnesemia. Resolved Severe metabolic acidosis from acute on CKD, improved on dialysis Lactic acidosis due to Sepsis. History of stroke. Dysphagia. Has failed swallowing test. For PEG tube placement s/p colostomy Elevated Troponin. Conservative management. Hypernatremia. Monitor BMP DNR status Patient was DNR and on hospice at SNF unknown to us, so was intubated in ED, so family rescinded hospice and requested full code. I discussed with kenny on and she has now requested DO NOT RESUSCITATE status. Patient has a poor prognosis. Spoke to kenny again 05/08/17. She wants us to do best we can to get her better , short of CPR and intubation. Patient has DNR status History Interval history: [facility] no more vomiting, Failed swallow test Hospitalist Physical - Physical exam Narrative exam: GEN APPEARANCE : Not in acute distress, on Oxygen by nasal canula HEENT: Normocephalic Atraumatic. NECK : supple, no JVD LUNGS: clear to auscultation bilaterally, no rales, no wheeze HEART: S1 and S2 regular, no murmurs, rubs or gallop, ABD: Soft, no tenderness, colostomy, no distension, bowel sounds present EXT: Contractures, right AKA NEURO: Eyes open, follows commands - Constitutional Vitals: Temp Pulse Resp BP Pulse Ox 98.1 F 67 20 152/43 100 05/16/17 08:00 05/16/17 08:00 05/16/17 08:00 05/16/17 08:00 05/16/17 10:00 General appearance: Present: other (contracted) Results - Labs CBC & Chem 7: 05/15/17 03:50 05/17/17 06:51 Labs: Laboratory Last Values WBC 7.5 K/mm3 (4.5-11.0) 05/15/17 03:50 RBC 3.27 M/mm3 (3.65-5.03) L 05/15/17 03:50 Hgb 9.3 gm/dl (10.1-14.3) L 05/15/17 03:50 Hct 28.0 % (30.3-42.9) L 05/15/17 03:50 MCV 86 fl (79-97) 05/15/17 03:50 MCH 29 pg (28-32) 05/15/17 03:50 MCHC 33 % (30-34) 05/15/17 03:50 RDW 19.2 % (13.2-15.2) H 05/15/17 03:50 Plt Count 182 K/mm3 (140-440) 05/15/17 03:50 [place] % (Auto) [employer] 05/13/17 03:54 Add Manual Diff Complete 05/15/17 03:50 Total Counted 100 05/15/17 03:50 Seg Neutrophils % [employer] 05/09/17 05:53 Seg Neuts % (Manual) 77.0 % (40.0-70.0) H 05/15/17 03:50 Band Neutrophils % 14.0 % 05/15/17 03:50 Lymphocytes % (Manual) 4.0 % (13.4-35.0) L 05/15/17 03:50 Reactive Lymphs % (Man) 1.0 % 05/15/17 03:50 Monocytes % (Manual) 4.0 % (0.0-7.3) 05/15/17 03:50 Eosinophils % (Manual) 0 % (0.0-4.3) 05/15/17 03:50 Basophils % (Manual) 0 % (0.0-1.8) 05/14/17 04:33 Metamyelocytes % 0 % 05/15/17 03:50 Myelocytes % 0 % 05/15/17 03:50 Promyelocytes % 0 % 05/15/17 03:50 Blast Cells % 0 % 05/15/17 03:50 Nucleated RBC % Not Reportable 05/15/17 03:50 Seg Neutrophils # Man 5.8 K/mm3 (1.8-7.7) 05/15/17 03:50 Band Neutrophils # 1.1 K/mm3 05/15/17 03:50 Lymphocytes # (Manual) 0.3 K/mm3 (1.2-5.4) L 05/15/17 03:50 Abs React Lymphs (Man) 0.1 K/mm3 05/15/17 03:50 Monocytes # (Manual) 0.3 K/mm3 (0.0-0.8) 05/15/17 03:50 Eosinophils # (Manual) 0.0 K/mm3 (0.0-0.4) 05/15/17 03:50 Basophils # (Manual) 0.0 K/mm3 (0.0-0.1) 05/15/17 03:50 Metamyelocytes # 0.0 K/mm3 05/15/17 03:50 Myelocytes # 0.0 K/mm3 05/15/17 03:50 Promyelocytes # 0.0 K/mm3 05/15/17 03:50 Blast Cells # 0.0 K/mm3 05/15/17 03:50 WBC Morphology Not Reportable 05/15/17 03:50 Hypersegmented Neuts Not Reportable 05/15/17 03:50 Hyposegmented Neuts Not Reportable 05/15/17 03:50 Hypogranular Neuts Not Reportable 05/15/17 03:50 Smudge Cells Not Reportable 05/15/17 03:50 Toxic Granulation Not Reportable 05/15/17 03:50 Toxic Vacuolation Not Reportable 05/15/17 03:50 Dohle Bodies Not Reportable 05/15/17 03:50 Pelger-Huet Anomaly Not Reportable 05/15/17 03:50 Sandra Rods Not Reportable 05/15/17 03:50 Platelet Estimate Consistent w auto 05/15/17 03:50 Clumped Platelets Not Reportable 05/15/17 03:50 Plt Clumps, EDTA Not Reportable 05/15/17 03:50 Large Platelets Not Reportable 05/15/17 03:50 Giant Platelets Not Reportable 05/15/17 03:50 Platelet Satelliting Not Reportable 05/15/17 03:50 Plt Morphology Comment Not Reportable 05/15/17 03:50 RBC Morphology Not Reportable 05/15/17 03:50 Dimorphic RBCs Not Reportable 05/15/17 03:50 Polychromasia Not Reportable 05/15/17 03:50 Hypochromasia Not Reportable 05/15/17 03:50 Poikilocytosis Not Reportable 05/15/17 03:50 Anisocytosis 1+ 05/15/17 03:50 Microcytosis Not Reportable 05/15/17 03:50 Macrocytosis Not Reportable 05/15/17 03:50 Spherocytes Not Reportable 05/15/17 03:50 Pappenheimer Bodies Not Reportable 05/15/17 03:50 Sickle Cells Not Reportable 05/15/17 03:50 Target Cells Not Reportable 05/15/17 03:50 Tear Drop Cells Not Reportable 05/15/17 03:50 Ovalocytes Not Reportable 05/15/17 03:50 Helmet Cells Not Reportable 05/15/17 03:50 [place] Bodies Not Reportable 05/15/17 03:50 [place] Rings Not Reportable 05/15/17 03:50 [place] Cells Not Reportable 05/15/17 03:50 Bite Cells Not Reportable 05/15/17 03:50 Crenated Cell Not Reportable 05/15/17 03:50 Elliptocytes 1+ 05/15/17 03:50 Acanthocytes (Spur) Not Reportable 05/15/17 03:50 Rouleaux Not Reportable 05/15/17 03:50 Hemoglobin C Crystals Not Reportable 05/15/17 03:50 Schistocytes Not Reportable 05/15/17 03:50 Malaria parasites Not Reportable 05/15/17 03:50 [place]az Bodies Not Reportable 05/15/17 03:50 Hem Pathologist Commnt No 05/15/17 03:50 PT 17.4 Sec. (12.2-14.9) H 05/05/17 15:38 INR 1.35 (0.87-1.13) H 05/05/17 15:38 APTT 33.2 Sec. (24.2-36.6) 05/05/17 15:38 POC ABG pH 7.436 (7.35-7.45) 05/06/17 07:13 POC ABG pCO2 27.7 (35-45) L 05/06/17 07:13 POC ABG pO2 67 (80-105) L 05/06/17 07:13 POC ABG HCO3 18.7 05/06/17 07:13 POC ABG Total CO2 19 05/06/17 07:13 POC ABG O2 Sat 94 05/06/17 07:13 POC ABG Base Excess -6 05/06/17 07:13 VBG pH 6.909 (7.320-7.420) L* 05/05/17 15:38 FiO2 30 % 05/06/17 07:13 Sodium 135 mmol/L (137-145) L 05/16/17 03:51 Potassium 4.2 mmol/L (3.6-5.0) 05/16/17 03:51 Chloride 102.5 mmol/L (98-107) 05/16/17 03:51 Carbon Dioxide 19 mmol/L (22-30) L 05/16/17 03:51 Anion Gap 18 mmol/L 05/16/17 03:51 BUN 14 mg/dL (7-17) 05/16/17 03:51 Creatinine 1.2 mg/dL (0.7-1.2) 05/16/17 03:51 Estimated GFR 52 ml/min 05/16/17 03:51 BUN/Creatinine Ratio 12 % 05/16/17 03:51 Glucose 103 mg/dL (65-100) H 05/16/17 03:51 POC Glucose 77 (70-105) 05/16/17 11:53 Osmolality 332 Mosm/kg 05/06/17 04:00 Lactic Acid 8.50 mmol/L (0.7-2.0) H* 05/05/17 23:00 Calcium 7.2 mg/dL (8.4-10.2) L 05/16/17 03:51 Phosphorus 4.00 mg/dL (2.5-4.5) D 05/15/17 16:33 Magnesium 1.90 mg/dL (1.7-2.3) 05/15/17 16:33 Total Bilirubin 0.20 mg/dL (0.1-1.2) 05/09/17 05:53 AST 25 units/L (5-40) 05/09/17 05:53 ALT 27 units/L (7-56) 05/09/17 05:53 Alkaline Phosphatase 128 units/L (35-129) 05/09/17 05:53 Total Creatine Kinase 350 units/L (30-135) H 05/06/17 04:00 CK-MB (CK-2) 32.9 ng/mL (0.0-4.0) H 05/06/17 04:00 CK-MB (CK-2) Rel Index 9.4 (0-4) H 05/06/17 04:00 Troponin T 0.694 ng/mL (0.00-0.029) H* D 05/06/17 04:00 NT-Pro-B Natriuret Pep 21523 pg/mL (0-900) H 05/11/17 07:53 Total Protein 5.6 g/dL (6.3-8.2) L 05/09/17 05:53 Albumin 1.8 g/dL (3.9-5) L 05/09/17 05:53 Albumin/Globulin Ratio 0.5 % 05/09/17 05:53 Triglycerides 137 mg/dL (2-149) 05/05/17 15:38 Cholesterol 108 mg/dL (50-199) 05/05/17 15:38 LDL Cholesterol Direct 13 mg/dL (50-130) L 05/05/17 15:38 HDL Cholesterol 68 mg/dL (40-59) H 05/05/17 15:38 Cholesterol/HDL Ratio 1.58 % 05/05/17 15:38 Valproic Acid < 2.8 ug/mL (50-100) L 05/10/17 11:55 Hep Bs Antigen Non-reactive (Negative) 05/06/17 05:00 Hepatitis C Antibody Non-reactive (NonReactive) 05/06/17 04:00 Blood Type O POSITIVE 05/12/17 09:56 Antibody Screen Negative 05/12/17 09:56 Crossmatch See Detail 05/12/17 09:56
[2017-05-16] MEDS: MORPHINE IV PRN (14:45)
--- NOTE | 2017-05-16 14:48 | Progress Note ---
Assessment and Plan - Patient Problems (1) Neurogenic dysphagia Current Visit: Yes Status: Acute Plan to address problem: GI on board, will discuss with family about PEG tube placement Follow up GI recs (2) ALEKSANDER (acute kidney injury) Current Visit: No Status: Acute Plan to address problem: Renal function reviewed, SCr level was 1.2 today, yesterday's SCr level was 1.2 No indication for HD, right IJ Vas Cath removed Continue Lasix 40 mg IV twice a day for now Renally dose medications On D5W infusion at 50 ml/hr Obtain daily weight [place] Catheter: Yes Strict intake and output Intake= 2102 ml Output= 1100 ml (Net= 1002 ml) Renal plan discussed with Dr Estrella Continue supportive therapy (3) Hypokalemia Current Visit: Yes Status: Acute Plan to address problem: Resolved (4) Metabolic acidosis Current Visit: Yes Status: Acute Plan to address problem: Monitor, improved May need to start on bicarbonate supplementation- will monitor (5) Hypophosphatemia Current Visit: Yes Status: Acute Plan to address problem: Resolved Subjective Date of service: 05/16/17 Principal diagnosis: Neurogenic Dysphagia Interval history: Patient awake, nonverbal, moves left arm, no acute distress, niece at bedside, updated on renal plan. Objective - Vital Signs Vital signs: Vital Signs - 12hr 05/16/17 05/16/17 05/16/17 04:44 08:00 10:00 Temperature 98.1 F 98.1 F Pulse Rate 67 Respiratory 18 20 Rate Blood Pressure 154/58 Blood Pressure 152/43 [Left] O2 Sat by Pulse 97 100 Oximetry - General Appearance General appearance: frail (no acute distress) EENT: ATNC Neck: no JVD Respiratory: Present: Other (Lung sounds decreased bilaterally, unlabored on 2 liters nasal cannula) Cardiology: regular, S1S2 Gastrointestinal: normoactive bowel sounds (colostomy bag in place) Integumentary: warm and dry Neurologic: other (awake, nonverbal, moves left arm) Musculoskeletal: other (no edema to left lower extremity; Right AKA noted) - Lab 05/15/17 03:50 05/16/17 03:51 Most recent lab results Calcium 7.2 mg/dL (8.4-10.2) L 05/16/17 03:51 Phosphorus 4.00 mg/dL (2.5-4.5) D 05/15/17 16:33 Magnesium 1.90 mg/dL (1.7-2.3) 05/15/17 16:33
--- NOTE | 2017-05-16 18:42 | Gastroenterology Progress Note ---
Assessment and Plan - Patient Problems (1) Neurogenic dysphagia Current Visit: Yes Status: Acute Plan to address problem: - Will discuss PEG tomorrow if family is available. - Higher risk procedure because of prior abdominal surgeries, but body habitus quite slim, so endoscopic placement is possible. - Discussed with niece, VERONIKA Gracia, and she wishes to proceed. - If unable to place via EGD, will consult surgery (I have a moderate suspicion based on CT that stomach will be unaccessable). Subjective Date of service: 05/16/17 Principal diagnosis: Neurogenic Dysphagia Interval history: The patient remains nonverbal. Stable without witnessed N/V/abdominal pain per the staff. Objective - Constitutional Vitals: Temp Pulse Resp BP Pulse Ox 97.5 F L 64 18 157/46 98 05/16/17 16:00 05/16/17 16:00 05/16/17 16:00 05/16/17 16:00 05/16/17 16:00 General appearance: no acute distress - Respiratory Respiratory effort: normal Respiratory: bilateral: CTA - Cardiovascular Rhythm: regular Heart Sounds: Present: S1 & S2 - Gastrointestinal General gastrointestinal: Present: soft, non-tender, non-distended, other ( Ostomy present) - Labs CBC & Chem 7: 05/15/17 03:50 05/16/17 03:51 Labs: Laboratory Results - last 24 hr 05/14/17 05/15/17 05/16/17 05:43 23:39 01:40 Sodium Potassium Chloride Carbon Dioxide Anion Gap BUN Creatinine Estimated GFR BUN/Creatinine Ratio Glucose POC Glucose 95 67 L 126 H Calcium 05/16/17 05/16/17 05/16/17 03:51 06:07 11:53 Sodium 135 L Potassium 4.2 Chloride 102.5 Carbon Dioxide 19 L Anion Gap 18 BUN 14 Creatinine 1.2 Estimated GFR 52 BUN/Creatinine Ratio 12 Glucose 103 H POC Glucose 95 77 Calcium 7.2 L 05/16/17 16:22 Sodium Potassium Chloride Carbon Dioxide Anion Gap BUN Creatinine Estimated GFR BUN/Creatinine Ratio Glucose POC Glucose 96 Calcium
[2017-05-17] MEDS: D5W 1,000 ML IV SCH (00:01)
[2017-05-17] MEDS: D50W (25GM) Vial IV PRN (01:00)
[2017-05-17] MEDS: MORPHINE IV PRN ×2 (02:38→20:55)
[2017-05-17] MEDS: NACL 0.9% IV SCH ×2 (05:51→17:50)
[2017-05-17] MEDS: LASIX IV SCH ×2 (05:51→18:40)
[2017-05-17] MEDS: DEPACON IV SCH ×2 (05:51→17:50)
[2017-05-17 07:24] LABS: Calcium 7.3 mg/dL (8.4-10.2); Chloride 99.2 mmol/L (98-107); Potassium 3.4 mmol/L (3.6-5.0)
[2017-05-17 07:24] LABS: INR 1.11 (0.87-1.13)
--- NOTE | 2017-05-17 08:46 | XRay Report ---
AP CHEST: HISTORY: Congestion, shortness of breath Right upper lobe atelectasis has resolved since 05/14/17. The right lung is clear. There appears to be very poor aeration of the left lung on today's exam consistent with large areas of atelectasis or layering pleural effusion. I favor atelectasis. Heart size is indeterminate. IMPRESSION: Opacification of the left hemithorax has developed most consistent with complete left lung atelectasis. Right upper lobe atelectasis has resolved since the exam 3 days ago.
[2017-05-17] MEDS ORDERED: NEO SYNEPHRINE/NS Syringe(OR USE) IV ONE ×2 (09:30→14:30)
--- NOTE | 2017-05-17 10:37 | Progress Note ---
Assessment and Plan (1) ALEKSANDER (acute kidney injury) due to ATN/pre renal Current Visit: No Status: Acute Plan to address problem: Was on IHD now off. Vascath was removed. Making urine. Continue lasix. Continue D5W at 50 cc/hr (as needs it to provide sugar as not eating) Obtain daily weights Renally dose medications Avoid Nephrotoxic agents Monitor I/O's CXR shows atelactasis. Recommend to discuss this with Pulmonary per primary team. (2) Metabolic acidosis Current Visit: Yes Status: Acute Plan to address problem: Mild, Monitor for now. (3) Hypokalemia Current Visit: Yes Status: Acute Plan to address problem: Replace PRN (4) Anemia, normocytic. Current Visit: Yes Status: Acute Qualifiers: Anemia type: due to chronic kidney disease Chronic kidney disease stage: stage 4 (severe) Qualified Code(s): N18.4 - Chronic kidney disease, stage 4 ( severe); D63.1 - Anemia in chronic kidney disease; D63.1 - Anemia in chronic kidney disease Plan to address problem: Transfuse PRN per primary. (5) Hypophosphatemia Current Visit: Yes Status: Acute Plan to address problem: Improved. Monitor and replace PRN. (6) Hypomagnesemia: Current Visit: Yes Status: Acute Plan to address problem: Replace PRN Stevan Peña MD Nephrology, Hypertension, Dialysis, Transplantation Phone no: [phone] Subjective Date of service: 05/17/17 Principal diagnosis: Neurogenic Dysphagia Interval history: Making urine. Cr trending down. Objective - Exam Narrative Exam: General appearance: cachectic, Awake. EENT: ATNC, PERRL Neck: no JVD, supple Respiratory: Present: Decreased Breath Sounds Cardiology: regular, S1S2, Rt IJ VC Gastrointestinal: normoactive bowel sounds, Colostomy bag Integumentary: warm and dry Neurologic: Awake Musculoskeletal: decreased ROM, other (Right AKA) - Vital Signs Vital signs: Vital Signs - 12hr 05/17/17 05/17/17 05/17/17 04:40 07:41 08:07 Temperature 97.5 F L 98.5 F Pulse Rate 70 Respiratory 18 20 Rate Blood Pressure 148/50 146/60 O2 Sat by Pulse 100 98 Oximetry - Lab 05/15/17 03:50 05/17/17 06:51 Most recent lab results Calcium 7.3 mg/dL (8.4-10.2) L 05/17/17 06:51 Phosphorus 4.00 mg/dL (2.5-4.5) D 05/15/17 16:33 Magnesium 1.90 mg/dL (1.7-2.3) 05/15/17 16:33
[2017-05-17 10:56] LABS: Magnesium 1.7 mg/dL (1.7-2.3); Phosphorous 3.5 mg/dL (2.5-4.5)
[2017-05-17] MEDS: KCL 10MEQ/100ML 10 MEQ/100 ML BAG IV SCH ×2 (11:23→12:44)
[2017-05-17] MEDS ORDERED: NACL 0.9% 1000 ML 1,000 ML ONE (11:32)
[2017-05-17] MEDS: cefTRIAXone 2 GM in NACL 0.9% 20 ML IV SCH (11:32)
[2017-05-17] MEDS: DAKIN'S FULL STRENGTH TP SCH ×2 (11:35→22:00)
[2017-05-17] MEDS ORDERED: MAGNESIUM SULFATE IV ONE (13:02)
--- NOTE | 2017-05-17 13:32 | Progress Note ---
Assessment and Plan Assessment and plan: Acute respiratory failure. On initial presentation, was intubated in ED and admitted to intensive care unit. She was extubated 05/07 and is now on oxygen by [place]. Respiratory corona she is much improved. Pulmonology was following. Sepsis due to Escherichia coli. She is now on Rocephin iv Anemia, Hgb is 9.3 . Hemoglobin was 6.3 on admission. s/p total 3 Units PRBC transfusion. Acute on chronic kidney disease with Uremia,metabolic acidosis. Had emergent dialysis after catheter placed. Cr 1.2 today. last dialysis was on 05/07/17 Complete atelectasis right lung Hyperkalemia. Resolved Hypokalemia. Replace iv and recheck Hypomagnesemia. Resolved Severe metabolic acidosis from acute on CKD, improved on dialysis. lasd dialysis was on 05/07/17 Lactic acidosis due to Sepsis. History of stroke. Dysphagia. Has failed swallowing test. For PEG tube placement s/p colostomy Elevated Troponin. Conservative management. Hypernatremia. Monitor BMP DNR status Patient was DNR and on hospice at SNF unknown to us, so was intubated in ED, so family rescinded hospice and requested full code. I discussed with kenny on and she has now requested DO NOT RESUSCITATE status. Patient has a poor prognosis. Spoke to kenny again 05/08/17. She wants us to do best we can to get her better , short of CPR and intubation. Patient has DNR status History Interval history: no more vomiting, Failed swallow test Hospitalist Physical - Physical exam Narrative exam: GEN APPEARANCE : Not in acute distress, on Oxygen by nasal canula HEENT: Normocephalic Atraumatic. NECK : supple, no JVD LUNGS: Decreased breath sounds on right, no rales, no wheeze HEART: S1 and S2 regular, no murmurs, rubs or gallop, ABD: Soft, no tenderness, colostomy, no distension, bowel sounds present EXT: Contractures, right AKA NEURO: Eyes open, follows commands - Constitutional Vitals: Temp Pulse Resp BP Pulse Ox 98.5 F 70 20 146/60 98 05/17/17 07:41 05/17/17 07:41 05/17/17 07:41 05/17/17 07:41 05/17/17 08:07 General appearance: Present: other (contracted) Results - Labs CBC & Chem 7: 05/15/17 03:50 05/17/17 06:51 Labs: Laboratory Last Values WBC 7.5 K/mm3 (4.5-11.0) 05/15/17 03:50 RBC 3.27 M/mm3 (3.65-5.03) L 05/15/17 03:50 Hgb 9.3 gm/dl (10.1-14.3) L 05/15/17 03:50 Hct 28.0 % (30.3-42.9) L 05/15/17 03:50 MCV 86 fl (79-97) 05/15/17 03:50 MCH 29 pg (28-32) 05/15/17 03:50 MCHC 33 % (30-34) 05/15/17 03:50 RDW 19.2 % (13.2-15.2) H 05/15/17 03:50 Plt Count 182 K/mm3 (140-440) 05/15/17 03:50 [place] % (Auto) Senior Clinical Project Manager 05/13/17 03:54 Add Manual Diff Complete 05/15/17 03:50 Total Counted 100 05/15/17 03:50 Seg Neutrophils % Senior Clinical Project Manager 05/09/17 05:53 Seg Neuts % (Manual) 77.0 % (40.0-70.0) H 05/15/17 03:50 Band Neutrophils % 14.0 % 05/15/17 03:50 Lymphocytes % (Manual) 4.0 % (13.4-35.0) L 05/15/17 03:50 Reactive Lymphs % (Man) 1.0 % 05/15/17 03:50 Monocytes % (Manual) 4.0 % (0.0-7.3) 05/15/17 03:50 Eosinophils % (Manual) 0 % (0.0-4.3) 05/15/17 03:50 Basophils % (Manual) 0 % (0.0-1.8) 05/14/17 04:33 Metamyelocytes % 0 % 05/15/17 03:50 Myelocytes % 0 % 05/15/17 03:50 Promyelocytes % 0 % 05/15/17 03:50 Blast Cells % 0 % 05/15/17 03:50 Nucleated RBC % Not Reportable 05/15/17 03:50 Seg Neutrophils # Man 5.8 K/mm3 (1.8-7.7) 05/15/17 03:50 Band Neutrophils # 1.1 K/mm3 05/15/17 03:50 Lymphocytes # (Manual) 0.3 K/mm3 (1.2-5.4) L 05/15/17 03:50 Abs React Lymphs (Man) 0.1 K/mm3 05/15/17 03:50 Monocytes # (Manual) 0.3 K/mm3 (0.0-0.8) 05/15/17 03:50 Eosinophils # (Manual) 0.0 K/mm3 (0.0-0.4) 05/15/17 03:50 Basophils # (Manual) 0.0 K/mm3 (0.0-0.1) 05/15/17 03:50 Metamyelocytes # 0.0 K/mm3 05/15/17 03:50 Myelocytes # 0.0 K/mm3 05/15/17 03:50 Promyelocytes # 0.0 K/mm3 05/15/17 03:50 Blast Cells # 0.0 K/mm3 05/15/17 03:50 WBC Morphology Not Reportable 05/15/17 03:50 Hypersegmented Neuts Not Reportable 05/15/17 03:50 Hyposegmented Neuts Not Reportable 05/15/17 03:50 Hypogranular Neuts Not Reportable 05/15/17 03:50 Smudge Cells Not Reportable 05/15/17 03:50 Toxic Granulation Not Reportable 05/15/17 03:50 Toxic Vacuolation Not Reportable 05/15/17 03:50 Dohle Bodies Not Reportable 05/15/17 03:50 Pelger-Huet Anomaly Not Reportable 05/15/17 03:50 Sandra Rods Not Reportable 05/15/17 03:50 Platelet Estimate Consistent w auto 05/15/17 03:50 Clumped Platelets Not Reportable 05/15/17 03:50 Plt Clumps, EDTA Not Reportable 05/15/17 03:50 Large Platelets Not Reportable 05/15/17 03:50 Giant Platelets Not Reportable 05/15/17 03:50 Platelet Satelliting Not Reportable 05/15/17 03:50 Plt Morphology Comment Not Reportable 05/15/17 03:50 RBC Morphology Not Reportable 05/15/17 03:50 Dimorphic RBCs Not Reportable 05/15/17 03:50 Polychromasia Not Reportable 05/15/17 03:50 Hypochromasia Not Reportable 05/15/17 03:50 Poikilocytosis Not Reportable 05/15/17 03:50 Anisocytosis 1+ 05/15/17 03:50 Microcytosis Not Reportable 05/15/17 03:50 Macrocytosis Not Reportable 05/15/17 03:50 Spherocytes Not Reportable 05/15/17 03:50 Pappenheimer Bodies Not Reportable 05/15/17 03:50 Sickle Cells Not Reportable 05/15/17 03:50 Target Cells Not Reportable 05/15/17 03:50 Tear Drop Cells Not Reportable 05/15/17 03:50 Ovalocytes Not Reportable 05/15/17 03:50 Helmet Cells Not Reportable 05/15/17 03:50 Trores-Admire Bodies Not Reportable 05/15/17 03:50 [place] Rings Not Reportable 05/15/17 03:50 Ginny Cells Not Reportable 05/15/17 03:50 Bite Cells Not Reportable 05/15/17 03:50 Crenated Cell Not Reportable 05/15/17 03:50 Elliptocytes 1+ 05/15/17 03:50 Acanthocytes (Spur) Not Reportable 05/15/17 03:50 Rouleaux Not Reportable 05/15/17 03:50 Hemoglobin C Crystals Not Reportable 05/15/17 03:50 Schistocytes Not Reportable 05/15/17 03:50 Malaria parasites Not Reportable 05/15/17 03:50 Shiraz Bodies Not Reportable 05/15/17 03:50 Hem Pathologist Commnt No 05/15/17 03:50 PT 14.9 Sec. (12.2-14.9) 05/17/17 06:43 INR 1.11 (0.87-1.13) 05/17/17 06:43 APTT 33.2 Sec. (24.2-36.6) 05/05/17 15:38 POC ABG pH 7.436 (7.35-7.45) 05/06/17 07:13 POC ABG pCO2 27.7 (35-45) L 05/06/17 07:13 POC ABG pO2 67 (80-105) L 05/06/17 07:13 POC ABG HCO3 18.7 05/06/17 07:13 POC ABG Total CO2 19 05/06/17 07:13 POC ABG O2 Sat 94 05/06/17 07:13 POC ABG Base Excess -6 05/06/17 07:13 VBG pH 6.909 (7.320-7.420) L* 05/05/17 15:38 FiO2 30 % 05/06/17 07:13 Sodium 136 mmol/L (137-145) L 05/17/17 06:51 Potassium 3.4 mmol/L (3.6-5.0) L 05/17/17 06:51 Chloride 99.2 mmol/L (98-107) 05/17/17 06:51 Carbon Dioxide 24 mmol/L (22-30) 05/17/17 06:51 Anion Gap 16 mmol/L 05/17/17 06:51 BUN 12 mg/dL (7-17) 05/17/17 06:51 Creatinine 1.2 mg/dL (0.7-1.2) 05/17/17 06:51 Estimated GFR 52 ml/min 05/17/17 06:51 BUN/Creatinine Ratio 10 % 05/17/17 06:51 Glucose 112 mg/dL (65-100) H 05/17/17 06:51 POC Glucose 179 (70-105) H 05/17/17 05:30 Osmolality 332 Mosm/kg 05/06/17 04:00 Lactic Acid 8.50 mmol/L (0.7-2.0) H* 05/05/17 23:00 Calcium 7.3 mg/dL (8.4-10.2) L 05/17/17 06:51 Phosphorus 3.50 mg/dL (2.5-4.5) 05/17/17 06:51 Magnesium 1.70 mg/dL (1.7-2.3) 05/17/17 06:51 Total Bilirubin 0.20 mg/dL (0.1-1.2) 05/09/17 05:53 AST 25 units/L (5-40) 05/09/17 05:53 ALT 27 units/L (7-56) 05/09/17 05:53 Alkaline Phosphatase 128 units/L (35-129) 05/09/17 05:53 Total Creatine Kinase 350 units/L (30-135) H 05/06/17 04:00 CK-MB (CK-2) 32.9 ng/mL (0.0-4.0) H 05/06/17 04:00 CK-MB (CK-2) Rel Index 9.4 (0-4) H 05/06/17 04:00 Troponin T 0.694 ng/mL (0.00-0.029) H* D 05/06/17 04:00 NT-Pro-B Natriuret Pep 24632 pg/mL (0-900) H 05/11/17 07:53 Total Protein 5.6 g/dL (6.3-8.2) L 05/09/17 05:53 Albumin 1.8 g/dL (3.9-5) L 05/09/17 05:53 Albumin/Globulin Ratio 0.5 % 05/09/17 05:53 Triglycerides 137 mg/dL (2-149) 05/05/17 15:38 Cholesterol 108 mg/dL (50-199) 05/05/17 15:38 LDL Cholesterol Direct 13 mg/dL (50-130) L 05/05/17 15:38 HDL Cholesterol 68 mg/dL (40-59) H 05/05/17 15:38 Cholesterol/HDL Ratio 1.58 % 05/05/17 15:38 Valproic Acid < 2.8 ug/mL (50-100) L 05/10/17 11:55 Hep Bs Antigen Non-reactive (Negative) 05/06/17 05:00 Hepatitis C Antibody Non-reactive (NonReactive) 05/06/17 04:00 Blood Type O POSITIVE 05/12/17 09:56 Antibody Screen Negative 05/12/17 09:56 Crossmatch See Detail 05/12/17 09:56
[2017-05-17] MEDS ORDERED: MAGNESIUM SULFATE 2GM/50ML 2 GM/50 ML BAG IV SCH (14:00)
[2017-05-17] MEDS ORDERED: XYLOCAINE MPF 2% ONE (14:30)
--- NOTE | 2017-05-17 14:57 | Anesthesia Day of Surgery ---
Anesthesia Day of Surgery - Day of Surgery Patient Examined: Yes Patient H&P Reviewed: Yes Patient is NPO: Yes
--- NOTE | 2017-05-17 14:57 | Anesthesia Consultation ---
Anesthesia Consult and Med Hx Date of service: 05/17/17 - Airway Anesthetic Teeth Evaluation: Dentures Intubation Access Assessment: Probably Good - Pulmonary Exam CTA: Yes (shallow ) - Cardiac Exam Cardiac Exam: RRR - Pre-Operative Health Status ASA Pre-Surgery Classification: ASA4 Proposed Anesthetic Plan: MAC - Pulmonary Hx Smoking: No (stopped 5 yrs ago) Hx Pneumonia: Yes (2016- [facility] HOSPITAL) Hx Sleep Apnea: No (SOFYA PRE SCREEN LOW RISK.) - Cardiovascular System Hx Hypertension: Yes Hx Heart Attack/AMI: No Hx Peripheral Vascular Disease: Yes (lt foot wound, danny venous stasis) - Central Nervous System CVA: Yes (rt side weakness, nonverbal, wheelchair bound) Hx Back Pain: Yes (MULTIPLE OLD FX C AND L SPINE) Hx Psychiatric Problems: Yes (dementia) - Gastrointestinal Hx Gastroesophageal Reflux Disease: Yes - Endocrine Hx Renal Disease: Yes (renal insufficiency) Hx Non-Insulin Dependent Diabetes: Yes (BS 112) - Hematic Hx Anemia: Yes - Other Systems Hx Cancer: No - Additional Comments Anesthesia Medical History Comments: NAC
[2017-05-17] MEDS ORDERED: ANCEF/STERILE WATER 2 GM/20 ML 2 GM/20 ML SYRINGE IV NR (15:00)
[2017-05-17] MEDS ORDERED: NACL 0.9% 1000 ML 1,000 ML IV SCH ×2 (15:00→17:00)
[2017-05-17] MEDS ORDERED: DIPRIVAN 10 MG/ML IV ONE ×2 (16:33)
[2017-05-17] MEDS ORDERED: SUBLIMAZE ONE (16:33)
[2017-05-17] MEDS ORDERED: AMIDATE IV ONE (17:00)
--- NOTE | 2017-05-17 17:27 | Post Operative Note ---
Pre-op diagnosis: Neurogenic dysphagia Post-op diagnosis: same (, s/p PEG) Findings: 1. 3cm HH 2. Otherwise normal stomach - PEG placed 1cm medial to old PEG site in fundus of stomach, 2cm below xiphoid - External bumper at 3cm Procedure: EGD with PEG insertion Anesthesia: MAC Surgeon: MARK MCLAUGHLIN Estimated blood loss: minimal Pathology: none Specimen disposition: other (N/A) Condition: stable Disposition: floor (Recs: 1. May use tube in 4 hours for feeds/flush/meds. 2. Protonix daily therapy. 3. OK to resume any anticoagulation tomorrow.)
[2017-05-17] MEDS ORDERED: WATER FOR IRRIG STERILE IR ONE ×2 (18:08)
--- NOTE | 2017-05-17 21:10 | Operative Report ---
PROCEDURE PERFORMED: Esophagogastroduodenoscopy with percutaneous gastrostomy tube placement. PREOPERATIVE DIAGNOSIS: Neurogenic dysphagia. POSTOPERATIVE DIAGNOSES: Neurogenic dysphagia. ENDOSCOPIST: Ernie Mazariegos M.D. INSTRUMENT: Olympus videoendoscope. MEDICATIONS: MAC anesthesia by Anesthesia Services. COMPLICATIONS: No apparent complications. ESTIMATED BLOOD LOSS: Minimal. SPECIMENS: None. IMPLANTS: A 20-[place] pull type Basilio-Cook gastrostomy tube. ASSISTANTS: None. CONDITION AT COMPLETION: Stable. TECHNIQUE: The patient's niece was informed of the risks and benefits of the procedures; she is the power of managing attorney. Due to the patient's neurologic status, the niece provided consent. After consent was obtained, the patient was placed in the supine position. The above sedative medications were given. Her vital signs remained stable throughout the procedure. The instrument was advanced from the mouth to the second portion of the duodenum under direct visualization. At that point, the bowel was insufflated and the endoscope was slowly withdrawn. In the stomach, there was a good red light reflex and indentation and an area 2 cm below the xiphoid process, approximately 1 cm medial to a prior gastrostomy tube scar. The area was sterilely draped and prepped and a 20-Belize[place] pull type gastrostomy tube was inserted via a guidewire in the usual fashion. The procedure was then terminated. FINDINGS: 1. A 3 cm hiatal hernia. 2. Otherwise, normal stomach a. Gastrostomy was inserted over a guidewire, 1 cm medial to an old gastrostomy tube site, into the fundus of the stomach; this was 2 cm below the xiphoid process. b. The external bumper was fixed at 3 cm. RECOMMENDATIONS: 1. May use the tube in 4 hours for feedings, flushing for medications. 2. Protonix daily therapy. 3. Okay to resume anticoagulation tomorrow. JOB# [id number] JAMAR/NTS
[2017-05-18] MEDS: D50W (25GM) Vial IV PRN (01:15)
[2017-05-18 05:33] LABS: Calcium 7.1 mg/dL (8.4-10.2); Chloride 102.9 mmol/L (98-107)
[2017-05-18 05:49] LABS: Potassium 4.7 mmol/L (3.6-5.0)
[2017-05-18] MEDS: DEPACON IV SCH ×2 (06:00→17:00)
[2017-05-18] MEDS: NACL 0.9% IV SCH ×2 (06:00→17:00)
[2017-05-18] MEDS: LASIX IV SCH (07:00)
[2017-05-18] MEDS: PROTONIX PO SCH (09:23)
[2017-05-18] MEDS: DAKIN'S FULL STRENGTH TP SCH ×2 (09:24→22:30)
--- NOTE | 2017-05-18 10:12 | Progress Note ---
Assessment and Plan (1) ALEKSANDER (acute kidney injury) due to ATN/pre renal Current Visit: No Status: Acute Plan to address problem: Was on IHD now off. Vascath was removed. Making urine. Cr stable. Continue lasix. Renally dose medications Avoid Nephrotoxic agents Monitor I/O's CXR shows atelactasis. Recommend to discuss this with Pulmonary per primary team. (2) Metabolic acidosis Current Visit: Yes Status: Acute Plan to address problem: Mild, Monitor for now. (3) Hypokalemia Current Visit: Yes Status: Acute Plan to address problem: Replace PRN (4) Anemia, normocytic. Current Visit: Yes Status: Acute Qualifiers: Anemia type: due to chronic kidney disease Chronic kidney disease stage: stage 4 (severe) Qualified Code(s): N18.4 - Chronic kidney disease, stage 4 ( severe); D63.1 - Anemia in chronic kidney disease; D63.1 - Anemia in chronic kidney disease Plan to address problem: Transfuse PRN per primary. (5) Hypophosphatemia Current Visit: Yes Status: Acute Plan to address problem: Monitor and replace PRN. (6) Hypomagnesemia: Current Visit: Yes Status: Acute Plan to address problem: Replace PRN Stevan Peña MD Nephrology, Hypertension, Dialysis, Transplantation Phone no: [phone] Subjective Date of service: 05/18/17 Principal diagnosis: Neurogenic Dysphagia Interval history: Cr stable. Making good urine. s/p PEG placement yesterday. Objective - Exam Narrative Exam: General appearance: cachectic, Awake. EENT: ATNC, PERRL Neck: no JVD, supple Respiratory: Present: Decreased Breath Sounds Cardiology: regular, S1S2, Rt IJ VC Gastrointestinal: normoactive bowel sounds, Colostomy bag Integumentary: warm and dry Neurologic: Awake Musculoskeletal: decreased ROM, other (Right AKA) - Vital Signs Vital signs: Vital Signs - 12hr 05/18/17 05/18/17 05/18/17 00:22 04:10 08:27 Temperature 98.6 F 97.7 F Pulse Rate 80 62 76 Respiratory 18 20 Rate Blood Pressure 116/59 137/60 O2 Sat by Pulse 97 100 100 Oximetry - Lab 05/15/17 03:50 05/18/17 04:47 Most recent lab results Calcium 7.1 mg/dL (8.4-10.2) L 05/18/17 04:47 Phosphorus 3.50 mg/dL (2.5-4.5) 05/17/17 06:51 Magnesium 1.70 mg/dL (1.7-2.3) 05/17/17 06:51
--- NOTE | 2017-05-18 11:37 | Gastroenterology Progress Note ---
Assessment and Plan 1.PEG placement -s/p EGD with PEG tube placement yesterday -PEG tube site today- w/o signs of infection or bleeding -bumper off loaded to prevent skin breakdown -okay to use split gauze dressing PRN -will consult nutrition for recommendations for TFs -continue PPI and supportive care -will sign off Subjective Date of service: 05/18/17 Principal diagnosis: Neurogenic Dysphagia Interval history: Patient resting in bed. No acute distress noted. PEG intact and patent. PEG site w/o redness, swelling, drainage, odor, or bleeding. Objective - Constitutional Vitals: Temp Pulse Resp BP Pulse Ox 97.7 F 76 20 137/60 100 05/18/17 08:27 05/18/17 08:27 05/18/17 08:27 05/18/17 08:27 05/18/17 08:27 General appearance: no acute distress - Respiratory Respiratory: bilateral: CTA - Cardiovascular Rhythm: regular Heart Sounds: Present: S1 & S2 - Gastrointestinal General gastrointestinal: Present: soft, non-distended, normal bowel sounds, other (ostomy, +PEG) - Integumentary Integumentary: Present: warm, dry - Labs CBC & Chem 7: 05/15/17 03:50 05/18/17 04:47 Labs: Laboratory Results - last 24 hr 05/17/17 05/18/17 05/18/17 12:09 02:09 04:47 Sodium 138 Potassium 4.7 D Chloride 102.9 Carbon Dioxide 20 L Anion Gap 20 BUN 12 Creatinine 1.2 Estimated GFR 52 BUN/Creatinine Ratio 10 Glucose 103 H POC Glucose 96 66 L Calcium 7.1 L 05/18/17 06:31 Sodium Potassium Chloride Carbon Dioxide Anion Gap BUN Creatinine Estimated GFR BUN/Creatinine Ratio Glucose POC Glucose 80 Calcium
[2017-05-18] MEDS ORDERED: SODIUM BICARBONATE FEEDTUBE PRN (13:20)
[2017-05-18] MEDS ORDERED: SIMPLE SYRUP FEEDTUBE PRN ×2 (13:20)
[2017-05-18] MEDS ORDERED: PANCREAZE DR 10,500 UNIT FEEDTUBE PRN (13:20)
[2017-05-18] MEDS ORDERED: NORCO 5/325 PO PRN (14:11)
--- NOTE | 2017-05-18 14:27 | Progress Note ---
Assessment and Plan Assessment and plan: Acute respiratory failure. On initial presentation, was intubated in ED and admitted to intensive care unit. She was extubated 05/07 and is now on oxygen by [place]. Respiratory corona she is much improved. Pulmonology was following. Sepsis due to Escherichia coli. Discontinue Rocephin today. Anemia, Hgb is 9.3 . Hemoglobin was 6.3 on admission. s/p total 3 Units PRBC transfusion. Acute on chronic kidney disease with Uremia,metabolic acidosis. Had emergent dialysis after catheter placed. Cr 1.2 today. Last dialysis was on 05/07/17 Complete atelectasis right lung. Consulted Pulmonology, and he reccomends Chest PT 3 times daily Hyperkalemia. Resolved Hypokalemia. Resolved Hypomagnesemia. Resolved Severe metabolic acidosis from acute on CKD, improved on dialysis. last dialysis was on 05/07/17 Lactic acidosis due to Sepsis. History of stroke. Dysphagia. s/p PEG tube placed yesterday s/p colostomy Elevated Troponin. Conservative management. Hypernatremia. Monitor BMP DNR status Patient was DNR and on hospice at SNF unknown to us, so was intubated in ED, so family rescinded hospice and requested full code. I discussed with kenny on and she has now requested DO NOT RESUSCITATE status. Patient has a poor prognosis. Spoke to kenny again 05/08/17. She wants us to do best we can to get her better , short of CPR and intubation. Patient has DNR status History Interval history: Had PEG tube put in yesterday, no fever Hospitalist Physical - Physical exam Narrative exam: GEN APPEARANCE : Not in acute distress, on Oxygen by nasal canula HEENT: Normocephalic Atraumatic. NECK : supple, no JVD LUNGS: Decreased breath sounds on right, no rales, no wheeze HEART: S1 and S2 regular, no murmurs, rubs or gallop, ABD: Soft, no tenderness, colostomy, PEG tube, no distension, bowel sounds normal EXT: Contractures, right AKA NEURO: Eyes open, follows commands - Constitutional Vitals: Temp Pulse Resp BP Pulse Ox 97.7 F 76 20 137/60 98 05/18/17 08:27 05/18/17 08:27 05/18/17 08:27 05/18/17 08:27 05/18/17 11:30 General appearance: Present: other (contracted) Results - Labs CBC & Chem 7: 05/15/17 03:50 05/18/17 04:47 Labs: Laboratory Last Values WBC 7.5 K/mm3 (4.5-11.0) 05/15/17 03:50 RBC 3.27 M/mm3 (3.65-5.03) L 05/15/17 03:50 Hgb 9.3 gm/dl (10.1-14.3) L 05/15/17 03:50 Hct 28.0 % (30.3-42.9) L 05/15/17 03:50 MCV 86 fl (79-97) 05/15/17 03:50 MCH 29 pg (28-32) 05/15/17 03:50 MCHC 33 % (30-34) 05/15/17 03:50 RDW 19.2 % (13.2-15.2) H 05/15/17 03:50 Plt Count 182 K/mm3 (140-440) 05/15/17 03:50 [place] % (Auto) Community Facilitator 05/13/17 03:54 Add Manual Diff Complete 05/15/17 03:50 Total Counted 100 05/15/17 03:50 Seg Neutrophils % Community Facilitator 05/09/17 05:53 Seg Neuts % (Manual) 77.0 % (40.0-70.0) H 05/15/17 03:50 Band Neutrophils % 14.0 % 05/15/17 03:50 Lymphocytes % (Manual) 4.0 % (13.4-35.0) L 05/15/17 03:50 Reactive Lymphs % (Man) 1.0 % 05/15/17 03:50 Monocytes % (Manual) 4.0 % (0.0-7.3) 05/15/17 03:50 Eosinophils % (Manual) 0 % (0.0-4.3) 05/15/17 03:50 Basophils % (Manual) 0 % (0.0-1.8) 05/14/17 04:33 Metamyelocytes % 0 % 05/15/17 03:50 Myelocytes % 0 % 05/15/17 03:50 Promyelocytes % 0 % 05/15/17 03:50 Blast Cells % 0 % 05/15/17 03:50 Nucleated RBC % Not Reportable 05/15/17 03:50 Seg Neutrophils # Man 5.8 K/mm3 (1.8-7.7) 05/15/17 03:50 Band Neutrophils # 1.1 K/mm3 05/15/17 03:50 Lymphocytes # (Manual) 0.3 K/mm3 (1.2-5.4) L 05/15/17 03:50 Abs React Lymphs (Man) 0.1 K/mm3 05/15/17 03:50 Monocytes # (Manual) 0.3 K/mm3 (0.0-0.8) 05/15/17 03:50 Eosinophils # (Manual) 0.0 K/mm3 (0.0-0.4) 05/15/17 03:50 Basophils # (Manual) 0.0 K/mm3 (0.0-0.1) 05/15/17 03:50 Metamyelocytes # 0.0 K/mm3 05/15/17 03:50 Myelocytes # 0.0 K/mm3 05/15/17 03:50 Promyelocytes # 0.0 K/mm3 05/15/17 03:50 Blast Cells # 0.0 K/mm3 05/15/17 03:50 WBC Morphology Not Reportable 05/15/17 03:50 Hypersegmented Neuts Not Reportable 05/15/17 03:50 Hyposegmented Neuts Not Reportable 05/15/17 03:50 Hypogranular Neuts Not Reportable 05/15/17 03:50 Smudge Cells Not Reportable 05/15/17 03:50 Toxic Granulation Not Reportable 05/15/17 03:50 Toxic Vacuolation Not Reportable 05/15/17 03:50 Dohle Bodies Not Reportable 05/15/17 03:50 Pelger-Huet Anomaly Not Reportable 05/15/17 03:50 Sandra Rods Not Reportable 05/15/17 03:50 Platelet Estimate Consistent w auto 05/15/17 03:50 Clumped Platelets Not Reportable 05/15/17 03:50 Plt Clumps, EDTA Not Reportable 05/15/17 03:50 Large Platelets Not Reportable 05/15/17 03:50 Giant Platelets Not Reportable 05/15/17 03:50 Platelet Satelliting Not Reportable 05/15/17 03:50 Plt Morphology Comment Not Reportable 05/15/17 03:50 RBC Morphology Not Reportable 05/15/17 03:50 Dimorphic RBCs Not Reportable 05/15/17 03:50 Polychromasia Not Reportable 05/15/17 03:50 Hypochromasia Not Reportable 05/15/17 03:50 Poikilocytosis Not Reportable 05/15/17 03:50 Anisocytosis 1+ 05/15/17 03:50 Microcytosis Not Reportable 05/15/17 03:50 Macrocytosis Not Reportable 05/15/17 03:50 Spherocytes Not Reportable 05/15/17 03:50 Pappenheimer Bodies Not Reportable 05/15/17 03:50 Sickle Cells Not Reportable 05/15/17 03:50 Target Cells Not Reportable 05/15/17 03:50 Tear Drop Cells Not Reportable 05/15/17 03:50 Ovalocytes Not Reportable 05/15/17 03:50 Helmet Cells Not Reportable 05/15/17 03:50 [place] Bodies Not Reportable 05/15/17 03:50 [place] Rings Not Reportable 05/15/17 03:50 [place] Cells Not Reportable 05/15/17 03:50 Bite Cells Not Reportable 05/15/17 03:50 Crenated Cell Not Reportable 05/15/17 03:50 Elliptocytes 1+ 05/15/17 03:50 Acanthocytes (Spur) Not Reportable 05/15/17 03:50 Rouleaux Not Reportable 05/15/17 03:50 Hemoglobin C Crystals Not Reportable 05/15/17 03:50 Schistocytes Not Reportable 05/15/17 03:50 Malaria parasites Not Reportable 05/15/17 03:50 Shiraz Bodies Not Reportable 05/15/17 03:50 Hem Pathologist Commnt No 05/15/17 03:50 PT 14.9 Sec. (12.2-14.9) 05/17/17 06:43 INR 1.11 (0.87-1.13) 05/17/17 06:43 APTT 33.2 Sec. (24.2-36.6) 05/05/17 15:38 POC ABG pH 7.436 (7.35-7.45) 05/06/17 07:13 POC ABG pCO2 27.7 (35-45) L 05/06/17 07:13 POC ABG pO2 67 (80-105) L 05/06/17 07:13 POC ABG HCO3 18.7 05/06/17 07:13 POC ABG Total CO2 19 05/06/17 07:13 POC ABG O2 Sat 94 05/06/17 07:13 POC ABG Base Excess -6 05/06/17 07:13 VBG pH 6.909 (7.320-7.420) L* 05/05/17 15:38 FiO2 30 % 05/06/17 07:13 Sodium 138 mmol/L (137-145) 05/18/17 04:47 Potassium 4.7 mmol/L (3.6-5.0) D 05/18/17 04:47 Chloride 102.9 mmol/L (98-107) 05/18/17 04:47 Carbon Dioxide 20 mmol/L (22-30) L 05/18/17 04:47 Anion Gap 20 mmol/L 05/18/17 04:47 BUN 12 mg/dL (7-17) 05/18/17 04:47 Creatinine 1.2 mg/dL (0.7-1.2) 05/18/17 04:47 Estimated GFR 52 ml/min 05/18/17 04:47 BUN/Creatinine Ratio 10 % 05/18/17 04:47 Glucose 103 mg/dL (65-100) H 05/18/17 04:47 POC Glucose 74 (70-105) 05/18/17 11:47 Osmolality 332 Mosm/kg 05/06/17 04:00 Lactic Acid 8.50 mmol/L (0.7-2.0) H* 05/05/17 23:00 Calcium 7.1 mg/dL (8.4-10.2) L 05/18/17 04:47 Phosphorus 3.50 mg/dL (2.5-4.5) 05/17/17 06:51 Magnesium 1.70 mg/dL (1.7-2.3) 05/17/17 06:51 Total Bilirubin 0.20 mg/dL (0.1-1.2) 05/09/17 05:53 AST 25 units/L (5-40) 05/09/17 05:53 ALT 27 units/L (7-56) 05/09/17 05:53 Alkaline Phosphatase 128 units/L (35-129) 05/09/17 05:53 Total Creatine Kinase 350 units/L (30-135) H 05/06/17 04:00 CK-MB (CK-2) 32.9 ng/mL (0.0-4.0) H 05/06/17 04:00 CK-MB (CK-2) Rel Index 9.4 (0-4) H 05/06/17 04:00 Troponin T 0.694 ng/mL (0.00-0.029) H* D 05/06/17 04:00 NT-Pro-B Natriuret Pep 24851 pg/mL (0-900) H 05/11/17 07:53 Total Protein 5.6 g/dL (6.3-8.2) L 05/09/17 05:53 Albumin 1.8 g/dL (3.9-5) L 05/09/17 05:53 Albumin/Globulin Ratio 0.5 % 05/09/17 05:53 Triglycerides 137 mg/dL (2-149) 05/05/17 15:38 Cholesterol 108 mg/dL (50-199) 05/05/17 15:38 LDL Cholesterol Direct 13 mg/dL (50-130) L 05/05/17 15:38 HDL Cholesterol 68 mg/dL (40-59) H 05/05/17 15:38 Cholesterol/HDL Ratio 1.58 % 05/05/17 15:38 Valproic Acid < 2.8 ug/mL (50-100) L 05/10/17 11:55 Hep Bs Antigen Non-reactive (Negative) 05/06/17 05:00 Hepatitis C Antibody Non-reactive (NonReactive) 05/06/17 04:00 Blood Type O POSITIVE 05/12/17 09:56 Antibody Screen Negative 05/12/17 09:56 Crossmatch See Detail 05/12/17 09:56
[2017-05-18] MEDS ORDERED: cefTRIAXone 2 GM in NACL 0.9% 20 ML IV SCH (16:00)
[2017-05-18 17:21] LABS: Hematocrit 30.3 % (30.3-42.9); Hemoglobin 10.2 gm/dl (10.1-14.3); Mean Corpuscular HGB Conc 34 % (30-34); Mean Corpuscular Hemoglobin 29 pg (28-32); Mean Corpuscular Volume 86 fl (79-97); Platelet Count 248 K/mm3 (140-440); Red Blood Count 3.52 M/mm3 (3.65-5.03); Red Cell Distribution Width 19.7 % (13.2-15.2); White Blood Count 7.4 K/mm3 (4.5-11.0)
[2017-05-18 17:33] LABS: Magnesium 1.5 mg/dL (1.7-2.3); Phosphorous 3.6 mg/dL (2.5-4.5)
[2017-05-18 18:06] LABS: Basophils % (Manual) 0 % (0.0-1.8); Blastocytes % (Manual) 0 %; Eosinophils % (Manual) 0 % (0.0-4.3)
[2017-05-18 18:07] LABS: Anisocytosis 1+; Diff Status Complete; Elliptocytes 1+; Poikilocytosis 1+
--- NOTE | 2017-05-18 22:10 | XRay Report ---
FINAL REPORT PROCEDURE: XR G-TUBE STUDY TECHNIQUE: Two AP views of abdomen were obtained pre and post contrast administration via the G-tube. HISTORY: New PEG, check placement, ?gastrocolic fistula COMPARISON: No prior studies are available for comparison. FINDINGS: First radiograph demonstrates a a gastrostomy tube in the upper abdomen. Second radiograph demonstrates contrast within lumen of the stomach. Masses or calcifications:None . Bony structures:Severe degree dextroscoliosis is noted. Pneumoperitoneum:None . Other:No significant findings . IMPRESSION: Gastrostomy tube is within the stomach..
[2017-05-19] MEDS: MORPHINE IV PRN (03:43)
[2017-05-19 05:43] LABS: Calcium 7.3 mg/dL (8.4-10.2); Chloride 101.9 mmol/L (98-107); Potassium 3.7 mmol/L (3.6-5.0)
[2017-05-19] MEDS: NACL 0.9% IV SCH (06:00)
[2017-05-19] MEDS: DEPACON IV SCH (06:00)
[2017-05-19] MEDS: LASIX IV SCH (06:00)
[2017-05-19] MEDS: DepaKENE Liq FEEDTUBE SCH ×2 (09:50→22:23)
[2017-05-19] MEDS: PROTONIX PO SCH (09:50)
[2017-05-19] MEDS: DAKIN'S FULL STRENGTH TP SCH ×2 (09:55→22:25)
[2017-05-19] MEDS: LASIX FEEDTUBE SCH ×2 (09:55→17:45)
--- NOTE | 2017-05-19 09:59 | Gastroenterology Progress Note ---
Assessment and Plan 1.PEG placement -s/p EGD with PEG tube placement -PEG tube site- w/o signs of infection or bleeding -Gtube study yesterday showed gastrostomy tube is within the stomach -no elevated residuals overnight per nursing or fluid in tube this am -okay to resume TFs per oil boiler recommendations -continue PPI and supportive care -will sign off Subjective Date of service: 05/19/17 Principal diagnosis: Neurogenic Dysphagia Interval history: Patient resting in bed. No acute distress noted. PEG tube site WNL with no fluid in tube. No elevated residuals overnight per nursing. Objective - Constitutional Vitals: Temp Pulse Resp BP Pulse Ox 98.5 F 73 20 148/43 97 05/19/17 08:05 05/19/17 08:03 05/19/17 08:03 05/19/17 08:05 05/19/17 08:03 General appearance: no acute distress - Respiratory Respiratory: bilateral: CTA - Cardiovascular Rhythm: regular Heart Sounds: Present: S1 & S2 - Gastrointestinal General gastrointestinal: Present: soft, non-distended, normal bowel sounds, other (+ostomy, +PEG) - Labs CBC & Chem 7: 05/18/17 16:57 05/19/17 04:53 Labs: Laboratory Results - last 24 hr 05/18/17 05/18/17 05/18/17 11:47 16:55 16:57 WBC 7.4 RBC 3.52 L Hgb 10.2 Hct 30.3 MCV 86 MCH 29 MCHC 34 RDW 19.7 H Plt Count 248 Add Manual Diff Complete Total Counted 100 Seg Neuts % (Manual) 98.0 H Band Neutrophils % 0 Lymphocytes % (Manual) 1.0 L Reactive Lymphs % (Man) 0 Monocytes % (Manual) 1.0 Eosinophils % (Manual) 0 Basophils % (Manual) 0 Metamyelocytes % 0 Myelocytes % 0 Promyelocytes % 0 Blast Cells % 0 Nucleated RBC % Not Reportable Seg Neutrophils # Man 7.3 Band Neutrophils # 0.0 Lymphocytes # (Manual) 0.1 L Abs React Lymphs (Man) 0.0 Monocytes # (Manual) 0.1 Eosinophils # (Manual) 0.0 Basophils # (Manual) 0.0 Metamyelocytes # 0.0 Myelocytes # 0.0 Promyelocytes # 0.0 Blast Cells # 0.0 WBC Morphology Not Reportable Hypersegmented Neuts Not Reportable Hyposegmented Neuts Not Reportable Hypogranular Neuts Not Reportable Smudge Cells Not Reportable Toxic Granulation Not Reportable Toxic Vacuolation Not Reportable Dohle Bodies Not Reportable Pelger-Huet Anomaly Not Reportable Sandra Rods Not Reportable Platelet Estimate Appears normal Clumped Platelets Not Reportable Plt Clumps, EDTA Not Reportable Large Platelets Not Reportable Giant Platelets Not Reportable Platelet Satelliting Not Reportable Plt Morphology Comment Not Reportable RBC Morphology Not Reportable Dimorphic RBCs Not Reportable Polychromasia Not Reportable Hypochromasia Not Reportable Poikilocytosis 1+ Anisocytosis 1+ Microcytosis Not Reportable Macrocytosis Not Reportable Spherocytes Not Reportable Pappenheimer Bodies Not Reportable Sickle Cells Not Reportable Target Cells Not Reportable Tear Drop Cells Not Reportable Ovalocytes Not Reportable Helmet Cells Not Reportable Torres-[place] Bodies Not Reportable [place] Rings Not Reportable [place] Cells Not Reportable Bite Cells Not Reportable Crenated Cell Not Reportable Elliptocytes 1+ Acanthocytes (Spur) Not Reportable Rouleaux Not Reportable Hemoglobin C Crystals Not Reportable Schistocytes Not Reportable Malaria parasites Not Reportable [place] Bodies Not Reportable Hem Pathologist Commnt No Sodium Potassium Chloride Carbon Dioxide Anion Gap BUN Creatinine Estimated GFR BUN/Creatinine Ratio Glucose POC Glucose 74 68 L Calcium Phosphorus Magnesium 05/18/17 05/18/17 05/19/17 16:57 23:33 04:53 WBC RBC Hgb Hct MCV MCH MCHC RDW Plt Count Add Manual Diff Total Counted Seg Neuts % (Manual) Band Neutrophils % Lymphocytes % (Manual) Reactive Lymphs % (Man) Monocytes % (Manual) Eosinophils % (Manual) Basophils % (Manual) Metamyelocytes % Myelocytes % Promyelocytes % Blast Cells % Nucleated RBC % Seg Neutrophils # Man Band Neutrophils # Lymphocytes # (Manual) Abs React Lymphs (Man) Monocytes # (Manual) Eosinophils # (Manual) Basophils # (Manual) Metamyelocytes # Myelocytes # Promyelocytes # Blast Cells # WBC Morphology Hypersegmented Neuts Hyposegmented Neuts Hypogranular Neuts Smudge Cells Toxic Granulation Toxic Vacuolation Dohle Bodies Pelger-Huet Anomaly Sandra Rods Platelet Estimate Clumped Platelets Plt Clumps, EDTA Large Platelets Giant Platelets Platelet Satelliting Plt Morphology Comment RBC Morphology Dimorphic RBCs Polychromasia Hypochromasia Poikilocytosis Anisocytosis Microcytosis Macrocytosis Spherocytes Pappenheimer Bodies Sickle Cells Target Cells Tear Drop Cells Ovalocytes Helmet Cells Torres-[place] Bodies [place] Rings Ginny Cells Bite Cells Crenated Cell Elliptocytes Acanthocytes (Spur) Rouleaux Hemoglobin C Crystals Schistocytes Malaria parasites Shiraz Bodies Hem Pathologist Commnt Sodium 138 Potassium 3.7 D Chloride 101.9 Carbon Dioxide 22 Anion Gap 18 BUN 13 Creatinine 1.3 H Estimated GFR 48 BUN/Creatinine Ratio 10 Glucose 58 L POC Glucose 64 L Calcium 7.3 L Phosphorus 3.60 Magnesium 1.50 L
--- NOTE | 2017-05-19 10:02 | Progress Note ---
Assessment and Plan Assessment and plan: Acute respiratory failure. On initial presentation, was intubated in ED and admitted to intensive care unit. She was extubated 05/07 and is now on oxygen by [place]. Respiratory corona she is much improved. Pulmonology was following. Sepsis due to Escherichia coli. Discontinue Rocephin today. Anemia, Hgb is 10.2 today . Hemoglobin was 6.3 on admission. s/p total 3 Units PRBC transfusion. Acute on chronic kidney disease with Uremia,metabolic acidosis. Had emergent dialysis after catheter placed. This is now resolved. Last dialysis was on 05/07 . Dialysis catheter removed. Complete atelectasis right lung. Consulted Pulmonology, Dr. Regan and he recomends Chest PT 3 times daily. Will repeat Chext X ray in few days. May need Bronchoscopy if not resolved as per Dr. Regan. Hyperkalemia. Resolved Hypokalemia. Resolved Hypomagnesemia. Give Mg supplementt via PEG tube. Severe metabolic acidosis from acute on CKD, improved after dialysis. last dialysis was on 05/07/17 Lactic acidosis due to Sepsis. History of stroke. Dysphagia. s/p PEG tube placed 05/17/17 s/p colostomy prior to this admission. Elevated Troponin. Non specific. Conservative management. Hypernatremia. Monitor BMP DNR status Patient was DNR and on hospice at SNF unknown to us, so was intubated in ED, so family rescinded hospice and requested full code. I discussed with kenny on and she has now requested DO NOT RESUSCITATE status. Patient has a poor prognosis. Spoke to kenny again 05/08/17. She wants us to do best we can to get her better , short of CPR and intubation. Patient has DNR status Discussed with Dionne cox about plan today 05/19/17 History Interval history: patient initially came in with acute resp failure, sepsis, ALEKSANDER, now improved. Had PEG tube put in 05/17/17, no fever Hospitalist Physical - Physical exam Narrative exam: GEN APPEARANCE : Not in acute distress, on Oxygen by nasal canula, malnoiurished HEENT: Normocephalic Atraumatic. NECK : supple, no JVD LUNGS: Decreased breath sounds on right, no rales, no wheeze HEART: S1 and S2 regular, no murmurs, rubs or gallop, ABD: Soft, no tenderness, colostomy, PEG tube, no distension, bowel sounds normal EXT: Contractures, right AKA NEURO: Eyes open, follows commands - Constitutional Vitals: Temp Pulse Resp BP Pulse Ox 98.5 F 73 20 148/43 97 05/19/17 08:05 05/19/17 08:03 05/19/17 08:03 05/19/17 08:05 05/19/17 08:03 General appearance: Present: other (contracted) Results - Labs CBC & Chem 7: 05/18/17 16:57 05/19/17 04:53 Labs: Laboratory Last Values WBC 7.4 K/mm3 (4.5-11.0) 05/18/17 16:57 RBC 3.52 M/mm3 (3.65-5.03) L 05/18/17 16:57 Hgb 10.2 gm/dl (10.1-14.3) 05/18/17 16:57 Hct 30.3 % (30.3-42.9) 05/18/17 16:57 MCV 86 fl (79-97) 05/18/17 16:57 MCH 29 pg (28-32) 05/18/17 16:57 MCHC 34 % (30-34) 05/18/17 16:57 RDW 19.7 % (13.2-15.2) H 05/18/17 16:57 Plt Count 248 K/mm3 (140-440) 05/18/17 16:57 Randall % (Auto) Manager Diabetes 05/13/17 03:54 Add Manual Diff Complete 05/18/17 16:57 Total Counted 100 05/18/17 16:57 Seg Neutrophils % Manager Diabetes 05/09/17 05:53 Seg Neuts % (Manual) 98.0 % (40.0-70.0) H 05/18/17 16:57 Band Neutrophils % 0 % 05/18/17 16:57 Lymphocytes % (Manual) 1.0 % (13.4-35.0) L 05/18/17 16:57 Reactive Lymphs % (Man) 0 % 05/18/17 16:57 Monocytes % (Manual) 1.0 % (0.0-7.3) 05/18/17 16:57 Eosinophils % (Manual) 0 % (0.0-4.3) 05/18/17 16:57 Basophils % (Manual) 0 % (0.0-1.8) 05/18/17 16:57 Metamyelocytes % 0 % 05/18/17 16:57 Myelocytes % 0 % 05/18/17 16:57 Promyelocytes % 0 % 05/18/17 16:57 Blast Cells % 0 % 05/18/17 16:57 Nucleated RBC % Not Reportable 05/18/17 16:57 Seg Neutrophils # Man 7.3 K/mm3 (1.8-7.7) 05/18/17 16:57 Band Neutrophils # 0.0 K/mm3 05/18/17 16:57 Lymphocytes # (Manual) 0.1 K/mm3 (1.2-5.4) L 05/18/17 16:57 Abs React Lymphs (Man) 0.0 K/mm3 05/18/17 16:57 Monocytes # (Manual) 0.1 K/mm3 (0.0-0.8) 05/18/17 16:57 Eosinophils # (Manual) 0.0 K/mm3 (0.0-0.4) 05/18/17 16:57 Basophils # (Manual) 0.0 K/mm3 (0.0-0.1) 05/18/17 16:57 Metamyelocytes # 0.0 K/mm3 05/18/17 16:57 Myelocytes # 0.0 K/mm3 05/18/17 16:57 Promyelocytes # 0.0 K/mm3 05/18/17 16:57 Blast Cells # 0.0 K/mm3 05/18/17 16:57 WBC Morphology Not Reportable 05/18/17 16:57 Hypersegmented Neuts Not Reportable 05/18/17 16:57 Hyposegmented Neuts Not Reportable 05/18/17 16:57 Hypogranular Neuts Not Reportable 05/18/17 16:57 Smudge Cells Not Reportable 05/18/17 16:57 Toxic Granulation Not Reportable 05/18/17 16:57 Toxic Vacuolation Not Reportable 05/18/17 16:57 Dohle Bodies Not Reportable 05/18/17 16:57 Pelger-Huet Anomaly Not Reportable 05/18/17 16:57 Sandra Rods Not Reportable 05/18/17 16:57 Platelet Estimate Appears normal 05/18/17 16:57 Clumped Platelets Not Reportable 05/18/17 16:57 Plt Clumps, EDTA Not Reportable 05/18/17 16:57 Large Platelets Not Reportable 05/18/17 16:57 Giant Platelets Not Reportable 05/18/17 16:57 Platelet Satelliting Not Reportable 05/18/17 16:57 Plt Morphology Comment Not Reportable 05/18/17 16:57 RBC Morphology Not Reportable 05/18/17 16:57 Dimorphic RBCs Not Reportable 05/18/17 16:57 Polychromasia Not Reportable 05/18/17 16:57 Hypochromasia Not Reportable 05/18/17 16:57 Poikilocytosis 1+ 05/18/17 16:57 Anisocytosis 1+ 05/18/17 16:57 Microcytosis Not Reportable 05/18/17 16:57 Macrocytosis Not Reportable 05/18/17 16:57 Spherocytes Not Reportable 05/18/17 16:57 Pappenheimer Bodies Not Reportable 05/18/17 16:57 Sickle Cells Not Reportable 05/18/17 16:57 Target Cells Not Reportable 05/18/17 16:57 Tear Drop Cells Not Reportable 05/18/17 16:57 Ovalocytes Not Reportable 05/18/17 16:57 Helmet Cells Not Reportable 05/18/17 16:57 Torres-[place] Bodies Not Reportable 05/18/17 16:57 [place] Rings Not Reportable 05/18/17 16:57 [place] Cells Not Reportable 05/18/17 16:57 Bite Cells Not Reportable 05/18/17 16:57 Crenated Cell Not Reportable 05/18/17 16:57 Elliptocytes 1+ 05/18/17 16:57 Acanthocytes (Spur) Not Reportable 05/18/17 16:57 Rouleaux Not Reportable 05/18/17 16:57 Hemoglobin C Crystals Not Reportable 05/18/17 16:57 Schistocytes Not Reportable 05/18/17 16:57 Malaria parasites Not Reportable 05/18/17 16:57 Shiraz Bodies Not Reportable 05/18/17 16:57 Hem Pathologist Commnt No 05/18/17 16:57 PT 14.9 Sec. (12.2-14.9) 05/17/17 06:43 INR 1.11 (0.87-1.13) 05/17/17 06:43 APTT 33.2 Sec. (24.2-36.6) 05/05/17 15:38 POC ABG pH 7.436 (7.35-7.45) 05/06/17 07:13 POC ABG pCO2 27.7 (35-45) L 05/06/17 07:13 POC ABG pO2 67 (80-105) L 05/06/17 07:13 POC ABG HCO3 18.7 05/06/17 07:13 POC ABG Total CO2 19 05/06/17 07:13 POC ABG O2 Sat 94 05/06/17 07:13 POC ABG Base Excess -6 05/06/17 07:13 VBG pH 6.909 (7.320-7.420) L* 05/05/17 15:38 FiO2 30 % 05/06/17 07:13 Sodium 138 mmol/L (137-145) 05/19/17 04:53 Potassium 3.7 mmol/L (3.6-5.0) D 05/19/17 04:53 Chloride 101.9 mmol/L (98-107) 05/19/17 04:53 Carbon Dioxide 22 mmol/L (22-30) 05/19/17 04:53 Anion Gap 18 mmol/L 05/19/17 04:53 BUN 13 mg/dL (7-17) 05/19/17 04:53 Creatinine 1.3 mg/dL (0.7-1.2) H 05/19/17 04:53 Estimated GFR 48 ml/min 05/19/17 04:53 BUN/Creatinine Ratio 10 % 05/19/17 04:53 Glucose 58 mg/dL (65-100) L 05/19/17 04:53 POC Glucose 64 (70-105) L 05/18/17 23:33 Osmolality 332 Mosm/kg 05/06/17 04:00 Lactic Acid 8.50 mmol/L (0.7-2.0) H* 05/05/17 23:00 Calcium 7.3 mg/dL (8.4-10.2) L 05/19/17 04:53 Phosphorus 3.60 mg/dL (2.5-4.5) 05/18/17 16:57 Magnesium 1.50 mg/dL (1.7-2.3) L 05/18/17 16:57 Total Bilirubin 0.20 mg/dL (0.1-1.2) 05/09/17 05:53 AST 25 units/L (5-40) 05/09/17 05:53 ALT 27 units/L (7-56) 05/09/17 05:53 Alkaline Phosphatase 128 units/L (35-129) 05/09/17 05:53 Total Creatine Kinase 350 units/L (30-135) H 05/06/17 04:00 CK-MB (CK-2) 32.9 ng/mL (0.0-4.0) H 05/06/17 04:00 CK-MB (CK-2) Rel Index 9.4 (0-4) H 05/06/17 04:00 Troponin T 0.694 ng/mL (0.00-0.029) H* D 05/06/17 04:00 NT-Pro-B Natriuret Pep 84952 pg/mL (0-900) H 05/11/17 07:53 Total Protein 5.6 g/dL (6.3-8.2) L 05/09/17 05:53 Albumin 1.8 g/dL (3.9-5) L 05/09/17 05:53 Albumin/Globulin Ratio 0.5 % 05/09/17 05:53 Triglycerides 137 mg/dL (2-149) 05/05/17 15:38 Cholesterol 108 mg/dL (50-199) 05/05/17 15:38 LDL Cholesterol Direct 13 mg/dL (50-130) L 05/05/17 15:38 HDL Cholesterol 68 mg/dL (40-59) H 05/05/17 15:38 Cholesterol/HDL Ratio 1.58 % 05/05/17 15:38 Valproic Acid < 2.8 ug/mL (50-100) L 05/10/17 11:55 Hep Bs Antigen Non-reactive (Negative) 05/06/17 05:00 Hepatitis C Antibody Non-reactive (NonReactive) 05/06/17 04:00 Blood Type O POSITIVE 05/12/17 09:56 Antibody Screen Negative 05/12/17 09:56 Crossmatch See Detail 05/12/17 09:56
--- NOTE | 2017-05-19 10:13 | Progress Note ---
Assessment and Plan (1) ALEKSANDER (acute kidney injury) due to ATN/pre renal Current Visit: No Status: Acute Plan to address problem: Was on IHD now off. Vascath was removed. Making urine. Cr stable. Continue lasix. Renally dose medications Avoid Nephrotoxic agents Monitor I/O's CXR shows atelactasis. Pulm recommended chest PT. (2) Metabolic acidosis Current Visit: Yes Status: Acute Plan to address problem: Mild, Monitor for now. (3) Hypokalemia Current Visit: Yes Status: Acute Plan to address problem: Improved. Monitor and replace PRN. (4) Anemia, normocytic. Current Visit: Yes Status: Acute Qualifiers: Anemia type: due to chronic kidney disease Chronic kidney disease stage: stage 4 (severe) Qualified Code(s): N18.4 - Chronic kidney disease, stage 4 ( severe); D63.1 - Anemia in chronic kidney disease; D63.1 - Anemia in chronic kidney disease Plan to address problem: Transfuse PRN per primary. (5) Hypophosphatemia Current Visit: Yes Status: Acute Plan to address problem: Monitor and replace PRN. (6) Hypomagnesemia: Current Visit: Yes Status: Acute Plan to address problem: Replace PRN (7) s/p PEG tube placement: Current Visit: Yes Status: Acute Plan to address problem: -On TFs via PEG now. -Had PEG placed during this admission. Stevan Peña MD Nephrology, Hypertension, Dialysis, Transplantation Phone no: [phone] Subjective Date of service: 05/19/17 Principal diagnosis: Neurogenic Dysphagia Interval history: Cr stable. On tube feeds via PEG. Making urine. daughter at bedside. Objective - Exam Narrative Exam: General appearance: cachectic, Awake. EENT: ATNC, PERRL Neck: no JVD, supple Respiratory: Present: Decreased Breath Sounds Cardiology: regular, S1S2, Rt IJ VC Gastrointestinal: normoactive bowel sounds, Colostomy bag Integumentary: warm and dry Neurologic: Awake Musculoskeletal: decreased ROM, other (Right AKA) - Vital Signs Vital signs: Vital Signs - 12hr 05/19/17 05/19/17 05/19/17 04:22 08:03 08:05 Temperature 98.6 F 98.5 F Pulse Rate 74 73 Respiratory 18 20 Rate Blood Pressure 111/48 Blood Pressure 148/43 [Left] O2 Sat by Pulse 97 97 Oximetry - Lab 05/18/17 16:57 05/19/17 04:53 Most recent lab results Calcium 7.3 mg/dL (8.4-10.2) L 05/19/17 04:53 Phosphorus 3.60 mg/dL (2.5-4.5) 05/18/17 16:57 Magnesium 1.50 mg/dL (1.7-2.3) L 05/18/17 16:57
[2017-05-19] MEDS ORDERED: MAGNESIUM SULFATE IV ONE (12:34)
[2017-05-19] MEDS: MAG-OX PO SCH ×2 (17:45→22:23)
[2017-05-20] MEDS: LASIX FEEDTUBE SCH ×3 (05:27→17:44)
[2017-05-20] MEDS ORDERED: PANCREAZE DR 10,500 UNIT FEEDTUBE PRN ×2 (09:00→09:30)
[2017-05-20] MEDS ORDERED: SIMPLE SYRUP FEEDTUBE PRN ×4 (09:00→09:30)
[2017-05-20] MEDS ORDERED: SODIUM BICARBONATE FEEDTUBE PRN ×2 (09:00→09:30)
[2017-05-20] MEDS: DepaKENE Liq FEEDTUBE SCH ×2 (09:27→23:15)
[2017-05-20] MEDS: PROTONIX PO SCH (09:28)
[2017-05-20] MEDS: MAG-OX PO SCH ×2 (09:33→23:16)
--- NOTE | 2017-05-20 10:45 | Progress Note ---
Assessment and Plan (1) ALEKSANDER (acute kidney injury) due to ATN/pre renal Current Visit: No Status: Acute Plan to address problem: Was on IHD, now off since many days. Vascath was removed. Making urine. Cr 1.2 today. Continue lasix. Renally dose medications Avoid Nephrotoxic agents Monitor I/O's CXR showed atelactasis. Pulm recommended chest PT. (2) Metabolic acidosis Current Visit: Yes Status: Acute Plan to address problem: Mild, Monitor for now. (3) Hypokalemia Current Visit: Yes Status: Acute Plan to address problem: Replace PRN (4) Anemia, normocytic. Current Visit: Yes Status: Acute Qualifiers: Anemia type: due to chronic kidney disease Chronic kidney disease stage: stage 4 (severe) Qualified Code(s): N18.4 - Chronic kidney disease, stage 4 ( severe); D63.1 - Anemia in chronic kidney disease; D63.1 - Anemia in chronic kidney disease Plan to address problem: Transfuse PRN per primary. (5) Hypophosphatemia Current Visit: Yes Status: Acute Plan to address problem: Monitor and replace PRN. (6) Hypomagnesemia: Current Visit: Yes Status: Acute Plan to address problem: Replace PRN (7) s/p PEG tube placement: Current Visit: Yes Status: Acute Plan to address problem: -On TFs via PEG now. -Had PEG placed during this admission. Patient will need to f/u with [facility] 1 week after discharge. Stevan Peña MD Nephrology, Hypertension, Dialysis, Transplantation Phone no: [phone] Subjective Date of service: 05/20/17 Principal diagnosis: Neurogenic Dysphagia Interval history: Cr stable. On tube feeds via PEG. Making urine. Objective - Exam Narrative Exam: General appearance: cachectic, Awake. EENT: ATNC, PERRL Neck: no JVD, supple Respiratory: Coarse BS BL Cardiology: regular, S1S2, Rt IJ VC Gastrointestinal: normoactive bowel sounds, Colostomy bag Integumentary: warm and dry Neurologic: Awake Musculoskeletal: decreased ROM, other (Right AKA) - Vital Signs Vital signs: Vital Signs - 12hr 05/20/17 05/20/17 05/20/17 06:45 08:51 09:15 Temperature 97.3 F L 98.4 F Pulse Rate 75 71 Respiratory 20 20 Rate Blood Pressure 116/51 130/51 O2 Sat by Pulse 99 100 98 Oximetry - Lab 05/18/17 16:57 05/20/17 10:56 Most recent lab results Calcium 7.3 mg/dL (8.4-10.2) L 05/19/17 04:53 Phosphorus 3.60 mg/dL (2.5-4.5) 05/18/17 16:57 Magnesium 1.60 mg/dL (1.7-2.3) L 05/19/17 10:24
[2017-05-20 11:30] LABS: Calcium 7.2 mg/dL (8.4-10.2); Chloride 101.2 mmol/L (98-107); Magnesium 1.7 mg/dL (1.7-2.3); Phosphorous 3.2 mg/dL (2.5-4.5); Potassium 3.4 mmol/L (3.6-5.0)
[2017-05-20] MEDS ORDERED: MAGNESIUM SULFATE IV ONE (12:07)
[2017-05-20] MEDS ORDERED: MAGNESIUM SULFATE 2GM/50ML 2 GM/50 ML BAG IV SCH (13:00)
[2017-05-20] MEDS: DAKIN'S FULL STRENGTH TP SCH ×2 (13:10→23:16)
[2017-05-20] MEDS: KCL 10MEQ/100ML 10 MEQ/100 ML BAG IV SCH ×2 (14:39→16:00)
--- NOTE | 2017-05-20 15:37 | XRay Report ---
PORTABLE CHEST INDICATION: Atelectasis right lung. COMPARISON: 05/17/2017 FINDINGS: Portable, frontal chest radiograph demonstrates much interval clearing of left hemithorax opacification/atelectasis. Mild basilar opacity/density obscuring the left hemidiaphragm now remains. Mild right lower lung hazy atelectasis or effusion may also partly obscure the right lateral costophrenic angle. Similar atelectasis or fluid also marginates the right major fissure. No cephalization. Normal cardiomediastinal silhouette. Aortic knob calcifications. Demineralized bones with stable old healed right humeral neck deformity. Possible G-tube partially imaged. CONCLUSION: Interval reexpansion of the left lung with various other findings, including mild bibasilar hazy opacities/effusions, left more than right now noted, as described. Please correlate. Thank you for the opportunity to participate in this patient's care.
--- NOTE | 2017-05-20 15:55 | Progress Note ---
Assessment and Plan Acute respiratory failure. - On initial presentation, was intubated in ED and admitted to intensive care unit. - She was extubated 05/07 and is now on oxygen by [facility]. Respiratory corona she is much improved. Pulmonology was following. Sepsis due to Escherichia coli. - treated with Rocephin Anemia, - Hemoglobin was 6.3 on admission. s/p total 3 Units PRBC transfusion. Acute on chronic kidney disease with Uremia,metabolic acidosis. - Had emergent dialysis after catheter placed. This is now resolved. - Last dialysis was on 05/07/17 . Dialysis catheter removed. Complete atelectasis left lung. - Consulted Pulmonology, Dr. Regan and he recomends Chest PT 3 times daily. - complete resolution on today's Chext X ray Hyperkalemia. Resolved Hypokalemia. Resolved Hypomagnesemia. Mg supplement via PEG tube Severe metabolic acidosis from acute on CKD, - improved after dialysis. last dialysis was on 05/07/17 Lactic acidosis due to Sepsis. resolved History of stroke. Dysphagia. s/p PEG tube placed 05/17/17, tolerating TF s/p colostomy prior to this admission. - cont osteomy care Elevated Troponin. - Non specific. Conservative management. Hypernatremia. Monitor BMP, resolved DNR status Patient was DNR and on hospice at SNF unknown to us, so was intubated in ED, so family rescinded hospice and requested full code. Discussion was made with niece on 05/07/17 and she has requested DO NOT RESUSCITATE status. Patient has a poor prognosis. Hospitalist Physical GEN APPEARANCE : Not in acute distress, on Oxygen by nasal canula, malnoiurished HEENT: Normocephalic Atraumatic. NECK : supple, no JVD LUNGS: Decreased breath sounds on right, no rales, no wheeze HEART: S1 and S2 regular, no murmurs, rubs or gallop, ABD: Soft, no tenderness, colostomy, PEG tube, no distension, bowel sounds normal EXT: Contractures, right AKA NEURO: Eyes open, follows commands Subjective Date of service: 05/20/17 Principal diagnosis: Neurogenic Dysphagia Interval history: Patient seen and examined. Medical records and medication list reviewed. No acute event overnight noted by the RN. had CXR today, tolerating TF Objective - Constitutional Vitals: Vital Signs - 12hr 05/20/17 05/20/17 05/20/17 06:45 08:51 09:15 Temperature 97.3 F L 98.4 F Pulse Rate 75 71 Respiratory 20 20 Rate Blood Pressure 116/51 130/51 O2 Sat by Pulse 99 100 98 Oximetry - Labs CBC & Chem 7: 05/18/17 16:57 05/21/17 05:51 Labs: Abnormal lab results 05/19/17 05/20/17 Range/Units 11:37 10:56 Potassium 3.4 L (3.6-5.0) mmol/L POC Glucose 107 H (70-105) Calcium 7.2 L (8.4-10.2) mg/dL
[2017-05-20] MEDS ORDERED: POTASSIUM CHLORIDE FEEDTUBE ONE (15:56)
[2017-05-21] MEDS: LASIX FEEDTUBE SCH ×2 (05:51→17:10)
[2017-05-21 06:49] LABS: Calcium 7.2 mg/dL (8.4-10.2); Chloride 100.5 mmol/L (98-107); Potassium 4.8 mmol/L (3.6-5.0)
[2017-05-21] MEDS: DepaKENE Liq FEEDTUBE SCH ×2 (09:35→22:49)
[2017-05-21] MEDS: PROTONIX PO SCH (09:36)
[2017-05-21] MEDS: DAKIN'S FULL STRENGTH TP SCH (09:36)
[2017-05-21] MEDS: MAG-OX PO SCH ×2 (09:36→22:48)
--- NOTE | 2017-05-21 10:29 | Progress Note ---
Assessment and Plan (1) ALEKSANDER (acute kidney injury) due to ATN/pre renal Current Visit: No Status: Acute Plan to address problem: Was on IHD, now off since many days. Vascath was removed. Making urine. Cr stable. Continue lasix. Renally dose medications Avoid Nephrotoxic agents Monitor I/O's CXR showed atelactasis. Pulm recommended chest PT. (2) Metabolic acidosis Current Visit: Yes Status: Acute Plan to address problem: Improving, monitor. (3) Hypokalemia Current Visit: Yes Status: Acute Plan to address problem: Replace PRN (4) Anemia, normocytic. Current Visit: Yes Status: Acute Qualifiers: Anemia type: due to chronic kidney disease Chronic kidney disease stage: stage 4 (severe) Qualified Code(s): N18.4 - Chronic kidney disease, stage 4 ( severe); D63.1 - Anemia in chronic kidney disease; D63.1 - Anemia in chronic kidney disease Plan to address problem: Transfuse PRN per primary. (5) Hypophosphatemia Current Visit: Yes Status: Acute Plan to address problem: Monitor and replace PRN. (6) Hypomagnesemia: Current Visit: Yes Status: Acute Plan to address problem: Monitor and Replace PRN (7) s/p PEG tube placement: Current Visit: Yes Status: Acute Plan to address problem: -On TFs via PEG now. -Had PEG placed during this admission. Patient will need to f/u with [facility] 1 week after discharge. Stevan Peña MD Nephrology, Hypertension, Dialysis, Transplantation Phone no: [phone] Subjective Date of service: 05/21/17 Principal diagnosis: Neurogenic Dysphagia Interval history: Cr stable. On tube feeds via PEG. Making urine. Awake. Objective - Exam Narrative Exam: General appearance: cachectic, Awake. EENT: ATNC, PERRL Neck: no JVD, supple Respiratory: Coarse BS BL Cardiology: regular, S1S2, Rt IJ VC Gastrointestinal: normoactive bowel sounds, Colostomy bag Integumentary: warm and dry Neurologic: Awake Musculoskeletal: decreased ROM, other (Right AKA) - Vital Signs Vital signs: Vital Signs - 12hr 05/21/17 05/21/17 05/21/17 04:33 08:11 09:54 Temperature 98.4 F 97.9 F Pulse Rate 64 Respiratory 18 18 Rate Blood Pressure 156/50 186/56 O2 Sat by Pulse 100 100 Oximetry - Lab 05/18/17 16:57 05/21/17 05:51 Most recent lab results Calcium 7.2 mg/dL (8.4-10.2) L 05/21/17 05:51 Phosphorus 3.20 mg/dL (2.5-4.5) 05/20/17 10:56 Magnesium 1.70 mg/dL (1.7-2.3) 05/20/17 10:56
--- NOTE | 2017-05-21 15:37 | Progress Note ---
Assessment and Plan Acute respiratory failure. - On initial presentation, was intubated in ED and admitted to intensive care unit. - She was extubated 05/07 and is now on oxygen by [place]. Respiratory corona she is much improved. Pulmonology was following. Sepsis due to Escherichia coli bacteremia. - treated with Rocephin, repeat blood cx Anemia, - Hemoglobin was 6.3 on admission. s/p total 3 Units PRBC transfusion. Acute on chronic kidney disease with Uremia,metabolic acidosis. - Had emergent dialysis after catheter placed. This is now resolved. - Last dialysis was on 05/07/17 . Dialysis catheter removed. Complete atelectasis left lung. - Consulted Pulmonology, Dr. Regan and he recomends Chest PT 3 times daily. - complete resolution on 05/20/17 Chext X ray Hyperkalemia. Resolved Hypokalemia. Resolved Hypomagnesemia. Mg supplement via PEG tube Severe metabolic acidosis from acute on CKD, - improved after dialysis. last dialysis was on 05/07/17 Lactic acidosis due to Sepsis. resolved History of stroke. Dysphagia. s/p PEG tube placed 05/17/17, tolerating TF s/p colostomy prior to this admission. - cont osteomy care Elevated Troponin. - Non specific. Conservative management. Hypernatremia. Monitor BMP, resolved DNR status Patient was DNR and on hospice at SNF unknown to us, so was intubated in ED, so family rescinded hospice and requested full code. Discussion was made with niece on 05/07/17 and she has requested DO NOT RESUSCITATE status. Patient has a poor prognosis. Discussed with family today and she will need SNF with hospice placement. Hospitalist Physical GEN APPEARANCE : Not in acute distress, on Oxygen by nasal canula, malnoiurished HEENT: Normocephalic Atraumatic. NECK : supple, no JVD LUNGS: Decreased breath sounds on right, no rales, no wheeze HEART: S1 and S2 regular, no murmurs, rubs or gallop, ABD: Soft, no tenderness, colostomy, PEG tube, no distension, bowel sounds normal EXT: Contractures, right AKA NEURO: Eyes open, follows commands Subjective Date of service: 05/21/17 Principal diagnosis: Neurogenic Dysphagia Interval history: Patient seen and examined. Medical records and medication list reviewed. No acute event overnight noted by the RN. tolerating TF Objective - Constitutional Vitals: Vital Signs - 12hr 05/21/17 05/21/17 05/21/17 04:33 08:11 09:54 Temperature 98.4 F 97.9 F Pulse Rate 64 Respiratory 18 18 Rate Blood Pressure 156/50 186/56 Blood Pressure [Left] O2 Sat by Pulse 100 100 Oximetry 05/21/17 13:19 Temperature 98.4 F Pulse Rate 68 Respiratory 16 Rate Blood Pressure Blood Pressure 150/51 [Left] O2 Sat by Pulse 98 Oximetry - Labs CBC & Chem 7: 05/18/17 16:57 05/21/17 05:51 Labs: Abnormal lab results 05/20/17 05/21/17 Range/Units 17:43 05:51 Sodium 136 L (137-145) mmol/L POC Glucose 113 H (70-105) Calcium 7.2 L (8.4-10.2) mg/dL
[2017-05-22] MEDS: PROTONIX PO SCH (12:39)
[2017-05-22] MEDS: MAG-OX PO SCH (12:40)
[2017-05-22] MEDS: DepaKENE Liq FEEDTUBE SCH ×2 (12:40→23:26)
[2017-05-22] MEDS: DAKIN'S FULL STRENGTH TP SCH ×2 (12:41→23:27)
--- NOTE | 2017-05-22 13:32 | Progress Note ---
Assessment and Plan (1) ALEKSANDER (acute kidney injury) due to ATN/pre renal Current Visit: No Status: Acute Plan to address problem: Was on IHD, now off since many days. Vascath was removed. Making urine. Labs pending today. Continue lasix. Renally dose medications Avoid Nephrotoxic agents Monitor I/O's CXR showed atelactasis. Pulm recommended chest PT. (2) Metabolic acidosis Current Visit: Yes Status: Acute Plan to address problem: Monitor. (3) Hypokalemia Current Visit: Yes Status: Acute Plan to address problem: Replace PRN (4) Anemia, normocytic. Current Visit: Yes Status: Acute Qualifiers: Anemia type: due to chronic kidney disease Chronic kidney disease stage: stage 4 (severe) Qualified Code(s): N18.4 - Chronic kidney disease, stage 4 ( severe); D63.1 - Anemia in chronic kidney disease; D63.1 - Anemia in chronic kidney disease Plan to address problem: Transfuse PRN per primary. (5) Hypophosphatemia Current Visit: Yes Status: Acute Plan to address problem: Monitor and replace PRN. (6) Hypomagnesemia: Current Visit: Yes Status: Acute Plan to address problem: Monitor and Replace PRN (7) s/p PEG tube placement: Current Visit: Yes Status: Acute Plan to address problem: -On TFs via PEG now. -Had PEG placed during this admission. Patient will need to f/u with [facility] clinic 1 week after discharge. Stevan Peña MD Nephrology, Hypertension, Dialysis, Transplantation Phone no: [phone] Subjective Date of service: 05/22/17 Principal diagnosis: Neurogenic Dysphagia Interval history: Making urine. Objective - Exam Narrative Exam: General appearance: cachectic, Awake. EENT: ATNC, PERRL Neck: no JVD, supple Respiratory: Coarse BS BL Cardiology: regular, S1S2, Rt IJ VC Gastrointestinal: normoactive bowel sounds, Colostomy bag Integumentary: warm and dry Neurologic: Awake Musculoskeletal: decreased ROM, other (Right AKA) - Vital Signs Vital signs: Vital Signs - 12hr 05/22/17 05/22/17 05/22/17 05:07 07:38 10:00 Temperature 99.1 F 99.9 F H Pulse Rate 67 Respiratory 18 20 Rate Blood Pressure 135/53 Blood Pressure 137/49 [Left] O2 Sat by Pulse 98 98 Oximetry - Lab 05/18/17 16:57 05/21/17 05:51 Most recent lab results Calcium 7.2 mg/dL (8.4-10.2) L 05/21/17 05:51 Phosphorus 3.20 mg/dL (2.5-4.5) 05/20/17 10:56 Magnesium 1.70 mg/dL (1.7-2.3) 05/20/17 10:56
[2017-05-22 14:01] LABS: Basophils % (Auto) 0.2 % (0.0-1.8); Eosinophils % (Auto) 0.3 % (0.0-4.3); Hematocrit 25.3 % (30.3-42.9); Hemoglobin 8.5 gm/dl (10.1-14.3); Mean Corpuscular HGB Conc 34 % (30-34); Mean Corpuscular Hemoglobin 29 pg (28-32); Mean Corpuscular Volume 87 fl (79-97); Platelet Count 277 K/mm3 (140-440); Red Blood Count 2.91 M/mm3 (3.65-5.03); White Blood Count 6.7 K/mm3 (4.5-11.0)
[2017-05-22 14:02] LABS: Red Cell Distribution Width 20.5 % (13.2-15.2)
[2017-05-22 14:04] LABS: Chloride 97.6 mmol/L (98-107); Magnesium 1.7 mg/dL (1.7-2.3); Phosphorous 1.7 mg/dL (2.5-4.5)
[2017-05-22 14:15] LABS: Potassium 5.4 mmol/L (3.6-5.0)
--- NOTE | 2017-05-22 15:02 | Progress Note ---
Assessment and Plan Acute respiratory failure. - On initial presentation, was intubated in ED and admitted to intensive care unit. - She was extubated 05/07 and is now on oxygen by [place]. Respiratory corona she is much improved. Pulmonology was following. Sepsis due to Escherichia coli bacteremia. - treated with Rocephin, repeat blood cx Anemia, - Hemoglobin was 6.3 on admission. s/p total 3 Units PRBC transfusion. Acute on chronic kidney disease with Uremia,metabolic acidosis. - Had emergent dialysis after catheter placed. This is now resolved. - Last dialysis was on 05/07/17 . Dialysis catheter removed. Complete atelectasis left lung. - Consulted Pulmonology, Dr. Regan and he recomends Chest PT 3 times daily. - complete resolution on 05/20/17 Chext X ray Hyperkalemia. Resolved Hypokalemia. Resolved Hypomagnesemia. Mg supplement via PEG tube Severe metabolic acidosis from acute on CKD, - improved after dialysis. last dialysis was on 05/07/17 Lactic acidosis due to Sepsis. resolved History of stroke. Dysphagia. s/p PEG tube placed 05/17/17, tolerating TF s/p colostomy prior to this admission. - cont osteomy care Elevated Troponin. - Non specific. Conservative management. Hypernatremia. Monitor BMP, resolved hyperkalemia - cont fluid, give kayexalate for K >5.2 DNR status Patient was DNR and on hospice at SNF unknown to us, so was intubated in ED, so family rescinded hospice and requested full code. Discussion was made with niece on 05/07/17 and she has requested DO NOT RESUSCITATE status. Patient has a poor prognosis. Discussed with family and they agree for SNF with hospice placement. Hospitalist Physical GEN APPEARANCE : Not in acute distress, on Oxygen by nasal canula, malnoiurished HEENT: Normocephalic Atraumatic. NECK : supple, no JVD LUNGS: Decreased breath sounds on right, no rales, no wheeze HEART: S1 and S2 regular, no murmurs, rubs or gallop, ABD: Soft, no tenderness, colostomy, PEG tube, no distension, bowel sounds normal EXT: Contractures, right AKA NEURO: Eyes open, follows commands Subjective Date of service: 05/22/17 Principal diagnosis: Neurogenic Dysphagia Interval history: Patient seen and examined. Medical records and medication list reviewed. No acute event overnight noted by the RN. tolerating TF, K level 5.4 today Objective - Constitutional Vitals: Vital Signs - 12hr 05/22/17 05/22/17 05/22/17 05:07 07:38 10:00 Temperature 99.1 F 99.9 F H Pulse Rate 67 Respiratory 18 20 Rate Blood Pressure 135/53 Blood Pressure 137/49 [Left] O2 Sat by Pulse 98 98 Oximetry - Labs CBC & Chem 7: 05/22/17 13:28 05/22/17 13:28 Labs: Abnormal lab results 05/21/17 05/22/17 05/22/17 Range/Units 18:06 00:00 06:45 RBC (3.65-5.03) M/mm3 Hgb (10.1-14.3) gm/dl Hct (30.3-42.9) % RDW (13.2-15.2) % Crane % (Auto) (0.0-7.3) % Lymph # (1.2-5.4) K/mm3 Seg Neutrophils % (40.0-70.0) % Sodium (137-145) mmol/L Potassium (3.6-5.0) mmol/L Chloride (98-107) mmol/L BUN (7-17) mg/dL Glucose (65-100) mg/dL POC Glucose 110 H 125 H 114 H (70-105) Calcium (8.4-10.2) mg/dL Phosphorus (2.5-4.5) mg/dL 05/22/17 05/22/17 05/22/17 Range/Units 12:45 13:28 13:28 RBC 2.91 L (3.65-5.03) M/mm3 Hgb 8.5 L (10.1-14.3) gm/dl Hct 25.3 L (30.3-42.9) % RDW 20.5 H (13.2-15.2) % Crane % (Auto) 10.6 H (0.0-7.3) % Lymph # 1.0 L (1.2-5.4) K/mm3 Seg Neutrophils % 73.7 H (40.0-70.0) % Sodium 131 L (137-145) mmol/L Potassium 5.4 H (3.6-5.0) mmol/L Chloride 97.6 L (98-107) mmol/L BUN 23 H (7-17) mg/dL Glucose 118 H (65-100) mg/dL POC Glucose 133 H (70-105) Calcium 7.0 L (8.4-10.2) mg/dL Phosphorus 1.70 L (2.5-4.5) mg/dL
[2017-05-22] MEDS: LASIX FEEDTUBE SCH (18:58)
[2017-05-23] MEDS ORDERED: KIONEX PO PRN (01:06)
[2017-05-23] MEDS: LASIX FEEDTUBE SCH ×2 (06:17→19:23)
[2017-05-23] MEDS: DepaKENE Liq FEEDTUBE SCH ×2 (11:07→22:25)
[2017-05-23] MEDS: PROTONIX PO SCH (11:07)
[2017-05-23] MEDS: DAKIN'S FULL STRENGTH TP SCH ×2 (11:08→23:00)
[2017-05-23 13:52] LABS: Calcium 7.3 mg/dL (8.4-10.2); Chloride 95.9 mmol/L (98-107); Magnesium 1.6 mg/dL (1.7-2.3); Phosphorous 1.8 mg/dL (2.5-4.5); Potassium 5.4 mmol/L (3.6-5.0)
[2017-05-23] MEDS ORDERED: SIMPLE SYRUP FEEDTUBE PRN ×2 (14:36)
[2017-05-23] MEDS ORDERED: SODIUM BICARBONATE FEEDTUBE PRN (14:36)
[2017-05-23] MEDS ORDERED: PANCREAZE DR 10,500 UNIT FEEDTUBE PRN (14:36)
[2017-05-23] MEDS ORDERED: MAGNESIUM SULFATE IV ONE (14:39)
[2017-05-23] MEDS ORDERED: KIONEX PO ONE ×2 (15:00→20:00)
--- NOTE | 2017-05-23 15:22 | Progress Note ---
Assessment and Plan (1) ALEKSANDER (acute kidney injury) due to ATN/pre renal Current Visit: No Status: Acute Plan to address problem: Was on IHD, now off since many days. Vascath was removed. Making urine. Cr stable. Continue lasix. Renally dose medications Avoid Nephrotoxic agents Monitor I/O's CXR showed atelactasis. Pulm recommended chest PT. (2) Metabolic acidosis Current Visit: Yes Status: Acute Plan to address problem: Monitor. (3) Hyperkalemia Current Visit: Yes Status: Acute Plan to address problem: Change TFs to low L Kayxelate 15 gms once via PEG (4) Anemia, normocytic. Current Visit: Yes Status: Acute Qualifiers: Anemia type: due to chronic kidney disease Chronic kidney disease stage: stage 4 (severe) Qualified Code(s): N18.4 - Chronic kidney disease, stage 4 ( severe); D63.1 - Anemia in chronic kidney disease; D63.1 - Anemia in chronic kidney disease Plan to address problem: Transfuse PRN per primary. (5) Hypophosphatemia Current Visit: Yes Status: Acute Plan to address problem: Will replace (6) Hypomagnesemia: Current Visit: Yes Status: Acute Plan to address problem: Will replace (7) s/p PEG tube placement: Current Visit: Yes Status: Acute Plan to address problem: -On TFs via PEG now. -Had PEG placed during this admission. Patient will need to f/u with [facility] clinic 1 week after discharge. Stevan Peña MD Nephrology, Hypertension, Dialysis, Transplantation Phone no: [phone] Subjective Date of service: 05/23/17 Principal diagnosis: Neurogenic Dysphagia Interval history: Making urine. Objective - Exam Narrative Exam: General appearance: cachectic, Awake. EENT: ATNC, PERRL Neck: no JVD, supple Respiratory: Coarse BS BL Cardiology: regular, S1S2, Rt IJ VC Gastrointestinal: normoactive bowel sounds, Colostomy bag Integumentary: warm and dry Neurologic: Awake Musculoskeletal: decreased ROM, other (Right AKA) - Vital Signs Vital signs: Vital Signs - 12hr 05/23/17 05/23/17 05/23/17 06:45 07:41 09:01 Temperature 98.2 F 97.9 F Pulse Rate 66 66 Respiratory 20 20 Rate Blood Pressure 176/57 142/46 O2 Sat by Pulse 100 100 100 Oximetry - Lab 05/22/17 13:28 05/23/17 13:00 Most recent lab results Calcium 7.3 mg/dL (8.4-10.2) L 05/23/17 13:00 Phosphorus 1.80 mg/dL (2.5-4.5) L 05/23/17 13:00 Magnesium 1.60 mg/dL (1.7-2.3) L 05/23/17 13:00
[2017-05-23] MEDS ORDERED: SODIUM PHOSPHATE 30 MMOL in NACL 0.9% 500 ML 500 ML IV ONE (15:40)
[2017-05-23] MEDS ORDERED: PHOS-NAK FEEDTUBE ONE ×2 (16:30→20:00)
[2017-05-23] MEDS: MAGNESIUM SULFATE 2GM/50ML 2 GM/50 ML BAG IV ONE (19:25)
--- NOTE | 2017-05-23 21:37 | Progress Note ---
Assessment and Plan Acute respiratory failure. - On initial presentation, was intubated in ED and admitted to intensive care unit. - She was extubated 05/07 and is now on oxygen by [place]. Respiratory corona she is much improved. Pulmonology was following. Sepsis due to Escherichia coli bacteremia. - treated with Rocephin, repeat blood cx Anemia, - Hemoglobin was 6.3 on admission. s/p total 3 Units PRBC transfusion. Acute on chronic kidney disease with Uremia,metabolic acidosis. - Had emergent dialysis after catheter placed. This is now resolved. - Last dialysis was on 05/07/17 . Dialysis catheter removed. Complete atelectasis left lung. - Consulted Pulmonology, Dr. Regan and he recomends Chest PT 3 times daily. - complete resolution on 05/20/17 Chext X ray Hyperkalemia. Resolved Hypokalemia. Resolved Hypomagnesemia. Mg supplement via PEG tube Severe metabolic acidosis from acute on CKD, - improved after dialysis. last dialysis was on 05/07/17 Lactic acidosis due to Sepsis. resolved History of stroke. Dysphagia. s/p PEG tube placed 05/17/17, tolerating TF s/p colostomy prior to this admission. - cont osteomy care Elevated Troponin. - Non specific. Conservative management. Hypernatremia. Monitor BMP, resolved hyperkalemia - cont fluid, s/p one dose of kayexalate DNR status Patient was DNR and on hospice at SNF unknown to us, so was intubated in ED, so family rescinded hospice and requested full code. Discussion was made with niece on 05/07/17 and she has requested DO NOT RESUSCITATE status. Patient has a poor prognosis. Discussed with family and they agree for SNF with hospice placement. Hospitalist Physical GEN APPEARANCE : Not in acute distress, on Oxygen by nasal canula, malnoiurished HEENT: Normocephalic Atraumatic. NECK : supple, no JVD LUNGS: Decreased breath sounds on right, no rales, no wheeze HEART: S1 and S2 regular, no murmurs, rubs or gallop, ABD: Soft, no tenderness, colostomy, PEG tube, no distension, bowel sounds normal EXT: Contractures, right AKA NEURO: Eyes open, follows commands Subjective Date of service: 05/23/17 Principal diagnosis: Neurogenic Dysphagia Interval history: Patient seen and examined. Medical records and medication list reviewed. No acute event overnight noted by the RN. tolerating TF, K level still 5.4 today, s/p one dose of kayexalate Objective - Constitutional Vitals: Vital Signs - 12hr 05/23/17 15:50 Temperature 97.5 F L Pulse Rate 66 Respiratory 18 Rate Blood Pressure 147/51 O2 Sat by Pulse 100 Oximetry - Labs CBC & Chem 7: 05/22/17 13:28 05/24/17 05:34 Labs: Abnormal lab results 05/23/17 05/23/17 05/23/17 Range/Units 00:11 05:56 12:18 Sodium (137-145) mmol/L Potassium (3.6-5.0) mmol/L Chloride (98-107) mmol/L BUN (7-17) mg/dL Glucose (65-100) mg/dL POC Glucose 160 H 119 H 126 H (70-105) Calcium (8.4-10.2) mg/dL Phosphorus (2.5-4.5) mg/dL Magnesium (1.7-2.3) mg/dL 05/23/17 05/23/17 Range/Units 13:00 17:58 Sodium 132 L (137-145) mmol/L Potassium 5.4 H (3.6-5.0) mmol/L Chloride 95.9 L (98-107) mmol/L BUN 30 H (7-17) mg/dL Glucose 118 H (65-100) mg/dL POC Glucose 143 H (70-105) Calcium 7.3 L (8.4-10.2) mg/dL Phosphorus 1.80 L (2.5-4.5) mg/dL Magnesium 1.60 L (1.7-2.3) mg/dL
[2017-05-24 06:18] LABS: Calcium 7.4 mg/dL (8.4-10.2); Potassium 4.9 mmol/L (3.6-5.0)
[2017-05-24] MEDS: MAGNESIUM SULFATE 2GM/50ML 2 GM/50 ML BAG IV ONE (08:40)
[2017-05-24] MEDS: DepaKENE Liq FEEDTUBE SCH (09:20)
[2017-05-24] MEDS: PROTONIX PO SCH (09:20)
[2017-05-24] MEDS: DAKIN'S FULL STRENGTH TP SCH (09:21)
[2017-05-24] MEDS ORDERED: SODIUM BICARBONATE FEEDTUBE PRN (12:07)
[2017-05-24] MEDS ORDERED: PANCREAZE DR 10,500 UNIT FEEDTUBE PRN (12:07)
[2017-05-24] MEDS ORDERED: SIMPLE SYRUP FEEDTUBE PRN ×2 (12:07)
--- NOTE | 2017-05-24 14:31 | Discharge Summary ---
Providers - Providers Date of Admission: 05/05/17 19:28 Date of discharge: 05/24/17 Attending physician: MACY CROWELL 05/05/17 16:25 Consult to Dietitian/Nutrition [CONS] Routine Physician Instructions: Reason For Exam: Reason for Consult: Write/Manage Tube Feeding 05/05/17 17:32 Consult to Physician [CONS] Urgent Consulting Provider: BENJAMIN NAGEL Reason For Exam: hyperkalemia Place consult to:: Dr. Nagel Notified:: Via his office number Phone number called:: [phone] Was contact made?: Yes If yes, spoke with:: Dr. Nagel Time called:: 16:25 Comment:: Dr. Fernández (er dr) spoke with Dr. Nagel 05/05/17 17:40 Consult to Physician [CONS] Routine Consulting Provider: MATEO VALENTINE Reason For Exam: Vascular catheter placement Place consult to:: Dr. Valentine Notified:: Answering Service Phone number called:: [phone] Was contact made?: Yes If yes, spoke with:: Dr. Valentine Time called:: 17:55 Comment:: Dr. Fernández (er dr) spoke with Dr. Valentine 05/06/17 00:27 Consult to Wound/ET Nurse [CONS] Urgent Reason For Exam: wound eval sacrum draining & infected 05/06/17 13:23 Consult to Physician [CONS] Routine Consulting Provider: MARY LIN Reason For Exam: vomiting, poss ileus Place consult to:: Answering service Notified:: 1702 Phone number called:: [phone] Was contact made?: Yes If yes, spoke with:: Kenny Baltazar called:: 17:02 05/10/17 15:36 Speech Therapy Evaluation and Treat [CONS] Routine Reason For Exam: swallow eval 05/13/17 09:53 Consult to Physician [CONS] Routine Consulting Provider: MARY LIN Reason For Exam: PEG Place consult to:: OFFICE Notified:: YES Phone number called:: [phone] If yes, spoke with:: CYN Baltazar called:: 10:18 Comment:: SANIYA 05/17/17 13:23 Consult to Physician [CONS] Routine Consulting Provider: NITIN REGAN Reason For Exam: complete right lung opacification,atelectasis, Place consult to:: Notified:: Phone number called:: [phone] Was contact made?: Yes If yes, spoke with:: BONIFACIO Time called:: 16:00 Comment:: HEAVEN 05/18/17 11:35 Consult to Dietitian/Nutrition [CONS] Routine Physician Instructions: Reason For Exam: Reason for Consult: Write/Manage Tube Feeding 05/20/17 09:30 Consult to Dietitian/Nutrition [CONS] Routine Physician Instructions: Assess nutrtn needs, initiate, modify, manage TF Reason For Exam: Reason for Consult: Write/Manage Tube Feeding Reason for Consult: Write/Manage Tube Feeding 05/20/17 13:32 Consult to Wound/ET Nurse [CONS] Urgent Reason For Exam: Wound Worsening 05/23/17 14:37 Consult to Dietitian/Nutrition [CONS] Routine Physician Instructions: Assess nutrtn needs, initiate, modify, manage TF Reason For Exam: Reason for Consult: Write/Manage Tube Feeding Reason for Consult: Write/Manage Tube Feeding Primary care physician: CLAY TEMPERER Hospitalization Condition: Poor Pertinent studies: CXRs Abdomen pelvis CT LE CT Modified barrium swallow study Renal US Duplex scan LE Procedures: PEG tube placement Hospital course: She was sent in from [facility] because of shortness of breath, respiratory distress and vomiting. She was hypoxic at SNF and put on Oxygen. On arrival in Emergency Department, she was unresponsive, weak bradycardic pulse. The ED Physician placed a left femoral central line and patient was given Epinephrine and improvement in heart rate and measurable blood pressure. Patient remained hypoxic despite nonrebreather therefore was intubated for acute respiratory failure. After intubation, it was later learned that patient was on hospice and had a DNR order signed just few days earlier on 04/30/17. The family then decided to rescind hospice and request continue aggresive care, full code status. Labs showed acute on chronic kidney disease with hyperkalemia of Potassium 8.6, and severe metabolic acidosis. She was given Bicarb, Calcium iv, started on iv Antibiotics and was admitted to ICU. Her management was driven by clinical course as described below. Discharge diagnosis and management: Acute respiratory failure. - On initial presentation, was intubated in ED and admitted to intensive care unit. - She was extubated 05/07 and is now on oxygen by CO. Respiratory corona she is much improved. Pulmonology was following. Sepsis due to Escherichia coli bacteremia. - treated with Rocephin, repeat blood cx was negative Anemia, likely Anemia of CD - Hemoglobin was 6.3 on admission. s/p total 3 Units PRBC transfusion. Acute on chronic kidney disease with Uremia,metabolic acidosis. - Had emergent dialysis after catheter placed. This is now resolved. - Last dialysis was on 05/07/17 . Dialysis catheter removed. Complete atelectasis left lung. - Consulted Pulmonology, Dr. Regan and he recomends Chest PT 3 times daily. - complete resolution on 05/20/17 Chext X ray Hyperkalemia. Resolved Hypokalemia. Repleted and Resolved Hypomagnesemia. Mg supplement via PEG tube Severe metabolic acidosis from acute on CKD, - improved after dialysis. last dialysis was on 05/07/17 Lactic acidosis due to Sepsis. resolved History of stroke. Dysphagia. s/p PEG tube placed 05/17/17, tolerating TF s/p colostomy prior to this admission. - cont osteomy care Elevated Troponin. - Non specific. Conservative management. Hypernatremia. Monitor BMP, resolved hyperkalemia - cont fluid, s/p one dose of kayexalate DNR status Patient was DNR and on hospice at SNF unknown to us, so was intubated in ED, so family rescinded hospice and requested full code. Discussion was made with niece on 05/07/17 and she has requested DO NOT RESUSCITATE status. Patient has a poor prognosis. Discussed with family and they agree for SNF with hospice placement. Disposition: [facility] ([facility]) Time spent for discharge: 32 minutes Core Measure Documentation - Palliative Care Palliative Care/ Comfort Measures: Hospice Care Exam - Physical Exam Narrative exam: GEN APPEARANCE : Not in acute distress, on Oxygen by nasal canula, malnoiurished HEENT: Normocephalic Atraumatic. NECK : supple, no JVD LUNGS: Decreased breath sounds on right, no rales, no wheeze HEART: S1 and S2 regular, no murmurs, rubs or gallop, ABD: Soft, no tenderness, colostomy, PEG tube, no distension, bowel sounds normal EXT: Contractures, right AKA NEURO: Eyes open, follows commands - Constitutional Vitals: Temp Pulse Resp BP Pulse Ox 97.7 F 64 18 147/46 98 05/24/17 07:48 05/24/17 07:48 05/24/17 10:00 05/24/17 07:48 05/24/17 08:58 Plan Activity: other (bedrest) Diet: per dietitian instruction (tube feeding) Wound: per wound nurse instructions Additional Instructions: Patient will need to f/u with [facility] 1 week after discharge. repeat BMP in one week. Follow up with: PRIMARY CARE,MD [Primary Care Provider] - 7 Days Prescriptions: Amlodipine Besylate [Norvasc] 10 mg PO DAILY #30 tablet Ergocalciferol [Vitamin D2] 1 cap PO QWEEK #7 capsule HYDROcodone/APAP 5-325 [Trafalgar 5-325 mg TAB] 1 each PO Q6H PRN #14 tablet PRN Reason: Pain, Moderate (4-6) Min Oil/Petrolatum [Artificial Tears Ophth Oint] 1 applic OU Q4HR PRN #1 tube PRN Reason: Dry Eye(S) Ranitidine HCl [Acid Control] 150 mg PO Q12H #60 tablet Sodium Hypochlorite [Dakin's Full Strength] 1 applic TP Q12H 10 Days bottle VALPROIC ACID Liq [DepaKENE Liq] 125 mg FEEDTUBE Q12HR 30 Days oral.liqd
--- NOTE | 2017-05-24 15:06 | Progress Note ---
Assessment and Plan - Patient Problems (1) Respiratory failure Current Visit: Yes Status: Acute Plan to address problem: S/P intubation. (2) ALEKSANDER (acute kidney injury) Current Visit: No Status: Acute Plan to address problem: Renal function reviewed. Serum creatinine stable, 1.2 today On Lasix 40 mg BID Obtain daily weights Renally dose medications Avoid Nephrotoxic agents Monitor I/O's (3) Metabolic acidosis Current Visit: Yes Status: Acute Plan to address problem: Resolved (4) Hyperkalemia Current Visit: Yes Status: Acute Plan to address problem: Resolved (5) Anemia Current Visit: Yes Status: Acute Qualifiers: Anemia type: due to chronic kidney disease Chronic kidney disease stage: stage 4 (severe) Qualified Code(s): N18.4 - Chronic kidney disease, stage 4 ( severe); D63.1 - Anemia in chronic kidney disease; D63.1 - Anemia in chronic kidney disease Plan to address problem: Monitor H/H. Transfuse as needed. (6) S/P percutaneous endoscopic gastrostomy (PEG) tube placement Current Visit: Yes Status: Acute Plan to address problem: On tube feedings via PEG . Subjective Date of service: 05/24/17 Principal diagnosis: Neurogenic Dysphagia Interval history: Patient seen lying in bed. No family at bedside. Non-verbal Objective - Vital Signs Vital signs: Vital Signs - 12hr 05/24/17 05/24/17 05/24/17 04:17 07:48 08:58 Temperature 97.4 F L 97.7 F Pulse Rate 85 64 Respiratory 21 18 Rate Blood Pressure 112/52 147/46 O2 Sat by Pulse 92 98 98 Oximetry 05/24/17 10:00 Temperature Pulse Rate Respiratory 18 Rate Blood Pressure O2 Sat by Pulse Oximetry - General Appearance General appearance: cachectic, chronically ill EENT: ATNC, PERRL Neck: no JVD, supple Respiratory: Present: Decreased Breath Sounds Cardiology: regular, S1S2 Gastrointestinal: normoactive bowel sounds, other (colostomy bag) Integumentary: warm and dry Neurologic: other Musculoskeletal: other (No edema. Right AKA.) - Lab 05/22/17 13:28 05/24/17 05:34 Most recent lab results Calcium 7.4 mg/dL (8.4-10.2) L 05/24/17 05:34 Phosphorus 1.80 mg/dL (2.5-4.5) L 05/23/17 13:00 Magnesium 1.60 mg/dL (1.7-2.3) L 05/23/17 13:00
[2017-05-24 15:23] VITALS: BP 143/56
== END 2017-05-24 17:57 | disposition hospice, inpatient (51) | DRG 871 ==
LOC: ED 14:14 → CC1 19:28 → 4A 05-08 16:02 → 2B-ACE 05-10 15:18
PROVIDERS: ADMIT Internal Medicine; ATTEND Internal Medicine
PROC: 02HV33Z Insertion of Infusion Device into Superior Vena Cava, Percutaneous Approach (ICD-10-PCS; principal; 2017-05-05)
PROC: 5A1945Z Respiratory Ventilation, 24-96 Consecutive Hours (ICD-10-PCS; 2017-05-05)
PROC: 0BH17EZ Insertion of Endotracheal Airway into Trachea, Via Natural or Artificial Opening (ICD-10-PCS; 2017-05-05)
PROC: B543ZZA Ultrasonography of Right Jugular Veins, Guidance (ICD-10-PCS; 2017-05-05)
PROC: 4A033R1 Measurement of Arterial Saturation, Peripheral, Percutaneous Approach (ICD-10-PCS; 2017-05-05)
PROC: 06HN33Z Insertion of Infusion Device into Left Femoral Vein, Percutaneous Approach (ICD-10-PCS; 2017-05-05)
PROC: B54CZZA Ultrasonography of Left Lower Extremity Veins, Guidance (ICD-10-PCS; 2017-05-05)
PROC: 30233N1 Transfusion of Nonautologous Red Blood Cells into Peripheral Vein, Percutaneous Approach (ICD-10-PCS; 2017-05-06)
PROC: 3E0G76Z Introduction of Nutritional Substance into Upper GI, Via Natural or Artificial Opening (ICD-10-PCS; 2017-05-17)
PROC: 0DH68UZ Insertion of Feeding Device into Stomach, Via Natural or Artificial Opening Endoscopic (ICD-10-PCS; 2017-05-17)
PROC: 5A1D70Z Performance of Urinary Filtration, Intermittent, Less than 6 Hours Per Day (ICD-10-PCS; 2017-05-17)
DX: A41.51 Sepsis due to Escherichia coli [E. coli] (principal); J96.00 Acute respiratory failure, unspecified whether with hypoxia or hypercapnia; N17.0 Acute kidney failure with tubular necrosis; J69.0 Pneumonitis due to inhalation of food and vomit; I46.9 Cardiac arrest, cause unspecified; E87.2 Acidosis; E87.0 Hyperosmolality and hypernatremia; I69.359 Hemiplegia and hemiparesis following cerebral infarction affecting unspecified side; N18.4 Chronic kidney disease, stage 4 (severe); E87.5 Hyperkalemia; E83.42 Hypomagnesemia; D64.9 Anemia, unspecified; F03.90 Unspecified dementia, unspecified severity, without behavioral disturbance, psychotic disturbance, mood disturbance, and anxiety; I12.9 Hypertensive chronic kidney disease with stage 1 through stage 4 chronic kidney disease, or unspecified chronic kidney disease; E11.22 Type 2 diabetes mellitus with diabetic chronic kidney disease; F20.9 Schizophrenia, unspecified; F32.9 Major depressive disorder, single episode, unspecified; K21.9 Gastro-esophageal reflux disease without esophagitis; Z93.3 Colostomy status; Z89.611 Acquired absence of right leg above knee; Z87.891 Personal history of nicotine dependence; Z66 Do not resuscitate; R13.10 Dysphagia, unspecified; E83.39 Other disorders of phosphorus metabolism; E87.6 Hypokalemia; K44.9 Diaphragmatic hernia without obstruction or gangrene
CPT/HCPCS: 36415; 36430; 36600; 71010; 74000; 74176; 74230; 76770; 80048; 80053; 80061; 80164; 82140; 82550; 82553; 82803; 82805; 82962; 83735; 83880; 83930; 84100; 84484; 85007; 85025; 85027; 85610; 85730; 86706; 86803; 86850; 86900; 86901; 86920; 87040; 87070; 87076; 87186; 87205; 93005; 93010; 94002; 94003; 94644; 94668; 94760; 96361; 96365; 96368; 96375; A6250; G8996-GN; G8997-GN; J0171; J0330; J0461; J0610; J0690; J0696; J0885; J1644; J1815; J1940; J1956; J2270; J2370; J2405; J2543; J2704; J2765; J2997; J3010; J3370; J3475; J3480; J7030; J7040; J7050; J7070; P9016; P9047; Q9963